=== PATIENT | male | born 1950 | race Caucasian/White ===

== ENCOUNTER 2019-04-01 11:12 | Day surgery (SDC) | payer OTHER ==
--- NOTE | 2019-03-31 16:35 | RAD REPORT ---
EXAM DESCRIPTION: RAD - Chest Pa And Lat (2 Views) - 03/31/2019 4:01 pm CLINICAL HISTORY: preop Chest pain. COMPARISON: <Comparisons> FINDINGS: The lungs are clear. The heart is normal in size. No displaced fractures. IMPRESSION: No acute or concerning finding suspected.
[2019-03-31 16:45] LABS: Absolute Lymphocytes (CBC) 1.5 K/uL (0.7-4.9); Basophils % 0.3 % (0-1.3); Hematocrit 50.1 % (39.6-49.0); Lymphocytes % 17.8 % (15.3-44.8); MPV 9.3 fL (7.6-11.3); Monocytes % 6.8 % (3.3-12.3); RBC Red Blood Cell Count 5.49 M/uL (4.33-5.43)
[2019-03-31 16:47] LABS: Urine Appearance CLEAR; Urine Bilirubin NEGATIVE (NEG); Urine Blood NEGATIVE (NEG); Urine Color YELLOW; Urine Glucose NEGATIVE (NEG); Urine Protein NEGATIVE (NEG); Urine Specific Gravity >=1.030 (1.005-1.030); Urine Urobilinogen 0.2 mg/dL (0.2-1.0)
[2019-03-31 16:52] LABS: Urine Microscopic Reflex NO UMIC
[2019-03-31 16:54] LABS: Protime INR 1.02
[2019-03-31 17:04] LABS: Potassium 3.5 mmol/L (3.5-5.1)
--- NOTE | 2019-03-31 22:22 | EKG ---
Test Date: 2019-03-31 Test Time: 15:41:42 Nurse Wound: SÁNCHEZ MEASUREMENT RESULTS: Intervals: Rate: 118 OK: QRSD: 122 QT: 340 QTc: 476 Velma: P: OK: QRS: 10 T: 51 INTERPRETIVE STATEMENTS: Accelerated junctional rhythm or atypical atrial flutter Right bundle branch block Abnormal ECG Compared to ECG 05/22/2015 19:51:54 Uncertain supraventricular rhythm now present Right bundle-branch block now present Sinus rhythm no longer present Electronically Signed On 03-31-19 22:22:19 CDT by Donavan Lopez
[2019-04-01] MEDS ORDERED: NA CHLORIDE 0.9% 1,000 ML ONE (11:32)
[2019-04-01] MEDS ORDERED: GENTAMICIN 80 MG/100 ML BAG 80 MG/100 ML BAG IV ONE (11:54)
[2019-04-01] MEDS ORDERED: FENTANYL CITR 100 MCG/2 ML ONE (12:04)
[2019-04-01] MEDS ORDERED: LIDOCAINE 2% MPF 5 ML VIAL ONE (12:04)
[2019-04-01] MEDS ORDERED: PROPOFOL 200 MG/20 ML VIAL IV ONE (12:04)
[2019-04-01] MEDS ORDERED: MIDAZOLAM HCL 2 MG/2 ML INJ ONE (12:04)
[2019-04-01 14:06] VITALS: BP 145/93; TEMP 98.1; O2SAT 96
== END 2019-04-01 14:32 | disposition home or self-care (01) ==
LOC: OR 11:12
PROVIDERS: ATTEND Urology
PROC: 0T7D8DZ Dilation of Urethra with Intraluminal Device, Via Natural or Artificial Opening Endoscopic (ICD-10-PCS; principal; 2019-04-01 13:30)
DX: N40.1 Benign prostatic hyperplasia with lower urinary tract symptoms (principal); R39.12 Poor urinary stream; N52.9 Male erectile dysfunction, unspecified; Z79.82 Long term (current) use of aspirin; E11.9 Type 2 diabetes mellitus without complications; E78.00 Pure hypercholesterolemia, unspecified; G47.30 Sleep apnea, unspecified; Z79.84 Long term (current) use of oral hypoglycemic drugs; Z79.899 Other long term (current) drug therapy
CPT/HCPCS: 52441; 52442 ×3; 93005; 87088; 85025; 87086; 80048; 36415; 85610; 82962 ×2; 85730; 81003; 71046; J2704; J2250; J3010; J7030; J1580

== ENCOUNTER 2020-02-01 01:24 | Emergency (ER) | payer OTHER ==
[2020-02-01] MEDS ORDERED: MORPHINE 4 MG/ML SYR ONE (01:42)
[2020-02-01] MEDS ORDERED: ONDANSETRON 4 MG/2 ML VIAL ONE ×2 (01:42→04:03)
[2020-02-01 01:57] LABS: Absolute Lymphocytes (CBC) 0.9 K/uL (0.7-4.9); Basophils % 0.3 % (0-1.3); Hematocrit 46.7 % (39.6-49.0); Lymphocytes % 8.5 % (15.3-44.8); MPV 8.7 fL (7.6-11.3)
[2020-02-01 02:19] LABS: Albumin 4.1 g/dL (3.4-5.0); Bilirubin Direct 0.3 mg/dL (0-0.2); Bilirubin Total 0.9 mg/dL (0.2-1.0); Protein, Total 7.9 g/dL (6.4-8.2)
--- NOTE | 2020-02-01 03:44 | ER ---
Nurse's Notes [facility] Name: Magnus Snow Age: 69 yrs Sex: Male : 1950 Arrival Date: 02/01/2020 Time: 01:26 Bed 5 Private MD: Diagnosis: Calculus of kidney with calculus of ureter Presentation: 01/31 01:35 Chief complaint: Patient states: my left lower back is hurting started 3 days ago. I am rr5 trying to pass kidney stone. 01:35 Coronavirus screen: Proceed with normal triage. Ebola Screen: Patient negative for rr5 fever greater than or equal to 101.5 degrees Fahrenheit, and additional compatible Ebola Virus Disease symptoms Patient denies exposure to infectious person. Patient denies travel to an Ebola-affected area in the 21 days before illness onset. Initial Sepsis Screen: Does the patient meet any 2 criteria? No. Patient's initial sepsis screen is negative. Does the patient have a suspected source of infection? No. Patient's initial sepsis screen is negative. Risk Assessment: Do you want to hurt yourself or someone else? Patient reports no desire to harm self or others. Onset of symptoms was January 29, 2020. 01:35 Method Of Arrival: Wheelchair rr5 01:35 Acuity: DEBRA 3 rr5 Triage Assessment: 02:00 General: Appears in no apparent distress. uncomfortable, ill, Behavior is calm, rr5 cooperative, appropriate for age. Historical: - Allergies: 01:55 No Known Allergies; rr5 - Home Meds: 01:55 ozempic [Active]; testosterone gel 1 % OD [Active]; Metformin Oral [Active]; rr5 fenofibrate oral oral [Active]; tamsulosin oral oral [Active]; vardenafil oral oral [Active]; aspirin Oral [Active]; Claritin Oral [Active]; Centrum Silver oral oral [Active]; Vitamin C Oral [Active]; Vitamin D Oral [Active]; vitamin B complex oral oral [Active]; Fish Oil oral oral [Active]; Cinnamon oral oral [Active]; - PMHx: 01:55 Diabetes - NIDDM; rr5 - Immunization history:: Adult Immunizations up to date. - Social history:: Smoking status: unknown Patient/guardian denies using alcohol, street drugs, IV drugs. Screenin:00 Abuse screen: Denies threats or abuse. Denies injuries from another. Nutritional rr5 screening: No deficits noted. Tuberculosis screening: No symptoms or risk factors identified. Fall Risk IV access (20 points). Mental Status- Oriented to own ability (0 pts). Total Sales Fall Scale indicates No Risk (0-24 pts). Assessment: 02:00 General: Appears in no apparent distress. uncomfortable, Behavior is calm, cooperative, rr5 appropriate for age. Pain: Complains of pain in left low back and left mid back Pain radiates to abdomen Pain currently is 10 out of 10 on a pain scale. Quality of pain is described as sharp, shooting, Pain began gradually, Is intermittent. Neuro: Level of Consciousness is awake, alert, obeys commands, Oriented to person, place, time, situation, Appropriate for age. Cardiovascular: Capillary refill < 3 seconds Patient's skin is warm and dry. Respiratory: Airway is patent Respiratory effort is even, unlabored, Respiratory pattern is regular, symmetrical. GI: Abdomen is round non-distended, Bowel sounds present X 4 quads. Abd is soft and non tender X 4 quads. : Reports pain in left flank(s), urinary frequency. EENT: Derm: Skin is intact, is healthy with good turgor, Skin temperature is warm. Musculoskeletal: Circulation, motion, and sensation intact. Capillary refill < 3 seconds. 02:02 Reassessment: Patient appears in no apparent distress at this time. Patient is alert, rr5 oriented x 3, equal unlabored respirations, skin warm/dry/pink. came back from CT scan.awaiting for results. Patient states symptoms have improved. 03:00 Reassessment: Patient appears in no apparent distress at this time. Patient is alert, rr5 oriented x 3, equal unlabored respirations, skin warm/dry/pink. Pain: Pain currently is 6 out of 10 on a pain scale. 03:15 Reassessment: awaiting for CT result. rr5 03:35 Reassessment: Patient appears in no apparent distress at this time. complaining of back rr5 pain. ED provider aware with order made and carried out. 04:20 Reassessment: Patient appears in no apparent distress at this time. Patient is alert, rr5 oriented x 3, equal unlabored respirations, skin warm/dry/pink. discharge instruction given and explained without complaints made. Patient states feeling better. Patient states symptoms have improved. Vital Signs: 01:35 BP 143 / 93; Pulse 90; Resp 19; Temp 98.7; Pulse Ox 99% ; Weight 99.79 kg; Height 5 ft. rr5 11 in. (180.34 cm); Pain 10/10; 03:15 BP 133 / 70; Pulse 80; Resp 19; Pulse Ox 98% on R/A; Pain 6/10; rr5 04:23 BP 124 / 79; Pulse 85; Resp 16; Temp 97.8; Pulse Ox 99% ; Pain 3/10; rr5 01:35 Body Mass Index 30.68 (99.79 kg, 180.34 cm) rr5 ED Course: 01:26 Patient arrived in ED. ds1 01:30 Shoaib Weldon MD is Attending Physician. tw4 01:48 Octaviano Hinkle RN is Primary Nurse. rr5 01:51 Triage completed. rr5 01:56 Arm band placed on right wrist. rr5 02:00 Patient has correct armband on for positive identification. Placed in gown. Bed in low rr5 position. Call light in reach. Side rails up X2. Pulse ox on. NIBP on. 02:15 Inserted saline lock: 20 gauge in right forearm, using aseptic technique. Blood rr5 collected. 02:15 No provider procedures requiring assistance completed. rr5 02:18 CT Stone Protocol In Process Unspecified. EDMS 03:43 Beny Carr MD is Referral Physician. tw4 04:25 IV discontinued, intact, bleeding controlled, No redness/swelling at site. Pressure rr5 dressing applied. Administered Medications: 03:41 CANCELLED (Physician Discretion): TORadol 15 mg IVP once tw4 03:45 Drug: morphine 2 mg {Note: rass 0.} Route: IVP; Site: right forearm; rr5 03:46 Drug: Flomax 0.4 mg Route: PO; rr5 03:50 Drug: Zofran (Ondansetron) 4 mg Route: IVP; Site: right forearm; rr5 Outcome: 03:43 Discharge ordered by . tw4 04:25 Discharged to home via wheelchair, with family. rr5 04:25 Condition: stable 04:25 Discharge instructions given to patient, Instructed on discharge instructions, follow up and referral plans. medication usage, Demonstrated understanding of instructions, follow-up care, medications, Prescriptions given X 3. 04:25 Patient left the ED. rr5 Signatures: Dispatcher [employer] [facility] Shirin Smallwood ds1 Shoaib Weldon MD MD tw4 Octaviano Hinkle RN RN rr5
--- NOTE | 2020-02-01 03:44 | EDPHYS ---
Physician Documentation [facility] Name: Magnus Snow Age: 69 yrs Sex: Male : 1950 Arrival Date: 02/01/2020 Time: 01:26 Bed 5 Private MD: ED Physician Shoaib Weldon HPI: 01/31 03:19 This 69 yrs old Male presents to ER via Wheelchair with complaints of tw4 Possible Kidney Stone. 03:19 The patient complains of pain in the left low back. The pain radiates to the left lower tw4 quadrant. Onset: The symptoms/episode began/occurred today. Modifying factors: The symptoms are alleviated by nothing. the symptoms are aggravated by nothing. Associated signs and symptoms: The patient has no apparent associated signs or symptoms. Severity of pain: At its worst the pain was moderate in the emergency department the pain is unchanged. The patient has not experienced similar symptoms in the past. Historical: - Allergies: 01:55 No Known Allergies; rr5 - Home Meds: 01:55 ozempic [Active]; testosterone gel 1 % OD [Active]; Metformin Oral [Active]; rr5 fenofibrate oral oral [Active]; tamsulosin oral oral [Active]; vardenafil oral oral [Active]; aspirin Oral [Active]; Claritin Oral [Active]; Centrum Silver oral oral [Active]; Vitamin C Oral [Active]; Vitamin D Oral [Active]; vitamin B complex oral oral [Active]; Fish Oil oral oral [Active]; Cinnamon oral oral [Active]; - PMHx: 01:55 Diabetes - NIDDM; rr5 - Immunization history:: Adult Immunizations up to date. - Social history:: Smoking status: unknown Patient/guardian denies using alcohol, street drugs, IV drugs. ROS: 03:19 Constitutional: Negative for fever, chills, and weight loss, Eyes: Negative for injury, tw4 pain, redness, and discharge, Cardiovascular: Negative for chest pain, palpitations, and edema, Respiratory: Negative for shortness of breath, cough, wheezing, and pleuritic chest pain, Abdomen/GI: Negative for abdominal pain, nausea, vomiting, diarrhea, and constipation, MS/Extremity: Negative for injury and deformity, Skin: Negative for injury, rash, and discoloration, Neuro: Negative for headache, weakness, numbness, tingling, and seizure. 03:19 Back: Positive for flank pain, on the left. Exam: 03:19 Constitutional: This is a well developed, well nourished patient who is awake, alert, tw4 and in no acute distress. Head/Face: Normocephalic, atraumatic. Chest/axilla: Normal chest wall appearance and motion. Nontender with no deformity. No lesions are appreciated. Cardiovascular: Regular rate and rhythm with a normal S1 and S2. No gallops, murmurs, or rubs. Normal PMI, no JVD. No pulse deficits. Respiratory: Lungs have equal breath sounds bilaterally, clear to auscultation and percussion. No rales, rhonchi or wheezes noted. No increased work of breathing, no retractions or nasal flaring. Abdomen/GI: Soft, non-tender, with normal bowel sounds. No distension or tympany. No guarding or rebound. No evidence of tenderness throughout. Skin: Warm, dry with normal turgor. Normal color with no rashes, no lesions, and no evidence of cellulitis. MS/ Extremity: Pulses equal, no cyanosis. Neurovascular intact. Full, normal range of motion. 03:19 Back: pain, that is moderate, ROM is normal, CVA tenderness, that is moderate, is noted on the left. Vital Signs: 01:35 BP 143 / 93; Pulse 90; Resp 19; Temp 98.7; Pulse Ox 99% ; Weight 99.79 kg; Height 5 ft. rr5 11 in. (180.34 cm); Pain 10/10; 03:15 BP 133 / 70; Pulse 80; Resp 19; Pulse Ox 98% on R/A; Pain 6/10; rr5 04:23 BP 124 / 79; Pulse 85; Resp 16; Temp 97.8; Pulse Ox 99% ; Pain 3/10; rr5 01:35 Body Mass Index 30.68 (99.79 kg, 180.34 cm) rr5 MDM: 01:30 Patient medically screened. tw4 03:42 Differential diagnosis: nephrolithiasis, pyelonephritis, UTI, diverticulitis, ruptured tw4 AAA, dissecting AAA. Data reviewed: vital signs, nurses notes. Data interpreted: Pulse oximetry: Interpretation: normal. Counseling: I had a detailed discussion with the patient and/or guardian regarding: the historical points, exam findings, and any diagnostic results supporting the discharge/admit diagnosis. Medication response: morphine markedly relieved the patient's pain. Symptoms have improved. Response to treatment: the patient's symptoms have markedly improved after treatment, and as a result, I will discharge patient, administer pain medication. Special discussion: I discussed with the patient/guardian in detail that at this point there is no indication for admission to the hospital. It is understood, however, that if the symptoms persist or worsen the patient needs to return immediately for re-evaluation. Special discussion: Based on the patient's Hx, exam, and Dx evaluation, there is no indication for emergent surgery or inpatient Tx. It is understood by the patient/guardian that if the Sx's persist or worsen they need to return immediately for re-evaluation. 01/31 01:31 Order name: Basic Metabolic Panel [facility] 01/31 01:31 Order name: CBC with Diff 01/31 01:31 Order name: Creatinine for Radiology; Complete Time: 03:41 [facility] 01/31 03:41 Interpretation: Abnormal: GFR 33; CRE 2.02. 01/31 01:31 Order name: Hepatic Function; Complete Time: 03:41 [facility] 01/31 03:41 Interpretation: Normal except: BILID 0.3; ALK 42; GLOB 3.8. 01/31 01:31 Order name: Lipase; Complete Time: 03:41 [facility] 01/31 03:41 Interpretation: Within normal limits: LIP 131. 01/31 01:32 Order name: Basic Metabolic Panel; Complete Time: 03:41 [facility] 01/31 03:41 Interpretation: Normal except: GLUC 127; BUN 25; CRE 2.03; GFR 33. 01/31 01:31 Order name: CT Stone Protocol [facility] 01/31 01:32 Order name: CBC with Automated Diff; Complete Time: 03:41 [facility] 01/31 03:41 Interpretation: Normal except: WBC 11.1; LYM% 8.5; MONTEZ% 82.6; NEUT A 9.2. 01/31 03:44 Order name: Urine Microscopic Only 01/31 03:55 Order name: Urine Dipstick--Ancillary (enter results) az5 01/31 01:31 Order name: IV Saline Lock; Complete Time: 01:48 tw4 01/31 01:31 Order name: Labs collected and sent; Complete Time: 01:48 tw4 01/31 03:44 Order name: Urine Dipstick-Ancillary (obtain specimen); Complete Time: 03:47 tw4 Administered Medications: 03:41 CANCELLED (Physician Discretion): TORadol 15 mg IVP once tw4 03:45 Drug: morphine 2 mg {Note: rass 0.} Route: IVP; Site: right forearm; rr5 03:46 Drug: Flomax 0.4 mg Route: PO; rr5 03:50 Drug: Zofran (Ondansetron) 4 mg Route: IVP; Site: right forearm; rr5 Disposition: 02/01/20 03:43 Discharged to Home. Impression: Calculus of kidney with calculus of ureter. - Condition is Stable. - Discharge Instructions: Kidney Stones, Renal Colic, Kidney Stones, [id number]. - Prescriptions for Tylenol- Codeine #3 300-30 mg Oral Tablet - take 2 tablet by ORAL route every 6 hours As needed; 6 tablet. Flomax 0.4 mg Oral Capsule, Sust. Release 24 hr - take 1 capsule by ORAL route once daily 1/2 hour following the same meal each day; 30 capsule. Tramadol 50 mg Oral Tablet - take 1 tablet by ORAL route every 8 hours as needed; 12 tablet. - Medication Reconciliation Form, Thank You Letter, Antibiotic Education, Prescription Opioid Use form. - Follow up: Private Physician; When: Upon discharge from the Emergency Department; Reason: Recheck today's complaints, Continuance of care, Re-evaluation by your physician. Follow up: Beny Carr MD; When: Upon discharge from the Emergency Department; Reason: Recheck today's complaints, Continuance of care, Re-evaluation by your physician. - Problem is new. - Symptoms have improved. Signatures: Dispatcher [employer] Shoaib Adams MD MD tw4 Octaviano Hinkle RN RN rr5 Corrections: (The following items were deleted from the chart) 03:41 03:40 TORadol 15 mg IVP once ordered. tw4 tw4 03:43 03:43 02/01/2020 03:43 Discharged to Home. Impression: Calculus of kidney with calculus tw4 of ureter. Condition is Stable. Forms are Medication Reconciliation Form, Thank You Letter, Antibiotic Education, Prescription Opioid Use. Follow up: Private Physician; When: Upon discharge from the Emergency Department; Reason: Recheck today's complaints, Continuance of care, Re-evaluation by your physician. Problem is new. Symptoms have improved. tw4 04:25 03:43 02/01/2020 03:43 Discharged to Home. Impression: Calculus of kidney with calculus rr5 of ureter. Condition is Stable. Discharge Instructions: Kidney Stones, Renal Colic, Kidney Stones, [id number]. Prescriptions for Tylenol-Codeine #3 300-30 mg Oral Tablet - take 2 tablet by ORAL route every 6 hours As needed; 6 tablet, Flomax 0.4 mg Oral Capsule, Sust. Release 24 hr - take 1 capsule by ORAL route once daily 1/2 hour following the same meal each day; 30 capsule, Tramadol 50 mg Oral Tablet - take 1 tablet by ORAL route every 8 hours as needed; 12 tablet. and Forms are Medication Reconciliation Form, Thank You Letter, Antibiotic Education, Prescription Opioid Use. Follow up: Private Physician; When: Upon discharge from the Emergency Department; Reason: Recheck today's complaints, Continuance of care, Re-evaluation by your physician. Follow up: Beny Carr; When: Upon discharge from the Emergency Department; Reason: Recheck today's complaints, Continuance of care, Re-evaluation by your physician. Problem is new. Symptoms have improved. tw4
[2020-02-01] MEDS ORDERED: TAMSULOSIN 0.4 MG SR CAP ONE (03:55)
[2020-02-01] MEDS ORDERED: MORPHINE 2 MG/ML SYR ONE (03:55)
[2020-02-01 04:02] LABS: Urine Glucose NEGATIVE (NEG); Urine Specific Gravity >1.030 (1.005-1.030)
[2020-02-01 04:03] LABS: Urine Blood NEGATIVE (NEG); Urine Protein NEGATIVE (NEG); Urine pH 5.5 (5.0-7.0)
[2020-02-01 04:13] LABS: Urine Bacteria <20 /HPF (NONE SEEN); Urine Culture Reflex Order NOT NEEDED; Urine Mucus 1+ /HPF (NONE SEEN); Urine RBC <5 /HPF (NONE SEEN)
[2020-02-01 04:37] VITALS: O2SAT 99
[2020-02-01 04:39] VITALS: BP 124/79; TEMP 97.8
--- NOTE | 2020-02-01 11:19 | RAD REPORT ---
EXAM DESCRIPTION: CT - Stone Protocol - 02/01/2020 6:52 am CLINICAL HISTORY: 69-year-old male with left lower back pain for three days TECHNIQUE: Axial CT imaging of the abdomen and pelvis was performed. Sagittal and coronal reconstr ucted images were then performed. The CT study is performed according to ALARA (as low as reasonably achievable) or ALARA/IMAGE GENTLY, with automatic adjustment of mA and/or kV according to patient siz e. Performed on: 02/01/2020 at 1:58 AM Comparison: Prior CT images from 06/17/2014. The report from the study was not available for review. FINDINGS: Lung bases: The lung bases are clear. There is minimal bibasilar atelectasis and/or fibros is. Liver: The liver is normal in size and configuration. No focal hepatic abnormalities are appreciated on this unenhanced scan. Liver attenuation is within normal limits. Spleen: The spleen is normal is size, configuration and attenuation. No focal splenic abnormalities a re appreciated on this unenhanced scan. Gallbladder and bile duct: The gallbladder is well distended and contains numerous gallstones. Ther e is no biliary ductal dilatation. Pancreas: The pancreas is grossly normal in size and configuration. Adrenal Glands: The adrenal glands are normal in size and configuration. Kidneys: The kidneys are normal in size and configuration. There is mild to moderate left-sided hydro nephrosis and hydroureter with perinephric and periureteral inflammation and edema secondary to a 3 x 3 x 3 mm calcification in the left ureterovesical junction. No additional urinary tract calcificatio ns are identified. No additional focal renal abnormalities are appreciated. Stomach: The stomach is grossly normal. There is no definite hiatal hernia. Bowel: The bowel gas pattern is non specific and non obstructive. There is scattered colonic divertic ulosis. Appendix: The appendix is normal. Free air: There is no evidence of free air. Free fluid: There is no evidence of free fluid. Vasculature: The aorta is normal in caliber and contour. The inferior vena cava is grossly unremarkab le. Lymphadenopathy: No pathologic lymphadenopathy is identified. Bladder: The bladder is well distended and smooth in contour. Again demonstrated is a 3 mm calcificat ion in the left ureterovesical junction. Reproductive: The prostate gland contains brachytherapy seeds. Bones: No acute osseous abnormalities are identified. Soft tissues: No acute focal soft tissue abnormalities are identified. There is a very small fat-cont aining right inguinal hernia. IMPRESSION: 1. Mild to moderate left-sided hydronephrosis and hydroureter with perinephric and periu reteral inflammation and edema secondary to a 3 x 3 x 3 mm calcification in the left ureterovesical j unction. 2. Cholelithiasis without evidence of biliary ductal dilatation. 3. Scattered colonic diverticulosis. 4. There are brachytherapy seeds randomly scattered throughout the prostate gland. 5. Very small fat-containing right inguinal hernia. Electronically signed by: Sally Romero DO 02/01/2020 2:36 AM CDT Due to temporary technical issues with the PACS/Fluency reporting system, reports are being signed by the in house radiologist as a courtesy to ensure prompt reporting. The interpreting radiologist is f ully responsible for the content of the report.
== END 2020-02-01 04:25 | disposition home or self-care (01) ==
LOC: ER 01:24
DX: N20.2 Calculus of kidney with calculus of ureter (principal); E11.9 Type 2 diabetes mellitus without complications; Z79.82 Long term (current) use of aspirin
CPT/HCPCS: 85025; 80048; 36415; 80076; 83690; 76377; 74176; J2270; J2405 ×2; 81003; 81015; 96374; 96375; 99284

== ENCOUNTER 2020-03-06 08:56 | Inpatient (IN) | payer OTHER ==
[2020-03-06 09:55] LABS: Absolute Lymphocytes (CBC) 1.4 K/uL (0.7-4.9); Basophils % 0.7 % (0-1.3); Hematocrit 44.3 % (39.6-49.0); Lymphocytes % 23.9 % (15.3-44.8); MPV 8.9 fL (7.6-11.3); RBC Red Blood Cell Count 4.84 M/uL (4.33-5.43)
[2020-03-06 09:56] LABS: Protime INR 0.95
[2020-03-06 10:22] LABS: Albumin 3.9 g/dL (3.4-5.0); Bilirubin Direct 0.1 mg/dL (0-0.2); Bilirubin Total 0.4 mg/dL (0.2-1.0); Magnesium 2.3 mg/dL (1.8-2.4); Potassium 3.9 mmol/L (3.5-5.1); Protein, Total 7.2 g/dL (6.4-8.2)
[2020-03-06 10:24] LABS: Troponin (Emerg Dept Use Only) 1.73 ng/mL (0.0-0.045)
[2020-03-06] MEDS ORDERED: ASPIRIN 81 MG CHEWABLE TABLET ONE (10:57)
--- NOTE | 2020-03-06 11:35 | RAD REPORT ---
EXAM DESCRIPTION: RAD - Chest Single View - 03/06/2020 10:30 am CLINICAL HISTORY: CHEST PAIN Chest pain. COMPARISON: Abdomen 1 View (KUB) dated 02/04/2020; Chest Pa And Lat (2 Views) dated 02/04/2020; Chest Pa And Lat (2 Views) dated 03/31/2019; CHEST SINGLE VIEW dated 05/22/2015 FINDINGS: Portable technique limits examination quality. The lungs are grossly clear. The heart is normal in size. No displaced fractures. IMPRESSION: No acute intrathoracic process suspected.
--- NOTE | 2020-03-06 12:03 | EDPHYS ---
Physician Documentation [facility] Name: Magnus Snow Age: 69 yrs Sex: Male : 1950 Arrival Date: 03/06/2020 Time: 08:59 Bed 6 Private MD: ED Physician Jaswant Alfaro HPI: 03/06 09:51 This 69 yrs old Male presents to ER via Ambulatory with complaints of Chest mh7 Pain. 09:51 The patient or guardian reports chest pain that is located primarily in the substernal mh7 area. Onset: this morning. The pain radiates to the left arm, back. Associated signs and symptoms: Pertinent negatives: abdominal pain, cough, diaphoresis, dizziness, headache, lower extremity pain, lower extremity swelling, lightheadedness, nausea, near syncope, palpitations, recent travel, shortness of breath, syncope, vomiting. The chest pain is described as Tightness. Duration: The patient or guardian reports multiple episodes, that are intermittent, that wax and wane, with no pattern. Modifying factors: The symptoms are alleviated by nothing. the symptoms are aggravated by nothing. Severity of pain: At its worst the pain was moderate this morning, in the emergency department the pain is unchanged. Historical: - Allergies: 09:16 Codeine; hb 09:16 hydrocodone; hb - Home Meds: 09:16 Aspirin Oral [Active]; Centrum Silver Oral [Active]; Cinnamon Oral [Active]; Claritin hb Oral [Active]; fenofibrate Oral [Active]; Fish Oil Oral [Active]; Metformin Oral [Active]; ozempic [Active]; testosterone gel 1 % OD [Active]; vardenafil Oral [Active]; vitamin B complex Oral [Active]; Vitamin C Oral [Active]; Vitamin D Oral [Active]; tamsulosin Oral [Active]; - PMHx: 09:16 Diabetes - NIDDM; hb - PSHx: 09:16 Heart stents; hb - Immunization history:: Adult Immunizations up to date. - Social history:: Smoking status: Patient denies any tobacco usage or history of. ROS: 09:51 Constitutional: Negative for fever, chills, and weight loss, Eyes: Negative for injury, mh7 pain, redness, and discharge, ENT: Negative for injury, pain, and discharge, Neck: Negative for injury, pain, and swelling, Respiratory: Negative for shortness of breath, cough, wheezing, and pleuritic chest pain, Abdomen/GI: Negative for abdominal pain, nausea, vomiting, diarrhea, and constipation, : Negative for injury, bleeding, discharge, and swelling, MS/Extremity: Negative for injury and deformity, Skin: Negative for injury, rash, and discoloration, Neuro: Negative for headache, weakness, numbness, tingling, and seizure, Psych: Negative for depression, anxiety, suicide ideation, homicidal ideation, and hallucinations, Allergy/Immunology: Negative for hives, rash, and allergies, Endocrine: Negative for neck swelling, polydipsia, polyuria, polyphagia, and marked weight changes, Hematologic/Lymphatic: Negative for swollen nodes, abnormal bleeding, and unusual bruising. Exam: 09:51 Constitutional: This is a well developed, well nourished patient who is awake, alert, mh7 and in no acute distress. Head/Face: Normocephalic, atraumatic. Eyes: Pupils equal round and reactive to light, extra-ocular motions intact. Lids and lashes normal. Conjunctiva and sclera are non-icteric and not injected. Cornea within normal limits. Periorbital areas with no swelling, redness, or edema. ENT: Nares patent. No nasal discharge, no septal abnormalities noted. Tympanic membranes are normal and external auditory canals are clear. Oropharynx with no redness, swelling, or masses, exudates, or evidence of obstruction, uvula midline. Mucous membranes moist. Neck: Trachea midline, no thyromegaly or masses palpated, and no cervical lymphadenopathy. Supple, full range of motion without nuchal rigidity, or vertebral point tenderness. No Meningismus. Chest/axilla: Normal chest wall appearance and motion. Nontender with no deformity. No lesions are appreciated. Cardiovascular: Regular rate and rhythm with a normal S1 and S2. No gallops, murmurs, or rubs. Normal PMI, no JVD. No pulse deficits. Respiratory: Lungs have equal breath sounds bilaterally, clear to auscultation and percussion. No rales, rhonchi or wheezes noted. No increased work of breathing, no retractions or nasal flaring. Abdomen/GI: Soft, non-tender, with normal bowel sounds. No distension or tympany. No guarding or rebound. No evidence of tenderness throughout. Back: No spinal tenderness. No costovertebral tenderness. Full range of motion. Skin: Warm, dry with normal turgor. Normal color with no rashes, no lesions, and no evidence of cellulitis. MS/ Extremity: Pulses equal, no cyanosis. Neurovascular intact. Full, normal range of motion. Neuro: Awake and alert, GCS 15, oriented to person, place, time, and situation. Cranial nerves II-XII grossly intact. Motor strength 5/5 in all extremities. Sensory grossly intact. Cerebellar exam normal. Normal gait. Psych: Awake, alert, with orientation to person, place and time. Behavior, mood, and affect are within normal limits. 09:51 ECG was reviewed by the Attending Physician. Vital Signs: 09:12 BP 172 / 102; Pulse 79; Resp 16; Temp 98; Pulse Ox 98% ; Weight 97.52 kg; Height 5 ft. hb 10 in. (177.80 cm); Pain 2/10; 09:30 BP 143 / 97; Pulse 77; Resp 14; Pulse Ox 95% ; sv 10:00 BP 153 / 104; Pulse 78; Resp 16; Pulse Ox 95% ; sv 11:30 BP 154 / 99; Pulse 81; Resp 14; Pulse Ox 96% ; sv 12:37 BP 144 / 110; Pulse 77; Resp 14; Pulse Ox 97% ; sv 13:13 BP 154 / 101; Pulse 77; Resp 12; Pulse Ox 96% ; sv 09:12 Body Mass Index 30.85 (97.52 kg, 177.80 cm) hb MDM: 09:25 Patient medically screened. 7 11:55 Differential diagnosis: abnormal EKG, acute myocardial infarction, coronary artery mh7 disease chest wall pain, congestive heart failure peptic ulcer disease, pneumonia, unstable angina. HEART Score: History: Moderately Suspicious (1), ECG: Non specific repolarization disturbance / LBTB / PM (1), Age: > or = 65 years (2), Risk Factors: > or = 3 Risk factors for atherosclerotic disease (2), [Hypercholesterolemia] [Hypertension] [DM] Troponin: > or = 3 x Normal Limit (2), Total Score = 8. The patient was given aspirin in the Emergency Department. Data reviewed: vital signs, nurses notes, lab test result(s), cardiac enzymes, CBC, electrolytes, EKG, radiologic studies, plain films. 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 Interpretation: normal. Counseling: I had a detailed discussion with the patient and/or guardian regarding: the historical points, exam findings, and any diagnostic results supporting the discharge/admit diagnosis, the presence of at least one elevated blood pressure reading (>120/80) during this emergency department visit, lab results, radiology results, the need for further work-up and treatment in the hospital. Physician consultation: Moshe Iraheta MD regarding admission, to the telemetry unit. 03/06 09:26 Order name: Basic Metabolic Panel [facility] 03/06 09:26 Order name: CBC with Diff; Complete Time: 10:09 03/06 09:26 Order name: LFT's; Complete Time: 10:45 03/06 09:26 Order name: Magnesium; Complete Time: 10:45 [facility] 03/06 09:26 Order name: NT PRO-BNP; Complete Time: 10:45 03/06 09:26 Order name: PT-INR; Complete Time: 10:09 03/06 09:26 Order name: Troponin (emerg Dept Use Only); Complete Time: 10:45 03/06 09:26 Order name: XRAY Chest (1 view); Complete Time: 11:41 7 03/06 09:26 Order name: EKG; Complete Time: 09:28 [facility] 03/06 09:27 Order name: Basic Metabolic Panel; Complete Time: 10:45 EDMS 03/06 09:26 Order name: Cardiac monitoring; Complete Time: 09:39 03/06 09:26 Order name: EKG - Nurse/Tech; Complete Time: 09:39 03/06 09:26 Order name: IV Saline Lock; Complete Time: 09:46 03/06 09:26 Order name: Labs collected and sent; Complete Time: :46 03/06 09:26 Order name: O2 Per Protocol; Complete Time: 09:32 03/06 09:26 Order name: O2 Sat Monitoring; Complete Time: 09:33 7 EC:51 Rate is 75 beats/min. Rhythm is regular. QRS Elmo is Normal. WA interval is normal. QRS mh7 interval is normal. QT interval is normal. No Q waves. T waves are Normal. No ST changes noted. Clinical impression: Abnormal EKG without significant change. Administered Medications: 11:14 Drug: Aspirin Chewable Tablet 324 mg Route: PO; em 12:00 Follow up: Response: No adverse reaction em 12:42 Drug: Lovenox 1 mg/kg Route: Sub-Q; Site: left lower abdomen; em 13:31 Follow up: Response: No adverse reaction em 13:31 Not Given (Patient Refused): morphine 2 mg IVP once; (PAIN>8) RASS on ADMN: Combtv4, em Very Agttd3, Agttd2, Rstlss1, AlertClm0, Drwsy-1, LtSdtn-2, ModSdtn-3, DpSdtn-4, UnArsble-5 x2 13:31 Not Given (Patient Refused): Zofran (Ondansetron) 4 mg IVP once; over 2 minutes em Disposition: 03/06/20 12:00 Hospitalization ordered by Shaheed Morris for Inpatient Admission. Preliminary diagnosis is Non-ST elevation (NSTEMI) myocardial infarction. - Bed requested for Telemetry/MedSurg (Inpatient). - Status is Inpatient Admission. em - Condition is Stable. - Problem is new. - Symptoms have improved. Signatures: Dispatcher [employer] EDPA Kirsty Rincon RN RN Emmanuel Rome RN RN Lisa Siegel RN RN hb Holmes, Maurice, MD MD 7 Corrections: (The following items were deleted from the chart) 12:54 12:00 Hospitalization Ordered by Shaheed Morris DO for Inpatient Admission. Preliminary konstantin diagnosis is Non-ST elevation (NSTEMI) myocardial infarction. Bed requested for Telemetry/MedSurg (Inpatient). Status is Inpatient Admission. Condition is Stable. Problem is new. Symptoms have improved. 7 13:45 12:54 03/06/2020 12:00 Hospitalization Ordered by Shaheed Morris DO for Inpatient em Admission. Preliminary diagnosis is Non-ST elevation (NSTEMI) myocardial infarction. Bed requested for Telemetry/MedSurg (Inpatient). Status is Inpatient Admission. Condition is Stable. Problem is new. Symptoms have improved. dw
--- NOTE | 2020-03-06 12:03 | ER ---
Nurse's Notes [facility] Name: Magnus Snow Age: 69 yrs Sex: Male : 1950 Arrival Date: 03/06/2020 Time: 08:59 Bed 6 Private MD: Diagnosis: Non-ST elevation (NSTEMI) myocardial infarction Presentation: 03/06 09:12 Chief complaint: Anterior chest pain that radiates to mid back and left arm since 0300 hb today. 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 Denies SOB/nausea. Coronavirus screen: Proceed with normal triage. Ebola Screen: No symptoms or risks identified at this time. Initial Sepsis Screen: Does the patient meet any 2 criteria? No. Patient's initial sepsis screen is negative. Does the patient have a suspected source of infection? No. Patient's initial sepsis screen is negative. Risk Assessment: Do you want to hurt yourself or someone else? Patient reports no desire to harm self or others. Onset of symptoms. 09:12 Method Of Arrival: Ambulatory hb 09:12 Acuity: DEBRA 3 hb Historical: - Allergies: 09:16 Codeine; hb 09:16 hydrocodone; hb - Home Meds: 09:16 Aspirin Oral [Active]; Centrum Silver Oral [Active]; Cinnamon Oral [Active]; Claritin hb Oral [Active]; fenofibrate Oral [Active]; Fish Oil Oral [Active]; Metformin Oral [Active]; ozempic [Active]; testosterone gel 1 % OD [Active]; vardenafil Oral [Active]; vitamin B complex Oral [Active]; Vitamin C Oral [Active]; Vitamin D Oral [Active]; tamsulosin Oral [Active]; - PMHx: 09:16 Diabetes - NIDDM; hb - PSHx: 09:16 Heart stents; hb - Immunization history:: Adult Immunizations up to date. - Social history:: Smoking status: Patient denies any tobacco usage or history of. Screenin:40 Abuse screen: Denies threats or abuse. Nutritional screening: No deficits noted. em Tuberculosis screening: No symptoms or risk factors identified. Fall Risk None identified. Assessment: 09:40 General: Appears in no apparent distress. comfortable, Behavior is calm, cooperative, em appropriate for age. Pain: Complains of pain in mid-sternal area Pain does not radiate. Pain currently is 2 out of 10 on a pain scale. Quality of pain is described as "tight" Pain began 0300 this morning. Neuro: Level of Consciousness is awake, alert, obeys commands, Oriented to person, place, time, situation, Appropriate for age. Cardiovascular: Reports chest pain, Denies diaphoresis, nausea, palpitations, shortness of breath, Capillary refill < 3 seconds Patient's skin is warm and dry. Rhythm is sinus rhythm. Respiratory: Airway is patent Respiratory effort is even, unlabored, Respiratory pattern is regular, symmetrical, Denies cough, shortness of breath. Derm: Skin is intact, is healthy with good turgor, Skin is pink, warm \\T\\ dry. Musculoskeletal: Capillary refill < 3 seconds, Range of motion: intact in all extremities. 10:09 Reassessment: pt currently wants to hold on the medications. em 11:10 Reassessment: Patient appears in no apparent distress at this time. Patient and/or em family updated on plan of care and expected duration. Pain level reassessed. Patient is alert, oriented x 3, equal unlabored respirations, skin warm/dry/pink. 11:54 Reassessment: Dr Morris at the bedside. sv 12:42 Reassessment: Patient appears in no apparent distress at this time. Patient and/or em family updated on plan of care and expected duration. Pain level reassessed. Patient is alert, oriented x 3, equal unlabored respirations, skin warm/dry/pink. Vital Signs: 09:12 BP 172 / 102; Pulse 79; Resp 16; Temp 98; Pulse Ox 98% ; Weight 97.52 kg; Height 5 ft. hb 10 in. (177.80 cm); Pain 2/10; 09:30 BP 143 / 97; Pulse 77; Resp 14; Pulse Ox 95% ; sv 10:00 BP 153 / 104; Pulse 78; Resp 16; Pulse Ox 95% ; sv 11:30 BP 154 / 99; Pulse 81; Resp 14; Pulse Ox 96% ; sv 12:37 BP 144 / 110; Pulse 77; Resp 14; Pulse Ox 97% ; sv 13:13 BP 154 / 101; Pulse 77; Resp 12; Pulse Ox 96% ; sv 09:12 Body Mass Index 30.85 (97.52 kg, 177.80 cm) ED Course: 08:59 Patient arrived in ED. ag5 09:12 Arm band placed on. hb 09:13 Jaswant Alfaro MD is Attending Physician. mh7 09:14 Triage completed. hb 09:14 EKG done, by ED staff, reviewed by Jaswant Alfaro MD. jb1 09:17 Emmanuel Rome, MATEO is Primary Nurse. em 09:40 Initial lab(s) drawn, by me, sent to lab. Inserted saline lock: 20 gauge in right em forearm, using aseptic technique. Blood collected. Patient maintains SpO2 saturation greater than 95% on room air. 09:40 Patient has correct armband on for positive identification. Placed in gown. Bed in low em position. Call light in reach. Side rails up X2. ekg monitor tech on. Pulse ox on. NIBP on. 10:30 XRAY Chest (1 view) In Process Unspecified. EDMS 12:00 Shaheed Morris DO is Hospitalizing Provider. [facility] 13:41 No provider procedures requiring assistance completed. Patient admitted, IV remains in em place. Administered Medications: 11:14 Drug: Aspirin Chewable Tablet 324 mg Route: PO; em 12:00 Follow up: Response: No adverse reaction em 12:42 Drug: Lovenox 1 mg/kg Route: Sub-Q; Site: left lower abdomen; em 13:31 Follow up: Response: No adverse reaction em 13:31 Not Given (Patient Refused): morphine 2 mg IVP once; (PAIN>8) RASS on ADMN: Combtv4, em Very Agttd3, Agttd2, Rstlss1, AlertClm0, Drwsy-1, LtSdtn-2, ModSdtn-3, DpSdtn-4, UnArsble-5 x2 13:31 Not Given (Patient Refused): Zofran (Ondansetron) 4 mg IVP once; over 2 minutes em Outcome: 12:00 Decision to Hospitalize by Provider. mh7 13:41 Admitted to Tele accompanied by carlos, via wheelchair, room 222, with chart, Report em called to MATEO Kruse 13:41 Condition: good 13:41 Instructed on the need for admit, Demonstrated understanding of instructions. 13:45 Patient left the ED. em Signatures: Dispatcher [employer] EDMS Lex Rosenbaum [email or web address] Isabella Molina RN RN Emmanuel Negrete RN RN Lisa Staton RN RN Flaquita Parsons 5 Jaswant Alfaro MD MD 7
[2020-03-06] MEDS ORDERED: ENOXAPARIN 100 MG/ML SYR SQ ONE (12:19)
--- NOTE | 2020-03-06 12:40 | P.HP ---
Certification for Inpatient Patient admitted to: Inpatient With expected LOS: >2 Midnights Patient will require the following post-hospital care: None Practitioner: I am a practitioner with admitting privileges, knowledge of patient current condition, hospital course, and medical plan of care. Services: Services provided to patient in accordance with Admission requirements found in Title 42 Section 412.3 of the Code of Federal Regulations Patient History Date of Service: 03/06/20 Primary Care Provider: Dr. Montelongo Reason for admission: Chest pain History of Present Illness: 69-year-old male with history of diabetes, hypertension, hyperlipidemia, and CAD with prior stent. Patient presented with chest pain. Chest pain presented at 3:00 a.m. this morning. It was to the substernal region. There was slight radiation just to the border on the left side. He also reported some left arm tingling. The pain was constant. He will reported the pain as similar to his prior NM 14 years ago which required a stent. He has noted some chest pain with exertion as of late. It resolves with rest. He denies any nausea, vomiting, dizziness, or diaphoresis. He came to the ER for further evaluation. In the ER patient was evaluated peer blood pressure was elevated. CBC unremarkable with white count 6.0, hemoglobin 15. Platelet count 163. Sodium 141, potassium 3.8. BUN of 29, creatinine 1.33 with a GFR 54. Glucose 124. EKG shows no significant ST elevation. Chest x-ray unremarkable. Troponin was elevated at 1.73. Patient admitted for further evaluation of NSTEMI. When I saw the patient ER, the patient appeared stable. He is without chest pain at this time. Allergies codeine Allergy (Verified 03/31/19 15:30) Unknown hydrocodone [Hydrocodone] Adverse Reaction (Mild, Verified 03/31/19 15:30) Hives Home medications list reviewed: Yes Home Medications: Aspirin [Aspirin EC 81 MG] 81 mg PO DAILY 03/31/19 Cholecalciferol (Vitamin D3) [Vitamin D3] 1,000 unit PO DAILY 03/31/19 Fenofibrate 150 mg PO DAILY 03/31/19 Loratadine/Pseudoephedrine [Claritin-D 24 Hour Tablet] 1 each PO DAILY 03/31/19 Metformin HCl [Glucophage] 500 mg PO BIDWM 03/31/19 Multivit-Mins/Iron/Folic/Lycop [Centrum Men's Tablet] 1 each PO DAILY 03/31/19 Tamsulosin HCl [Flomax] 0.4 mg PO DAILY 03/31/19 Vardenafil HCl [Levitra] 20 mg PO DAILY 03/31/19 Vitamin B Complex [B-Complex Vitamin] 1 cap PO DAILY 03/31/19 - Past Medical/Surgical History Diabetic: No -: Diabetes mellitus type 2 [id number] -: Hypertension -: Hyperlipidemia -: CAD with prior stent -: Cardiac stent x1 Psychosocial/ Personal History: Patient is . 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 - Family History Father -: Heart disease - Social History Smoking Status: Never smoker Alcohol use: No CD- Drugs: No Caffeine use: Yes Place of Residence: Home Review of Systems General: As per HPI Eyes: Unremarkable ENT: Unremarkable Respiratory: Unremarkable Cardiovascular: Chest Pain, As per HPI Gastrointestinal: Unremarkable Genitourinary: Unremarkable Musculoskeletal: Unremarkable Integumentary: Unremarkable Neurological: Unremarkable Lymphatics: Unremarkable Physical Examination - Physical Exam General: Alert, In no apparent distress, Oriented x3, Cooperative HEENT: Atraumatic, Normocephalic, PERRLA, Mucous membr. moist/pink Neck: Supple Respiratory: Clear to auscultation bilaterally, Normal air movement Cardiovascular: Normal pulses, Regular rate/rhythm Gastrointestinal: Normal bowel sounds, Soft and benign, Non-distended, No tenderness, No masses, No rebound, No guarding Musculoskeletal: No erythema, No tenderness, No warmth Integumentary: No tenderness/swelling, No erythema, No warmth, No cyanosis Neurological: Normal speech, Normal strength at 5/5 x4 extr, Normal tone, Normal affect - Studies Laboratory Data (last 24 hrs) 03/06/20 09:40: PT 11.2, INR 0.95 03/06/20 09:40: WBC 6.0, Hgb 15.0, Hct 44.3, Plt Count 163 03/06/20 09:40: Sodium 141, Potassium 3.9, BUN 29 H, Creatinine 1.33 H, Glucose 124 H, Magnesium 2.3, Total Bilirubin 0.4, AST 24, ALT 23, Alkaline Phosphatase 42 L Assessment and Plan - Plan Impression: Chest pain secondary to NSTEMI with history of CAD and prior stent Hypertension on controlled Diabetes mellitus type 2 nom-npirgtt-hdxqtyscd with hyperglycemia Acute renal injury in patient may have underlying chronic renal disease stage III Hyperlipidemia Plan: Chest pain secondary to NSTEMI with history of CAD and prior stent: Patient will be admitted for further evaluation and treatment. Case discussed with cardiology and his PCP-Dr. Montelongo, who will see him tomorrow. NM protocol in place. Will start Lovenox at 1 milligram/kilogram subcu twice daily, [id number] mg daily, Plavix 75 mg daily, Lipitor 80 mg daily, and metoprolol 50 mg BID. Echocardiogram ordered. Will continue monitor the patient closely. Electrolyte protocol in place. Will provide medication for chest pain if required. Anticipate improvement. Cardiology plans for heart catheterization on Sunday due to holiday weekend. I will turn the patient over to Dr. Montelongo tomorrow to continue his care. Case discussed with patient and family. All are agreement with plan of care. Hypertension uncontrolled: Will start metoprolol 50 mg 1 pill twice daily. Wi ll continue and to adjust medication for better control. Diabetes mellitus type 2 [id number]-ivehoolwu with hyperglycemia: Will hold metformin at this time in preparation for heart catheterization. Will continue monitor Accu-Cheks and provide insulin sliding scale. Will check A1c. Acute renal injury in patient may have underlying chronic renal disease stage III: Patient may have underlying chronic renal disease. Will check renal ultrasound. Will start low-dose IV fluids. Will hold metformin at this time. Will consult Nephrology to further evaluate in preparation for heart catheterization. Hyperlipidemia: Will check fasting lipid panel. Will start Lipitor 80 mg daily. Continue home medication of phenyl fibrate. Discharge Plan: Home Plan to discharge in: Greater than 2 days - Advance Directives Does patient have a Living Will: No Does patient have a Durable POA for Healthcare: No - Code Status/Comfort Care Code Status Assessed: Yes (Patient is full code) Time Spent Managing Pts Care (In Minutes): 55
[2020-03-06 13:51] VITALS: BMI 30.2
[2020-03-06] MEDS ORDERED: MORPHINE 4 MG/ML SYR IV PRN (14:05)
[2020-03-06] MEDS ORDERED: ACETAMINOPHEN 500 MG TAB PO PRN (14:05)
[2020-03-06] MEDS ORDERED: PROMETHAZINE 12.5 MG/SUPP PR PRN (14:37)
[2020-03-06] MEDS: NA CHLORIDE 0.9% 1,000 ML IV SCH (15:01)
[2020-03-06] MEDS: METOPROLOL TAR 50 MG TAB PO SCH ×2 (15:01→22:00)
[2020-03-06] MEDS: CLOPIDOGREL 75 MG TABLET PO SCH (15:01)
[2020-03-06] MEDS ORDERED: PNEUMOCOCCAL VACCINE 0.5 ML IMVAC ONE (16:00)
[2020-03-06] MEDS: INSULIN -REGULAR HUMAN 50 UNIT/0.5 ML ML SQ SCH ×2 (16:09→21:00)
--- NOTE | 2020-03-06 16:20 | RAD REPORT ---
EXAM DESCRIPTION: US - Renal Ultrasound-Complete - 03/06/2020 4:13 pm CLINICAL HISTORY: Acute renal injury suspect chronic disease Flank pain COMPARISON: No comparisons FINDINGS: Both kidneys are normal in size, shape and echotexture. The right kidney measures 11.6 x 5.6 x 4.9 cm. No hydronephrosis, focal mass or perinephric fluid. The left kidney measures 12.2 x 4.6 x 4.5 cm. No hydronephrosis, focal mass or perinephric fluid. The urinary bladder is incompletely distended without gross abnormality seen. IMPRESSION: Unremarkable renal sonogram.
[2020-03-06] MEDS: FENOFIBRATE 160 MG TAB PO SCH (17:29)
[2020-03-06 20:01] LABS: CKMB Creatine Kinase MB 29.6 ng/mL (0.3-3.6)
[2020-03-06] MEDS: ATORVASTATIN 80 MG TAB PO SCH (22:00)
[2020-03-06] MEDS: FAMOTIDINE 20 MG TAB PO SCH (22:00)
[2020-03-06] MEDS: ENOXAPARIN 100 MG/ML SYR SQ SCH (22:01)
--- NOTE | 2020-03-07 01:23 | PN ---
Date of Nephrology consultation Note: 03/06/2020 Chief Complaint: Acute on chronic kidney injury, acute coronary syndrome. Patient has multiple medical problems including history of diabetes mellitus, hypertension, hyperlipidemia, coronary artery disease, previous stent placement. History: Patient presented to the hospital because of chest pain. 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 He was complaining of left arm tingling. He reports similar episodes 14 years ago when he had a myocardial infarction. Patient denies nausea, vomiting, dizziness, or diaphoresis. In the emergency room, patient was found to have elevated BUN and creatinine. BUN was 29 and creatinine was 1.33. Recently, creatinine was up to 2.0. Previous baseline creatinine was 1.1. Patient has history of chronic kidney disease stage 3. Developed prerenal azotemia. EKG shows no significant ST elevation and chest x-ray was unremarkable. In the emergency room, troponin level was 1.7. Review of Systems: Eyes: Denies new vision changes. Respiratory: Denies PND, orthopnea. Cardiovascular: Had chest pain as stated above. GI: Denies nausea, vomiting. : Denies hematuria, dysuria, incomplete voiding. All other systems reviewed and all are negative. Past Medical History: Diabetes mellitus, noninsulin dependent; BPH; hypertension; hyperlipidemia; coronary artery disease; previous myocardial infarctions with stent placement, cardiac stent x1; hypertensive heart and kidney disease; chronic kidney disease stage 3. Family History: Heart disease. Social History: Denies tobacco, alcohol, or illicit drugs. Physical Examination: General: Patient is alert, not in acute distress. Oriented, cooperative. HEENT: Anicteric sclerae. EOMI. Respiratory: Clear to auscultation bilaterally. Heart: S1, S2. No pericardial friction rub. Gastrointestinal: Normal bowel sounds. No rebound. No guarding. Musculoskeletal: No edema, no clubbing, no cyanosis. Neurologic: Moving extremities. Cranial nerves intact. Skin: Warm and dry. No skin rashes. Laboratory Data: Hemoglobin 15.0, hematocrit 44.3, platelet count 163,000. Sodium 141, potassium 3.9, BUN 29, creatinine 1.33, glucose 124, magnesium 2.3. Renal ultrasound was ordered and pending. Impression And Plan: 1. Patient is admitted for chest pain. He has history of coronary artery disease and he was found to have elevated troponin. He is admitted for non-ST elevation myocardial infarction. He has history of diabetes mellitus and was found to have hyperglycemia. Acute kidney injury is secondary to cardiorenal syndrome. He has nonoliguric urine output. Patient will be treated for acute coronary syndrome and non-ST elevation myocardial infarction and he is started on anticoagulation and statin. Plan is to continue to monitor electrolytes and fluid balance. Diuretic as needed to control fluid overload. 2. Patient has underlying chronic kidney. Patient has history of diabetes mellitus, likely there is some element of diabetic kidney disease. Patient is not a candidate for metformin due to chronic and acute kidney disease. 3. Diabetes mellitus. Continue insulin. 4. Hypertension. Continue blood pressure medication. Adjust medication for systolic blood pressure 120. SHANIQUE/KARIE Voice ID: [id number] Report ID: [id number] MTDD
[2020-03-07 04:05] LABS: Absolute Lymphocytes (CBC) 1.3 K/uL (0.7-4.9); Basophils % 0.9 % (0-1.3); Hematocrit 43.4 % (39.6-49.0); Lymphocytes % 24.5 % (15.3-44.8); MPV 9.1 fL (7.6-11.3)
[2020-03-07 04:10] LABS: Protime INR 1.07
[2020-03-07 04:30] LABS: Magnesium 2.2 mg/dL (1.8-2.4); Potassium 4.1 mmol/L (3.5-5.1); Thyroid Stimulating Hormone 0.782 uIU/mL (0.360-3.740)
[2020-03-07 04:37] LABS: CKMB Creatine Kinase MB 18.7 ng/mL (0.3-3.6); Troponin I 19.6 ng/mL (0.0-0.045)
--- NOTE | 2020-03-07 07:27 | CON ---
Date of Consultation: 03/06/2020 Patient was admitted on 03/06/2020. I saw the patient on 03/06/2020. Reason For Consultation: Spa-TL-pldyxdccj myocardial infarction. History Of Present Illness: Mr. Snow is a 69-year-old male. He has been followed in our clinic i ntermittently. Has been seen by Dr. Lopez in the past. He has a history of coronary artery disease and stent many years ago. He does not remember the last time he had a stress test. He also has a h istory of diabetes, hypertriglyceridemia, came in with chest pain that is described as pressure and s oreness in the anterior chest without any nausea, vomiting, diaphoresis, PND, orthopnea, pedal edema, palpitation, or syncope. His chest pain was mild, 4 to 6 on a scale of 10, but it was persistent an d he came to the emergency room where he was found to have a troponin of 1.7 and was admitted for fur ther evaluation and treatment. Past Medical History: As stated above. Allergies: HE IS ALLERGIC TO CODEINE. Review of Systems: Negative. Social History: Negative. Family History: Negative. Medications: At home include aspirin, metformin, and fenofibrate. Physical Examination: General: He was very pleasant. No acute distress. Vital Signs: Stable. Afebrile. HEENT: Negative. Neck: Supple without any bruit, lymphadenopathy, JVD, or thyromegaly. Chest: Clear to auscultation and percussion. Cardiac: Revealed a regular rhythm and rate. No murmurs, gallops, or rubs. Abdomen: Benign. Extremities: Revealed no clubbing, cyanosis, or edema. Diagnostic Data: As stated earlier. Chest x-ray was negative. EKG revealed nonspecific changes. Impression And Plan: Patient with history of coronary artery disease, status post stent with non-ST- elevation myocardial infarction. He is presently asymptomatic. He is on aspirin, Plavix, metoprolol , and Lovenox as well as metformin and fenofibrate. I would continue his present regimen for now. I will plan to do a left heart catheterization early next week to define his coronary anatomy. He und erstands the risk and the benefits of the procedure and agrees to proceed. His diabetes is fairly we ll controlled. Depending on how Mr. Snow does over the next 2 days, I may send him home if he is asymptomatic and bring him back and do the catheterization as an outpatient. MICKEY/KARIE Voice ID: [id number] Report ID: [id number]
[2020-03-07] MEDS: INSULIN -REGULAR HUMAN 50 UNIT/0.5 ML ML SQ SCH ×4 (07:30→20:45)
--- NOTE | 2020-03-07 08:08 | EKG ---
Test Date: 2020-03-06 Test Time: 09:13:23 Senior Accounts Payable Clerk: MARLEE MEASUREMENT RESULTS: Intervals: Rate: 75 NJ: 166 QRSD: 142 QT: 426 QTc: 475 Belt: P: 53 NJ: 166 QRS: 31 T: 57 INTERPRETIVE STATEMENTS: Normal sinus rhythm Right bundle branch block Abnormal ECG Compared to ECG 03/31/2019 15:41:42 Accelerated junctional rhythm no longer present Atrial flutter no longer present Electronically Signed On 03-07-20 08:07:29 CDT by Moshe Iraheta
[2020-03-07] MEDS: ASPIRIN EC 81 MG TAB PO SCH (09:41)
[2020-03-07] MEDS: ENOXAPARIN 100 MG/ML SYR SQ SCH ×2 (09:41→20:44)
[2020-03-07] MEDS: CLOPIDOGREL 75 MG TABLET PO SCH (09:41)
[2020-03-07] MEDS: METOPROLOL TAR 50 MG TAB PO SCH ×2 (09:41→20:44)
[2020-03-07] MEDS: FAMOTIDINE 20 MG TAB PO SCH ×2 (09:41→20:45)
[2020-03-07] MEDS: NA CHLORIDE 0.9% 1,000 ML IV SCH (09:43)
--- NOTE | 2020-03-07 10:35 | PN ---
Date of Progress Note: 03/07/2020 Subjective: Mr. Snow came in yesterday with a non-ST elevation myocardial infarction. The tropon in went up to 18. His EKG shows a right bundle-branch block. He has been on aspirin, Plavix, metopr olol, and Lipitor as well as Lovenox. He is pain free today. No arrhythmias. I plan to do a left h eart catheterization with possible coronary intervention on him on Sunday. Tomorrow is a holiday. He is not very enthusiastic about staying in the hospital until then. Dr. Montelongo will see the patie nt today. I would like him to at least be ambulatory in the afternoon and see how he does and then d ecide on discharging him later. Continue present regimen for now. MICKEY/KARIE Voice ID: [id number] Report ID: [id number]
--- NOTE | 2020-03-07 14:48 | PN ---
Date of Progress Note: 03/07/2020 The patient states he is basically asymptomatic; however, he has not done much in the way of activity . His enzyme actually went up and he is scheduled for Sunday. I feel it will be much better if he is staying in the hospital until then. He was instructed to increase his activity somewhat to see wh at kind of response he would get both symptomatic joseph and telemetry. In regard to the renal situati on, the patient does state over the past year or so, he has been taking the OTC anti-inflammatories o n a regular basis. Obviously, this will change at the time of his discharge. Also significant to no te that his stent was the LAD and when I have seen him in the past, he states he was not told of anyt shade in regard to his renal dysfunction and this stent he states was placed at [facility] by Dr. Lau over a decade ago and from his perspective, basically asymptomatic and he does do physical activity. Therefore, I am assuming that he has been stable up until this episode. He was in the ER about 6-8 weeks ago for pain secondary to renal stones, which he has a history of and states he has been asympt omatic since. HR/MODL Voice ID: [id number] Report ID: [id number]
[2020-03-07] MEDS: FENOFIBRATE 160 MG TAB PO SCH (16:10)
[2020-03-07] MEDS: ATORVASTATIN 80 MG TAB PO SCH (20:45)
--- NOTE | 2020-03-08 00:15 | PN ---
Date of Progress Note: 03/07/2020 Chief Complaint: Acute on chronic kidney injury, nonoliguric, associated with acute coronary syndrome. Patient has underlying history of diabetes mellitus, hypertension, hyperlipidemia, coronary artery disease, and previous stent. Review of Systems: Denies chest pain, palpitations. Physical Examination: Lungs: Few crackles at bases. Heart: S1, S2. Abdomen: Soft, benign. Extremities: No edema. Laboratory Data: Sodium 141, potassium 4.1, chloride 109, CO2 27, BUN 22, creatinine 1.23, calcium 9.2, magnesium 2.2. Troponin 19.6. Impression And Plan: 1. Acute kidney injury on chronic kidney disease. Renal function is improving gradually. Patient has renal ultrasound done and it did not show hydronephrosis. Unremarkable renal sonogram without urinary bladder distention. 2. Continue diuretic as needed for congestive heart failure. Patient was evaluated by Cardiology. He may need further workup including angiogram. He will require Mucomyst as a part of current medications for possible coronary intervention with catheterization. I spent total 36 min including 25 min to coordinate care plan. SHANIQUE/KARIE Voice ID: [id number] Report ID: [id number] RODRICK
[2020-03-08 05:49] LABS: Magnesium 2.2 mg/dL (1.8-2.4); Potassium 4.2 mmol/L (3.5-5.1)
[2020-03-08 05:53] LABS: Absolute Lymphocytes (CBC) 1.4 K/uL (0.7-4.9); Hematocrit 42.5 % (39.6-49.0); Lymphocytes % 28.2 % (15.3-44.8); MPV 9.4 fL (7.6-11.3); RBC Red Blood Cell Count 4.67 M/uL (4.33-5.43)
[2020-03-08] MEDS: INSULIN -REGULAR HUMAN 50 UNIT/0.5 ML ML SQ SCH ×4 (07:30→20:52)
[2020-03-08] MEDS: CLOPIDOGREL 75 MG TABLET PO SCH (09:21)
[2020-03-08] MEDS: ENOXAPARIN 100 MG/ML SYR SQ SCH ×2 (09:21→20:51)
[2020-03-08] MEDS: ASPIRIN EC 81 MG TAB PO SCH (09:21)
[2020-03-08] MEDS: METOPROLOL TAR 50 MG TAB PO SCH ×2 (09:21→20:51)
[2020-03-08] MEDS: FAMOTIDINE 20 MG TAB PO SCH ×2 (09:21→20:51)
[2020-03-08] MEDS: ACETYLCYST 20% 800 MG/4 ML VIAL PO SCH ×2 (09:27→20:51)
[2020-03-08] MEDS: NA CHLORIDE 0.9% 1,000 ML IV SCH (09:30)
--- NOTE | 2020-03-08 13:45 | PN ---
Date of Progress Note: 03/08/2020 Subjective: Mr. Snow had been admitted with non-ST elevation myocardial infarction. He is on Anukr enox, Plavix, aspirin, metoprolol, and statin. He also takes fenofibrate at home. Overnight, he is pain free. His EKG shows sinus rhythm with right bundle-branch block. No arrhythmias on telemetry. His vital signs remained stable and afebrile. His examination remained negative for congestive hear t failure. The plan is for a heart catheterization tomorrow with possible intervention. This case w as discussed with him and his , and he understands the risks and the benefits of the procedure, a nd he agrees to proceed. MICKEY/KARIE Voice ID: [id number] Report ID: [id number]
[2020-03-08] MEDS: FENOFIBRATE 160 MG TAB PO SCH (17:26)
--- NOTE | 2020-03-08 19:33 | PN ---
Date of Progress Note: 03/08/2020 The patient has been asymptomatic in the past 24 hours. He had 1 episode of ventricular tachycardia, slightly hypertensive. However, when up and about, he said he had no chest pressure or a sensation of any kind. His creatinine is now back to normal. He has been seen by Nephrology, scheduled for a catheterization in the morning. HR/MODL Voice ID: [id number] Report ID: [id number]
[2020-03-08] MEDS: ATORVASTATIN 80 MG TAB PO SCH (20:51)
--- NOTE | 2020-03-09 00:15 | PN ---
Date of Progress Note: 03/08/2020 Chief Complaint: Acute on chronic kidney injury, nonoliguric, associated with acute coronary syndrome. Patient has underlying history of diabetes mellitus, hypertension, hyperlipidemia, coronary artery disease. Review of Systems: Denies new complaints. Physical Examination: Lungs: Diminished breath sounds at bases. Heart: S1, S2. ABDOMEN: Soft, benign. Extremities: No edema. Impression And Plan: Acute on chronic kidney injury. Renal function is improving gradually. Patient had renal ultrasound done and it did not show hydronephrosis. Unremarkable renal ultrasound without urinary bladder distention. Patient will continue diuretics for congestive heart failure. Patient is to have cardiac catheterization, and he will require Mucomyst as a part of the medications for possible coronary intervention with cardiac catheterization. I spent total 36 min including 25 min to coordinate care plan. SHANIQUE/KARIE Voice ID: [id number] Report ID: [id number] RODRICK
[2020-03-09] MEDS: NA CHLORIDE 0.9% 1,000 ML IV SCH ×2 (02:00→05:56)
[2020-03-09 04:52] LABS: Absolute Lymphocytes (CBC) 1.7 K/uL (0.7-4.9); Basophils % 0.9 % (0-1.3); Hematocrit 47.2 % (39.6-49.0); Lymphocytes % 25.3 % (15.3-44.8); RBC Red Blood Cell Count 5.16 M/uL (4.33-5.43)
[2020-03-09 05:07] LABS: Magnesium 2.2 mg/dL (1.8-2.4); Potassium 4.4 mmol/L (3.5-5.1)
[2020-03-09] MEDS: METOPROLOL TAR 50 MG TAB PO SCH ×2 (05:55→21:30)
[2020-03-09] MEDS: ASPIRIN EC 81 MG TAB PO SCH (05:56)
[2020-03-09] MEDS: CLOPIDOGREL 75 MG TABLET PO SCH (05:56)
[2020-03-09] MEDS: INSULIN -REGULAR HUMAN 50 UNIT/0.5 ML ML SQ SCH ×4 (07:30→21:00)
[2020-03-09] MEDS: FAMOTIDINE 20 MG TAB PO SCH ×2 (08:33→21:30)
[2020-03-09] MEDS: ACETYLCYST 20% 800 MG/4 ML VIAL PO SCH ×4 (08:33→21:29)
[2020-03-09] MEDS ORDERED: HEPARIN 5000 UNIT/ML 1 ML VIAL ONE ×2 (09:58→10:00)
[2020-03-09] MEDS ORDERED: MIDAZOLAM HCL 2 MG/2 ML INJ ONE (09:59)
[2020-03-09] MEDS ORDERED: FENTANYL CITR 100 MCG/2 ML ONE (09:59)
[2020-03-09] MEDS ORDERED: NICARDIPINE HCL 25 MG/10 ML IV ONE (09:59)
[2020-03-09] MEDS ORDERED: ATROPINE SULF 1 MG/10 ML SYR IV ONE (09:59)
[2020-03-09] MEDS ORDERED: HEPA 1000U/500MLS 2,000 UNIT/1,000 ML BAG IV ONE (10:31)
[2020-03-09] MEDS ORDERED: HYDRALAZINE HCL 20 MG/ML VIAL ONE (11:28)
[2020-03-09] MEDS ORDERED: HEPA 1000U/500MLS 1,000 UNIT/500 ML BAG IV ONE (11:38)
[2020-03-09] MEDS ORDERED: CLOPIDOGREL 75 MG TABLET ONE (11:50)
[2020-03-09] MEDS: FENOFIBRATE 160 MG TAB PO SCH (16:32)
--- NOTE | 2020-03-09 18:58 | PN ---
Date of Progress Note: 03/09/2020 Subjective: Patient was admitted with non-ST elevation, patient plan for cardiac cath. Physical Examination: Vital Signs: Blood pressure 128/87, pulse of 60. Patient had good urine output of 1300. Chest: Clear to auscultation. Heart: S1, S2. Regular. Abdomen: Soft nontender. Extremities: No edema. Laboratory Data: WBC 6.9, H and H 16.2/47.2, platelet 183. Sodium 139, potassium 4.4, bicarb 29, BU N 18, creatinine 1.2, GFR of 56. Magnesium 2.2, calcium 9.7. Current Medications: The patient on include fenofibrate, Plavix, aspirin, metoprolol, Pepcid, insuli n, normal saline 50 per hour. Assessment And Plan: 1.Acute kidney injury secondary to prerenal recover plateau. Patient plan for cardiac cath. I am g oing to continue current IV fluids for 10 to 12 hours after cath and we will monitor. Keep holding a ny MANUEL inhibitor or ARB. 2.Hypertension, controlled optimal. Continue current medication. 3.Unstable angina as by Cardiology as above. We will continue hydration post cath and we will follo w up. MIGDALIA/KARIE Voice ID: [id number] Report ID: [id number]
[2020-03-09] MEDS: ATORVASTATIN 80 MG TAB PO SCH (21:30)
[2020-03-10 06:31] LABS: Magnesium 2.3 mg/dL (1.8-2.4); Potassium 4.7 mmol/L (3.5-5.1)
[2020-03-10 06:37] VITALS: BP 148/90; TEMP 97.9
[2020-03-10 07:07] LABS: Absolute Lymphocytes (CBC) 0.9 K/uL (0.7-4.9); Basophils % 0.4 % (0-1.3); Hematocrit 44.8 % (39.6-49.0); Lymphocytes % 14.5 % (15.3-44.8); MPV 9.3 fL (7.6-11.3); RBC Red Blood Cell Count 4.91 M/uL (4.33-5.43)
[2020-03-10] MEDS: INSULIN -REGULAR HUMAN 50 UNIT/0.5 ML ML SQ SCH (07:30)
--- NOTE | 2020-03-10 08:01 | PN ---
Date of Progress Note: 03/10/2020 History: Mr. Snow had been admitted last weekend with a non-ST elevation myocardial infarction. Yesterday, he underwent catheterization and had angioplasty of his proximal LAD, distal LAD, and he h ad a stent of his mid LAD. He did well overnight. He has no complaint. His telemetry is normal. Physical Examination: Vital Signs: Stable. Chest: Clear. Cardiac: Normal. His catheterization entry site in the right wrist is normal with good pulses in th e radial area. Plan: To send him home today on his home medications plus he will be taking Plavix 75 mg daily and L ipitor 80 mg daily. We will set him up for an RCA stent for next week. MICKEY/KARIE Voice ID: [id number] Report ID: [id number]
[2020-03-10] MEDS: ASPIRIN EC 81 MG TAB PO SCH (08:38)
[2020-03-10] MEDS: CLOPIDOGREL 75 MG TABLET PO SCH (08:38)
[2020-03-10] MEDS: METOPROLOL TAR 50 MG TAB PO SCH (08:38)
[2020-03-10] MEDS: FAMOTIDINE 20 MG TAB PO SCH (08:38)
[2020-03-10 08:57] VITALS: O2SAT 97
--- NOTE | 2020-03-10 09:21 | ECHO ---
HEIGHT: 5 ft 11 in WEIGHT: 216 lb 6.4 oz DATE OF STUDY: 03/09/[address]: Shaheed Morris DO 2-DIMENSIONAL: YES M.MODE: YES DOPPLER: YES COLOR FLOW: YES TDS: PORTABLE: DEFINITY: BUBBLE STUDY: DIAGNOSIS: [id number] MYOCARDIAL INFARCTION CARDIAC HISTORY: CATHERIZATION: YES SURGERY: NO PROSTHETIC VALVE: NO PACEMAKER: NO MEASUREMENTS (cm) DIASTOLIC (NORMALS) SYSTOLIC (NORMALS) IVSd 1.1 (0.6-1.2) LA Diam (1.9-4.0) LVEF 61% LVIDd 4.3 (3.5-5.7) LVIDs 2.9 (2.0-3.5) %FS 33% LVPWd 0.9 (0.6-1.2) Ao Diam (2.0-3.7) 2 DIMENSIONAL ASSESSMENT: RIGHT ATRIUM: NORMAL LEFT ATRIUM: NORMAL RIGHT VENTRICLE: NORMAL LEFT VENTRICLE: NORMAL TRICUSPID VALVE: NORMAL MITRAL VALVE: NORMAL PULMONIC VALVE: NORMAL AORTIC VALVE: NORMAL PERICARDIAL EFFUSION: NONE AORTIC ROOT: NORMAL LEFT VENTRICULAR WALL MOTION: DOPPLER/COLOR FLOW: COMMENTS: NORMAL LEFT VENTRICULAR SIZE AND FUNCTION. NO WALL MOTION ABNORMALITY. NO EFFUSION. TECHNOLOGIST: SHANELL MORRIS
--- NOTE | 2020-03-10 10:16 | PN ---
Date of Progress Note: 03/10/2020 Patient was admitted with acute kidney injury secondary to prerenal status post cardiac cath, status post angioplasty. Physical Examination: Vital Signs: When I saw the patient, blood pressure 148/90, pulse of 74, afebrile. The patient had good urine output. Chest: Clear to auscultation. Heart: S1, S2. Regular. Abdomen: Soft, nontender. Extremities: No edema. Laboratory Data: WBC 6.5, H and H 15.4/44.8. Sodium 142, potassium 4.7, bicarb 30, BUN 18, creatini ne 1.3, GFR of 53, calcium 9.1, magnesium 2.3. This is the first 24 hour after cardiac cath. Assessment And Plan: 1.Acute kidney injury secondary to contrast-induced nephropathy. Before it was prerenal. The patie nt keen to be discharged. Advised the patient for close monitoring for his chemistry and we will fol low up. Patient is going to be due for another cardiac cath next week. We will consider doing chemi stry before that and hydration and we will follow up. Please avoid any angiotensin converting enzyme inhibitor for the time being. 2.Hypertension, controlled optimal. Continue current medication. 3.Coronary artery disease status post angioplasty as above. We will follow up with Cardiology. MIGDALIA/KARIE Voice ID: [id number] Report ID: [id number]
--- NOTE | 2020-03-10 22:05 | OP ---
Date of Procedure: 03/09/2020 Surgeon: Moshe Iraheta MD Repair Technician: 1. Dr. Zaire Carreon. 2. Bryanna Esposito. Patient received heparin during the procedure with adequate ACT throughout. He received Plavix after the procedure. He will remain in the hospital overnight. We will send him home tomorrow and set hi m up for a staged RCA angioplasty and stent next week. The case was discussed with the patient, with his , and with Dr. Montelonog in details. Procedure: Left heart catheterization, selective coronary arteriogram, angioplasty of the proximal a nd distal LAD, stent of the mid LAD. Patient had come in with non-ST elevation myocardial infarction approximately 72 hours ago. He was b rought to the hospital laboratory technician as an inpatient on 03/09/2020. Right wrist access and the radial artery were obtained, 6-Azeri sheath was introduced successfully. A [place] catheter was used to do the diagnosti c catheterization. In the RCA it was found to have diffuse plaquing throughout the RCA. It is a hardik y dominant vessel. There was a 90% ulcerated plaque stenosis at the very distal RCA just prior to th e bifurcation of the PDA and the posterolateral branch. The circumflex was very small, nondominant, free of disease. The left main was normal. He was found to have a 90% stenosis in-stent in the mid LAD just after the first septal and diagonal. The mid LAD was found to have 70% to 80% stenosis in t he very distal LAD before the distal bifurcation of the LAD it was found to have an 80% stenosis. An XB LAD guide 3.5 was used to cannulate the left main. A [place] wire was used to cross the LAD succe ssfully distally. The distal lesion was successfully dilated with a 2.25 x 15 balloon with excellent results. Following that, the mid LAD was stented with a 2.5 x 20 Synergy stent with 0% residual. A traci wire was used to enable the mid LAD stent to be deployed in the mid LAD. Following that the b uddy wire was retracted. The in-stent restenosis of 90% was dilated with a 3.5 x 15 noncompliant bal loon at 20 atmosphere with 0% residual. Patient tolerated the procedure very well. There were no co mplications. Blood Loss: 5 mL. Anesthesia: Total conscious sedation was 60 minutes. Final Diagnosis: Severe coronary artery disease status post angioplasty of the LAD after the first d iagonal in the mid LAD and in the distal LAD patient had angioplasty. In the mid LAD patient had a s tent. We will stage him for an RCA angioplasty and stent in the near future. MICKEY/KARIE Voice ID: [id number] Report ID: [id number]
== END 2020-03-10 10:25 | disposition home or self-care (01) | DRG 247 ==
LOC: ER 08:56 → ERHOLD 12:26 → 2ND 13:34
PROVIDERS: ADMIT Family Medicine; ATTEND Family Medicine
PROC: 027035Z Dilation of Coronary Artery, One Artery with Two Drug-eluting Intraluminal Devices, Percutaneous Approach (ICD-10-PCS; principal; 2020-03-09)
PROC: 4A023N7 Measurement of Cardiac Sampling and Pressure, Left Heart, Percutaneous Approach (ICD-10-PCS; 2020-03-09)
PROC: B2111ZZ Fluoroscopy of Multiple Coronary Arteries using Low Osmolar Contrast (ICD-10-PCS; 2020-03-09)
DX: I21.4 Non-ST elevation (NSTEMI) myocardial infarction (principal); N17.9 Acute kidney failure, unspecified; I47.2 Ventricular tachycardia; E78.5 Hyperlipidemia, unspecified; Z95.5 Presence of coronary angioplasty implant and graft; I25.2 Old myocardial infarction; Z88.5 Allergy status to narcotic agent; Z79.82 Long term (current) use of aspirin; Z79.84 Long term (current) use of oral hypoglycemic drugs; Z79.899 Other long term (current) drug therapy; E11.65 Type 2 diabetes mellitus with hyperglycemia; N18.3 Chronic kidney disease, stage 3 (moderate); I12.9 Hypertensive chronic kidney disease with stage 1 through stage 4 chronic kidney disease, or unspecified chronic kidney disease; E11.22 Type 2 diabetes mellitus with diabetic chronic kidney disease; N14.1 Nephropathy induced by other drugs, medicaments and biological substances; T50.8X5A Adverse effect of diagnostic agents, initial encounter; I25.110 Atherosclerotic heart disease of native coronary artery with unstable angina pectoris
CPT/HCPCS: 36415; 71045; 76770; 80048; 80061; 80076; 82550; 82553; 82947; 83036; 83735; 83880; 84439; 84443; 84484; 85025; 85347; 85610; 85730; 93005; 93306; 93458; 96372; 99285; C1725; C1893; C9600; J0360; J1644; J1650; J2250; J3010; J7030

== ENCOUNTER 2021-09-09 01:25 | Inpatient (IN) | payer OTHER ==
--- OUTSIDE RECORDS SUMMARY | 2021-09-09 01:29 | XMS REPORT | Continuity of Care Document ---
:1950 Author Organization [facility] t Address [address] [place] [address] Care Team Providers Name Role Phone Provider, Urgent Care Attending Clinician Unavailable Lab, Fam Pob I Attending Clinician Unavailable Dakota KAYE Attending Clinician DAKOTA Attending Clinician Unavailable Payers Payer Name Policy Type Policy Number Effective Date Expiration Date S ource Problems This patient has no known problems. Allergies, Adverse Reactions, Alerts Allergy Allergy Status Severity Reaction(s) Onset Inactive Treating Comm ents Source Name Type Date Date Clinician NO KNOWN Drug Active Univers ALLERGIE Class ity of [facility] Social History Social Habit Start Date Stop Date Quantity Comments [facility] to SARS-CoV-2 Not sure [facility] [place] [facility] Smoking Status Start Date Stop Date Source Unknown if ever smoked Universit y [facility] Medications This patient has no known medications. Procedures This patient has no known procedures. Encounters Start End Encounter Admission Attending Care Care Encounter Source Date/Time Date/Time Type Type Clinicians Facility Department ID 2020-07-30 2020-07-30 Telephone Provider, [facility] [id number] 00:00:00 00:00:00 [facility] Urgent Health [id number] Care Surgical [id number] Specialti [id number] es [address] 2020-07-30 2020-07-30 Telephone Provider, [facility] [id number] [facility] 00:00:00 00:00:00 [facility] Urgent Health [id number] ity of [facility] Surgical [id number] Zander as Specialti [phone] [place] dical 370 [facility] 2020-07-28 2020-07-28 Laboratory Lab, [facility] [id number] 15:53:29 16:13:29 Only Fam Pob I Health [id number] [place] [id number] Professio [phone] [place] [address] Office [address] [facility] 2020-07-28 2020-07-28 Laboratory Lab, [facility] Fam Pob I [facility] [id number] Univers 15:53:29 16:13:29 Only Jessica Duncan [facility] [id number] ity [facility] [id number] Zander as Professio [id number] [facility] [address] [place] Office [facility] 2020-07-28 2020-07-28 Outpatient R [facility] [id number] Univers 16:00:00 16:00:00 [id number] [facility] 2020-07-28 2020-07-28 Outpatient R DAKOTA [facility] [id number] Univers 16:00:00 16:00:00 JESSICA [facility] Results This patient has no known results.
[2021-09-09] MEDS ORDERED: MORPHINE 4 MG/ML SYR ONE (01:50)
[2021-09-09] MEDS ORDERED: ONDANSETRON 4 MG/2 ML VIAL ONE (01:50)
[2021-09-09 02:19] LABS: Basophils % 0.5 % (0-1.3); Hematocrit 47.3 % (39.6-49.0); Lymphocytes % 12.9 % (15.3-44.8); RBC Red Blood Cell Count 5.17 M/uL (4.33-5.43)
[2021-09-09 02:21] LABS: Protime INR 0.97
[2021-09-09 02:38] LABS: Albumin 3.7 g/dL (3.4-5.0); Bilirubin Direct 0.1 mg/dL (0-0.2); Bilirubin Total 0.5 mg/dL (0.2-1.0); Magnesium 2.1 mg/dL (1.8-2.4); Potassium 3.8 mmol/L (3.5-5.1); Protein, Total 7.5 g/dL (6.4-8.2); Troponin (Emerg Dept Use Only) 0.43 ng/mL (0.0-0.045)
--- NOTE | 2021-09-09 03:29 | ER ---
Nurse's Notes [facility] Name: Magnus Snow Age: 71 yrs Sex: Male : 1950 Arrival Date: 09/09/2021 Time: 01:29 Bed 8 Private MD: Diagnosis: Subsequent non-ST elevation (NSTEMI) myocardial infarction Presentation: 09/09 01:35 Chief complaint: Patient states: "Back pain in the middle of the back started about 4 tw5 hours ago. Around 11 it migrated to left side of the chest. Coronavirus screen: Vaccine status: Patient reports receiving the 2nd dose of the covid vaccine. Date November 2020. Ebola Screen: Patient negative for fever greater than or equal to 101.5 degrees Fahrenheit, and additional compatible Ebola Virus Disease symptoms Patient denies exposure to infectious person. Patient denies travel to an Ebola-affected area in the 21 days before illness onset. Risk Assessment: Do you want to hurt yourself or someone else? Patient reports no desire to harm self or others. Onset of symptoms was September 08, 2021 at 10:00. 01:35 Method Of Arrival: Ambulatory tw5 01:35 Acuity: DEBRA 2 tw5 01:46 Initial Sepsis Screen: Does the patient meet any 2 criteria? No. Patient's initial tw5 sepsis screen is negative. Does the patient have a suspected source of infection? No. Patient's initial sepsis screen is negative. Triage Assessment: 01:35 General: Appears in no apparent distress. Behavior is calm, cooperative, appropriate tw5 for age. Pain: Pain currently is 8 out of 10 on a pain scale. Cardiovascular: Chest pain is described as severe. Historical: - Allergies: 01:39 Codeine; tw5 01:39 HYDROCODONE; tw5 - Home Meds: 01:39 metformin 500 mg Oral tab 1 tab 2 times per day [Active]; fenofibrate 150 mg oral cap 1 tw5 cap once daily [Active]; Lipitor 8 mg tab Oral tab 1 tab once daily [Active]; lisinopril 5 mg Oral tab 1 tab once daily [Active]; tamsulosin 0.4 mg oral cap 1 cap once daily [Active]; - PMHx: 01:39 Diabetes - NIDDM; - march 2020; tw5 - PSHx: 01:39 stents x 4; tw5 - Immunization history:: Client reports receiving the 2nd dose of the Covid vaccine. - Social history:: Smoking status: Patient denies any tobacco usage or history of. Screenin:43 Abuse screen: Denies threats or abuse. Denies injuries from another. Nutritional tw5 screening: No deficits noted. Tuberculosis screening: No symptoms or risk factors identified. 02:05 Fall Risk None identified. tw5 Assessment: 01:39 Pain: Pain radiates to anterior aspect of left upper chest and left breast Pain began 4 tw5 hours ago. 02:05 Reassessment: Patient states feeling better. Patient states symptoms have improved. tw5 General: Appears in no apparent distress. Behavior is calm, cooperative. Pain: Pain currently is 2 out of 10 on a pain scale. Cardiovascular: Heart tones S1 S2 present Capillary refill < 3 seconds is brisk in bilateral. Respiratory: Airway is patent Trachea midline Respiratory effort is even, unlabored. Vital Signs: 01:35 Weight 97.52 kg; Height 5 ft. 10 in. (177.80 cm); Pain 8/10; tw5 01:44 BP 176 / 91; Pulse 82; Resp 16; Temp 97.9(O); Pulse Ox 100% on R/A; tw5 03:17 BP 124 / 87; Pulse 75; Resp 18; Pulse Ox 94% on R/A; Pain 1/10; df1 04:09 BP 127 / 66; Pulse 70; Pulse Ox 93% on R/A; tw5 01:35 Body Mass Index 30.85 (97.52 kg, 177.80 cm) tw5 ED Course: 01:29 Patient arrived in ED. wm 01:33 Jaswant Alfaro MD is Attending Physician. 7 01:35 Vida Mercer is Primary Nurse. tw5 01:35 Arm band placed on right wrist. EKG completed in triage. Results shown to . tw5 01:37 Triage completed. tw5 01:43 Initial lab(s) drawn, by ED staff, sent to lab. EKG done, by ED staff, reviewed by tw5 Jaswant Alfaro MD. Inserted saline lock: 20 gauge in left antecubital area, using aseptic technique. Blood collected. 01:43 Patient maintains SpO2 saturation greater than 95% on room air. tw5 01:46 Patient has correct armband on for positive identification. Placed in gown. Bed in low tw5 position. Call light in reach. Side rails up X 1. Adult w/ patient. school lunch monitor on. Pulse ox on. NIBP on. Door closed. Noise minimized. Lights dimmed. Moved to private room. Warm blanket given. Verbal reassurance given. 01:51 Basic Metabolic Panel Sent. tw 01:51 Troponin (emerg Dept Use Only) Sent. tw 01:51 PT-INR Sent. tw 01:51 NT PRO-BNP Sent. tw 01:51 Magnesium Sent. tw 01:51 LFT's Sent. 01:51 CBC with Diff Sent. 01:51 Lipase Sent. tw 02:51 XRAY Chest (1 view) In Process Unspecified. EDMS 03:28 Octaviano Marcum MD is Hospitalizing Provider. 7 03:34 COVID-19 SARS RT PCR (Document "Date of Onset" if Symptomatic) Sent. df1 03:34 SARS-COV-2 RT PCR Sent. df1 03:34 COVID swab sent to lab. df1 04:53 No provider procedures requiring assistance completed. Patient admitted, IV remains in df1 place. Administered Medications: 02:04 Drug: Zofran (Ondansetron) 4 mg Route: IVP; Site: right antecubital; tw5 03:34 Follow up: Response: No adverse reaction df1 02:05 Drug: morphine 4 mg Route: IVP; Site: right antecubital; tw5 03:34 Follow up: Response: No adverse reaction; RASS: Alert and Calm (0) df1 03:40 Drug: Lovenox (enoxaparin) 1 mg/kg Route: Sub-Q; Site: abdomen; df1 04:08 Follow up: Response: No adverse reaction tw5 Outcome: 03:29 Decision to Hospitalize by Provider. mh7 04:53 Admitted to Tele accompanied by nurse. df1 04:53 Condition: stable 04:53 Instructed on the need for admit. 04:54 Patient left the ED. df1 Signatures: Dispatcher [employer] Jaswant Tejeda MD MD 7 Barb Petit Dawn df1 Vida Mercer tw5
--- NOTE | 2021-09-09 03:30 | EDPHYS ---
Physician Documentation [facility] Name: Magnus Snow Age: 71 yrs Sex: Male : 1950 Arrival Date: 09/09/2021 Time: 01:29 Bed 8 Private MD: ED Physician Jaswant Alfaro HPI: 09/09 01:51 This 71 yrs old Male presents to ER via Ambulatory with complaints of Chest Pain > 30 mh7 y/o. 01:51 The patient or guardian reports chest pain that is located primarily in the anterior mh7 chest wall, left. Onset: yesterday, at 18:00. The pain radiates to back. Associated signs and symptoms: Pertinent negatives: abdominal pain, cough, diaphoresis, dizziness, headache, lower extremity pain, lower extremity swelling, lightheadedness, nausea, near syncope, palpitations, recent travel, shortness of breath, syncope, vomiting. The chest pain is described as aching. Duration: The patient or guardian reports multiple episodes, that are intermittent, that wax and wane, with no pattern. Modifying factors: The symptoms are alleviated by nothing. the symptoms are aggravated by nothing. Severity of pain: At its worst the pain was moderate today, in the emergency department the pain is unchanged. Historical: - Allergies: 01:39 Codeine; tw 01:39 HYDROCODONE; - Home Meds: 01:39 metformin 500 mg Oral tab 1 tab 2 times per day [Active]; fenofibrate 150 mg oral cap 1 tw5 cap once daily [Active]; Lipitor 8 mg tab Oral tab 1 tab once daily [Active]; lisinopril 5 mg Oral tab 1 tab once daily [Active]; tamsulosin 0.4 mg oral cap 1 cap once daily [Active]; - PMHx: 01:39 Diabetes - NIDDM; - march 2020; tw - PSHx: 01:39 stents x 4; tw5 - Immunization history:: Client reports receiving the 2nd dose of the Covid vaccine. - Social history:: Smoking status: Patient denies any tobacco usage or history of. ROS: 01:51 Constitutional: Negative for fever, chills, and weight loss, Eyes: Negative for injury, mh7 pain, redness, and discharge, ENT: Negative for injury, pain, and discharge, Neck: Negative for injury, pain, and swelling, Respiratory: Negative for shortness of breath, cough, wheezing, and pleuritic chest pain, Abdomen/GI: Negative for abdominal pain, nausea, vomiting, diarrhea, and constipation, : Negative for injury, bleeding, discharge, and swelling, MS/Extremity: Negative for injury and deformity, Skin: Negative for injury, rash, and discoloration, Neuro: Negative for headache, weakness, numbness, tingling, and seizure, Psych: Negative for depression, anxiety, suicide ideation, homicidal ideation, and hallucinations, Allergy/Immunology: Negative for hives, rash, and allergies, Endocrine: Negative for neck swelling, polydipsia, polyuria, polyphagia, and marked weight changes, Hematologic/Lymphatic: Negative for swollen nodes, abnormal bleeding, and unusual bruising. Exam: 01:51 Constitutional: This is a well developed, well nourished patient who is awake, alert, mh7 and in no acute distress. Head/Face: Normocephalic, atraumatic. Eyes: Pupils equal round and reactive to light, extra-ocular motions intact. Lids and lashes normal. Conjunctiva and sclera are non-icteric and not injected. Cornea within normal limits. Periorbital areas with no swelling, redness, or edema. Neck: Trachea midline, no thyromegaly or masses palpated, and no cervical lymphadenopathy. Supple, full range of motion without nuchal rigidity, or vertebral point tenderness. No Meningismus. Chest/axilla: Normal chest wall appearance and motion. Nontender with no deformity. No lesions are appreciated. Cardiovascular: Regular rate and rhythm with a normal S1 and S2. No gallops, murmurs, or rubs. Normal PMI, no JVD. No pulse deficits. Respiratory: Lungs have equal breath sounds bilaterally, clear to auscultation and percussion. No rales, rhonchi or wheezes noted. No increased work of breathing, no retractions or nasal flaring. Abdomen/GI: Soft, non-tender, with normal bowel sounds. No distension or tympany. No guarding or rebound. No evidence of tenderness throughout. Back: No spinal tenderness. No costovertebral tenderness. Full range of motion. Skin: Warm, dry with normal turgor. Normal color with no rashes, no lesions, and no evidence of cellulitis. MS/ Extremity: Pulses equal, no cyanosis. Neurovascular intact. Full, normal range of motion. Neuro: Awake and alert, GCS 15, oriented to person, place, time, and situation. Cranial nerves II-XII grossly intact. Motor strength 5/5 in all extremities. Sensory grossly intact. Cerebellar exam normal. Normal gait. Psych: Awake, alert, with orientation to person, place and time. Behavior, mood, and affect are within normal limits. Vital Signs: 01:35 Weight 97.52 kg; Height 5 ft. 10 in. (177.80 cm); Pain 8/10; tw5 01:44 BP 176 / 91; Pulse 82; Resp 16; Temp 97.9(O); Pulse Ox 100% on R/A; tw5 03:17 BP 124 / 87; Pulse 75; Resp 18; Pulse Ox 94% on R/A; Pain 1/10; df1 04:09 BP 127 / 66; Pulse 70; Pulse Ox 93% on R/A; tw5 01:35 Body Mass Index 30.85 (97.52 kg, 177.80 cm) tw5 MDM: 03:23 Differential diagnosis: abnormal EKG, acute myocardial infarction, acute pericarditis, 7 anxiety, coronary artery disease chest wall pain, congestive heart failure costochondritis, esophagitis, gastritis, gastroesophageal reflux disease (GERD), myocarditis, pancreatitis, peptic ulcer disease, pericarditis, pleurisy, pneumonia, pneumothorax. HEART Score: History: Moderately Suspicious (1), ECG: Non specific repolarization disturbance / LBTB / PM (1), Age: > or = 65 years (2), Risk Factors: > or = 3 Risk factors for atherosclerotic disease (2), [Hypercholesterolemia] [Hypertension] [DM] Troponin: > or = 3 x Normal Limit (2), Total Score = 8. The patient was not given aspirin in the Emergency Department. Patient reports taking aspirin within the past 24 hours. Data reviewed: vital signs, nurses notes, old medical records, lab test result(s), cardiac enzymes, CBC, electrolytes, EKG, radiologic studies, plain films. Data interpreted: Pulse oximetry: on room air is 96 %. Interpretation: normal. 03:28 Counseling: I had a detailed discussion with the patient and/or guardian regarding: the 7 historical points, exam findings, and any diagnostic results supporting the discharge/admit diagnosis, the presence of at least one elevated blood pressure reading (>120/80) during this emergency department visit, lab results, the need for further work-up and treatment in the hospital. Response to treatment: the patient's symptoms have markedly improved after treatment. 03:29 Patient medically screened. [facility] 09/09 01:48 Order name: Basic Metabolic Panel; Complete Time: 02:38 [facility] 09/09 01:48 Order name: CBC with Diff; Complete Time: 02:27 [facility] 09/09 01:48 Order name: LFT's; Complete Time: 02:38 [facility] 09/09 01:48 Order name: Magnesium; Complete Time: 02:38 [facility] 09/09 01:48 Order name: NT PRO-BNP; Complete Time: 02:38 [facility] 09/09 01:48 Order name: PT-INR; Complete Time: 02:27 [facility] 09/09 01:48 Order name: Troponin (emerg Dept Use Only); Complete Time: 02:38 [facility] 09/09 01:48 Order name: XRAY Chest (1 view) [facility] 09/09 01:49 Order name: Lipase; Complete Time: 02:38 [facility] 09/09 03:31 Order name: COVID-19 SARS RT PCR (Document "Date of Onset" if Symptomatic) 09/09 03:32 Order name: SARS-COV-2 RT PCR [facility] 09/09 01:48 Order name: EKG; Complete Time: 01:48 [facility] 09/09 01:48 Order name: Cardiac monitoring; Complete Time: 01:51 [facility] 09/09 01:48 Order name: EKG - Nurse/Tech; Complete Time: 01: [facility] 09/09 01:48 Order name: IV Saline Lock; Complete Time: 01:51 [facility] 09/09 01:48 Order name: Labs collected and sent; Complete Time: 01: [facility] 09/09 01:48 Order name: O2 Per Protocol; Complete Time: : 09/09 01:48 Order name: O2 Sat Monitoring; Complete Time: : [facility] 09/09 01:49 Order name: Urine Dipstick-Ancillary (obtain specimen); Complete Time: 03:34 [facility] 09/09 03:36 Order name: CONS Physician Consult EDTX Administered Medications: 02:04 Drug: Zofran (Ondansetron) 4 mg Route: IVP; Site: right antecubital; tw5 03:34 Follow up: Response: No adverse reaction df1 02:05 Drug: morphine 4 mg Route: IVP; Site: right antecubital; tw5 03:34 Follow up: Response: No adverse reaction; RASS: Alert and Calm (0) df1 03:40 Drug: Lovenox (enoxaparin) 1 mg/kg Route: Sub-Q; Site: abdomen; df1 04:08 Follow up: Response: No adverse reaction tw5 Disposition Summary: 09/09/21 03:29 Hospitalization Ordered Hospitalization Status: Inpatient Admission [facility] Provider: Octaviano Marcum [facility] Location: Telemetry/MedSurg (Inpatient) [facility] Condition: Stable [facility] Problem: an acute exacerbation [facility] Symptoms: have improved [facility] Bed/Room Type: Standard [facility] Room Assignment: 214(09/09/21 03:38) Diagnosis - Subsequent non-ST elevation (NSTEMI) myocardial infarction [facility] Forms: - Medication Reconciliation Form [facility] - SBAR form [facility] Signatures: Dispatcher [employer] Shannan Coats RN RN Jaswant Alfaro MD MD 7 Amanda Troy df1 Vida Mercer tw5 Corrections: (The following items were deleted from the chart) 03:38 03:29 [facility] mw
[2021-09-09] MEDS ORDERED: ENOXAPARIN 100 MG/ML SYR SQ ONE (03:36)
[2021-09-09] MEDS ORDERED: HYDRALAZINE HCL 20 MG/ML VIAL IV PRN (04:20)
[2021-09-09] MEDS ORDERED: MORPHINE 2 MG/ML SYR IV PRN (04:20)
[2021-09-09] MEDS ORDERED: NITROGLYCERIN 0.4 MG/TAB SL PRN (04:20)
[2021-09-09] MEDS ORDERED: ACETAMINOPHEN 500 MG TAB PO PRN (04:20)
[2021-09-09] MEDS ORDERED: ALBUTEROL 2.5 MG/3 ML NEB SOL NEB PRN (04:20)
[2021-09-09] MEDS ORDERED: ONDANSETRON 4 MG/2 ML VIAL IV PRN (04:20)
--- NOTE | 2021-09-09 04:27 | P.HP ---
Certification for Inpatient Patient admitted to: Inpatient With expected LOS: >2 Midnights Patient will require the following post-hospital care: None Practitioner: I am a practitioner with admitting privileges, knowledge of patient current condition, hospital course, and medical plan of care. Services: Services provided to patient in accordance with Admission requirements found in Title 42 Section 412.3 of the Code of Federal Regulations <Gregorio Esposito - Last Filed: 09/09/21 04:22> Patient History Date of Service: 09/09/21 Primary Care Provider: Jayda Reason for admission: NSTEMI History of Present Illness: Mr. Snow is a 71 yo M with HTN, HLD, CAD ([place] in March 2020), DM who presents with 8/10 constant sore chest pain beginning yesterday at 7pm while at rest. He says the pain started in ythe middle of his back and migrated to the left side of his chest. He had no relief in different positions. Denies nausea, vision changes, dizziness, diaphoresis, SOB. He saw his game programer for routine followup in March 2021. Troponin 0.43. Pain resolved at this time. - Past Medical/Surgical History Diabetic: No -: DM -: Hypertension -: Hyperlipidemia -: CAD -: [place] March 2020 -: cardiac stent x 4 Psychosocial/ Personal History: Patient is . 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 - Family History Father -: Heart disease - Social History Smoking Status: Never smoker Alcohol use: No CD- Drugs: No Caffeine use: Yes Place of Residence: Home <Gregorio Esposito Nerissa - Last Filed: 09/09/21 04:22> Date of Service: 09/09/21 <Octaviano Marcum - Last Filed: 09/09/21 13:38> Allergies hydrocodone [Hydrocodone] Adverse Reaction (Mild, Verified 03/16/20 14:34) AMS Home Medications: Aspirin [Aspirin EC 81 MG] 81 mg PO DAILY 03/31/19 Fenofibrate 150 mg PO DAILY 03/31/19 Metformin HCl [Glucophage] 500 mg PO BID 03/31/19 Multivit-Mins/Iron/Folic/Lycop [Centrum Men's Tablet] 1 each PO DAILY 03/31/19 Vitamin B Complex [B-Complex Vitamin] 1 cap PO DAILY 03/31/19 Atorvastatin Calcium [Lipitor] 80 mg PO DAILY 30 Days #30 tablet 03/10/20 Montelukast [Singulair*] 1 tab PO DAILY PRN 09/09/21 lisinopriL [Lisinopril] 5 mg PO DAILY 09/09/21 Review of Systems 10-point ROS is otherwise unremarkable General: Unremarkable Eyes: Unremarkable ENT: Unremarkable Respiratory: Unremarkable Cardiovascular: Chest Pain, As per HPI Gastrointestinal: Unremarkable Genitourinary: Unremarkable Musculoskeletal: Unremarkable Integumentary: Unremarkable Neurological: Unremarkable Lymphatics: Unremarkable <Gregorio Esposito - Last Filed: 09/09/21 04:22> Physical Examination - Physical Exam General: Alert, In no apparent distress HEENT: Atraumatic, PERRLA, Mucous membr. moist/pink, EOMI, Sclerae nonicteric Neck: Supple, 2+ carotid pulse no bruit, No LAD, Without JVD or thyroid abnormality Respiratory: Clear to auscultation bilaterally, Normal air movement Cardiovascular: Regular rate/rhythm, Normal S1 S2 Gastrointestinal: Normal bowel sounds, No tenderness Musculoskeletal: No tenderness Integumentary: No rashes Neurological: Normal speech, Normal strength at 5/5 x4 extr, Normal tone, Normal affect Lymphatics: No axilla or inguinal lymphadenopathy - Studies Laboratory Data (last 24 hrs) 09/09/21 01:53: PT 11.1, INR 0.97 09/09/21 01:53: WBC 7.80, Hgb 15.7, Hct 47.3, Plt Count 167 09/09/21 01:53: Sodium 144, Potassium 3.8, BUN 19 H, Creatinine 1.19, Glucose 149 H, Magnesium 2.1, Total Bilirubin 0.5, AST 29, ALT 40, Alkaline Phosphatase 78, Lipase 293 <Gregorio Esposito - Last Filed: 09/09/21 04:22> - Studies Laboratory Data (last 24 hrs) 09/09/21 01:53: PT 11.1, INR 0.97 09/09/21 01:53: WBC 7.80, Hgb 15.7, Hct 47.3, Plt Count 167 09/09/21 01:53: Sodium 144, Potassium 3.8, BUN 19 H, Creatinine 1.19, Glucose 149 H, Magnesium 2.1, Total Bilirubin 0.5, AST 29, ALT 40, Alkaline Phosphatase 78, Lipase 293 <Octaviano Marcum - Last Filed: 09/09/21 13:38> Assessment and Plan - Problems (Diagnosis) (1) NSTEMI (non-ST elevated myocardial infarction) Current Visit: Yes Status: Acute (2) HTN (hypertension) Current Visit: Yes Status: Chronic Qualifiers: Hypertension type: primary hypertension Qualified Code(s): I10 - Essential (primary) hypertension (3) HLD (hyperlipidemia) Current Visit: Yes Status: Chronic Qualifiers: Hyperlipidemia type: unspecified Qualified Code(s): E78.5 - Hyperlipidemia, unspecified (4) CAD (coronary artery disease) Current Visit: Yes Status: Chronic Qualifiers: Coronary Disease-Associated Artery/Lesion type: [place] artery [place] vs. transplanted heart: [place] heart Associated angina: with unstable angina Qualified Code(s): I25.110 - Atherosclerotic heart disease of [place] coronary artery with unstable angina pectoris (5) T2DM (type 2 diabetes mellitus) Current Visit: Yes Status: Chronic Qualifiers: Diabetes mellitus half-way insulin use: without termination clerk use Diabetes mellitus complication status: without complication Qualified Code(s): E11.9 - Type 2 diabetes mellitus without complications - Plan cardiology consulted on tele, trend troponins, repeat EKG daily ASA, BB, statin lipid and thyroid panel pending full dose lovenox q12 hours morphine and NTG prn hydralazine PRN for BP spikes reconcile and continue home medications Discharge Plan: Home Plan to discharge in: 72 Hours - Advance Directives Does patient have a Living Will: No Does patient have a Durable POA for Healthcare: No - Code Status/Comfort Care Code Status Assessed: Yes (full code ) Critical Care: No Time Spent Managing Pts Care (In Minutes): 70 <Gregorio Esposito - Last Filed: 09/09/21 04:22> - Plan Patient seen and examined on rounds this morning Reports the sharp chest pain that he was having has resolved, but continues with some slight tightness/strange sensation of the left chest Troponin rising Cardiology consulted Continue Lovenox No cardiac Data Support Specialist or veterinary technologist reportedly available today <Octaviano Marcum - Last Filed: 09/09/21 13:38>
[2021-09-09 05:26] VITALS: BMI 31.5
[2021-09-09] MEDS ORDERED: METOPROLOL TAR 25 MG TAB PO SCH (06:00)
[2021-09-09 06:15] LABS: Thyroid Stimulating Hormone 1.79 uIU/mL (0.360-3.740)
[2021-09-09] MEDS: INSULIN -REGULAR HUMAN 50 UNIT/0.5 ML ML SQ SCH ×3 (07:30→16:30)
[2021-09-09] MEDS ORDERED: INFLUENZA VACCINE (for 6+ mo) 0.5 ML DOSE IMVAC ONE (08:00)
[2021-09-09 08:42] VITALS: O2SAT 99
[2021-09-09] MEDS ORDERED: ASPIRIN EC 81 MG TAB PO SCH (09:00)
[2021-09-09] MEDS ORDERED: POTASSIUM CL SA 10 MEQ TAB PO ONE (09:00)
--- NOTE | 2021-09-09 11:18 | RAD REPORT ---
EXAM DESCRIPTION: [place] Single View09/09/2021 2:51 am CLINICAL HISTORY: Chest pain COMPARISON: February 2021 FINDINGS: The lungs appear clear of acute infiltrate. The heart is normal size IMPRESSION: No acute abnormalities displayed
[2021-09-09] MEDS ORDERED: ENOXAPARIN 100 MG/ML SYR SQ SCH (15:30)
--- NOTE | 2021-09-09 15:56 | CON ---
Date of Consultation: 09/09/2021 Reason For Consultation: [id number] myocardial infarction. History Of Present Illness: A 71-year-old male, who started having chest pain early this morning and could not get comfortable and along with nausea presented to the emergency room. Troponin was eleva rene. EKG without acute changes. He is feeling more comfortable now. Chest pain is improved. Howev er, it keeps coming and going, and troponin peaked at 5.4 so far. The patient is known to have histo ry of coronary artery disease, multiple stents, and heavily calcified vessels as per previous cardiac cath reports. Past Medical History: Diabetes, coronary artery disease, hypertension, and dyslipidemia. Medications: Refer to the reconciliation list for detailed list. Allergies: HYDROCODONE. Social History: Does not smoke or drink. Does not use any drugs. Family History: Father with premature coronary artery disease. Review of Systems: All systems reviewed and they were negative except as mentioned in the HPI. Physical Examination: Vital Signs: Reviewed. Head and Neck: Pupils are equal and reactive to light. Intact eye movements. No JVD. No cervical lymphadenopathy. Neck: Supple. Thyroid is not enlarged. Lungs: Clear to auscultation bilaterally. No rhonchi, rales, or crackles. No accessory muscle use. Heart: Regular rate and rhythm. No extra sounds. Abdomen: Soft, nontender. Bowel sounds positive. No organomegaly. No masses or hernia. No rigidi ty or rebound. Extremities: No edema, clubbing, or cyanosis. Intact pulses. Skin: No rashes. Neurologic: Alert, awake, and oriented x3. No focal deficits appreciated. Lymph Nodes: No cervical or axillary lymphadenopathy. Investigations: Troponin peaked at 5.14. Creatinine is 1.1. Assessment And Recommendations: [id number] myocardial infarction. No significant coronary art jordy disease with heavily calcified vessels. Given the fact the troponin keeps rising and still has o n and off chest pain, I recommend transfer to the medical center to do a coronary angiogram on him as soon as possible and I would expect that he will need some sort of atherectomy, likely shockwave lit hotripsy due to heavily calcified vessels. Agree with Lovenox and aspirin, and I will start the proc ess to transfer him hoping to do his angiogram by tomorrow morning. I will follow the patient in the [facility] . Thank you for the consult. CONRADO Voice ID: [id number] Report ID: [id number]
[2021-09-09 17:16] VITALS: BP 167/87; TEMP 97
[2021-09-09] MEDS ORDERED: ATORVASTATIN 80 MG TAB PO SCH (21:00)
== END 2021-09-09 17:44 | disposition short-term general hospital (02) | DRG 282 ==
LOC: ER 01:25 → ERHOLD 03:39 → 2ND 04:37
PROVIDERS: ADMIT Hospitalist; ATTEND Hospitalist
DX: I21.4 Non-ST elevation (NSTEMI) myocardial infarction (principal); I10 Essential (primary) hypertension; E78.5 Hyperlipidemia, unspecified; I25.10 Atherosclerotic heart disease of native coronary artery without angina pectoris; I25.2 Old myocardial infarction; E11.9 Type 2 diabetes mellitus without complications; Z95.5 Presence of coronary angioplasty implant and graft; Z20.822 Contact with and (suspected) exposure to COVID-19
CPT/HCPCS: 36415; 71045; 80048; 80061; 80076; 82947; 83690; 83735; 83880; 84439; 84443; 84484; 85025; 85610; 93005; 94760; 96372; 96374; 96375; 99285; J1650; J2405; U0003

== ENCOUNTER 2021-11-25 16:01 | Inpatient (IN) | payer OTHER ==
--- OUTSIDE RECORDS SUMMARY | 2021-11-25 16:05 | XMS REPORT | Continuity of Care Document ---
:1950 Author Organization [facility] t Address [address] [place] [address] Care Team Providers Name Role Phone RENE Primary Care Physician Unavailable KEVEN Attending Clinician Unavailable CRISTINA GEIGER Attending Clinician Unavailable Provider, Urgent Care Attending Clinician Unavailable Lab, Fam Pob I Attending Clinician Unavailable Dakota KAYE Attending Clinician DAKOTA Attending Clinician Unavailable [facility] Admitting Clinician Unavailable Payers Payer Name Policy Type Policy Number Effective Date Expiration Date S nannette UNITED MEDICARE [id number] 2020 O 00:00:00 Problems This patient has no known problems. Allergies, Adverse Reactions, Alerts Allergy Allergy Status Severity Reaction(s) Onset Inactive Treating Comm ents Source Name Type Date Date Clinician HYDROCOD Allergy Active High Other [facility] CODEINE Allergy Active Other [address] [facility] NO KNOWN Allergy Active [facility] S NO KNOWN Drug Active [facility] ALLERGIE Class [facility] Social History Social Habit Start Date Stop Date Quantity Comments Source Sex Assigned At Uni versity [facility] Exposure to SARS-CoV-2 Not sure [facility] [place] (event) [facility] Smoking Status Start Date Stop Date Source Unknown if ever smoked [facility] y [facility] Medications This patient has no known medications. Vital Signs Vital Name Observation Time Observation Value Comments Source WEIGHT 2021-09-14 07:45:00 96.62 kg WEIGHT 2021-09-13 03:52:00 96.934 kg WEIGHT 2021-09-12 04:19:00 97.251 kg WEIGHT 2021-09-11 04:37:00 98.476 kg HEIGHT 2021-09-09 20:31:00 180.3 cm WEIGHT 2021-09-09 20:31:00 100.29 kg WEIGHT 2021-09-14 07:45:00 96.62 kg WEIGHT 2021-09-13 03:52:00 96.934 kg WEIGHT 2021-09-12 04:19:00 97.251 kg WEIGHT 2021-09-11 04:37:00 98.476 kg HEIGHT 2021-09-09 20:31:00 180.3 cm WEIGHT 2021-09-09 20:31:00 100.29 kg Procedures This patient has no known procedures. Encounters Start End Encounter Admission Attending Care Care Encounter Source Date/Time Date/Time Type Type Clinicians Facility Department ID 2021-09-09 2021-09-14 [facility] [id number] [facility] 18:54:00 09:46:00 [facility] 2021-09-09 2021-09-09 [facility] [id number] [facility] 00:00:00 23:59:00 Nahomi 2020-07-30 2020-07-30 Telephone Provider, [facility] [id number] 00:00:00 00:00:00 [facility] [id number] Care Surgical [id number] Specialti [phone] [address] [place] 2020-07-30 2020-07-30 Telephone Provider, [facility] [id number] [facility] 00:00:00 00:00:00 [facility] [id number] ity of Care Surgical [id number] Zander as Specialti [id number] Ia dical es 370 [facility] 2020-07-28 2020-07-28 Laboratory Lab, Adc Fam Pob I [facility] [id number] [facility] 15:53:29 16:13:29 Only Duncan, [facility] [id number] [facility] [id number] Zander as Professio [phone] Me dical [address] Office [address] One 2020-07-28 2020-07-28 Laboratory Lab, [facility] [id number] 15:53:29 16:13:29 Only Fam Pob I [facility] [id number] [place] [id number] Professio [id number] [place] [address] [address] 2020-07-28 2020-07-28 Outpatient R [facility] [id number] Univers 16:00:00 16:00:00 [id number] [facility] 2020-07-28 2020-07-28 [facility] [id number] Univers 16:00:00 16:00:00 JESSICA [facility] Results Test Description Test Time Test Comments Results Result Comments Source BASIC METABOLIC PANEL 2021-09-14 05:22:16 Test Item Value Reference Range Interpretation Comme nts SODIUM (BEAKER) (test code 139 meq/L 136-145 = 381) POTASSIUM (BEAKER) (test 4.0 meq/L 3.5-5.1 code = 379) CHLORIDE (BEAKER) (test 109 meq/L 98-107 H code = 382) CO2 (BEAKER) (test code = 22 meq/L 22-29 355) BLOOD UREA NITROGEN 17 mg/dL 7-21 (BEAKER) (test code = 354) CREATININE (BEAKER) (test 0.92 mg/dL 0.57-1.25 code = 358) GLUCOSE RANDOM (BEAKER) 115 mg/dL 70-105 H (test code = 652) CALCIUM (BEAKER) (test code 9.4 mg/dL 8.4-10.2 = 697) EGFR (BEAKER) (test code = 82 mL/min/1.73 sq m ESTIMATED GFR IS NOT 1092) ACCURATE CRE ATININE CLEARANCE IN [place] EDICTING GLOMERULAR FILT RATION RATE. ESTIMATED GFR IS NOT APPLICABLE FOR DIALYSIS PATIENTS. Control Valve Mechanic ID - MIKALA MCBC W/PLT COUNT & AUTO [id number] 05:13:14 Test Item Value Reference Range Interpretation Comments WHITE BLOOD CELL COUNT (BEAKER) 5.2 K/ L 3.5-10.5 (test code = 775) RED BLOOD CELL COUNT (BEAKER) 4.44 M/ L 4.63-6.08 L (test code = 761) HEMOGLOBIN (BEAKER) (test code = 13.7 GM/DL 13.7-17.5 410) HEMATOCRIT (BEAKER) (test code = 40.6 % 40.1-51.0 411) MEAN CORPUSCULAR VOLUME (BEAKER) 91.4 fL 79.0-92.2 (test code = 753) MEAN CORPUSCULAR HEMOGLOBIN 30.9 pg 25.7-32.2 (BEAKER) (test code = 751) MEAN CORPUSCULAR HEMOGLOBIN CONC 33.7 GM/DL 32.3-36.5 (BEAKER) (test code = 752) RED CELL DISTRIBUTION WIDTH 12.8 % 11.6-14.4 (BEAKER) (test code = 412) PLATELET COUNT (BEAKER) (test 155 K/CU MM 150-450 code = 756) MEAN PLATELET VOLUME (BEAKER) 10.8 fL 9.4-12.4 (test code = 754) NUCLEATED RED BLOOD CELLS 0 /100 WBC 0-0 (BEAKER) (test code = 413) NEUTROPHILS RELATIVE PERCENT 74 % (BEAKER) (test code = 429) LYMPHOCYTES RELATIVE PERCENT 14 % (BEAKER) (test code = 430) MONOCYTES RELATIVE PERCENT 10 % (BEAKER) (test code = 431) EOSINOPHILS RELATIVE PERCENT 2 % (BEAKER) (test code = 432) BASOPHILS RELATIVE PERCENT 0 % (BEAKER) (test code = 437) NEUTROPHILS ABSOLUTE COUNT 3.79 K/ L 1.78-5.38 (BEAKER) (test code = 670) LYMPHOCYTES ABSOLUTE COUNT 0.71 K/ L 1.32-3.57 L (BEAKER) (test code = 414) MONOCYTES ABSOLUTE COUNT (BEAKER) 0.50 K/ L 0.30-0.82 (test code = 415) EOSINOPHILS ABSOLUTE COUNT 0.11 K/ L 0.04-0.54 (BEAKER) (test code = 416) BASOPHILS ABSOLUTE COUNT (BEAKER) 0.02 K/ L 0.01-0.08 (test code = 417) IMMATURE GRANULOCYTES-RELATIVE 0 % 0-1 PERCENT (BEAKER) (test code = 2801) POCT-GLUCOSE [id number] 22:35:23 Test Item Value Reference Range Interpretation Comments POC-GLUCOSE METER 153 mg/dL 70-110 H : Notified RN/MD: ([facility]) (test code = TESTED AT [place] [address]) [facility], [address]: Control Valve Mechanic/Techni kendall ID = [id number] for CURTIS PELAYO POCT-GLUCOSE [id number] 18:16:50 Test Item Value Reference Range Interpretation Comments POC-GLUCOSE METER 92 mg/dL 70-110 : TESTED A T [facility] 6720 ([facility]) (test code = [facility], 153) [address]: Control Valve Mechanic/Techni kendall ID = [id number] for GERMAN JIMENEZ [id number] 17:38:42 Test Item Value Reference Range Interpretation Comments ACTIVATED CLOTTING TIME 261 sec : 74 -137 seconds, ([facility]) (test code = Baseli ne: TESTED AT 441) [address], [address]: Control Valve Mechanic/Techni kendall ID = [id number] for Woodruff, Erna n [id number] 17:04:22 Test Item Value Reference Range Interpretation Comments ACTIVATED CLOTTING TIME 297 sec : 74 -137 seconds, ([facility]) (test code = Baseli ne: TESTED AT 441) [address], [address]: Control Valve Mechanic/Techni kendall ID = [id number] for Woodruff, Erna n [id number] 16:49:04 Test Item Value Reference Range Interpretation Comments ACTIVATED CLOTTING TIME 303 sec : 74 -137 seconds, ([facility]) (test code = Baseli ne: TESTED AT 441) [address], [address]: Control Valve Mechanic/Techni kendall ID = [id number] for Woodruff, Erna n POCT-GLUCOSE [id number] 12:07:34 Test Item Value Reference Range Interpretation Comments POC-GLUCOSE METER 99 mg/dL 70-110 : TESTED A T [facility] 6720 ([facility]) (test code = [facility] [place], 153) [address]: Control Valve Mechanic/Techni kendall ID = [id number] for Raimundo Templeton POCT-GLUCOSE [id number] 07:46:07 Test Item Value Reference Range Interpretation Comments POC-GLUCOSE METER 99 mg/dL 70-110 : TESTED A T [facility] 6720 (BEAKER) (test code = [place], 1538) [address]: Control Valve Mechanic/Techni kendall ID = [id number] for Raimundo Templeton BASIC METABOLIC [id number] 04:22:18 Test Item Value Reference Range Interpretation Comments SODIUM (BEAKER) 138 meq/L 136-145 (test code = 381) POTASSIUM (BEAKER) 4.0 meq/L 3.5-5.1 (test code = 379) CHLORIDE (BEAKER) 106 meq/L 98-107 (test code = 382) CO2 (BEAKER) (test 24 meq/L 22-29 code = 355) BLOOD UREA NITROGEN 15 mg/dL 7-21 (BEAKER) (test code = 354) CREATININE (BEAKER) 1.07 mg/dL 0.57-1.25 (test code = 358) GLUCOSE RANDOM 112 mg/dL 70-105 H (BEAKER) (test code = 652) CALCIUM (BEAKER) 9.7 mg/dL 8.4-10.2 (test code = 697) EGFR (BEAKER) (test 69 mL/min/1.73 ESTIMA ARLET GFR IS code = 1092) sq m NOT ACCURATE CREATININE CLEARANCE IN PREDICTING GLOMERULAR FILTRATION RATE . ESTIMATED GFR I S NOT APPLICABLE FOR DIALYSIS PATIEN TS. Control Valve Mechanic ID - IOANA WCBC W/PLT COUNT & AUTO [id number] 04:05:28 Test Item Value Reference Range Interpretation Comments WHITE BLOOD CELL COUNT (BEAKER) 6.8 K/ L 3.5-10.5 (test code = 775) RED BLOOD CELL COUNT (BEAKER) 4.46 M/ L 4.63-6.08 L (test code = 761) HEMOGLOBIN (BEAKER) (test code = 14.0 GM/DL 13.7-17.5 410) HEMATOCRIT (BEAKER) (test code = 41.0 % 40.1-51.0 411) MEAN CORPUSCULAR VOLUME (BEAKER) 91.9 fL 79.0-92.2 (test code = 753) MEAN CORPUSCULAR HEMOGLOBIN 31.4 pg 25.7-32.2 (BEAKER) (test code = 751) MEAN CORPUSCULAR HEMOGLOBIN CONC 34.1 GM/DL 32.3-36.5 (BEAKER) (test code = 752) RED CELL DISTRIBUTION WIDTH 12.9 % 11.6-14.4 (BEAKER) (test code = 412) PLATELET COUNT (BEAKER) (test 151 K/CU MM 150-450 code = 756) MEAN PLATELET VOLUME (BEAKER) 10.3 fL 9.4-12.4 (test code = 754) NUCLEATED RED BLOOD CELLS 0 /100 WBC 0-0 (BEAKER) (test code = 413) NEUTROPHILS RELATIVE PERCENT 73 % (BEAKER) (test code = 429) LYMPHOCYTES RELATIVE PERCENT 14 % (BEAKER) (test code = 430) MONOCYTES RELATIVE PERCENT 11 % (BEAKER) (test code = 431) EOSINOPHILS RELATIVE PERCENT 2 % (BEAKER) (test code = 432) BASOPHILS RELATIVE PERCENT 0 % (BEAKER) (test code = 437) NEUTROPHILS ABSOLUTE COUNT 4.96 K/ L 1.78-5.38 (BEAKER) (test code = 670) LYMPHOCYTES ABSOLUTE COUNT 0.97 K/ L 1.32-3.57 L (BEAKER) (test code = 414) MONOCYTES ABSOLUTE COUNT (BEAKER) 0.73 K/ L 0.30-0.82 (test code = 415) EOSINOPHILS ABSOLUTE COUNT 0.12 K/ L 0.04-0.54 (BEAKER) (test code = 416) BASOPHILS ABSOLUTE COUNT (BEAKER) 0.02 K/ L 0.01-0.08 (test code = 417) IMMATURE GRANULOCYTES-RELATIVE 0 % 0-1 PERCENT (BEAKER) (test code = 2801) POCT-GLUCOSE [id number] 21:27:14 Test Item Value Reference Range Interpretation Comments POC-GLUCOSE METER 106 mg/dL 70-110 : TESTED A T [facility] 6720 (BEAKER) (test code = [facility] [place], 1538) [address]: Control Valve Mechanic/Techni kendall ID = [id number] for Makenzie Brush POCT-GLUCOSE [id number] 16:47:40 Test Item Value Reference Range Interpretation Comments POC-GLUCOSE METER 94 mg/dL 70-110 : TESTED A T [facility] 6720 (BEAKER) (test code = [facility] [place], 1538) [address]: Control Valve Mechanic/Techni kendall ID = [id number] for Vida Boggs POCT-GLUCOSE [id number] 11:23:23 Test Item Value Reference Range Interpretation Comments POC-GLUCOSE METER 87 mg/dL 70-110 : TESTED A T [facility] 6720 (BEAKER) (test code = [facility] [place], 1538) [address]: Control Valve Mechanic/Techni kendall ID = [id number] for Raimundo Templeton POCT-GLUCOSE [id number] 08:00:21 Test Item Value Reference Range Interpretation Comments POC-GLUCOSE METER 118 mg/dL 70-110 H : TESTED A T [facility] 6720 (BEAKER) (test code = [facility] [place], 1538) [address]: Control Valve Mechanic/Techni kendall ID = [id number] for Raimundo Aquino BASIC METABOLIC [id number] 04:51:44 Test Item Value Reference Range Interpretation Comments SODIUM (BEAKER) 142 meq/L 136-145 (test code = 381) POTASSIUM (BEAKER) 4.3 meq/L 3.5-5.1 (test code = 379) CHLORIDE (BEAKER) 108 meq/L 98-107 H (test code = 382) CO2 (BEAKER) (test 26 meq/L 22-29 code = 355) BLOOD UREA NITROGEN 12 mg/dL 7-21 (BEAKER) (test code = 354) CREATININE (BEAKER) 1.04 mg/dL 0.57-1.25 (test code = 358) GLUCOSE RANDOM 103 mg/dL 70-105 (BEAKER) (test code = 652) CALCIUM (BEAKER) 9.6 mg/dL 8.4-10.2 (test code = 697) EGFR (BEAKER) (test 71 mL/min/1.73 ESTIMA ARLET GFR IS code = 1092) sq m NOT ACCURATE CREATININE CLEARANCE IN PREDICTING GLOMERULAR FILTRATION RATE . ESTIMATED GFR I S NOT APPLICABLE FOR DIALYSIS PATIEN TS. Control Valve Mechanic ID - IOANA WCBC W/PLT COUNT & AUTO [id number] 04:27:13 Test Item Value Reference Range Interpretation Comments WHITE BLOOD CELL COUNT (BEAKER) 6.3 K/ L 3.5-10.5 (test code = 775) RED BLOOD CELL COUNT (BEAKER) 4.60 M/ L 4.63-6.08 L (test code = 761) HEMOGLOBIN (BEAKER) (test code = 14.2 GM/DL 13.7-17.5 410) HEMATOCRIT (BEAKER) (test code = 42.6 % 40.1-51.0 411) MEAN CORPUSCULAR VOLUME (BEAKER) 92.6 fL 79.0-92.2 H (test code = 753) MEAN CORPUSCULAR HEMOGLOBIN 30.9 pg 25.7-32.2 (BEAKER) (test code = 751) MEAN CORPUSCULAR HEMOGLOBIN CONC 33.3 GM/DL 32.3-36.5 (BEAKER) (test code = 752) RED CELL DISTRIBUTION WIDTH 12.8 % 11.6-14.4 (BEAKER) (test code = 412) PLATELET COUNT (BEAKER) (test 140 K/CU MM 150-450 L code = 756) MEAN PLATELET VOLUME (BEAKER) 10.7 fL 9.4-12.4 (test code = 754) NUCLEATED RED BLOOD CELLS 0 /100 WBC 0-0 (BEAKER) (test code = 413) NEUTROPHILS RELATIVE PERCENT 73 % (BEAKER) (test code = 429) LYMPHOCYTES RELATIVE PERCENT 14 % (BEAKER) (test code = 430) MONOCYTES RELATIVE PERCENT 11 % (BEAKER) (test code = 431) EOSINOPHILS RELATIVE PERCENT 1 % (BEAKER) (test code = 432) BASOPHILS RELATIVE PERCENT 1 % (BEAKER) (test code = 437) NEUTROPHILS ABSOLUTE COUNT 4.61 K/ L 1.78-5.38 (BEAKER) (test code = 670) LYMPHOCYTES ABSOLUTE COUNT 0.86 K/ L 1.32-3.57 L (BEAKER) (test code = 414) MONOCYTES ABSOLUTE COUNT (BEAKER) 0.72 K/ L 0.30-0.82 (test code = 415) EOSINOPHILS ABSOLUTE COUNT 0.09 K/ L 0.04-0.54 (BEAKER) (test code = 416) BASOPHILS ABSOLUTE COUNT (BEAKER) 0.04 K/ L 0.01-0.08 (test code = 417) IMMATURE GRANULOCYTES-RELATIVE 0 % 0-1 PERCENT (BEAKER) (test code = 2801) POCT-GLUCOSE [id number] 21:55:39 Test Item Value Reference Range Interpretation Comments POC-GLUCOSE METER 121 mg/dL 70-110 H : TESTED Hilda T [facility] 6720 (BEAKER) (test code = [facility] Joel [facility], 1538) [address]: Control Valve Mechanic/Techni kendall ID = [id number] for Makenzie Brush POCT-GLUCOSE [id number] 16:05:00 Test Item Value Reference Range Interpretation Comments POC-GLUCOSE METER 105 mg/dL 70-110 : TESTED A T [facility] 6720 (BEAKER) (test code = [facility] [place], 1538) [address]: Control Valve Mechanic/Techni kendall ID = [id number] for Re yes, Sharon POCT-GLUCOSE [id number] 11:17:49 Test Item Value Reference Range Interpretation Comments POC-GLUCOSE METER 107 mg/dL 70-110 : TESTED A T [facility] 6720 (BEAKER) (test code = [facility] [place], 1538) [address]: Control Valve Mechanic/Techni kendall ID = [id number] for Re yes, Sharon BASIC METABOLIC [id number] 07:28:02 Test Item Value Reference Range Interpretation Comments SODIUM (BEAKER) 139 meq/L 136-145 (test code = 381) POTASSIUM (BEAKER) 3.7 meq/L 3.5-5.1 (test code = 379) CHLORIDE (BEAKER) 109 meq/L 98-107 H (test code = 382) CO2 (BEAKER) (test 20 meq/L 22-29 L code = 355) BLOOD UREA NITROGEN 11 mg/dL 7-21 (BEAKER) (test code = 354) CREATININE (BEAKER) 0.81 mg/dL 0.57-1.25 (test code = 358) GLUCOSE RANDOM 119 mg/dL 70-105 H (BEAKER) (test code = 652) CALCIUM (BEAKER) 9.2 mg/dL 8.4-10.2 (test code = 697) EGFR (BEAKER) (test 94 mL/min/1.73 ESTIMA ARLET GFR IS code = 1092) sq m NOT ACCURATE CREATININE CLEARANCE IN PREDICTING GLOMERULAR FILTRATION RATE . ESTIMATED GFR I S NOT APPLICABLE FOR DIALYSIS PATIEN TS. Control Valve Mechanic ID - IOANA WCBC W/PLT COUNT & AUTO [id number] 06:49:42 Test Item Value Reference Range Interpretation Comments WHITE BLOOD CELL COUNT (BEAKER) 7.7 K/ L 3.5-10.5 (test code = 775) RED BLOOD CELL COUNT (BEAKER) 4.78 M/ L 4.63-6.08 (test code = 761) HEMOGLOBIN (BEAKER) (test code = 14.6 GM/DL 13.7-17.5 410) HEMATOCRIT (BEAKER) (test code = 43.6 % 40.1-51.0 411) MEAN CORPUSCULAR VOLUME (BEAKER) 91.2 fL 79.0-92.2 (test code = 753) MEAN CORPUSCULAR HEMOGLOBIN 30.5 pg 25.7-32.2 (BEAKER) (test code = 751) MEAN CORPUSCULAR HEMOGLOBIN CONC 33.5 GM/DL 32.3-36.5 (BEAKER) (test code = 752) RED CELL DISTRIBUTION WIDTH 12.8 % 11.6-14.4 (BEAKER) (test code = 412) PLATELET COUNT (BEAKER) (test 144 K/CU MM 150-450 L code = 756) MEAN PLATELET VOLUME (BEAKER) 10.6 fL 9.4-12.4 (test code = 754) NUCLEATED RED BLOOD CELLS 0 /100 WBC 0-0 (BEAKER) (test code = 413) NEUTROPHILS RELATIVE PERCENT 81 % (BEAKER) (test code = 429) LYMPHOCYTES RELATIVE PERCENT 9 % (BEAKER) (test code = 430) MONOCYTES RELATIVE PERCENT 9 % (BEAKER) (test code = 431) EOSINOPHILS RELATIVE PERCENT 1 % (BEAKER) (test code = 432) BASOPHILS RELATIVE PERCENT 0 % (BEAKER) (test code = 437) NEUTROPHILS ABSOLUTE COUNT 6.29 K/ L 1.78-5.38 H (BEAKER) (test code = 670) LYMPHOCYTES ABSOLUTE COUNT 0.67 K/ L 1.32-3.57 L (BEAKER) (test code = 414) MONOCYTES ABSOLUTE COUNT (BEAKER) 0.67 K/ L 0.30-0.82 (test code = 415) EOSINOPHILS ABSOLUTE COUNT 0.06 K/ L 0.04-0.54 (BEAKER) (test code = 416) BASOPHILS ABSOLUTE COUNT (BEAKER) 0.02 K/ L 0.01-0.08 (test code = 417) IMMATURE GRANULOCYTES-RELATIVE 0 % 0-1 PERCENT (BEAKER) (test code = 2801) POCT-GLUCOSE [id number] 22:42:26 Test Item Value Reference Range Interpretation Comments POC-GLUCOSE METER 138 mg/dL 70-110 H : TESTED A T [facility] 6720 (BEAKER) (test code = [facility] [place], 1538) [address]: Control Valve Mechanic/Techni kendall ID = [id number] for RE SRI GARAY POCT-GLUCOSE [id number] 16:10:22 Test Item Value Reference Range Interpretation Comments POC-GLUCOSE METER 121 mg/dL 70-110 H : TESTED A T [facility] 6720 (BEAKER) (test code = [facility] [place], 1538) [address]: Control Valve Mechanic/Techni kendall ID = [id number] for Re kevin, Sharon [id number] 12:46:40 Test Item Value Reference Range Interpretation Comments ACTIVATED CLOTTING TIME 386 sec : 74 -137 seconds, (BEAKER) (test code = Spenceri ne: TESTED AT [facility]) [address], [facility] 30: Control Valve Mechanic/Techni kendall ID = [id number] for CA RPIO, SOLOMON [id number] 12:07:57 Test Item Value Reference Range Interpretation Comments ACTIVATED CLOTTING TIME 309 sec : 74 -137 seconds, (BEAKER) (test code = Baseli ne: TESTED AT 441) [address], [facility] 30: Control Valve Mechanic/Techni kendall ID = [id number] for CA RPIO, SOLOMON [id number] 11:47:55 Test Item Value Reference Range Interpretation Comments ACTIVATED CLOTTING TIME 267 sec : 74 -137 seconds, (BEAKER) (test code = Baseli ne: TESTED AT 441) [address], [facility] 30: Control Valve Mechanic/Techni kendall ID = [id number] for CA RPIO, SOLOMON [id number] 11:25:42 Test Item Value Reference Range Interpretation Comments ACTIVATED CLOTTING TIME 291 sec : 74 -137 seconds, (BEAKER) (test code = Baseli ne: TESTED AT 441) [address], [facility] 30: Control Valve Mechanic/Techni kendall ID = [id number] for CA RPIO, SOLOMON [id number] 11:08:49 Test Item Value Reference Range Interpretation Comments ACTIVATED CLOTTING TIME 142 sec : 74 -137 seconds, ([employer]) (test code = Baseli ne: TESTED AT 441) [facility] [address] [facility] [place], [address] 30: Control Valve Mechanic/Techni kendall ID = [id number] for SOLOMON GONZALEZ POCT-GLUCOSE [id number] 06:46:11 Test Item Value Reference Range Interpretation Comments POC-GLUCOSE METER 107 mg/dL 70-110 : [facility] ([facility] ([facility] = [facility], 1538) [address]: Control Valve Mechanic/Techni kendall ID = [id number] for KELVIN OATES HIGH SENSITIVITY TROPONIN [id number] 06:12:53 Test Item Value Reference Range Interpretation Comments HIGH SENSITIVITY 96273 pg/ml See_Comment HH [Automated message] TROPONIN I (test code The sy stem which = [id number]) generated this result transmitted ref erence range: <=35. Th e reference range was not used to int erpret this result as normal/abnormal . Control Valve Mechanic ID - MIKALA MThe GEAR GRINDING MACHINE OPERATOR STAT High Sensitivity Troponin-I results should be used in conjunction with other diagnostic information such as ECG, clinical observations and information, and patient symptoms to aid in the diagnosis of MN.Control Valve Mechanic ID - [id number] 05:37:02 Test Item Value Reference Range Interpretation Comments PARTIAL THROMBOPLASTIN TIME 62.0 seconds 22.5-36.0 H ([employer]) (test code = 760) HIGH SENSITIVITY TROPONIN [id number] 23:13:15 Test Item Value Reference Range Interpretation Comments HIGH SENSITIVITY 98255 pg/ml See_Comment HH [Automated message] TROPONIN I (test code The sy stem which = [id number]) generated this result transmitted ref erence range: <=35. Th e reference range was not used to int erpret this result as normal/abnormal . Control Valve Mechanic ID - DBThe GEAR GRINDING MACHINE OPERATOR STAT High Sensitivity Troponin-I results should be used in conjunctionwith other diagnostic information such as ECG, clinical observations and information, and patient symptoms to aid in the diagnosis of MN.Control Valve Mechanic ID - ADMINB-TYPE NATRIURETIC FACTOR (BNP)2021-09-09 22:24:24 Test Item Value Reference Range Interpretation Comments B-TYPE NATRIURETIC PEPTIDE ([employer]) 58 pg/mL 0-100 (test code = 700) Control Valve Mechanic ID - [id number] 22:18:25 Test Item Value Reference Range Interpretation Comments PHOSPHORUS (BEAKER) (test code = 3.0 mg/dL 2.3-4.7 604) Control Valve Mechanic ID - DBCOMPREHENSIVE METABOLIC [id number] 22:18:24 Test Item Value Reference Range Interpretation Comments TOTAL PROTEIN 7.0 gm/dL 6.0-8.3 (BEAKER) (test code = 770) ALBUMIN (BEAKER) 4.0 g/dL 3.5-5.0 (test code = 1145) ALKALINE PHOSPHATASE 61 U/L 40-150 (BEAKER) (test code = 346) BILIRUBIN TOTAL 0.6 mg/dL 0.2-1.2 (BEAKER) (test code = 377) SODIUM (BEAKER) (test 137 meq/L 136-145 code = 381) POTASSIUM (BEAKER) 3.9 meq/L 3.5-5.1 (test code = 379) CHLORIDE (BEAKER) 108 meq/L 98-107 H (test code = 382) CO2 (BEAKER) (test 20 meq/L 22-29 L code = 355) BLOOD UREA NITROGEN 16 mg/dL 7-21 (BEAKER) (test code = 354) CREATININE (BEAKER) 0.96 mg/dL 0.57-1.25 (test code = 358) GLUCOSE RANDOM 107 mg/dL 70-105 H (BEAKER) (test code = 652) CALCIUM (BEAKER) 9.2 mg/dL 8.4-10.2 (test code = 697) AST (SGOT) (BEAKER) 49 U/L 5-34 H (test code = 353) ALT (SGPT) (BEAKER) 30 U/L 6-55 (test code = 347) EGFR (BEAKER) (test 78 mL/min/1.73 ESTIMA ARLET GFR IS code = 1092) sq m NOT ACCURATE CREATININE CLEARANCE IN PREDICTING GLOMERULAR FILTRATION RATE . ESTIMATED GFR I S NOT APPLICABLE FOR DIALYSIS PATIEN TS. Control Valve Mechanic ID - [id number] 22:18:24 Test Item Value Reference Range Interpretation Comments MAGNESIUM (BEAKER) (test code = 1.9 mg/dL 1.6-2.6 627) Control Valve Mechanic ID - [id number] 22:06:23 Test Item Value Reference Range Interpretation Comments PARTIAL THROMBOPLASTIN TIME 39.3 seconds 22.5-36.0 H (BEAKER) (test code = 760) PROTHROMBIN [id number] 22:05:20 Test Item Value Reference Range Interpretation Comments PROTIME (BEAKER) 13.3 seconds 11.9-14.2 (test code = 759) INR (BEAKER) (test 1.03 See_Comment [Automat ed message] code = 370) The system [employer] generated this result transmitted ref erence range: <=5.90. The reference range was not used to int erpret this result as normal/abnormal . RECOMMENDED COUMADIN/WARFARIN INR THERAPY RANGESSTANDARD DOSE: 2.0 - 3.0 Includes: PROPHYLAXIS forvenous thrombosis, systemic embolization; TREATMENT for venous thrombosis and/or pulmonary embolus.HIGH RISK: Target INR is 2.5-3.5 for patients with mechanical heart valves.CBC W/PLT COUNT & AUTO DIFFERENTIAL 2021-09-09 21:54:37 Test Item Value Reference Range Interpretation Comments WHITE BLOOD CELL COUNT (BEAKER) 7.6 K/ L 3.5-10.5 (test code = 775) RED BLOOD CELL COUNT (BEAKER) 4.96 M/ L 4.63-6.08 (test code = 761) HEMOGLOBIN (BEAKER) (test code = 15.1 GM/DL 13.7-17.5 410) HEMATOCRIT (BEAKER) (test code = 45.7 % 40.1-51.0 411) MEAN CORPUSCULAR VOLUME (BEAKER) 92.1 fL 79.0-92.2 (test code = 753) MEAN CORPUSCULAR HEMOGLOBIN 30.4 pg 25.7-32.2 (BEAKER) (test code = 751) MEAN CORPUSCULAR HEMOGLOBIN CONC 33.0 GM/DL 32.3-36.5 (BEAKER) (test code = 752) RED CELL DISTRIBUTION WIDTH 13.0 % 11.6-14.4 (BEAKER) (test code = 412) PLATELET COUNT (BEAKER) (test 152 K/CU MM 150-450 code = 756) MEAN PLATELET VOLUME (BEAKER) 10.2 fL 9.4-12.4 (test code = 754) NUCLEATED RED BLOOD CELLS 0 /100 WBC 0-0 (BEAKER) (test code = 413) NEUTROPHILS RELATIVE PERCENT 70 % (BEAKER) (test code = 429) LYMPHOCYTES RELATIVE PERCENT 21 % (BEAKER) (test code = 430) MONOCYTES RELATIVE PERCENT 7 % (BEAKER) (test code = 431) EOSINOPHILS RELATIVE PERCENT 2 % (BEAKER) (test code = 432) BASOPHILS RELATIVE PERCENT 0 % (BEAKER) (test code = 437) NEUTROPHILS ABSOLUTE COUNT 5.31 K/ L 1.78-5.38 (BEAKER) (test code = 670) LYMPHOCYTES ABSOLUTE COUNT 1.56 K/ L 1.32-3.57 (BEAKER) (test code = 414) MONOCYTES ABSOLUTE COUNT (BEAKER) 0.55 K/ L 0.30-0.82 (test code = 415) EOSINOPHILS ABSOLUTE COUNT 0.13 K/ L 0.04-0.54 (BEAKER) (test code = 416) BASOPHILS ABSOLUTE COUNT (BEAKER) 0.03 K/ L 0.01-0.08 (test code = 417) IMMATURE GRANULOCYTES-RELATIVE 0 % 0-1 PERCENT (BEAKER) (test code = 2801) POCT-GLUCOSE [id number] 21:16:44 Test Item Value Reference Range Interpretation Comments POC-GLUCOSE METER 90 mg/dL 70-110 : TESTED A T [facility] 6720 (BEAKER) (test code = [place], 1538) 36587: Control Valve Mechanic/Techni kendall ID = [id number] for RAJ HAY
[2021-11-25 16:45] LABS: Absolute Lymphocytes (CBC) 0.7 K/uL (0.7-4.9); Hematocrit 42.2 % (39.6-49.0); Lymphocytes % 11.1 % (15.3-44.8); MPV 8.9 fL (7.6-11.3); RBC Red Blood Cell Count 4.64 M/uL (4.33-5.43)
[2021-11-25 16:48] LABS: Protime INR 1.1
[2021-11-25 17:06] LABS: Albumin 3.8 g/dL (3.4-5.0); Bilirubin Direct 0.2 mg/dL (0-0.2); Bilirubin Total 0.5 mg/dL (0.2-1.0); Magnesium 2.1 mg/dL (1.8-2.4); Potassium 3.5 mmol/L (3.5-5.1); Protein, Total 7.2 g/dL (6.4-8.2)
[2021-11-25] MEDS ORDERED: MORPHINE 2 MG/ML SYR ONE (17:11)
[2021-11-25] MEDS ORDERED: ONDANSETRON 4 MG/2 ML VIAL ONE (17:11)
--- NOTE | 2021-11-25 17:17 | RAD REPORT ---
EXAM DESCRIPTION: RAD - Chest Single View - 11/25/2021 4:50 pm CLINICAL HISTORY: CHEST PAIN COMPARISON: Single-view chest 09/09/2021 TECHNIQUE: AP portable chest image was obtained 11/25/2021 4:50 pm . FINDINGS: No peripheral mass or consolidation. Interstitial pattern matches comparison. No significa nt failure or volume overload. Heart and vasculature are normal. No measurable pleural effusion and no pneumothorax. No acute bony abnormality seen. No acute aortic findings suspected. IMPRESSION: No acute cardiopulmonary process. No significant change from comparison study.
[2021-11-25 17:51] LABS: Troponin High Sensitivity 104.7 pg/mL (<58.9)
--- NOTE | 2021-11-25 18:06 | RAD REPORT ---
EXAM DESCRIPTION: CT - Head Brain Wo Cont - 11/25/2021 5:47 pm CLINICAL HISTORY: DIZZINESS COMPARISON: HEAD BRAIN W O CONTRAST dated 05/22/2015 TECHNIQUE: Axial 5 mm thick images of the head were obtained without IV contrast. All CT scans are performed using dose optimization technique as appropriate and may include automated exposure control or mA/KV adjustment according to patient size. FINDINGS: No intracranial hemorrhage, mass, edema or shift of mid-line structures. No acute infarcti on changes seen. No abnormal extra-axial fluid collections. Ventricles are normal. No significant atr ophy or chronic ischemic change. Intracranial findings are similar to comparison. Mastoid air cells and visualized portions of the paranasal sinuses are clear. No acute bony findings. IMPRESSION: Negative non-contrast CT head examination.
[2021-11-25] MEDS ORDERED: NA CHLORIDE 0.9% 1,000 ML ONE ×2 (18:16→22:44)
--- NOTE | 2021-11-25 18:19 | RAD REPORT ---
EXAM DESCRIPTION: CT - Angio Aorta For Dissection - 11/25/2021 5:53 pm CLINICAL HISTORY: back pain;Chest pain COMPARISON: None. TECHNIQUE: Dynamically enhanced 3 mm thick images of the chest, abdomen, and pelvis were obtained du ring administration of approximately 150mL Isovue 370 IV contrast. Sagittal and coronal reconstructio n images were generated using MIP and reviewed. Exam utilizes a protocol to evaluate entire course of the aorta. All CT scans are performed using dose optimization technique as appropriate and may include automated exposure control or mA/KV adjustment according to patient size. FINDINGS: Aorta is normal in diameter with no dissection or other acute aortic findings. Reconstruct ion images show no significant findings. Pulmonary arteries are normal as well. No cardiomegaly, pericardial thickening or pericardial effusio n. No mass or infiltrate in the lung parenchyma. No pleural thickening, pleural effusion or pneumothorax . No abnormal mediastinal or hilar mass or lymphadenopathy seen. No chest wall mass or abnormal axillar y lymphadenopathy. Celiac, SMA and renal arteries show no suspicious findings. Solid abdominal viscera and bowel show no emergent findings. Normal size gallbladder shows multiple small layering stones. No biliary tree dil atation. No mass or abnormal lymphadenopathy. No free air, free fluid or inflammatory stranding. No urinary bladder abnormality. Normal size prostate gland seen with post therapy seeds. No acute bone finding. IMPRESSION: Negative CT scan of the aorta for acute or significant finding. Cholelithiasis believed be incidental. No acute gallbladder or biliary tree finding identified. No other significant findings on chest, abdomen and pelvis examination.
--- NOTE | 2021-11-25 18:32 | EDPHYS ---
Physician Documentation [facility] Name: Magnus Snow Age: 71 yrs Sex: Male : 1950 Arrival Date: 11/25/2021 Time: 16:03 Bed 20 Private MD: Theodore Delcid HPI: 11/25 16:34 This 71 yrs old Male presents to ER via Ambulatory with complaints of Chest Pain, cp Dizziness. 16:34 The patient presents with pain that is acute, with no known mechanism of injury. The cp symptoms are located in the left scapular area and left subscapular area. Onset: The symptoms/episode began/occurred today, about 1100. The pain does not radiate. Associated signs and symptoms: Pertinent positives: chest pain, dizziness, Pertinent negatives: abdominal pain, constipation, fever, numbness, tingling. The problem was sustained pain similar to heart attack pain this past August 2021. Historical: - Allergies: 16:07 Codeine; ll1 16:07 HYDROCODONE; ll1 - Home Meds: 16:56 fenofibrate 150 mg Oral cap 1 cap once daily [Active]; metformin 500 mg Oral tab 1 tab canas 2 times per day [Active]; tamsulosin 0.4 mg Oral cap 1 cap once daily [Active]; 19:55 Lipitor 80 mg oral tab [Active]; lisinopril 2.5 mg oral tab [Active]; Brilinta 90 mg sf1 oral tab 2 times per day [Active]; aspirin 81 mg Oral tab [Active]; metoprolol succinate 25 mg oral Tb24 [Active]; Farxiga 5 mg oral tab 1 tab once daily [Active]; ozempic 1 week sundays [Active]; Singulair 10 mg Oral tab as needed [Active]; multivitamin oral tab [Active]; vitamin B complex oral cap daily [Active]; Vitamin C 1,000 mg Oral tab 1,000 mg daily [Active]; Vitamin D Oral 25 mg daily [Active]; vitamin E 1,000 unit Oral tab 1,000 unit daily [Active]; krill oil 350 oral 350 mg daily [Active]; - PMHx: 16:07 Diabetes - NIDDM; [place]- march 2020; ll1 - PSHx: 16:07 stents x 4; ll1 - Immunization history:: Client reports receiving the 2nd dose of the Covid vaccine. - Social history:: Smoking status: Patient denies any tobacco usage or history of. ROS: 16:40 Constitutional: Negative for body aches, chills, fever, poor PO intake. cp 16:40 Eyes: Negative for injury, pain, redness, and discharge. cp 16:40 ENT: Negative for ear pain, sore throat, difficulty swallowing, difficulty handling secretions. 16:40 Cardiovascular: Positive for chest pain, Negative for edema, palpitations. 16:40 Respiratory: Negative for cough, shortness of breath, wheezing. 16:40 Abdomen/GI: Negative for abdominal pain, vomiting, diarrhea, constipation. 16:40 Back: Positive for pain at rest, of the left scapular area and left subscapular area, Negative for injury or acute deformity, decreased range of motion. 16:40 Neuro: Positive for dizziness, Negative for altered mental status, headache, syncope, weakness. 16:40 All other systems are negative. Exam: 16:36 ECG was reviewed by the Attending Physician. cp 16:45 Constitutional: The patient appears in no acute distress, alert, awake, cp non-diaphoretic, non-toxic, well developed, well nourished. 16:45 Head/Face: Normocephalic, atraumatic. cp 16:45 Eyes: Periorbital structures: appear normal, Conjunctiva: normal, no exudate, no injection, Lids and lashes: appear normal, bilaterally. 16:45 ENT: External ear(s): are unremarkable, Nose: is normal, Posterior pharynx: Airway: no evidence of obstruction, patent. 16:45 Neck: ROM/movement: is normal, is supple, without pain, no range of motions limitations. 16:45 Chest/axilla: Inspection: normal. 16:45 Cardiovascular: Rate: normal, Rhythm: regular, Heart sounds: murmur, not appreciated, Edema: is not appreciated, JVD: is not appreciated. 16:45 Respiratory: the patient does not display signs of respiratory distress, Respirations: normal, no use of accessory muscles, no retractions, labored breathing, is not present, Breath sounds: are clear throughout, no decreased breath sounds, no stridor, no wheezing. 16:45 Abdomen/GI: Inspection: abdomen appears normal, Bowel sounds: active, all quadrants, Palpation: abdomen is soft and non-tender, in all quadrants, involuntary guarding, is not appreciated. 16:45 Back: pain, that is mild, of the left scapular area and left subscapular area, ROM is normal. 16:45 Neuro: Orientation: to person, place \\T\\ time. Mentation: is normal, Motor: moves all fours, strength is normal, Sensation: is normal. Vital Signs: 16:07 BP 136 / 73; Pulse 84; Resp 18; Temp 97.9; Pain 10/10; ll1 16:45 Pulse Ox 98% on R/A; ss 16:56 BP 105 / 70; Pulse 75; Resp 18; Pulse Ox 94% on R/A; canas 18:16 BP 100 / 70; Pulse 76; Resp 16; Pulse Ox 95% on R/A; canas 19:24 Weight 90.72 kg; sf1 MDM: 16:10 Patient medically screened. britt 17:00 Differential diagnosis: Abdominal Aortic Aneurysm acute [place]. cp 18:05 Physician consultation: Zaire Carreon MD was contacted at 18:05, regarding consult, cp patient's condition, and will see patient in inpatient room, tomorrow. 18:31 Physician consultation: Gregorio SCHWARTZ was called at 18:30, was contacted at 18:30, cp regarding admission, to the telemetry unit. patient's condition. 18:35 Data reviewed: vital signs, nurses notes, lab test result(s), EKG, radiologic studies, cp plain films. 18:35 Test interpretation: by ED physician or midlevel provider: ECG, plain radiologic cp studies. Counseling: I had a detailed discussion with the patient and/or guardian regarding: the historical points, exam findings, and any diagnostic results supporting the discharge/admit diagnosis, lab results, radiology results, the need for further work-up and treatment in the hospital. 11/25 16:24 Order name: Basic Metabolic Panel; Complete Time: 17:52 mh5 11/25 17:53 Interpretation: Normal except: CL 113; GLUC 127; BUN 29; CRE 1.96; GFR 34. cp 11/25 16:24 Order name: CBC with Diff; Complete Time: 17:28 mh5 11/25 17:41 Interpretation: Normal except: WBC 6.20; MONTEZ% 81.5; LYM% 11.1. cp 11/25 16:24 Order name: LFT's; Complete Time: 17:52 [facility] 11/25 16:24 Order name: Magnesium; Complete Time: 17:52 [facility] 11/25 16:24 Order name: NT PRO-BNP; Complete Time: 17:52 [facility] 11/25 16:24 Order name: PT-INR; Complete Time: 17:28 [facility] 11/25 16:24 Order name: Troponin HS; Complete Time: 17:52 [facility] 11/25 17:53 Interpretation: Abnormal: Troponin HS 104.70. 11/25 16:24 Order name: XRAY Chest (1 view); Complete Time: 17:28 [facility] 11/25 16:31 Order name: SARS-COV-2 RT PCR (Document "Date of Onset" if Symptomatic); Complete Time: [facility] 18:20 11/25 18:20 Interpretation: Reviewed. 11/25 17:29 Order name: CT Head Brain wo Cont; Complete Time: 18:20 11/25 17:29 Order name: CT Aorta for Dissection; Complete Time: 18:21 11/25 18:22 Interpretation: Report reviewed. 11/25 16:24 Order name: EKG; Complete Time: 16:25 [facility] 11/25 16:24 Order name: Cardiac monitoring; Complete Time: 16:37 [facility] 11/25 16:24 Order name: EKG - Nurse/Tech; Complete Time: 16:38 [facility] 11/25 16:24 Order name: IV Saline Lock; Complete Time: 16:39 [facility] 11/25 16:24 Order name: Labs collected and sent; Complete Time: 16:39 [facility] 11/25 16:24 Order name: O2 Per Protocol; Complete Time: 16:38 [facility] 11/25 16:24 Order name: O2 Sat Monitoring; Complete Time: 16:39 [facility] 11/25 19:04 Order name: CONS Physician Consult EDMS EC:36 Rate is 79 beats/min. Rhythm is regular. MO interval is normal. QRS interval is cp prolonged at 144 msec. QT interval is normal. T waves are Inverted in lead aVL. Interpreted by me. Reviewed by me. Administered Medications: 17:12 Drug: morphine 2 mg Route: IVP; Site: left forearm; canas 17:12 Drug: Zofran (Ondansetron) 4 mg Route: IVP; Site: left forearm; 17:12 Follow up: Response: No adverse reaction canas 17:13 Drug: morphine 2 mg Route: IVP; Site: left forearm; canas 18:00 CANCELLED (Physician Discretion): NS 0.9% 500 ml IV at bolus once cp 18:15 Drug: NS 0.9% 1000 ml Route: IV; Rate: 1000 ml/hr; Site: left forearm; canas 19:25 Drug: Aspirin Chewable Tablet 324 mg Route: PO; sf1 19:25 Drug: Lovenox (enoxaparin) 1 mg/kg Route: Sub-Q; Site: right lower abdomen; sf1 Disposition: 11/26 05:09 Co-signature as Attending Physician, Theodore Harrington MD I agree with the assessment and britt plan of care. Disposition Summary: 11/25/21 18:31 Hospitalization Ordered Hospitalization Status: Inpatient Admission cp Provider: Gregorio Esposito cp Location: Telemetry/MedSurg (Inpatient) cp Condition: Stable cp Problem: new cp Symptoms: have worsened cp Bed/Room Type: Standard Room Assignment: 223(11/25/21 20:07) Diagnosis - Subsequent non-ST elevation (NSTEMI) myocardial infarction cp Forms: - Medication Reconciliation Form cp - SBAR form cp Signatures: Dispatcher [employer] EDMS Shannan Durán RN RN mw Anderson, Corey, MD MD cha Page, Corey, PA PA cp Martinez, Maria Sunny Willis RN RN ll1 Lisa Vega RN RN Joanne Hsu RN RN sf1 Corrections: (The following items were deleted from the chart) 11/25 18:00 17:59 NS 0.9% 500 ml IV at bolus once ordered. cp cp 20:03 16:56 Home Meds: Lipitor 8 mg tab Oral tab 1 tab once daily; canas sf1 20:03 16:56 Home Meds: lisinopril 5 mg Oral tab 1 tab once daily; sf1 20:07 18:31 cp mw
--- NOTE | 2021-11-25 18:32 | ER ---
Nurse's Notes [facility] Name: Magnus Snow Age: 71 yrs Sex: Male : 1950 Arrival Date: 11/25/2021 Time: 16:03 Bed 20 Private MD: Diagnosis: Subsequent non-ST elevation (NSTEMI) myocardial infarction Presentation: 11/25 16:07 Chief complaint: Patient states: SOB, dizziness, CP for 1 day. [place] in August. ll1 Coronavirus screen: Vaccine status: Patient reports receiving the 2nd dose of the covid vaccine. Client denies travel out of the [place] in the last 14 days. At this time, the client does not indicate any symptoms associated with coronavirus-19. Ebola Screen: Patient denies travel to an Ebola-affected area in the 21 days before illness onset. Initial Sepsis Screen: Does the patient meet any 2 criteria? No. Patient's initial sepsis screen is negative. Risk Assessment: Do you want to hurt yourself or someone else? Patient reports no desire to harm self or others. Onset of symptoms was November 25, 2021. 16:07 Method Of Arrival: Ambulatory 1 16:07 Acuity: DEBRA 2 ll1 16:57 Initial Sepsis Screen: Does the patient have a suspected source of infection? No. canas Patient's initial sepsis screen is negative. Historical: - Allergies: 16:07 Codeine; ll1 16:07 HYDROCODONE; ll1 - Home Meds: 16:56 fenofibrate 150 mg Oral cap 1 cap once daily [Active]; metformin 500 mg Oral tab 1 tab canas 2 times per day [Active]; tamsulosin 0.4 mg Oral cap 1 cap once daily [Active]; 19:55 Lipitor 80 mg oral tab [Active]; lisinopril 2.5 mg oral tab [Active]; Brilinta 90 mg sf1 oral tab 2 times per day [Active]; aspirin 81 mg Oral tab [Active]; metoprolol succinate 25 mg oral Tb24 [Active]; Farxiga 5 mg oral tab 1 tab once daily [Active]; ozempic 1 week sundays [Active]; Singulair 10 mg Oral tab as needed [Active]; multivitamin oral tab [Active]; vitamin B complex oral cap daily [Active]; Vitamin C 1,000 mg Oral tab 1,000 mg daily [Active]; Vitamin D Oral 25 mg daily [Active]; vitamin E 1,000 unit Oral tab 1,000 unit daily [Active]; krill oil 350 oral 350 mg daily [Active]; - PMHx: 16:07 Diabetes - NIDDM; [place]- march 2020; ll1 - PSHx: 16:07 stents x 4; ll1 - Immunization history:: Client reports receiving the 2nd dose of the Covid vaccine. - Social history:: Smoking status: Patient denies any tobacco usage or history of. Screenin:52 Abuse screen: Denies threats or abuse. Denies injuries from another. Nutritional ss screening: No deficits noted. Tuberculosis screening: Never had TB. Fall Risk None identified. Assessment: 16:52 General: Appears in no apparent distress. comfortable, Behavior is calm, cooperative, ss Denies fever, feeling ill, fatigue, chills. Pain: Complains of pain in chest, between shoulder blades Pain began intermittent chest pain that began yesterday. pain between shoulder blades began around 11am today. Neuro: Level of Consciousness is awake, alert, obeys commands, Oriented to person, place, time, situation. Cardiovascular: Capillary refill < 3 seconds is brisk in bilateral fingers Patient's skin is warm and dry. Respiratory: Reports shortness of breath Airway is patent Respiratory effort is even, unlabored, Respiratory pattern is regular, symmetrical, Breath sounds are clear bilaterally. GI: Patient currently denies abdominal pain, diarrhea, nausea, vomiting. : No signs and/or symptoms were reported regarding the genitourinary system. EENT: Nares are clear. Derm: Skin is intact, is healthy with good turgor, Skin is pink, warm \\T\\ dry. normal. Musculoskeletal: Circulation, motion, and sensation intact. Range of motion: intact in all extremities, Swelling absent. 16:57 Pain: Pain radiates to chest. canas Vital Signs: 16:07 BP 136 / 73; Pulse 84; Resp 18; Temp 97.9; Pain 10/10; ll1 16:45 Pulse Ox 98% on R/A; ss 16:56 BP 105 / 70; Pulse 75; Resp 18; Pulse Ox 94% on R/A; canas 18:16 BP 100 / 70; Pulse 76; Resp 16; Pulse Ox 95% on R/A; canas 19:24 Weight 90.72 kg; sf1 ED Course: 16:03 Patient arrived in ED. rg4 16:08 Triage completed. ll1 16:10 Theodore Chu PA is PSYCHIATRICP. cp 16:10 Theodore Harrington MD is Attending Physician. cp 16:30 Inserted saline lock: 20 gauge in left forearm, using aseptic technique. Blood ss collected. Patient maintains SpO2 saturation greater than 95% on room air. 16:33 SARS-COV-2 RT PCR (Document "Date of Onset" if Symptomatic) Sent. mh5 16:34 Initial lab(s) drawn, by ED staff, sent to lab. COVID swab sent to lab. mh5 16:35 Patient has correct armband on for positive identification. Placed in gown. Bed in low mh5 position. Call light in reach. Side rails up X 1. Adult w/ patient. Warm blanket given. yard general car supervisor on. Pulse ox on. NIBP on. 16:46 Linda Gann, RN is Primary Nurse. ss 16:51 XRAY Chest (1 view) In Process Unspecified. EDMS 16:56 No provider procedures requiring assistance completed. canas 16:57 Arm band placed on. canas 17:47 CT Head Brain wo Cont In Process Unspecified. EDMS 17:53 CT Aorta for Dissection In Process Unspecified. EDMS 18:29 Gregorio Esposito PA is Hospitalizing Provider. cp 19:08 Primary Nurse role handed off by Linda Gann, RN cs9 19:14 Joanne Hsu RN is Primary Nurse. sf1 Administered Medications: 17:12 Drug: morphine 2 mg Route: IVP; Site: left forearm; canas 17:12 Drug: Zofran (Ondansetron) 4 mg Route: IVP; Site: left forearm; canas 17:12 Follow up: Response: No adverse reaction canas 17:13 Drug: morphine 2 mg Route: IVP; Site: left forearm; canas 18:00 CANCELLED (Physician Discretion): NS 0.9% 500 ml IV at bolus once cp 18:15 Drug: NS 0.9% 1000 ml Route: IV; Rate: 1000 ml/hr; Site: left forearm; canas 19:25 Drug: Aspirin Chewable Tablet 324 mg Route: PO; sf1 19:25 Drug: Lovenox (enoxaparin) 1 mg/kg Route: Sub-Q; Site: right lower abdomen; sf1 Outcome: 18:31 Decision to Hospitalize by Provider. cp 21:52 Patient left the ED. sf1 Signatures: Dispatcher [employer] Linda Noland RN RN Theodore Dubon PA PA cp Garcia, Alivia rg4 Alexis, Gisell 5 Sunny Barragan RN RN [facility] Page Vo 9 Lisa Vega RN RN ha Fillers, Samantha, RN RN sf1 Corrections: (The following items were deleted from the chart) 20:03 16:56 Home Meds: Lipitor 8 mg tab Oral tab 1 tab once daily; missael sf1 20:03 16:56 Home Meds: lisinopril 5 mg Oral tab 1 tab once daily; canas 1
[2021-11-25] MEDS ORDERED: ASPIRIN 81 MG CHEWABLE TABLET ONE (19:19)
[2021-11-25] MEDS ORDERED: ENOXAPARIN 80 MG/0.8 ML SQ ONE (19:20)
[2021-11-25] MEDS ORDERED: NA CHLORIDE 0.9% 1,000 ML IV SCH (21:28)
[2021-11-25] MEDS: INSULIN -REGULAR HUMAN 50 UNIT/0.5 ML ML SQ SCH (21:28)
[2021-11-25] MEDS ORDERED: ACETAMINOPHEN 500 MG TAB PO PRN (21:28)
[2021-11-25] MEDS ORDERED: MORPHINE 2 MG/ML SYR IV PRN (21:28)
[2021-11-25] MEDS ORDERED: NITROGLYCERIN 0.4 MG/TAB SL PRN (21:28)
[2021-11-25] MEDS ORDERED: ONDANSETRON 4 MG/2 ML VIAL IV PRN (21:28)
--- NOTE | 2021-11-25 21:38 | P.HP ---
Certification for Inpatient Patient admitted to: Inpatient With expected LOS: >2 Midnights Patient will require the following post-hospital care: None Practitioner: I am a practitioner with admitting privileges, knowledge of patient current condition, hospital course, and medical plan of care. Services: Services provided to patient in accordance with Admission requirements found in Title 42 Section 412.3 of the Code of Federal Regulations <Gregorio Esposito - Last Filed: 11/25/21 21:32> Patient History Date of Service: 11/25/21 Primary Care Provider: Jayda Reason for admission: NSTEMI History of Present Illness: Mr. Snow is a 71 yo M with CAD with history of NSTEMI in 03/2020 and 08/2021 with 5 cardiac stents, DM, MAME on CPAP presents with 8/10 dull pressure in the middle of his back beginning today at 11am while he was at work, and resolved upon arrival after morphine. Pain feels the same as during his last heart attack in August. He also reports dizziness and shortness of breath today. He has been in cardiac rehab and after seeing PVCs on EKG, he was schedule to wear a Holter monitor for 48 hours beginning this coming Sunday. He has also been following with nephrology for CKD and was started on Farxiga yesterday. He says his GFR yesterday was 57, today it was 34. He was given IV contrast before BMP returned, so he has been receiving gentle IV fluid hydration in the ED. BUN 29 Cr 1.96 GFR 34 Glu 127 Troponin 104.7 BNP 394 Received full dose lovenox, aspirin and metoprolol in [facility] ED. - Past Medical/Surgical History Diabetic: No -: DM -: Hypertension -: Hyperlipidemia -: CAD -: [place] March 2020, August 2021 -: cardiac stent x 5 -: stent and 2 balloons coronary artery a week ago Psychosocial/ Personal History: Patient is . 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 - Family History Father -: Heart disease - Social History Smoking Status: Never smoker Alcohol use: No CD- Drugs: No Caffeine use: Yes Place of Residence: Home <Gregorio Esposito - Last Filed: 11/25/21 21:32> Date of Service: 11/25/21 <Ricky Moore - Last Filed: 11/28/21 05:43> Allergies hydrocodone [Hydrocodone] Adverse Reaction (Mild, Verified 03/16/20 14:34) AMS Home Medications: Aspirin [Aspirin EC 81 MG] 81 mg PO DAILY 03/31/19 Fenofibrate 150 mg PO DAILY 03/31/19 Metformin HCl [Glucophage*] 500 mg PO BID 03/31/19 Multivit-Mins/Iron/Folic/Lycop [Centrum Men's Tablet] 1 each PO DAILY 03/31/19 Vitamin B Complex [Vitamin B Complex*] 1 cap PO DAILY 03/31/19 Atorvastatin Calcium [Lipitor] 80 mg PO DAILY 30 Days #30 tablet 03/10/20 Montelukast [Singulair*] 1 tab PO DAILY PRN 09/09/21 Ascorbic Acid [Vitamin C] 1,000 mg PO DAILY 11/25/21 Cholecalciferol (Vitamin D3) [Vitamin D3] 25 mcg PO DAILY 11/25/21 Dapagliflozin Propanediol [Farxiga] 5 mg PO DAILY 11/25/21 Krill/[place]-3/Dha/Epa/Lipids [Krill Oil 350 mg Softgel] 1 each PO DAILY 11/25/21 Lisinopril [Zestril] 2.5 mg PO DAILY 11/25/21 Loratadine [Claritin*] 10 mg PO DAILY PRN 11/25/21 Metoprolol Succinate [Toprol Xl] 25 mg PO DAILY 11/25/21 Semaglutide [Ozempic] 0.5 mg SQ Q7D 11/25/21 Tamsulosin HCl [Flomax] 0.4 mg PO DAILY 11/25/21 Ticagrelor [Brilinta*] 90 mg PO BID 11/25/21 Vitamin E (Dl,Tocopheryl Acet) [Vitamin E] 1,000 unit PO DAILY 11/25/21 levoFLOXacin [Levofloxacin] 1 tab PO DAILY 11/26/21 Review of Systems 10-point ROS is otherwise unremarkable Respiratory: Shortness of Breath Cardiovascular: Chest Pain, Light Headedness <Gregorio Esposito - Last Filed: 11/25/21 21:32> Physical Examination - Physical Exam General: Alert, In no apparent distress HEENT: Atraumatic, PERRLA, Mucous membr. moist/pink, EOMI, Sclerae nonicteric Neck: Supple, 2+ carotid pulse no bruit, No LAD, Without JVD or thyroid abnormality Respiratory: Clear to auscultation bilaterally, Normal air movement Cardiovascular: No edema, Regular rate/rhythm, Normal S1 S2 Gastrointestinal: Normal bowel sounds, No tenderness Musculoskeletal: No tenderness Integumentary: No rashes Neurological: Normal speech, Normal strength at 5/5 x4 extr, Normal tone, Normal affect Lymphatics: No axilla or inguinal lymphadenopathy - Studies Laboratory Data (last 24 hrs) 11/25/21 16:33: PT 12.7 H, INR 1.10 11/25/21 16:33: WBC 6.20 D, Hgb 14.2, Hct 42.2, Plt Count 185 11/25/21 16:33: Sodium 143, Potassium 3.5, BUN 29 H, Creatinine 1.96 H, Glucose 127 H, Magnesium 2.1, Total Bilirubin 0.5, AST 13 L, ALT 25, Alkaline Phosphatase 41 L <Gregorio Esposito - Last Filed: 11/25/21 21:32> Assessment and Plan - Problems (Diagnosis) (1) NSTEMI (non-ST elevated myocardial infarction) Status: Acute (2) CAD (coronary artery disease) Status: Chronic Qualifiers: Coronary Disease-Associated Artery/Lesion type: [place] artery [place] vs. t ransplanted heart: [place] heart Associated angina: with stable angina Qualified Code(s): I25.118 - Atherosclerotic heart disease of [place] coronary artery with other forms of angina pectoris (3) HLD (hyperlipidemia) Status: Chronic Qualifiers: Hyperlipidemia type: unspecified Qualified Code(s): E78.5 - Hyperlipidemia, unspecified (4) HTN (hypertension) Status: Chronic Qualifiers: Hypertension type: primary hypertension Qualified Code(s): I10 - Essential (primary) hypertension (5) T2DM (type 2 diabetes mellitus) Status: Chronic Qualifiers: Diabetes mellitus usp insulin use: without usp use Diabetes mellitus complication status: without complication Qualified Code(s): E11.9 - Type 2 diabetes mellitus without complications - Plan cardiology consulted trend troponins, repeat EKG continue aspirin, beta tiffany, atorvastatin, full dose lovenox morphine and nitroglycerin as needed lipid and thyroid levels pending O2 as needed nephrology consulted continue gentle IVF hydration sliding scale insulin and accuchecks CPAP at bedtime reconcile home medications Discharge Plan: Home Plan to discharge in: 72 Hours - Advance Directives Does patient have a Living Will: No Does patient have a Durable POA for Healthcare: No - Code Status/Comfort Care Code Status Assessed: Yes (full code ) Critical Care: No Time Spent Managing Pts Care (In Minutes): 70 <Gregorio Esposito - Last Filed: 11/25/21 21:32> - Problems (Diagnosis) (1) JUANA (acute kidney injury) Status: Acute (2) NSTEMI (non-ST elevated myocardial infarction) Status: Acute (3) CAD (coronary artery disease) Status: Chronic Qualifiers: Coronary Disease-Associated Artery/Lesion type: [place] artery [place] vs. 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 Lungs: Within normal limits Abdomen: Within normal limits Neuro: Awake, alert, oriented to person place and time Assessment: 1. Chest pain rule out acute coronary syndrome Plan: 1. Continue with current plan of care as mentioned above <Ricky Moore - Last Filed: 11/28/21 05:43>
[2021-11-25 22:52] VITALS: BMI 29.3
[2021-11-25] MEDS: ATORVASTATIN 40 MG TAB PO SCH (23:35)
[2021-11-26 06:05] LABS: Absolute Lymphocytes (CBC) 0.7 K/uL (0.7-4.9); Hematocrit 38.7 % (39.6-49.0); Lymphocytes % 16.3 % (15.3-44.8); MPV 8.8 fL (7.6-11.3); RBC Red Blood Cell Count 4.26 M/uL (4.33-5.43)
[2021-11-26 06:33] LABS: Albumin 3.2 g/dL (3.4-5.0); Bilirubin Total 0.4 mg/dL (0.2-1.0); Phosphorus 3.2 mg/dL (2.5-4.9); Potassium 3.8 mmol/L (3.5-5.1); Protein, Total 6.1 g/dL (6.4-8.2); Thyroid Stimulating Hormone 1.28 uIU/mL (0.360-3.740)
[2021-11-26] MEDS: INSULIN -REGULAR HUMAN 50 UNIT/0.5 ML ML SQ SCH ×4 (07:30→21:21)
[2021-11-26] MEDS ORDERED: INFLUENZA VACCINE (for 6+ mo) 0.5 ML DOSE IMVAC ONE (08:00)
[2021-11-26] MEDS: ASPIRIN EC 81 MG TAB PO SCH (08:21)
[2021-11-26] MEDS: ENOXAPARIN 100 MG/ML SYR SQ SCH ×2 (08:21→21:04)
[2021-11-26] MEDS: METOPROLOL TAR 25 MG TAB PO SCH (08:26)
[2021-11-26] MEDS: FENOFIBRATE 160 MG TAB PO SCH (08:29)
[2021-11-26] MEDS ORDERED: POTASSIUM CL SA 10 MEQ TAB PO ONE (09:00)
[2021-11-26] MEDS ORDERED: TICAGRELOR 90 MG TABLET PO ONE (13:58)
--- NOTE | 2021-11-26 17:26 | P.CNS ---
Date of Consult: 11/26/21 Reason for Consult: JUANA Primary Care Provider: Jayda Chief Complaint: NSTEMI History of Present Illness: A 71 yo M with PMhx of DM CKD II/IIIA baseline Cr 1.2 , CAD with history of NSTEMI in 03/2020 and 08/2021 with 5 cardiac stents, DM, MAME on CPAP presented to ER with chest pain , pt HAD cardiac catheterization and PCI on 08/2021 , pt presented to ER this admission with similar pain pt was started on Fraxiga on Sunday in ER BUN 29 Cr 1.96 GFR 34 Glu 127 Troponin 104.7 BNP 394, pt recived IV contrast , now cr down to 1.2 ROS General : denies fever, chills, WT change weakness, insomnia HEENT: Denies dry, vision changes and headache Resp: denies SOB, cough or wheezes Cardiovascular: :chest and back pain resolved now GI: denies abdominal pain, diarrhea or constipation : denies dysuria, urgency, foamy urine or blood tinged urine Musculoskeletal: denies muscle aches, joint pain Endo: denies polyuria and and polydipsia Extre: denies pain numbness and swelling Physical exam General: AAOx3, NAD, obese CHEST; CTAB, no wheezes or rales HEART : RRR. Normal S1,2 no murmur or rub Abd: soft, Nt Ext: no edema Skin : No rash A/p JUANA on CKD II/IIIA lab error vs farxiga resolved off IVF avoid NSAID DM hold metfromin and farxiga SSI NSTEMI cardiology consulted will start on IVF if pt is going to require cardiac cathterization HTN cont current meds Allergies hydrocodone [Hydrocodone] Adverse Reaction (Mild, Verified 03/16/20 14:34) AMS Home Medications: Aspirin [Aspirin EC 81 MG] 81 mg PO DAILY 03/31/19 Fenofibrate 150 mg PO DAILY 03/31/19 Metformin HCl [Glucophage] 500 mg PO BID 03/31/19 Multivit-Mins/Iron/Folic/Lycop [Centrum Men's Tablet] 1 each PO DAILY 03/31/19 Vitamin B Complex [B-Complex Vitamin] 1 cap PO DAILY 03/31/19 Atorvastatin Calcium [Lipitor] 80 mg PO DAILY 30 Days #30 tablet 03/10/20 Montelukast [Singulair*] 1 tab PO DAILY PRN 09/09/21 Ascorbic Acid [Vitamin C] 1,000 mg PO DAILY 11/25/21 Cholecalciferol (Vitamin D3) [Vitamin D3] 25 mcg PO DAILY 11/25/21 Dapagliflozin Propanediol [Farxiga] 5 mg PO DAILY 11/25/21 Krill/[place]-3/Dha/Epa/Lipids [Krill Oil 350 mg Softgel] 1 each PO DAILY 11/25/21 Lisinopril [Zestril] 2.5 mg PO DAILY 11/25/21 Loratadine [Claritin] 10 mg PO DAILY PRN 11/25/21 Metoprolol Succinate [Toprol Xl] 25 mg PO DAILY 11/25/21 Semaglutide [Ozempic] 0.5 mg SQ Q7D 11/25/21 Tamsulosin HCl [Flomax] 0.4 mg PO DAILY 11/25/21 Ticagrelor [Brilinta] 90 mg PO BID 11/25/21 Vitamin E (Dl,Tocopheryl Acet) [Vitamin E] 1,000 unit PO DAILY 11/25/21 levoFLOXacin [Levofloxacin] 1 tab PO DAILY 11/26/21 - Past Medical/Surgical History Diabetic: Yes -: DM -: Hypertension -: Hyperlipidemia -: CAD -: [place] March 2020, August 2021 -: Sleep Apnea -: cardiac stent x 5 -: stent and 2 balloons coronary artery August Psychosocial/ Personal History: Patient is . 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 - Family History Father Medical History: Heart disease, Diabetes Mother Medical History: Heart disease, Lung disease, Cancer - Social History Smoking Status: Unknown if ever smoked Alcohol use: No CD- Drugs: No Caffeine use: Yes Place of Residence: Home Physical Examination Temp Pulse Resp BP Pulse Ox 97.8 F 62 18 119/79 94 11/26/21 16:00 11/26/21 16:00 11/26/21 16:00 11/26/21 16:00 11/26/21 16:00 Laboratory Data (last 24 hrs) 11/25/21 16:33: Sodium 143, Potassium 3.5, BUN 29 H, Creatinine 1.96 H, Glucose 127 H, Magnesium 2.1, Total Bilirubin 0.5, AST 13 L, ALT 25, Alkaline Phosphatase 41 L
--- NOTE | 2021-11-26 18:04 | CON ---
Date of Consultation: 11/26/2021 Reason For Consultation: Chest pain, rising troponin. History Of Present Illness: A 71-year-old male with history of coronary artery disease, non STEMI re cently, and cardiac stent placement, presented with back pain in upper back, which is his usual prese nting symptom with his heart attacks. He had some shortness of breath and felt dizzy and the symptom s lasted longer than usual, so he was brought into the emergency room. He has been pain free since h e arrived and has no symptoms today. Past Medical History: Coronary artery disease, diabetes, hypertension, and dyslipidemia. Medications: Refer reconciliation sheet for detailed list. Past Surgical History: Cardiac stent placement. Social History: Does not smoke or drink. Does not use any drugs. Allergies: HYDROCODONE. Family History: No premature coronary artery disease or cancer. Review of Systems: All systems reviewed and they were negative except as mentioned in HPI. Physical Examination: Vital Signs: Temperature is 98.1, pulse 64, breathing 18, blood pressure 119/74, saturating 95% on r oom air. General: Pleasant middle-aged male, no distress. Head And Neck: Pupils are equal, reactive to light. Intact eye movements. No JVD. No cervical adenopathy. Neck: Supple. Thyroid is not enlarged. Lungs: Clear to auscultation bilaterally. No rhonchi, rales, or crackles. No accessory muscle use. Heart: Regular rate and rhythm. No extra sounds. Abdomen: Soft, nontender. Bowel sounds positive. No organomegaly. No masses or hernia. No rigidi ty or rebound. Extremities: No edema, clubbing, cyanosis. Intact pulses. Skin: No rashes. Neurologic: Alert, awake, oriented x3. No acute focal deficits appreciated. Investigations: Hemoglobin is 13.1. His troponin was 116 and at 12 o'clock this morning was 109. C reatinine is normal. Third troponin is pending. Assessment And Recommendation: 1.Coronary artery disease with shortness of breath and pain that could be cardiac in nature, as viviana ent has significant coronary artery disease, status post recent multivessel percutaneous coronary int ervention with atherectomy. At this point, I will watch him for next 24 hours. Check troponin until it starts trending down, and if troponin continues to rise, then we will plan for coronary angiogram on Sunday, otherwise, if he stabilizes and troponin goes down, then next stress test which can be ar ranged as an outpatient. I will follow the patient with you tomorrow and we will make a further plan , as patient's condition progresses and will have more data available. In the interim, aspirin 81 mg daily, Brilinta 90 mg q.12 hours are to be given without missing any dose, Brilinta was not started. We will go ahead and give him a dose this morning. He apparently had a dose yesterday at home. Th e patient has been anticoagulated, which I will agree with that. Continue Lovenox and use nitroglyce rin for pain control. SR/MODL Voice ID: [id number] Report ID: [id number]
[2021-11-26] MEDS: levoFLOXacin 500 MG TAB PO SCH (18:50)
[2021-11-26] MEDS ORDERED: TAMSULOSIN 0.4 MG SR CAP PO SCH (21:00)
[2021-11-26] MEDS: TICAGRELOR 90 MG TABLET PO SCH (21:04)
[2021-11-26] MEDS: ATORVASTATIN 40 MG TAB PO SCH (21:04)
[2021-11-26] MEDS ORDERED: MONTELUKAST 10 MG TAB PO PRN (23:37)
--- NOTE | 2021-11-26 23:39 | P.PN ---
Subjective Date of Service: 11/26/21 Subjective: No new changes, No C/O voiced, Improving Patient states chest pain is resolved. Review of Systems 10-point ROS is otherwise unremarkable Physical Examination - Vital Signs Temperature: 97.8 F Blood Pressure: 132/82 Pulse: 59 Respirations: 18 Pulse Ox (%): 93 - Physical Exam General: Alert, In no apparent distress HEENT: Atraumatic, PERRLA, EOMI Neck: Supple, JVD not distended Respiratory: Clear to auscultation bilaterally, Normal air movement Cardiovascular: Regular rate/rhythm, Normal S1 S2 Gastrointestinal: Normal bowel sounds, No tenderness Musculoskeletal: No tenderness Integumentary: No rashes Neurological: Normal speech, Normal tone, Normal affect Lymphatics: No axilla or inguinal lymphadenopathy - Studies Medications List Reviewed: Yes Assessment & Plan - Problems (Diagnosis) (1) JUANA (acute kidney injury) Status: Acute (2) NSTEMI (non-ST elevated myocardial infarction) Status: Acute (3) CAD (coronary artery disease) Status: Chronic Qualifiers: Coronary Disease-Associated Artery/Lesion type: [place] artery [place] vs. 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 Serial troponins and EKG 2. Appreciate Cardiology consultation 3. Echocardiogram and stress test if cardiology along with a monitor as an outpa tient 4. Anti-platelet therapy, anti coagulation, beta-tiffany, statin, and O2 as needed 5. IV morphine for pain 6. Nitro p.r.n. Discharge Plan: Home Plan to discharge in: Greater than 2 days - Advance Directives Does patient have a Living Will: No Does patient have a Durable POA for Healthcare: No - Code Status/Comfort Care Code Status Assessed: Yes Time Spent Managing PTS Care (In Minutes): 36
[2021-11-27 05:40] VITALS: O2SAT 98
[2021-11-27 06:05] LABS: Absolute Lymphocytes (CBC) 0.7 K/uL (0.7-4.9); Hematocrit 40.7 % (39.6-49.0); Lymphocytes % 20.4 % (15.3-44.8); MPV 8.4 fL (7.6-11.3); RBC Red Blood Cell Count 4.47 M/uL (4.33-5.43)
[2021-11-27 06:19] LABS: Albumin 3.4 g/dL (3.4-5.0); Bilirubin Total 0.6 mg/dL (0.2-1.0); Potassium 4.6 mmol/L (3.5-5.1); Protein, Total 6.5 g/dL (6.4-8.2)
[2021-11-27] MEDS: INSULIN -REGULAR HUMAN 50 UNIT/0.5 ML ML SQ SCH ×3 (07:30→16:25)
[2021-11-27] MEDS: ENOXAPARIN 100 MG/ML SYR SQ SCH (08:04)
[2021-11-27] MEDS: levoFLOXacin 500 MG TAB PO SCH (08:04)
[2021-11-27] MEDS: METOPROLOL TAR 25 MG TAB PO SCH (08:04)
[2021-11-27] MEDS: FENOFIBRATE 160 MG TAB PO SCH (08:04)
[2021-11-27] MEDS: ASPIRIN EC 81 MG TAB PO SCH (08:04)
[2021-11-27] MEDS: TICAGRELOR 90 MG TABLET PO SCH (08:07)
[2021-11-27] MEDS ORDERED: VITAMIN D 1000 UNIT TAB PO SCH (09:00)
[2021-11-27] MEDS ORDERED: FENOFIBRATE 150 MG PO SCH (09:00)
[2021-11-27] MEDS ORDERED: ASCORBIC ACID 500 MG TABLET PO SCH (09:00)
[2021-11-27] MEDS ORDERED: HOME MED 1 EA UNK (Semaglutide [Ozempic] 0.25 MG/0.2 ML Pen.Injctr) SQ SCH (09:00)
[2021-11-27] MEDS ORDERED: lisinopriL 5 MG TAB PO SCH (09:00)
[2021-11-27] MEDS ORDERED: MULTIVITAMIN TAB PO SCH (09:00)
[2021-11-27] MEDS ORDERED: TAMSULOSIN 0.4 MG SR CAP PO SCH (09:00)
[2021-11-27] MEDS ORDERED: HOME MED 1 EA UNK (Dapagliflozin Propanediol [Farxiga] 5 MG Tablet) PO SCH (09:00)
--- NOTE | 2021-11-27 11:46 | P.PN ---
Subjective Date of Service: 11/27/21 Primary Care Provider: Jayda Chief Complaint: NSTEMI A 71 yo M with PMhx of DM CKD II/IIIA baseline Cr 1.2 , CAD with history of NSTEMI in 03/2020 and 08/2021 with 5 cardiac stents, DM, MAME on CPAP presented to ER with chest and back pain , pt HAD cardiac catheterization and PCI on 08/2021 , pt presented to ER this admission with similar pain pt was started on Fraxiga on Sunday in ER BUN 29 Cr 1.96 GFR 34 Glu 127 Troponin 104.7 BNP 394, pt recived IV contrast , now cr down to 1.2 today Cr stable plan for stress test tomorrow Physical exam General: AAOx3, NAD, obese CHEST; CTAB, no wheezes or rales HEART : RRR. Normal S1,2 no murmur or rub Abd: soft, Nt Ext: no edema Skin : No rash A/p JUANA on CKD II/IIIA lab error vs farxiga resolved off IVF avoid NSAID DM hold metfromin and farxiga SSI NSTEMI cardiology consulted plan for stress test tomorrow will start on IVF if pt is going to require cardiac cathterization HTN cont current meds Physical Examination - Vital Signs Temperature: 97.6 F Blood Pressure: 136/82 Pulse: 60 Respirations: 16 Pulse Ox (%): 98 - Studies Medications List Reviewed: Yes
--- NOTE | 2021-11-27 14:40 | PN ---
Date of Progress Note: 11/27/2021 Subjective: Seen bedside. He has been symptoms free since the day before yesterday. No chest pain. No back pain. Troponin is trending down. Review of Systems: No chest pain, shortness of breath, orthopnea, cough. No nausea, vomiting, diarrhea. No abdominal p ain. No history of urinary urgency. All other systems reviewed are negative. Physical Examination: Vital Signs: Reviewed. Head and Neck: Pupils are equal, reactive to light. Intact eye movements. No JVD. No cervical lym phadenopathy. Neck is supple. Thyroid is not enlarged. Lungs: Clear to auscultation bilaterally. No rhonchi, rales, or crackles. No accessory muscle use. Heart: Regular rate and rhythm. No extra sounds. Abdomen: Soft, nontender. Bowel sounds positive. No organomegaly. No masses or hernia. No rigidi ty or rebound. Extremities: No edema, clubbing, or cyanosis. Intact pulses. Skin: No rashes. Neurologic: Alert, awake, oriented x3. No acute focal deficits appreciated. Investigations: Labs were reviewed. Assessment And Recommendations: Elevated troponin, could be demand ischemia; however, he is known to have coronary artery disease status post recent stent placement. He is on Brilinta and aspirin to c ontinue that and since he has been asymptomatic and troponin trended down, it was a very minimal elev ation. The patient would like to go home for the weekend. From Cardiology standpoint, it is okay to discharge him and I will arrange for him to have a stress test on Sunday or Sunday this coming w [place]. I explained to him if he gets the symptoms back to immediately report to the emergency room. T he patient has been getting out of bed, walking around, doing his normal activities without any sympt oms. I will follow the patient closely as an outpatient and further recommendations after the stress test is done. /FLOYDL Voice ID: [id number] Report ID: [id number]
--- NOTE | 2021-11-28 05:42 | P.DS ---
Discharge Date: 11/27/21 Primary Care Provider: Jayda Disposition: ROUTINE DISCHARGE Discharge Condition: GOOD Reason for Admission: NSTEMI Consultations: Cardiology - Problems (1) JUANA (acute kidney injury) Status: Acute (2) NSTEMI (non-ST elevated myocardial infarction) Status: Acute (3) CAD (coronary artery disease) Status: Chronic Qualifiers: Coronary Disease-Associated Artery/Lesion type: [place] artery [place] vs. 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 Snow is a 71 yo M with CAD with history of NSTEMI in 03/2020 and 08/2021 with 5 cardiac stents, DM, MAME on CPAP presents with 8/10 dull pressure in the middle of his back beginning today at 11am while he was at work, and resolved upon arrival after morphine. Pain feels the same as during his last heart attack in August. He also reports dizziness and shortness of breath today. He has been in cardiac rehab and after seeing PVCs on EKG, he was schedule to wear a Holter monitor for 48 hours beginning this coming Sunday. He has also been following with nephrology for CKD and was started on Farxiga yesterday. He says his GFR yesterday was 57, today it was 34. He was given IV contrast before BMP returned, so he has been receiving gentle IV fluid hydration in the ED. BUN 29 Cr 1.96 GFR 34 Glu 127 Troponin 104.7 BNP 394 Received full dose lovenox, aspirin and metoprolol in e ED. Hospital Course: Patient troponins were negative. Patient is clinically doing well. Spoke with Cardiology and their plan is to discharge patient home inpatient he get a Holter monitor and stress test as an outpatient. Patient no longer having pain. At this time patient is stable for discharge home. Vital Signs/Physical Exam: Temp Pulse Resp BP Pulse Ox 97.6 F 60 16 136/82 98 11/27/21 11:45 11/27/21 11:45 11/27/21 11:45 11/27/21 11:45 11/27/21 11:45 General: Alert, In no apparent distress, Oriented x3 Laboratory Data at Discharge: WBC 3.60 K/uL (4.3-10.9) L D 11/27/21 05:33 Hgb 13.8 g/dL (13.6-17.9) 11/27/21 05:33 Hct 40.7 % (39.6-49.0) 11/27/21 05:33 Plt Count 141 K/uL (152-406) L 11/27/21 05:33 PT 12.7 SECONDS (9.5-12.5) H 11/25/21 16:33 INR 1.10 11/25/21 16:33 Sodium 141 mmol/L (136-145) 11/27/21 05:33 Potassium 4.6 mmol/L (3.5-5.1) 11/27/21 05:33 BUN 15 mg/dL (7-18) 11/27/21 05:33 Creatinine 1.16 mg/dL (0.55-1.3) 11/27/21 05:33 Glucose 99 mg/dL (74-106) 11/27/21 05:33 Phosphorus 3.2 mg/dL (2.5-4.9) 11/26/21 05:29 Magnesium 2.0 mg/dL (1.8-2.4) 11/26/21 05:29 Total Bilirubin 0.6 mg/dL (0.2-1.0) 11/27/21 05:33 AST 14 U/L (15-37) L 11/27/21 05:33 ALT 23 U/L (12-78) 11/27/21 05:33 Alkaline Phosphatase 37 U/L (45-117) L 11/27/21 05:33 Triglycerides 92 mg/dL (<150) 11/26/21 05:29 Cholesterol 88 mg/dL (<200) 11/26/21 05:29 HDL Cholesterol 41 mg/dL (40-60) 11/26/21 05:29 Cholesterol/HDL Ratio 2.15 11/26/21 05:29 Home Medications: Aspirin [Aspirin EC 81 MG] 81 mg PO DAILY 03/31/19 Fenofibrate 150 mg PO DAILY 03/31/19 Metformin HCl [Glucophage*] 500 mg PO BID 03/31/19 Multivit-Mins/Iron/Folic/Lycop [Centrum Men's Tablet] 1 each PO DAILY 03/31/19 Vitamin B Complex [Vitamin B Complex*] 1 cap PO DAILY 03/31/19 Atorvastatin Calcium [Lipitor] 80 mg PO DAILY 30 Days #30 tablet 03/10/20 Montelukast [Singulair*] 1 tab PO DAILY PRN 09/09/21 Ascorbic Acid [Vitamin C] 1,000 mg PO DAILY 11/25/21 Cholecalciferol (Vitamin D3) [Vitamin D3] 25 mcg PO DAILY 11/25/21 Dapagliflozin Propanediol [Farxiga] 5 mg PO DAILY 11/25/21 Krill/[place]-3/Dha/Epa/Lipids [Krill Oil 350 mg Softgel] 1 each PO DAILY 11/25/21 Lisinopril [Zestril] 2.5 mg PO DAILY 11/25/21 Loratadine [Claritin*] 10 mg PO DAILY PRN 11/25/21 Metoprolol Succinate [Toprol Xl] 25 mg PO DAILY 11/25/21 Semaglutide [Ozempic] 0.5 mg SQ Q7D 11/25/21 Tamsulosin HCl [Flomax] 0.4 mg PO DAILY 11/25/21 Ticagrelor [Brilinta*] 90 mg PO BID 11/25/21 Vitamin E (Dl,Tocopheryl Acet) [Vitamin E] 1,000 unit PO DAILY 11/25/21 levoFLOXacin [Levofloxacin] 1 tab PO DAILY 11/26/21 Physician Discharge Instructions: -DC IV and DC home -Follow-up with primary care physician in 1 to 2 days -Follow-up with Cardiology in 1 to 2 days -Please call Dr. Moore at [phone] if any questions regarding hospital stay -Please call nursing station at [phone] if any nursing or medication questions -Return to the emergency room if symptoms worsen Diet: AHA Activity: Fall precautions Followup: Fei Montelongo MD [Primary Care Provider] - (CALL TO SCHEDULE APPOINTMENT) Time spent managing pt's care (in minutes): 35
[2021-11-28 05:45] VITALS: BP 132/82; TEMP 97.8
== END 2021-11-27 18:04 | disposition home or self-care (01) | DRG 281 ==
LOC: ER 16:01 → 2ND 20:15
PROVIDERS: ADMIT Hospitalist; ATTEND Hospitalist
DX: I21.4 Non-ST elevation (NSTEMI) myocardial infarction (principal); N17.9 Acute kidney failure, unspecified; I25.119 Atherosclerotic heart disease of native coronary artery with unspecified angina pectoris; E11.9 Type 2 diabetes mellitus without complications; E78.5 Hyperlipidemia, unspecified; I12.9 Hypertensive chronic kidney disease with stage 1 through stage 4 chronic kidney disease, or unspecified chronic kidney disease; E11.22 Type 2 diabetes mellitus with diabetic chronic kidney disease; N18.31 Chronic kidney disease, stage 3a; Z95.5 Presence of coronary angioplasty implant and graft; I25.2 Old myocardial infarction; Z20.822 Contact with and (suspected) exposure to COVID-19
CPT/HCPCS: 36415; 70450; 71045; 71275; 74175; 80048; 80053; 80061; 80076; 82947; 83036; 83735; 83880; 84100; 84439; 84443; 84484; 85025; 85610; 93005; 96372; 96374; 96375; 99285; G0103; J1650; J2270; J2405; J7030; Q9967; U0003

== ENCOUNTER 2021-11-28 08:16 | Observation (INO) | payer OTHER ==
--- OUTSIDE RECORDS SUMMARY | 2021-11-28 08:20 | XMS REPORT | Continuity of Care Document ---
:1950 Author Organization [facility] t Address [address] [place] [address] Care Team Providers Name Role Phone RENE Primary Care Physician Unavailable KEVEN Attending Clinician Unavailable CRISTINA GEIGER Attending Clinician Unavailable Provider, Urgent Care Attending Clinician Unavailable Lab, Fam Pob I Attending Clinician Unavailable Dakota KAYE Attending Clinician DAKOTA Attending Clinician Unavailable [facility] Admitting Clinician Unavailable Payers Payer Name Policy Type Policy Number Effective Date Expiration Date S nannette [employer] MED[employer] [id number] 2020 O 00:00:00 Problems This patient has no known problems. Allergies, Adverse Reactions, Alerts Allergy Allergy Status Severity Reaction(s) Onset Inactive Treating Comm ents Source Name Type Date Date Clinician HYDROCOD Allergy Active High Other 2018[facility] CODEINE Allergy Active Other 2018-[address] [facility] NO KNOWN Drug Active [facility] ALLERGIE Class [facility] NO KNOWN Allergy Active [facility] ALLERGIE S Social History Social Habit Start Date Stop Date Quantity Comments [facility] to SARS-CoV-2 Not sure [facility] [place] [facility] Smoking Status Start Date Stop Date Source [facility] Medications This patient has no known medications. [...] Clinicians Facility Department ID 2021-09-09 2021-09-14 Inpatient KEVEN, [facility] Cardiology [id number] [facility] 18:54:00 09:46:00 [facility] 2021-09-09 2021-09-09 [facility] [id number] [facility] 00:00:00 23:59:00 Miranda Medichal red 2020-07-30 2020-07-30 Telephone Provider, [facility] [id number] 00:00:00 00:00:00 [facility] [id number] Care Surgical [id number] Specialti [phone] [address] [place] 2020-07-30 2020-07-30 Telephone Provider, [facility] [id number] [facility] 00:00:00 00:00:00 [facility] [id number] ity of Care Surgical [id number] Zander as Specialti [phone] Ok dical es [address] [place] 2020-07-28 2020-07-28 Laboratory Lab, [facility] [id number] 15:53:29 16:13:29 Only Fam Pob I Health [id number] [place] [id number] Professio [id number] nal [address] 2020-07-28 2020-07-28 Laboratory Lab, Adc Fam Pob RUST [id number]. [id number] [facility] 15:53:29 16:13:29 Only Jessica [facility] [id number] ity of [place] [id number] Zander as Professio [phone] Ok dical [facility] [address] [place] 2020-07-28 2020-07-28 Outpatient R [facility] [id number] Univers 16:00:00 16:00:00 [id number] [facility] 2020-07-28 2020-07-28 Outpatient R DAKOTA [facility] [id number] Univers 16:00:00 16:00:00 JESSICA [facility] Results Test Description Test Time Test Comments [...] NOT 1092) ACCURATE CRE ATININE CLEARANCE IN [place] EDICTING GLOMERULAR FILT RATION RATE. ESTIMATED GFR IS NOT APPLICABLE FOR DIALYSIS PATIENTS. Client Application Support Specialist ID - MIKALA MCBC W/PLT COUNT & AUTO [id number] 05:13:14 Test Item Value Reference Range Interpretation [...] PERCENT (BEAKER) (test code = 2801) POCT-GLUCOSE [id number] 22:35:23 Test Item Value Reference Range Interpretation Comments POC-GLUCOSE METER 153 mg/dL 70-110 H : Notified RN/MD: ([facility]) (test code = TESTED AT [facility] 6720 1538) [facility], [address]: Client Application Support Specialist/Techni kendall ID = [id number] for CURTIS PELAYO POCT-GLUCOSE [id number] 18:16:50 Test Item Value Reference Range Interpretation Comments POC-GLUCOSE METER 92 mg/dL 70-110 : TESTED A T [facility] 6720 ([facility]) (test code = [facility], 153) [address]: Client Application Support Specialist/Techni kendall ID = [id number] for GERMAN JIMENEZ [id number] 17:38:42 Test Item Value Reference Range Interpretation Comments ACTIVATED CLOTTING TIME 261 sec : 74 -137 seconds, ([facility]) (test code = Baseli ne: TESTED AT 441) [address], [address]: Client Application Support Specialist/Techni kendall ID = [id number] for Woodruff, Erna n [id number] 17:04:22 Test Item Value Reference Range Interpretation Comments ACTIVATED CLOTTING TIME 297 sec : 74 -137 seconds, (AKER) (test code = Baseli ne: TESTED AT 441) [address], [address]: Client Application Support Specialist/Techni kendall ID = [id number] for Woodruff, Erna n [id number] 16:49:04 Test Item Value Reference Range Interpretation Comments ACTIVATED CLOTTING TIME 303 sec : 74 -137 seconds, ([facility]) (test code = Baseli ne: TESTED AT 441) [address], [address]: Client Application Support Specialist/Techni kendall ID = [id number] for Woodruff, Erna n POCT-GLUCOSE [id number] 12:07:34 Test Item Value Reference Range Interpretation Comments POC-GLUCOSE METER 99 mg/dL 70-110 : TESTED A T [facility] 6720 ([facility]) (test code = [facility], 153) [address]: Client Application Support Specialist/Techni kendall ID = [id number] for Raimundo Templeton POCT-GLUCOSE [id number] 07:46:07 Test Item Value Reference Range Interpretation Comments POC-GLUCOSE METER 99 mg/dL 70-110 : TESTED A T [facility] 6720 (BEAKER) (test code = [place], 1538) [address]: Client Application Support Specialist/Techni kendall ID = [id number] for Raimundo Templeton BASIC METABOLIC [id number] 04:22:18 Test Item Value Reference Range Interpretation [...] S NOT APPLICABLE FOR DIALYSIS PATIEN TS. Client Application Support Specialist ID - IOANA WCBC W/PLT COUNT & AUTO [id number] 04:05:28 Test Item Value Reference Range Interpretation [...] PERCENT (BEAKER) (test code = 2801) POCT-GLUCOSE [id number] 21:27:14 Test Item Value Reference Range Interpretation Comments POC-GLUCOSE METER 106 mg/dL 70-110 : TESTED A T [facility] 6720 (BEAKER) (test code = [facility], 1538) [address]: Client Application Support Specialist/Techni kendall ID = [id number] for Makenzie Brush POCT-GLUCOSE [id number] 16:47:40 Test Item Value Reference Range Interpretation Comments POC-GLUCOSE METER 94 mg/dL 70-110 : TESTED A T [facility] 6720 (BEAKER) (test code = [facility], 1538) [address]: Client Application Support Specialist/Techni kendall ID = [id number] for Vida Boggs POCT-GLUCOSE [id number] 11:23:23 Test Item Value Reference Range Interpretation Comments POC-GLUCOSE METER 87 mg/dL 70-110 : TESTED A T [facility] 6720 (BEAKER) (test code = [facility], 1538) [address]: Client Application Support Specialist/Techni kendall ID = [id number] for Raimundo Templeton POCT-GLUCOSE [id number] 08:00:21 Test Item Value Reference Range Interpretation Comments POC-GLUCOSE METER 118 mg/dL 70-110 H : TESTED A T [facility] 6720 (BEAKER) (test code = [facility], 1538) [address]: Client Application Support Specialist/Techni kendall ID = [id number] for Raimundo Aquino BASIC METABOLIC [id number] 04:51:44 Test Item Value Reference Range Interpretation [...] S NOT APPLICABLE FOR DIALYSIS PATIEN TS. Client Application Support Specialist ID - IOANA WCBC W/PLT COUNT & AUTO [id number] 04:27:13 Test Item Value Reference Range Interpretation [...] PERCENT (BEAKER) (test code = 2801) POCT-GLUCOSE [id number] 21:55:39 Test Item Value Reference Range Interpretation Comments POC-GLUCOSE METER 121 mg/dL 70-110 H : TESTED A T [facility] 6720 (BEAKER) (test code = [facility], 1538) [address]: Client Application Support Specialist/Techni kendall ID = [id number] for Makenzie Brush POCT-GLUCOSE [id number] 16:05:00 Test Item Value Reference Range Interpretation Comments POC-GLUCOSE METER 105 mg/dL 70-110 : TESTED A T [facility] 6720 (BEAKER) (test code = [facility], 1538) [address]: Client Application Support Specialist/Techni kendall ID = [id number] for Re yes, Sharon POCT-GLUCOSE [id number] 11:17:49 Test Item Value Reference Range Interpretation Comments POC-GLUCOSE METER 107 mg/dL 70-110 : TESTED A T [facility] 6720 (BEAKER) (test code = [facility], 1538) [address]: Client Application Support Specialist/Techni kendall ID = [id number] for Re yes, Sharon BASIC METABOLIC [id number] 07:28:02 Test Item Value Reference Range Interpretation [...] S NOT APPLICABLE FOR DIALYSIS PATIEN TS. Client Application Support Specialist ID - IOANA WCBC W/PLT COUNT & AUTO [id number] 06:49:42 Test Item Value Reference Range Interpretation [...] PERCENT (BEAKER) (test code = 2801) POCT-GLUCOSE [id number] 22:42:26 Test Item Value Reference Range Interpretation Comments POC-GLUCOSE METER 138 mg/dL 70-110 H : [facility] (BEAKER[facility] (test code = [facility], 1538) [address]: Client Application Support Specialist/Techni kendall ID = [id number] for RE SRI GARAY POCT-GLUCOSE [id number] 16:10:22 Test Item Value Reference Range Interpretation Comments POC-GLUCOSE METER 121 mg/dL 70-110 H : [facility] (BEAKER) (test code = [facility], 1538) [address]: Client Application Support Specialist/Techni kendall ID = [id number] for Re kevin, Sharon [id number] 12:46:40 Test Item Value Reference Range Interpretation Comments ACTIVATED CLOTTING TIME 386 sec : 74 -137 seconds, (BEAKER) (test code = Spenceri ne: TESTED AT 441) [address], [facility] 30: Client Application Support Specialist/Techni kendall ID = [id number] for CA RPIO, SOLOMON [id number] 12:07:57 Test Item Value Reference Range Interpretation Comments ACTIVATED CLOTTING TIME 309 sec : 74 -137 seconds, (BEAKER) (test code = Baseli ne: TESTED AT 441) [address], [facility] 30: Client Application Support Specialist/Techni kendall ID = [id number] for CA RPIO, SOLOMON [id number] 11:47:55 Test Item Value Reference Range Interpretation Comments ACTIVATED CLOTTING TIME 267 sec : 74 -137 seconds, (BEAKER) (test code = Baseli ne: TESTED AT 441) [address], [facility] 30: Client Application Support Specialist/Techni kendall ID = [id number] for CA RPIO, SOLOMON [id number] 11:25:42 Test Item Value Reference Range Interpretation Comments ACTIVATED CLOTTING TIME 291 sec : 74 -137 seconds, (BEAKER) (test code = Baseli ne: TESTED AT 441) [address], [facility] 30: Client Application Support Specialist/Techni kendall ID = [id number] for CA RPIO, SOLOMON [id number] 11:08:49 Test Item Value Reference Range Interpretation Comments ACTIVATED CLOTTING TIME 142 sec : 74 -137 seconds, (AI ExchangeARLENE) (test code = Baseli ne: TESTED AT 441) [facility] [address] [facility] [place], [address] 30: Client Application Support Specialist/Techni kendall ID = [id number] for SOLOMON GONZALEZ POCT-GLUCOSE [id number] 06:46:11 Test Item Value Reference Range Interpretation Comments POC-GLUCOSE METER 107 mg/dL 70-110 : [facility] ([facility]) (test code = [facility], 1538) [address]: Client Application Support Specialist/Techni kendall ID = [id number] for KELVIN OATES HIGH SENSITIVITY TROPONIN [id number] 06:12:53 Test Item Value Reference Range Interpretation Comments HIGH SENSITIVITY 95833 pg/ml See_Comment HH [Automated message] TROPONIN I (test code The sy stem which = [id number]) generated this result transmitted ref erence range: <=35. Th e reference range was not used to int erpret this result as normal/abnormal . Client Application Support Specialist ID - MIKALA MThe MACHINE DEBURRER STAT High Sensitivity Troponin-I results should be used in conjunction with other diagnostic information such as ECG, clinical observations and information, and patient symptoms to aid in the diagnosis of VA.Client Application Support Specialist ID - [id number] 05:37:02 Test Item Value Reference Range Interpretation Comments PARTIAL THROMBOPLASTIN TIME 62.0 seconds 22.5-36.0 H (AI ExchangeARLENE) (test code = 760) HIGH SENSITIVITY TROPONIN [id number] 23:13:15 Test Item Value Reference Range Interpretation Comments HIGH SENSITIVITY 29983 pg/ml See_Comment HH [Automated message] TROPONIN I (test code The sy stem which = [id number]) generated this result transmitted ref erence range: <=35. Th e reference range was not used to int erpret this result as normal/abnormal . Client Application Support Specialist ID - DBThe MACHINE DEBURRER STAT High Sensitivity Troponin-I results should be used in conjunctionwith other diagnostic information such as ECG, clinical observations and information, and patient symptoms to aid in the diagnosis of VA.Client Application Support Specialist ID - ADMINB-TYPE NATRIURETIC FACTOR (BNP)2021-09-09 22:24:24 Test Item Value Reference Range Interpretation Comments B-TYPE NATRIURETIC PEPTIDE (AI ExchangeARLENE) 58 pg/mL 0-100 (test code = 700) Client Application Support Specialist ID - [id number] 22:18:25 Test Item Value Reference Range Interpretation Comments PHOSPHORUS (BEAKER) (test code = 3.0 mg/dL 2.3-4.7 604) Client Application Support Specialist ID - DBCOMPREHENSIVE METABOLIC [id number] 22:18:24 Test Item Value Reference Range Interpretation [...] S NOT APPLICABLE FOR DIALYSIS PATIEN TS. Client Application Support Specialist ID - [id number] 22:18:24 Test Item Value Reference Range Interpretation Comments MAGNESIUM (BEAKER) (test code = 1.9 mg/dL 1.6-2.6 627) Client Application Support Specialist ID - [id number] 22:06:23 Test Item Value Reference Range Interpretation Comments PARTIAL THROMBOPLASTIN TIME 39.3 seconds 22.5-36.0 H (BEAKER) (test code = 760) PROTHROMBIN [id number] 22:05:20 Test Item Value Reference Range Interpretation Comments PROTIME (BEAKER) 13.3 seconds 11.9-14.2 (test code = 759) INR (BEAKER) (test 1.03 See_Comment [Automat ed message] code = 370) The system [employer] generated this result transmitted ref erence range: [...] PERCENT (BEAKER) (test code = 2801) POCT-GLUCOSE [id number] 21:16:44 Test Item Value Reference Range Interpretation Comments POC-GLUCOSE METER 90 mg/dL 70-110 : TESTED A T [facility] 6720 (BEAKER) (test code = [facility] [place], 1538) [address]: Client Application Support Specialist/Techni kendall ID = [id number] for RAJ HAY
[2021-11-28] MEDS ORDERED: NA CHLORIDE 0.9% 1,000 ML ONE (09:18)
[2021-11-28 09:25] LABS: Absolute Lymphocytes (CBC) 0.6 K/uL (0.7-4.9); Hematocrit 46.1 % (39.6-49.0); Lymphocytes % 9.2 % (15.3-44.8); MPV 9.1 fL (7.6-11.3); RBC Red Blood Cell Count 5.01 M/uL (4.33-5.43)
[2021-11-28 09:26] LABS: Protime INR 1.14
--- NOTE | 2021-11-28 09:56 | RAD REPORT ---
EXAM DESCRIPTION: RAD - Chest Single View - 11/28/2021 9:51 am CLINICAL HISTORY: CHEST PAIN COMPARISON: Chest Single View dated 11/25/2021; Chest Single View dated 09/09/2021; Chest Single View dated 03/06/2020; Abdomen 1 View (KUB) dated 02/04/2020 FINDINGS: Lines: None. Lungs: No evidence of edema or pneumonia. Pleural: No significant pleural effusions or pneumothorax. Cardiac: The heart size is within normal limits. Bones: No acute fractures. Other: IMPRESSION: No acute cardiopulmonary disease.
--- NOTE | 2021-11-28 10:45 | ER ---
Nurse's Notes [facility] Name: Magnus Snow Age: 71 yrs Sex: Male : 1950 Arrival Date: 11/28/2021 Time: 08:17 Bed 5 Private MD: Fei Montelongo; Zaire Carreon Diagnosis: Dyspnea, unspecified;Ventricular premature depolarization;Subsequent non-ST elevation (NSTEMI) myocardial infarction Presentation: 11/28 08:28 Chief complaint: Patient states: SOB AND DIZZY AT WORK \[id number]. Coronavirus screen: At bp this time, the client does not indicate any symptoms associated with coronavirus-19. Ebola Screen: No symptoms or risks identified at this time. Initial Sepsis Screen: Does the patient meet any 2 criteria? HR > 90 bpm. No. Patient's initial sepsis screen is negative. Does the patient have a suspected source of infection? No. Patient's initial sepsis screen is negative. Risk Assessment: Do you want to hurt yourself or someone else? Patient reports no desire to harm self or others. Onset of symptoms was November 28, 2021 at 03:30. 08:28 Method Of Arrival: Ambulatory bp 08:28 Acuity: DEBRA 2 bp Triage Assessment: 08:30 General: Appears in no apparent distress. uncomfortable, Behavior is cooperative, bp appropriate for age, anxious. Pain: Denies pain. EENT: No deficits noted. Neuro: Level of Consciousness is awake, alert, obeys commands, Oriented to person, place, time, situation, Appropriate for age Reports dizziness. Cardiovascular: No deficits noted. Respiratory: No deficits noted. GI: No signs and/or symptoms were reported involving the gastrointestinal system. : No signs and/or symptoms were reported regarding the genitourinary system. Derm: No deficits noted. Musculoskeletal: No deficits noted. Historical: - Allergies: 08:30 HYDROCODONE; bp 08:30 Codeine; bp - Home Meds: 08:30 aspirin 81 mg Oral tab [Active]; BRILINTA 90 mg Oral tab 2 times per day [Active]; bp Farxiga 5 mg Oral tab 1 tab once daily [Active]; fenofibrate 150 mg Oral cap 1 cap once daily [Active]; krill oil 350 Oral 350 mg daily [Active]; Lipitor 80 mg Oral tab [Active]; lisinopril 2.5 mg Oral tab [Active]; metformin 500 mg Oral tab 1 tab 2 times per day [Active]; metoprolol succinate 25 mg Oral Tb24 [Active]; vitamin E 1,000 unit Oral tab 1000 unit daily [Active]; Vitamin D Oral 25 mg daily [Active]; vitamin B complex Oral cap daily [Active]; Vitamin C 1,000 mg Oral tab 1000 mg daily [Active]; Singulair 10 mg Oral tab as needed [Active]; tamsulosin 0.4 mg Oral cap 1 cap once daily [Active]; ozempic 1 week sundays [Active]; multivitamin Oral tab [Active]; - PMHx: 08:30 Diabetes - NIDDM; [place]- march 2020; bp - Immunization history:: Adult Immunizations up to date. - Social history:: Smoking status: Patient denies any tobacco usage or history of. - Family history:: No immediate family members are acutely ill. - Hospitalizations: : The patient was recently seen at [facility]. Screenin:30 Abuse screen: Denies threats or abuse. Denies injuries from another. Nutritional bp screening: No deficits noted. Tuberculosis screening: No symptoms or risk factors identified. Fall Risk None identified. Assessment: 08:30 General: SEE TRIAGE NOTE. bp 09:30 Reassessment: No changes from previously documented assessment. Patient and/or family bp updated on plan of care and expected duration. Pain level reassessed. RECOLLECT BMP SENT. CLINICALS FAXED TO CARDIOLOGY. Vital Signs: 08:28 BP 93 / 73; Pulse 104; Resp 20; Temp 98.4; Pulse Ox 98% ; bp 09:30 BP 91 / 65; Pulse 73; Resp 11; Pulse Ox 99% ; bp ED Course: 08:17 Patient arrived in ED. as 08:18 Zaire Carreon MD is Private Physician. as 08:18 Fei Montelongo MD is Private Physician. as 08:22 Phi Marcum MD is Attending Physician. rn 08:22 Jalen Bennett, MATEO is Primary Nurse. bp 08:29 Triage completed. bp 08:30 Patient has correct armband on for positive identification. Bed in low position. Call bp light in reach. Side rails up X2. 08:30 Inserted saline lock: 20 gauge in right forearm, using aseptic technique. Blood bp collected. 09:51 XRAY Chest (1 view) In Process Unspecified. EDMS 10:43 Fei Montelongo MD is Hospitalizing Provider. rn 11:32 Vitaly Abbasi is Hospitalizing Provider. rn 12:00 Octaviano Marcum MD is Hospitalizing Provider. rn 12:02 No provider procedures requiring assistance completed. Patient admitted, IV remains in iw place. 12:03 Arm band placed on. iw Administered Medications: 09:22 Drug: NS 0.9% 500 ml Route: IV; Rate: bolus; Site: right antecubital; cb5 Outcome: 10:44 Decision to Hospitalize by Provider. rn 12:02 Admitted to [facility] accompanied by nurse. iw 12:02 Condition: good 12:02 Discharge instructions given to patient, family, Instructed on the need for admit. 12:03 Patient left the ED. iw Signatures: Dispatcher [employer] EDMS Estela Espinoza Irene, RN RN iw Phi Marcum MD MD rn Peltier, Brian, RN RN bp Boman, Colleen, MATEO RN cb5 Corrections: (The following items were deleted from the chart) 08:37 08:30 PSHx: stents x 4; bp bp
--- NOTE | 2021-11-28 10:45 | EDPHYS ---
Physician Documentation [facility] Name: Magnus Snow Age: 71 yrs Sex: Male : 1950 Arrival Date: 11/28/2021 Time: 08:17 Bed 5 Private MD: Fei Montelongo; Zaire Carreon ED Physician Phi Marcum HPI: 11/28 08:52 This 71 yrs old Male presents to ER via Ambulatory with complaints of Weakness, rn Shortness Of Breath. 08:52 The patient has shortness of breath at rest. Onset: The symptoms/episode began/occurred rn just prior to arrival. Duration: The symptoms are continuous, but are steadily getting better. The patient's shortness of breath is aggravated by light activity, is alleviated by rest. Associated signs and symptoms: Pertinent positives: dizziness, Pertinent negatives: non-productive cough, productive cough, fever, hemoptysis, loss of consciousness, vomiting. Severity of symptoms: At their worst the symptoms were moderate in the emergency department the symptoms have improved. The patient has experienced similar episodes in the past. The patient has been recently seen by a physician:. Patient recently admitted for chest pain and non-STEMI, discharged yesterday, was at work today when began to feel shortness of breath and lightheaded. No syncope. Steadily getting better without intervention. Took his Brilinta this morning. Plan upon discharge was to get outpatient stress test and Holter monitor. Patient called Dr. Carreon this morning and was told to come in and would possibly get a heart cath. Patient with multiple MIs in the past with multiple stents.. Historical: - Allergies: 08:30 HYDROCODONE; bp 08:30 Codeine; bp - Home Meds: 08:30 aspirin 81 mg Oral tab [Active]; BRILINTA 90 mg Oral tab 2 times per day [Active]; bp Farxiga 5 mg Oral tab 1 tab once daily [Active]; fenofibrate 150 mg Oral cap 1 cap once daily [Active]; krill oil 350 Oral 350 mg daily [Active]; Lipitor 80 mg Oral tab [Active]; lisinopril 2.5 mg Oral tab [Active]; metformin 500 mg Oral tab 1 tab 2 times per day [Active]; metoprolol succinate 25 mg Oral Tb24 [Active]; vitamin E 1,000 unit Oral tab 1000 unit daily [Active]; Vitamin D Oral 25 mg daily [Active]; vitamin B complex Oral cap daily [Active]; Vitamin C 1,000 mg Oral tab 1000 mg daily [Active]; Singulair 10 mg Oral tab as needed [Active]; tamsulosin 0.4 mg Oral cap 1 cap once daily [Active]; ozempic 1 week sundays [Active]; multivitamin Oral tab [Active]; - PMHx: 08:30 Diabetes - NIDDM; [place]- march 2020; bp - Immunization history:: Adult Immunizations up to date. - Social history:: Smoking status: Patient denies any tobacco usage or history of. - Family history:: No immediate family members are acutely ill. - Hospitalizations: : The patient was recently seen at [facility]. ROS: 08:54 Constitutional: Negative for fever, chills, and weight loss, Eyes: Negative for injury, rn pain, redness, and discharge, ENT: Negative for injury, pain, and discharge, Neck: Negative for injury, pain, and swelling, Cardiovascular: Negative for chest pain, palpitations, and edema, Respiratory: Negative for cough, wheezing, and pleuritic chest pain, Abdomen/GI: Negative for abdominal pain, vomiting, diarrhea, and constipation, Back: Negative for injury and pain, : Negative for injury, bleeding, discharge, and swelling, MS/Extremity: Negative for injury and deformity, Skin: Negative for injury, rash, and discoloration, Neuro: Negative for headache, weakness, numbness, tingling, and seizure. Exam: 08:54 Constitutional: This is a well developed, well nourished patient who is awake, alert, rn and in no acute distress. Head/Face: Normocephalic, atraumatic. Eyes: Periorbital areas with no swelling, redness, or edema. Cardiovascular: Tachycardic, regular. No pulse deficits. Respiratory: No increased work of breathing, no retractions or nasal flaring. Abdomen/GI: Soft, non-tender Skin: Warm, dry MS/ Extremity: Pulses equal, no cyanosis. Neurovascular intact. Full, normal range of motion. Equal circumference. Neuro: Awake and alert, GCS 15 Vital Signs: 08:28 BP 93 / 73; Pulse 104; Resp 20; Temp 98.4; Pulse Ox 98% ; bp 09:30 BP 91 / 65; Pulse 73; Resp 11; Pulse Ox 99% ; bp MDM: 08:22 Patient medically screened. rn 10:42 Differential diagnosis: Anxiety Reaction Myocardial Infarction Pneumothorax Unstable rn Angina. Data reviewed: vital signs, nurses notes, lab test result(s), EKG, radiologic studies, plain films, and as a result, I will admit patient. Counseling: I had a detailed discussion with the patient and/or guardian regarding: the historical points, exam findings, and any diagnostic results supporting the discharge/admit diagnosis, lab results, radiology results, the need for further work-up and treatment in the hospital. Response to treatment: the patient's symptoms have markedly improved after treatment, and as a result, I will admit patient. Admission orders: after a detailed discussion of the patient's condition and case, the admit orders are written by me. ED course: Troponin requires re-collect, crown and bridge dental lab technician already calling for him for cath soon. Will admit to Dr. Montelongo. . 10:44 ED course: Pt already took brilinta today.. rn 11:32 ED course: Dr. Montelongo out of town, will admit to hospitalist service.. rn 11/28 08:38 Order name: Basic Metabolic Panel rn 11/28 08:38 Order name: CBC with Diff; Complete Time: 09:31 rn 11/28 08:38 Order name: NT PRO-BNP; Complete Time: 11:27 rn 11/28 08:38 Order name: PT-INR; Complete Time: 09:31 rn 11/28 08:38 Order name: Troponin HS; Complete Time: 11:27 rn 11/28 08:39 Order name: Basic Metabolic Panel; Complete Time: 11:27 EDMS 11/28 08:38 Order name: XRAY Chest (1 view); Complete Time: 10:16 rn 11/28 08:38 Order name: EKG; Complete Time: 08:39 rn 11/28 08:38 Order name: Cardiac monitoring; Complete Time: 09:46 rn 11/28 08:38 Order name: EKG - Nurse/Tech; Complete Time: 08:44 rn 11/28 10:16 Order name: SARS-COV-2 RT PCR (Document "Date of Onset" if Symptomatic) rn 11/28 10:28 Order name: CL LEFT HEART WITHOUT LV EDMN 11/28 10:28 Order name: NPO EDMS 11/28 08:38 Order name: IV Saline Lock; Complete Time: 08:44 rn 11/28 08:38 Order name: Labs collected and sent; Complete Time: 09:46 rn 11/28 08:38 Order name: O2 Per Protocol; Complete Time: 08:44 rn 11/28 08:38 Order name: O2 Sat Monitoring; Complete Time: 08:44 rn 11/28 09:29 Order name: Labs - recollect needed: recollect c7.; Complete Time: 09:55 bd Administered Medications: 09:22 Drug: NS 0.9% 500 ml Route: IV; Rate: bolus; Site: right antecubital; cb5 Disposition Summary: 11/28/21 10:44 Hospitalization Ordered Hospitalization Status: Inpatient Admission rn Location: Telemetry/MedSurg (Inpatient) rn Condition: Stable rn Problem: an ongoing problem rn Symptoms: have improved rn Bed/Room Type: Standard rn Room Assignment: rn Provider: Octaviano Marcum(11/28/21 12:00) rn Diagnosis - Dyspnea, unspecified rn - Ventricular premature depolarization rn - Subsequent non-ST elevation (NSTEMI) myocardial infarction rn Forms: - Medication Reconciliation Form rn - SBAR form rn Signatures: Dispatcher [employer] EDMS Yasmin Cortes bd Phi Marcum MD MD rn Peltier, Brian, RN RN bp Boman, Colleen, RN RN cb5 Corrections: (The following items were deleted from the chart) 08:37 08:30 PSHx: stents x 4; bp bp 11:32 10:44 Fei Montelongo rn rn 12:00 11:32 Vitaly Abbasi rn rn
[2021-11-28 11:20] LABS: Troponin High Sensitivity 112.6 pg/mL (<58.9)
[2021-11-28] MEDS ORDERED: LIDOCAINE 1% 20 ML MDV ONE ×2 (11:59→12:01)
[2021-11-28] MEDS ORDERED: HEPA 1000U/500MLS 2,000 UNIT/1,000 ML BAG IV ONE (11:59)
[2021-11-28] MEDS ORDERED: VERAPAMIL HCL 10 MG/4 ML VIAL IV ONE (12:02)
[2021-11-28] MEDS ORDERED: NITROGLYCERIN 100 MCG/ML SYR (for cath lab use only) IV ONE (12:02)
[2021-11-28] MEDS ORDERED: MIDAZOLAM HCL 2 MG/2 ML INJ ONE (12:02)
[2021-11-28] MEDS ORDERED: FENTANYL CITR 100 MCG/2 ML ONE (12:02)
[2021-11-28] MEDS ORDERED: ATROPINE SULF 1 MG/10 ML SYR IV ONE (12:02)
[2021-11-28] MEDS ORDERED: HEPARIN 5000 UNIT/ML 1 ML VIAL ONE (12:02)
[2021-11-28] MEDS ORDERED: NA CHLORIDE 0.9% 500 ML ONE (12:14)
[2021-11-28] MEDS ORDERED: REGADENOSON 0.4 MG/5 ML SYR IV ONE (13:03)
[2021-11-28] MEDS ORDERED: HEPA 1000U/500MLS 1,000 UNIT/500 ML BAG IV ONE (13:06)
--- NOTE | 2021-11-28 14:11 | P.HP ---
Certification for Inpatient Patient admitted to: Observation With expected LOS: <2 Midnights Practitioner: I am a practitioner with admitting privileges, knowledge of patient current condition, hospital course, and medical plan of care. Services: Services provided to patient in accordance with Admission requirements found in Title 42 Section 412.3 of the Code of Federal Regulations Patient History Date of Service: 11/28/21 Reason for admission: NSTEMI History of Present Illness: 71yo M, PMH: CAD s/p 5 stents (NSTEMI ), NIDDM2, MAME on CPAP, CKD Presents to ED due to dyspnea, weakness, and chest discomfort. Patient was discharged yesterday after ACS rule out. He was to follow up in cardiology office tomorrow for a stress test, however he developed the symptoms while at work. He spoke with his manager technical training who recommended presentation to the hospital today to undergo cardiac catheterization. Patient denies any other new symptoms or changes since he was discharged. Patient was taken immediately to [facility] shortly after evaluation in ED. Troponin was mildly elevated, similar to yesterday's level. Allergies hydrocodone [Hydrocodone] Adverse Reaction (Mild, Verified 03/16/20 14:34) AMS Home Medications: Aspirin [Aspirin EC 81 MG] 81 mg PO DAILY 03/31/19 Fenofibrate 150 mg PO DAILY 03/31/19 Metformin HCl [Glucophage*] 500 mg PO BID 03/31/19 Multivit-Mins/Iron/Folic/Lycop [Centrum Men's Tablet] 1 each PO DAILY 03/31/19 Vitamin B Complex [Vitamin B Complex*] 1 cap PO DAILY 03/31/19 Atorvastatin Calcium [Lipitor] 80 mg PO DAILY 30 Days #30 tablet 03/10/20 Montelukast [Singulair*] 1 tab PO DAILY PRN 09/09/21 Ascorbic Acid [Vitamin C] 1,000 mg PO DAILY 11/25/21 Cholecalciferol (Vitamin D3) [Vitamin D3] 25 mcg PO DAILY 11/25/21 Dapagliflozin Propanediol [Farxiga] 5 mg PO DAILY 11/25/21 Krill/[place]-3/Dha/Epa/Lipids [Krill Oil 350 mg Softgel] 1 each PO DAILY 11/25/21 Lisinopril [Zestril] 2.5 mg PO DAILY 11/25/21 Loratadine [Claritin*] 10 mg PO DAILY PRN 11/25/21 Metoprolol Succinate [Toprol Xl] 25 mg PO DAILY 11/25/21 Semaglutide [Ozempic] 0.5 mg SQ Q7D 11/25/21 Tamsulosin HCl [Flomax] 0.4 mg PO DAILY 11/25/21 Ticagrelor [Brilinta*] 90 mg PO BID 11/25/21 Vitamin E (Dl,Tocopheryl Acet) [Vitamin E] 1,000 unit PO DAILY 11/25/21 levoFLOXacin [Levofloxacin] 1 tab PO DAILY 11/26/21 - Past Medical/Surgical History Diabetic: Yes -: DM -: Hypertension -: Hyperlipidemia -: CAD -: [place] March 2020, August 2021 -: Sleep Apnea -: cardiac stent x 5 -: stent and 2 balloons coronary artery August Psychosocial/ Personal History: Patient is . 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 - Family History Father -: Heart disease, Diabetes Mother -: Heart disease, Lung disease, Cancer - Social History Smoking Status: Never smoker Alcohol use: No CD- Drugs: No Caffeine use: Yes Place of Residence: Home Review of Systems 10-point ROS is otherwise unremarkable Physical Examination - Vital Signs Temperature: 98.4 F Blood Pressure: 91/65 Pulse: 73 Respirations: 11 - Physical Exam General: Alert, In no apparent distress, Oriented x3 HEENT: Sclerae nonicteric Respiratory: Clear to auscultation bilaterally Cardiovascular: No edema, Regular rate/rhythm Capillary refill: <2 Seconds Gastrointestinal: Soft and benign, Non-distended, No tenderness Musculoskeletal: No erythema, No tenderness Integumentary: No rashes, No significant lesion Neurological: Normal speech, Normal strength at 5/5 x4 extr, Normal affect - Studies Laboratory Data (last 24 hrs) 11/28/21 10:42: Sodium 140, Potassium 4.0, BUN 20 H, Creatinine 1.43 H, Glucose 86 11/28/21 09:10: PT 13.1 H, INR 1.14 11/28/21 09:10: WBC 6.40 D, Hgb 15.2, Hct 46.1, Plt Count 177 D Assessment and Plan - Advance Directives Does patient have a Living Will: No Does patient have a Durable POA for Healthcare: No Physician Review Additional Text: Problem list NSTEMI CAD s/p stents x5 HTN NIDDM2 Troponin mildly elevated, similar to yesterday's level Cardiology consulted, taken to [facility] Continue home medications, aspirin, beta-tiffany, statin Will discuss with cardiology after cath results for further recommendations Monitor on telemetry Pain control as needed sliding scale insulin and accuchecks CPAP at bedtime reconcile home medications Code: Full Dispo: Anticipate DC home tomorrow, pending cath results Time Spent Managing Pts Care (In Minutes): 60
[2021-11-28] MEDS ORDERED: ONDANSETRON 4 MG/2 ML VIAL IV PRN (14:51)
[2021-11-28] MEDS ORDERED: ACETAMINOPHEN 500 MG TAB PO PRN (14:51)
[2021-11-28] MEDS: INSULIN -REGULAR HUMAN 50 UNIT/0.5 ML ML SQ SCH ×2 (16:30→21:00)
[2021-11-28] MEDS ORDERED: PRASUGREL (EFFIENT) 10 MG TAB PO ONE (17:00)
[2021-11-28 17:49] VITALS: BMI 28.1
--- NOTE | 2021-11-28 19:27 | CON ---
Date of Consultation: 11/28/2021 Reason For Consultation: Elevated troponin. History Of Present Illness: 71-year-old male, known to have coronary artery disease, status post rec ent intervention of his RCA and LAD about 2 months ago. Had recent hospitalization for symptoms susan lar to symptoms he had before his non STEMI 8 weeks ago with between shoulder blades pain with dizzin ess and shortness of breath. Troponin was borderline and the patient became asymptomatic and did wel l and was sent home. However, today early in the morning at work, he had another episode. Denies canas ving any chest pain per side effects, however, his symptoms are similar to what he had when he had a non STEMI recently. Past Medical History: Coronary artery disease, diabetes, hypertension, and dyslipidemia. Medications: Refer reconciliation sheet for medications list. Allergies: HYDROCODONE. Family History: No coronary artery disease or cancer. Social History: Does not smoke or drink. Does not use any drugs. Review of Systems: All systems reviewed and they were negative except for mentioned in HPI. Physical Examination: Vital Signs: Reviewed. Head and Neck: Pupils are equal and reactive to light. Intact eye movements. No JVD. No cervical lymphadenopathy. Neck: Supple. Thyroid is not enlarged. Lungs: Clear to auscultation bilaterally. No rhonchi, rales, or crackles. No accessory muscle use. Heart: Regular rate and rhythm. No extra sounds. Abdomen: Soft and nontender. Bowel sounds positive. No organomegaly. No masses or hernia. Extremities: No clubbing or cyanosis. Intact pulses. Skin: No rash. Neurologic: Alert, awake, and oriented x3. No acute focal deficits appreciated. Investigations: Labs were reviewed. His hemoglobin is 15.1, his creatinine is 1.43, and his troponi n is 112. Assessment And Recommendation: 1.Coronary artery disease with elevated troponin suggestive of [id number] myocardial infarctio n. The patient was n.p.o., so took him to the construction laborer and did coronary angiogram. His left anterio r descending artery and the right coronary artery stents are widely patent. There was a question whe ther he had a mid left anterior descending artery stent for possible ISR, however, the intravascular ultrasound in luminal area was above 6 throughout and did fractional flow reserve, it was 0.88. At t his point, his shortness of breath is likely due to Brilinta, so I will have him stop it today and we will load him with Effient and then start Effient daily instead of the Brilinta and continue aspirin and evaluate his symptoms in about 1 week. 2.Hypotension and dehydration. We will evaluate his medications and adjust blood pressure medicatio ns and special diuretics and I will hydrate him postprocedure for the next 4 hours. The patient can be released home today and follow up with me in the office in 1 week and he will get a Holter monitor and echo as an outpatient. Thank you for the consult. /KARIE Voice ID: [id number] Report ID: [id number]
[2021-11-28 20:38] VITALS: O2SAT 92
[2021-11-28] MEDS ORDERED: ATORVASTATIN 80 MG TAB PO SCH (21:00)
--- NOTE | 2021-11-29 00:57 | OP ---
Date of Procedure: 11/28/2021 Surgeon: MIGUEL VALERIO Procedure Performed: 1.Selective coronary angiogram. 2.IVUS of LAD. 3.FFR of the LAD which was not significant at 0.88. Indication For Procedure: [id number] myocardial infarction. Access: Right radial artery 6-Bolivian closed with TR band. Complications: None. Bleeding: Less than 10 mL. Anesthesia: Total sedation time was 30 minutes. Description Of Procedure: After risks and benefits and alternatives were explained, the patient agre ed to proceed and signed informed consent. The patient was brought into the cardiac catheterization laboratory, prepped and draped in usual sterile fashion. Then, we accessed the right radial artery u sing pediatric micropuncture kit with a 6-Bolivian slender sheath and then we took a 5-Bolivian [place] 4.0 catheter into the aortic root and engaged left main, right coronary artery, took standard views and then gave systemic heparin to assure ACT level above 250 and then took XB 3.56-Bolivian guide into the aortic root and engaged the left main, took a run-through wire into the LAD and did IVUS and then exc hanged for a wire and did FFR after equalizing in the aortic root and FFR was not signific ant at 0.88. Pullback, there was no drift and then the final angiogram was satisfactory, so removed the guide and the sheath, placed TR band with good hemostasis. Findings: 1.Left main is large and normal. 2.LAD. Long stent proximal to mid, patent totally by IVUS. The narrowest area is 6.3 squared mm an d FFR was 0.88. There is a mild disease at the very distal portion of the LAD and the distal LAD rylee nt is patent. On the diagonal branches, has 3 diagonal branches and it all have a 60% to 70% diffuse disease in the small vessels. 3.Left circumflex is very small with the OM that is small and no significant disease. Maybe there i s a chronic BUYER BROKER of the mid to distal circ, but again it is like a 1.5 mm vessel. 4.RCA, aneurysmal at the proximal portion, then patent stent, and no significant disease. Conclusion: 1.Patent left anterior descending and right coronary artery stents with luminal area by IVUS, smalle st is 6.2 mm2 and FFR 0.88. 2.Significant diagonal branches disease. Plan: To treat medically. If he continues to have symptoms, we can bring him back for angioplasty, but at this point I will plan to switch his Brilinta to Effient and see if his symptoms improve. SR/MODL Voice ID: [id number] Report ID: [id number]
[2021-11-29 05:58] LABS: Absolute Lymphocytes (CBC) 0.7 K/uL (0.7-4.9); Hematocrit 40.7 % (39.6-49.0); Lymphocytes % 18.1 % (15.3-44.8); MPV 8.7 fL (7.6-11.3); RBC Red Blood Cell Count 4.46 M/uL (4.33-5.43)
[2021-11-29 06:15] LABS: Albumin 3.3 g/dL (3.4-5.0); Bilirubin Total 0.6 mg/dL (0.2-1.0); Potassium 4.1 mmol/L (3.5-5.1); Protein, Total 6.4 g/dL (6.4-8.2)
[2021-11-29] MEDS: INSULIN -REGULAR HUMAN 50 UNIT/0.5 ML ML SQ SCH (07:30)
--- NOTE | 2021-11-29 07:46 | P.DS ---
Admission Date: 11/28/21 Discharge Date: 11/29/21 Disposition: ROUTINE DISCHARGE Discharge Condition: GOOD Reason for Admission: NSTEMI Consultations: Cardiology - Dr. Carreon Procedures: Cardiac catheterization (07/28) Problem list NSTEMI CAD s/p stents x5 HTN NIDDM2 Brief History of Present Illness: 71yo M, PMH: CAD s/p 5 stents (NSTEMI ), NIDDM2, MAME on CPAP, CKD Presents to ED due to dyspnea, weakness, and chest discomfort. Patient was discharged yesterday after ACS rule out. He was to follow up in cardiology office tomorrow for a stress test, however he developed the symptoms while at work. 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 Patient denies any other new symptoms or changes since he was discharged. Patient was taken immediately to Observation Nurse shortly after evaluation in ED. Troponin was mildly elevated, similar to yesterday's level. Hospital Course: Patient presented to ED with shortness of breath, generalized weakness, and chest discomfort. He was taken to labor relations specialist and was found to not require any int ervention. Cardiology recommended switching Brilinta to Effient. Patient was deemed stable for discharge. To follow up with Cardiology in ~ 1 week. To have outpatient echocardiogram. Patient to obtain holter this week as previously scheduled. Vital Signs/Physical Exam: Temp Pulse Resp BP Pulse Ox 98.1 F 60 16 134/85 98 11/29/21 04:00 11/29/21 04:00 11/29/21 04:00 11/29/21 04:00 11/29/21 04:00 General: Alert, In no apparent distress HEENT: Sclerae nonicteric Respiratory: Clear to auscultation bilaterally, Normal air movement Cardiovascular: No edema, Regular rate/rhythm Gastrointestinal: Soft and benign, Non-distended, No tenderness Musculoskeletal: No erythema, No tenderness Integumentary: No rashes, No significant lesion Neurological: Normal speech, Normal affect Laboratory Data at Discharge: WBC 4.00 K/uL (4.3-10.9) L D 11/29/21 05:40 Hgb 13.5 g/dL (13.6-17.9) L 11/29/21 05:40 Hct 40.7 % (39.6-49.0) 11/29/21 05:40 Plt Count 155 K/uL (152-406) 11/29/21 05:40 PT 13.1 SECONDS (9.5-12.5) H 11/28/21 09:10 INR 1.14 11/28/21 09:10 Sodium 141 mmol/L (136-145) 11/29/21 05:40 Potassium 4.1 mmol/L (3.5-5.1) 11/29/21 05:40 BUN 19 mg/dL (7-18) H 11/29/21 05:40 Creatinine 1.37 mg/dL (0.55-1.3) H 11/29/21 05:40 Glucose 99 mg/dL (74-106) 11/29/21 05:40 Magnesium 2.0 mg/dL (1.8-2.4) 11/29/21 05:40 Total Bilirubin 0.6 mg/dL (0.2-1.0) 11/29/21 05:40 AST 23 U/L (15-37) 11/29/21 05:40 ALT 29 U/L (12-78) 11/29/21 05:40 Alkaline Phosphatase 35 U/L (45-117) L 11/29/21 05:40 Home Medications: RX: Aspirin [Aspirin EC 81 MG] 81 mg PO DAILY 03/31/19 RX: Fenofibrate 150 mg PO DAILY 03/31/19 RX: Metformin HCl [Glucophage*] 500 mg PO BID 03/31/19 RX: Multivit-Mins/Iron/Folic/Lycop [Centrum Men's Tablet] 1 each PO DAILY 03/31/19 RX: Vitamin B Complex [Vitamin B Complex*] 1 cap PO DAILY 03/31/19 RX: Atorvastatin Calcium [Lipitor] 80 mg PO DAILY 30 Days #30 tablet 03/10/20 RX: Montelukast [Singulair*] 1 tab PO DAILY PRN 09/09/21 RX: Ascorbic Acid [Vitamin C] 1,000 mg PO DAILY 11/25/21 RX: Cholecalciferol (Vitamin D3) [Vitamin D3] 25 mcg PO DAILY 11/25/21 RX: Dapagliflozin Propanediol [Farxiga] 5 mg PO DAILY 11/25/21 RX: Krill/[place]-3/Dha/Epa/Lipids [Krill Oil 350 mg Softgel] 1 each PO DAILY 11/25/21 RX: Lisinopril [Zestril] 2.5 mg PO DAILY 11/25/21 RX: Loratadine [Claritin*] 10 mg PO DAILY PRN 11/25/21 RX: Metoprolol Succinate [Toprol Xl] 25 mg PO DAILY 11/25/21 RX: Semaglutide [Ozempic] 0.5 mg SQ Q7D 11/25/21 RX: Tamsulosin HCl [Flomax] 0.4 mg PO DAILY 11/25/21 RX: Vitamin E (Dl,Tocopheryl Acet) [Vitamin E] 1,000 unit PO DAILY 11/25/21 RX: levoFLOXacin [Levofloxacin] 1 tab PO DAILY 11/26/21 RX: Prasugrel Hydrochloride [Effient*] 10 mg PO DAILY 30 Days #30 tab 11/29/21 New Medications: RX: Prasugrel Hydrochloride [Effient*] 10 mg PO DAILY 30 Days #30 tab Physician Discharge Instructions: Patient presented to ED with shortness of breath, generalized weakness, and chest discomfort. He was taken to labor relations specialist and was found to not require any intervention. Cardiology recommended switching Brilinta to Effient. Patient was deemed stable for discharge. To follow up with Cardiology in ~ 1 week. To have outpatient echocardiogram. Patient to obtain holter this week as previously scheduled. Diet: ADA Activity: Ad anabella Followup: Zaire Carreon MD [Primary Care Provider] - Time spent managing pt's care (in minutes): 45
[2021-11-29] MEDS ORDERED: PRASUGREL (EFFIENT) 10 MG TAB PO SCH (09:00)
[2021-11-29] MEDS ORDERED: METOPROLOL XL 25 MG TAB PO SCH (09:00)
[2021-11-29] MEDS ORDERED: ASPIRIN EC 81 MG TAB PO SCH (09:00)
[2021-11-29] MEDS ORDERED: TAMSULOSIN 0.4 MG SR CAP PO SCH (09:00)
[2021-11-29 09:18] VITALS: BP 141/78
[2021-11-29 09:54] VITALS: TEMP 97.2
--- NOTE | 2021-11-29 10:19 | EKG ---
Test Date: 2021-11-28 Test Time: 08:43:10 [employer]: IRENE MEASUREMENT RESULTS: Intervals: Rate: 105 VA: QRSD: 128 QT: 374 QTc: 494 [place]: P: VA: QRS: 15 T: 65 INTERPRETIVE STATEMENTS: Wide QRS rhythm with occasional and consecutive premature ventricular complexes Right bundle branch block Abnormal ECG Compared to ECG 11/25/2021 16:17:58 Uncertain supraventricular rhythm now present Sinus rhythm no longer present Electronically Signed On 11-29-21 10:14:53 EVENTS DIRECTOR by Moshe Iraheta
== END 2021-11-29 11:50 | disposition home or self-care (01) ==
LOC: ER 08:16 → ERHOLD 14:10 → 2ND 17:01
PROVIDERS: ADMIT Hospitalist; ATTEND Hospitalist
DX: I21.4 Non-ST elevation (NSTEMI) myocardial infarction (principal); I25.10 Atherosclerotic heart disease of native coronary artery without angina pectoris; I25.82 Chronic total occlusion of coronary artery; I12.9 Hypertensive chronic kidney disease with stage 1 through stage 4 chronic kidney disease, or unspecified chronic kidney disease; E11.22 Type 2 diabetes mellitus with diabetic chronic kidney disease; N18.9 Chronic kidney disease, unspecified; I25.2 Old myocardial infarction; I25.41 Coronary artery aneurysm; G47.33 Obstructive sleep apnea (adult) (pediatric); I95.9 Hypotension, unspecified; E86.0 Dehydration; R06.02 Shortness of breath; E78.5 Hyperlipidemia, unspecified; Z95.5 Presence of coronary angioplasty implant and graft; Z99.81 Dependence on supplemental oxygen; Z20.822 Contact with and (suspected) exposure to COVID-19; Z88.6 Allergy status to analgesic agent; Z79.84 Long term (current) use of oral hypoglycemic drugs; Z79.82 Long term (current) use of aspirin; Z79.899 Other long term (current) drug therapy; Z82.49 Family history of ischemic heart disease and other diseases of the circulatory system; Z83.3 Family history of diabetes mellitus; Z83.6 Family history of other diseases of the respiratory system; Z80.9 Family history of malignant neoplasm, unspecified
CPT/HCPCS: 93005; 85025 ×2; 80048; 36415; 83735; 85610; 82947 ×3; 85347; 84484; 80053; 83880; 71045; 92978; 93454; 93571; 94760; 99285; U0003; C1893; J1644 ×3; J2785; G0378 ×4; J7040; J7030; C1769; J2250; J3010

== ENCOUNTER 2023-05-18 09:57 | Emergency (ER) | payer OTHER ==
--- OUTSIDE RECORDS SUMMARY | 2023-05-18 10:12 | XMS REPORT | Continuity of Care Document ---
:1950 Author Organization [facility] t Address [address] [place] [address] [address] [place] [address] Care Team Providers Name Role Phone SANTHOSH LÓPEZ Primary Care Physician Unavailable KATHERINE BACA Attending Clinician Unavailable SRINI GEIGER Attending Clinician Unavailable Provider, Jr Urgent Care Attending Clinician Unavailable Lab, Adc Fam Pob I Attending Clinician Unavailable Jessica Duncan PA-C Attending Clinician JESSICA DUNCAN Attending Clinician Unavailable BOB MICHAUD Admitting Clinician Unavailable Payers Payer Name Policy Type Policy Number Effective Date Expiration Date S ource UNITED MEDICARE [id number] 2020 O 00:00:00 Problems Condition Condition Condition Status Onset Resolution Last Treating Co mments Source Name Details Category Date Date Treatment Clinician Date NSTEMI NSTEMI Disease Recurre 2020-[address] [facility] [address] [facility] elevated elevated 00:00: Medica l myocardial myocardial 00 Ce nter infarction infarction ) ) Allergies, Adverse Reactions, Alerts Allergy Allergy Status Severity Reaction(s) Onset Inactive Treating Comm ents Source Name Type Date Date Clinician HYDROCOD Allergy Active High Other [facility] CODEINE Allergy Active [facility] Codeine Drug Active Other (See [facility] Allergy Comments) [facility] Hydrocod Drug Active Other (See [facility] one Allergy Comments), 03-31 [facility] Hives [facility] Center NO KNOWN Drug Active Univers ALLERGIE Class ity of S [facility] NO KNOWN Allergy Active [facility] ALLERGIE S Social History Social Habit Start Date Stop Date Quantity Comments Source Exposure to Not sure [facility] SARS-CoV-2 [facility] (event) Branch Tobacco use and 2021-09-09 2021-09-09 [address] [facility] exposure [facility]00 non-user [facility] Center Sex Assigned At [birth year] [facility] [address] Tasneem kes 00:00:00 00:00:00 Medical Center Smoking Status Start Date Stop Date Source Unknown if ever smoked [facility] y [facility] Never smoked tobacco [facility] Medications Ordered Filled Start Stop Current Ordering Indication Dosage Frequency Signature Comments Components Source Medication Medication Date Date Medication? Clinician (SIG) Name Name metoprolol 2020-10 25mg QD Take [address] succinate 11-16 tablet (25 Yue es (TOPROL-XL) 00:00: 23:59 mg total) Medical 25 MG 24 hr 00 :00 by mouth Cent er tablet daily. atorvastati 2020-10 Yes 80mg QD Take [address] n (Lipitor) 2-01 by mouth Luke s 80 MG 09:47: daily. Medical tablet 19 [place] lisinopriL 2020-10 Yes 5mg QD Take [address] (PRINIVIL,Z 2-01 by mouth Luke s ESTRIL) 5 09:47: daily. Medica l MG tablet 19 [place] tamsulosin 2020-10 Yes .4mg QD Take 0.[address] (FLOMAX) 2-01 mg by [facility] 0.4 mg Cap 09:47: mouth Medica l 24 hr 19 daily. [place] capsule aspirin 81 2020-10 Yes 81mg QD Take [address] MG chewable 2-01 by mouth Luke s tablet 09:47: daily. Medical 19 [place] ascorbic 2020-10 Yes 1000mg QD Take 1,[address] acid, 2-01 mg by [facility] vitamin C, 09:47: mouth Medica l (vitamin C) 19 daily. [place] 1000 MG tablet b complex 2020-10 Yes 1{capsu QD Take [address] vitamins 2-01 le} capsule by [facility] capsule 09:47: mouth Medical 19 daily. Center cholecalcif 2020-10 Yes 1000U QD Take 1,[address] clara, 2-01 Units by LuZdorovio vitamin D3, 09:47: mouth Medic al (Vitamin 19 daily. Center D3) 25 mcg (1,000 unit) capsule metFORMIN 2020-10 Yes 500mg Take [address] [facility] (GLUCOPHAGE 2-01 mg by Zdorovio ) 500 MG 09:47: mouth 2 Medica l tablet 19 (two) Center times daily with breakfast and dinner. fenofibrate 2020-10 Yes Take by [facility] 150 mg Cap 2-01 mouth. [facility] 09:47: Medical 19 Center Vital Signs Vital Name Observation Time Observation [...] Procedures This patient has no known procedures. Plan of Care Planned Activity Planned Date Details Comments Source Future Scheduled 2023-06-15 Influenza Vaccine (#1) [facility] 00:00:00 [code = Influenza Medical Ce nter Vaccine (#1)] Future Scheduled 2022-10-[address] [facility] Test 00:00:00 (12+) [code = Medical Center DEPRESSION SCREENING (12+)] Future Scheduled 2022-10-15 FALLS RISK SCREENING [facility] Test 00:00:00 [code = FALLS RISK Medical C enter SCREENING] Future Scheduled 2021-10-[address] [facility] Test 00:00:00 WELLNESS (YEAR 2 or Medical Center FIRST YEAR if no IPPE) [code = MEDICARE ANNUAL WELLNESS (YEAR 2 or FIRST YEAR if no IPPE)] Future Scheduled 2021-09-[address] [facility] Test 00:00:00 measurement (procedure) [facility] [code = 09134428] Future Scheduled 2002 SHINGLES VACCINES ([address] [facility] Test 00:00:00 2) [code = SHINGLES Medical Center VACCINES (1 of 2)] Future Scheduled 1971 DTAP/TDAP/TD VACCINES [facility] Test 00:00:00 (1 - Tdap) [code = Medical C enter DTAP/TDAP/TD VACCINES (1 - Tdap)] Future Scheduled 1970 HEPATITIS C SCREENING [facility] Test 00:00:00 [code = HEPATITIS C Medical Center SCREENING] Future Scheduled [address] [facility] Test 00:00:00 Counseling and Medical Cente r Screening (12+) [code = Tobacco Cessation Counseling and Screening (12+)] Future Scheduled 1962 DIABETIC EYE EXAM [code [facility] Test 00:00:00 = DIABETIC EYE EXAM] [facility] Future Scheduled 1962 Urine screening for [facility] Test 00:00:00 protein (procedure) [facility] [code = 221549075] Future Scheduled 1950 COVID-19 VACCINE (#1) [facility] Test 00:00:00 [code = COVID-[address] VACCINE (#1)] Future Scheduled 1952 Screening for malignant [facility] Test 00:00:00 neoplasm of colon Medical Ce nter (procedure) [code = 930494273] Future Scheduled 1952 Screening for malignant [facility] Test 00:00:00 neoplasm of colon Medical Ce nter (procedure) [code = 200276999] Future Scheduled 1952 Screening for malignant [facility] Test 00:00:00 neoplasm of colon Medical Ce nter (procedure) [code = 089929312] Future Scheduled 1950 Sigmoidoscopy [code = [facility] Test 00:00:00 Sigmoidoscopy] Medical Cente r Future Scheduled 1952 CT Colonography (combo) [facility] Test 00:00:00 [code = CT Colonography [facility] (combo)] Future Scheduled 1952 Screening for malignant [facility] Test 00:00:00 neoplasm of colon Medical Ce nter (procedure) [code = 416207291] Encounters Start End Encounter Admission Attending Care Care Encounter Source Date/Time Date/Time Type Type Clinicians Facility Department ID 2021-09-09 2021-09-14 [facility] [id number] [facility] 18:54:00 09:46:00 [facility] 2020-07-30 2020-07-30 Telephone Provider, [facility] [id number] [facility] 00:00:00 00:00:00 [facility] [id number] ity of Care Surgical [id number] Zander as Specialti [phone] [address] 2020-07-30 2020-07-30 Telephone Provider, [facility] [id number] 00:00:00 00:00:00 [facility] [id number] Care Surgical [id number] Specialti [phone] [address] 2020-07-28 2020-07-28 Laboratory Lab, [facility] Fam Pob I [facility] [id number] [facility] 15:53:29 16:13:29 Only Jessica Duncan [facility] [id number] ity of [place] [id number] Zander as Professio [phone] [address] Office [facility] 2020-07-28 2020-07-28 Laboratory Lab, [facility] [id number] 15:53:29 16:13:29 Only Fam Pob I Health [id number] [place] [id number] Professio [phone] [place] [address] Office [facility] 2020-07-28 2020-07-28 Outpatient R [facility] [id number] 16:00:00 16:00:00 JESSICA [facility] Results Test Description Test Time Test Comments [...] NOT 1092) ACCURATE CRE ATININE CLEARANCE IN [place] EDICTING GLOMERULAR FILT RATION RATE. ESTIMATED GFR IS NOT APPLICABLE FOR DIALYSIS PATIENTS. Denture Waxer ID - MIKALA MCBC W/PLT COUNT & AUTO [id number] 05:13:14 Test Item Value Reference Range Interpretation [...] PERCENT (BEAKER) (test code = 2801) POCT-GLUCOSE [id number] 22:35:23 Test Item Value Reference Range Interpretation Comments POC-GLUCOSE METER 153 mg/dL 70-110 H : Notified RN/MD: ([facility]) (test code = TESTED AT [place] [address] 153) [facility]EM [facility], [address]: Denture Waxer/Techni kendall ID = [id number] for CURTIS PELAYO POCT-GLUCOSE [id number] 18:16:50 Test Item Value Reference Range Interpretation Comments POC-GLUCOSE METER 92 mg/dL 70-110 : TESTED A T [place] [address] ([facility]) (test code = ANA Maldonado [facility], 153) [address]: Denture Waxer/Techni kendall ID = [id number] for GERMAN JIMENEZ [id number] 17:38:42 Test Item Value Reference Range Interpretation Comments ACTIVATED CLOTTING TIME 261 sec : 74 -137 seconds, ([facility]) (test code = Agustin ne: TESTED AT 441) [facility] 6720 [facility], 770 30: Denture Waxer/Techni kendall ID = [id number] for WoodruffErna ledbetter n [id number] 17:04:22 Test Item Value Reference Range Interpretation Comments ACTIVATED CLOTTING TIME 297 sec : 74 -137 seconds, (BEAKER) (test code = Spenceri ne: TESTED AT 441) [facility] 6720 [facility], 770 30: Denture Waxer/Techni kendall ID = [id number] for Woodruff, Erna n [id number] 16:49:04 Test Item Value Reference Range Interpretation Comments ACTIVATED CLOTTING TIME 303 sec : 74 -137 seconds, (BEAKER) (test code = Spenceri ne: TESTED AT 441) [facility] 67[address] [facility], 770 30: Denture Waxer/Techni kendall ID = [id number] for Ranjan, Erna n POCT-GLUCOSE [id number] 12:07:34 Test Item Value Reference Range Interpretation Comments POC-GLUCOSE METER 99 mg/dL 70-110 : TESTED A T [facility] 6720 (BEAKER) (test code = [facility], 1538) [address]: Denture Waxer/Techni kendall ID = [id number] for Beryl valencia, Raimundo POCT-GLUCOSE [id number] 07:46:07 Test Item Value Reference Range Interpretation Comments POC-GLUCOSE METER 99 mg/dL 70-110 : TESTED A T [facility] 6720 (BEAKER) (test code = [facility], 1538) [address]: Denture Waxer/Techni kendall ID = [id number] for Beryl en, Raimundo BASIC METABOLIC [id number] 04:22:18 Test Item Value Reference Range Interpretation [...] S NOT APPLICABLE FOR DIALYSIS PATIEN TS. Denture Waxer ID - IOANA WCBC W/PLT COUNT & AUTO [id number] 04:05:28 Test Item Value Reference Range Interpretation [...] PERCENT (BEAKER) (test code = 2801) POCT-GLUCOSE [id number] 21:27:14 Test Item Value Reference Range Interpretation Comments POC-GLUCOSE METER 106 mg/dL 70-110 : TESTED A T [facility] 6720 [facility] (test code = [facility], [facility]) [address]: Denture Waxer/Techni kendall ID = [id number] for Makenzie Brush POCT-GLUCOSE [id number] 16:47:40 Test Item Value Reference Range Interpretation Comments POC-GLUCOSE METER 94 mg/dL 70-110 : TESTED A T [facility] 6720 ([facility]) (test code = [facility], [facility]) [address]: Denture Waxer/Techni kendall ID = [id number] for Vida Boggs POCT-GLUCOSE [id number] 11:23:23 Test Item Value Reference Range Interpretation Comments POC-GLUCOSE METER 87 mg/dL 70-110 : TESTED A T [facility] 6720 [facility] (test code = [facility], 1538) [address]: Denture Waxer/Techni kendall ID = [id number] for Beryl valencia Raimundo POCT-GLUCOSE [id number] 08:00:21 Test Item Value Reference Range Interpretation Comments POC-GLUCOSE METER 118 mg/dL 70-110 H : TESTED A T [facility] 6720 (BEAKER) (test code = [facility], 153) [address]: Denture Waxer/Techni kendall ID = [id number] for Raimundo Aquino BASIC METABOLIC [id number] 04:51:44 Test Item Value Reference Range Interpretation [...] S NOT APPLICABLE FOR DIALYSIS PATIEN TS. Denture Waxer ID - IOANA WCBC W/PLT COUNT & AUTO [id number] 04:27:13 Test Item Value Reference Range Interpretation [...] PERCENT (BEAKER) (test code = 2801) POCT-GLUCOSE [id number] 21:55:39 Test Item Value Reference Range Interpretation Comments POC-GLUCOSE METER 121 mg/dL 70-110 H : TESTED A T [facility] 6720 (BEAKER) (test code = [facility], 153) [address]: Denture Waxer/Techni kendall ID = [id number] for Makenzie rBush POCT-GLUCOSE [id number] 16:05:00 Test Item Value Reference Range Interpretation Comments POC-GLUCOSE METER 105 mg/dL 70-110 : TESTED A T [facility] 6720 (BEAKER) (test code = [facility], 1538) [address]: Denture Waxer/Techni kendall ID = [id number] for Re yes, Sharon POCT-GLUCOSE [id number] 11:17:49 Test Item Value Reference Range Interpretation Comments POC-GLUCOSE METER 107 mg/dL 70-110 : TESTED A T [facility] 6720 (BEAKER) (test code = [facility], 1538) [address]: Denture Waxer/Techni kendall ID = [id number] for Re yes, Sharon BASIC METABOLIC [id number] 07:28:02 Test Item Value Reference Range Interpretation [...] S NOT APPLICABLE FOR DIALYSIS PATIEN TS. Denture Waxer ID - IOANA WCBC W/PLT COUNT & AUTO [id number] 06:49:42 Test Item Value Reference Range Interpretation [...] PERCENT (BEAKER) (test code = 2801) POCT-GLUCOSE [id number] 22:42:26 Test Item Value Reference Range Interpretation Comments POC-GLUCOSE METER 138 mg/dL 70-110 H : TESTED A T [facility] 6720 (BEAKER) (test code = [facility], 153) [address]: Denture Waxer/Techni kendall ID = [id number] for RE SRI GARAY POCT-GLUCOSE [id number] 16:10:22 Test Item Value Reference Range Interpretation Comments POC-GLUCOSE METER 121 mg/dL 70-110 H : TESTED A T [facility] 6720 (BEAKER) (test code = [facility], 153) [address]: Denture Waxer/Techni kendall ID = [id number] for Re kevin, Sharon [id number] 12:46:40 Test Item Value Reference Range Interpretation Comments ACTIVATED CLOTTING TIME 386 sec : 74 -137 seconds, (BEAKER) (test code = Agustin ne: TESTED AT 441) [address], [facility] 30: Denture Waxer/Techni kendall ID = [id number] for CA RPIO, SOLOMON [id number] 12:07:57 Test Item Value Reference Range Interpretation Comments ACTIVATED CLOTTING TIME 309 sec : 74 -137 seconds, (BEAKER) (test code = Agustin ne: TESTED AT [facility]) [address], [facility] 30: Denture Waxer/Techni kendall ID = [id number] for CA RPIO, SOLOMON [id number] 11:47:55 Test Item Value Reference Range Interpretation Comments ACTIVATED CLOTTING TIME 267 sec : 74 -137 seconds, (BEAKER) (test code = Agustin ne: TESTED AT 441) [address], [facility] 30: Denture Waxer/Techni kendall ID = [id number] for CA RPIO, SOLOMON [id number] 11:25:42 Test Item Value Reference Range Interpretation Comments ACTIVATED CLOTTING TIME 291 sec : 74 -137 seconds, (BEAKER) (test code = Agustin ne: TESTED AT [facility]) [address], [facility] 30: Denture Waxer/Techni kendall ID = [id number] for CA RPIO, SOLOMON [id number] 11:08:49 Test Item Value Reference Range Interpretation Comments ACTIVATED CLOTTING TIME 142 sec : 74 -137 seconds, (BEAKER) (test code = Agustin ne: TESTED AT [facility]) [address], [facility] 30: Denture Waxer/Techni kendall ID = [id number] for CA RPIO, SOLOMON POCT-GLUCOSE [id number] 06:46:11 Test Item Value Reference Range Interpretation Comments POC-GLUCOSE METER 107 mg/dL 70-110 : TESTED A T [place] [address] (BEAKER) (test code = [facility], 1538) [address]: Denture Waxer/Techni kendall ID = [id number] for KELVIN OATES HIGH SENSITIVITY TROPONIN [id number] 06:12:53 Test Item Value Reference Range Interpretation Comments HIGH SENSITIVITY 92084 pg/ml See_Comment HH [Automated message] TROPONIN I (test code The sy stem which = [id number]) generated this result transmitted ref erence range: <=35. Th e reference range was not used to int erpret this result as normal/abnormal . Denture Waxer ID - MIKALA MThe APPLICATIONS PROGRAMMER ANALYST STAT High Sensitivity Troponin-I results should be used in conjunction with other diagnostic information such as ECG, clinical observations and information, and patient symptoms to aid in the diagnosis of VT.Denture Waxer ID - [id number] 05:37:02 Test Item Value Reference Range Interpretation Comments PARTIAL THROMBOPLASTIN TIME 62.0 seconds 22.5-36.0 H (BEAKER) (test code = 760) HIGH SENSITIVITY TROPONIN [id number] 23:13:15 Test Item Value Reference Range Interpretation Comments HIGH SENSITIVITY 16815 pg/ml See_Comment HH [Automated message] TROPONIN I (test code The sy stem which = [id number]) generated this result transmitted ref erence range: <=35. Th e reference range was not used to int erpret this result as normal/abnormal . Denture Waxer ID - DBThe APPLICATIONS PROGRAMMER ANALYST STAT High Sensitivity Troponin-I results should be used in conjunctionwith other diagnostic information such as ECG, clinical observations and information, and patient symptoms to aid in the diagnosis of VT.Denture Waxer ID - ADMINB-TYPE NATRIURETIC FACTOR (BNP)2021-09-09 22:24:24 Test Item Value Reference Range Interpretation Comments B-TYPE NATRIURETIC PEPTIDE (BEAKER) 58 pg/mL 0-100 (test code = 700) Denture Waxer ID - [id number] 22:18:25 Test Item Value Reference Range Interpretation Comments PHOSPHORUS (BEAKER) (test code = 3.0 mg/dL 2.3-4.7 604) Denture Waxer ID - DBCOMPREHENSIVE METABOLIC [id number] 22:18:24 Test Item Value Reference Range Interpretation [...] S NOT APPLICABLE FOR DIALYSIS PATIEN TS. Denture Waxer ID - [id number] 22:18:24 Test Item Value Reference Range Interpretation Comments MAGNESIUM (BEAKER) (test code = 1.9 mg/dL 1.6-2.6 627) Denture Waxer ID - [id number] 22:06:23 Test Item Value Reference Range Interpretation Comments PARTIAL THROMBOPLASTIN TIME 39.3 seconds 22.5-36.0 H (BEAKER) (test code = 760) PROTHROMBIN [id number] 22:05:20 Test Item Value Reference Range Interpretation Comments PROTIME (BEAKER) 13.3 seconds 11.9-14.2 (test code = 759) INR (BEAKER) (test 1.03 See_Comment [Automat ed message] code = 370) The system [employer] generated this result transmitted ref erence range: <=5.90. The reference range was not used to int erpret this result as normal/abnormal . RECOMMENDED COUMADIN/WARFARIN INR THERAPY RANGESSTANDARD DOSE: 2.0 - 3.0 Includes: PROPHYLAXIS for venous thrombosis, systemic embolization; TREATMENT for venous thrombosis and/or pulmonary embolus.HIGH RISK: Target INR is 2.5-3.5 for patients with mechanical heart valves.CBC W/PLT COUNT & AUTO [id number] 21:54:37 Test Item Value Reference Range Interpretation [...] PERCENT (BEAKER) (test code = 2801) POCT-GLUCOSE [id number] 21:16:44 Test Item Value Reference Range Interpretation Comments POC-GLUCOSE METER 90 mg/dL 70-110 : TESTED A T [facility] 6720 (VALDOAKER) (test code = [place], 1538) [address]: Denture Waxer/Techni kendall ID = [id number] for RAJ HAY
[2023-05-18 10:47] LABS: Absolute Lymphocytes (CBC) 0.6 K/uL (0.7-4.9); Lymphocytes % 13.5 % (15.3-44.8); MCV 91.9 fL (80-100); MPV 8.5 fL (7.6-11.3); RBC Red Blood Cell Count 5.33 M/uL (4.33-5.43)
[2023-05-18 11:07] LABS: Bilirubin Total 0.7 mg/dL (0.2-1.0); Potassium 4.1 mEq/L (3.5-5.1); Protein, Total 7.6 g/dL (6.4-8.2)
--- NOTE | 2023-05-18 13:16 | RAD REPORT ---
EXAM DESCRIPTION: CT - Abdomen Pelvis W Contrast - 05/18/2023 12:46 pm CLINICAL HISTORY: Abdominal pain COMPARISON: 2021 TECHNIQUE: Computed axial tomography of the abdomen and pelvis was obtained. 100 cc Isovue-300 is ad ministered intravenously. Oral contrast was given. All CT scans are performed using dose optimization technique as appropriate and may include automated exposure control or mA/KV adjustment according to patient size. FINDINGS: 12 centimeter soft tissue mass within the mesenteriy slightly to the right of midline with in the lower abdomen/upper pelvis. There are several surrounding lymph nodes measuring up to 13 ella meter short axis. The mass displaces surrounding small bowel. No obstruction. The liver, spleen, pancreas, adrenals and kidneys appear unremarkable. There is no evidence of diverticulitis. Normal appendix Small bilateral inguinal hernias containing fat Cholelithiasis. No gallbladder wall thickening IMPRESSION: 12 centimeter mass within the lower abdomen/upper pelvis may represent lymphoma. Sarcoma and carcinoid are other considerations. The mass would be amenable to an ultrasound-guided core biop sy
--- NOTE | 2023-05-18 14:42 | EDPHYS ---
Physician Documentation [facility] Name: Magnus Snow Age: 73 yrs Sex: Male : 1950 Arrival Date: 05/18/2023 Time: 09:57 Bed 4 Private MD: ED Physician Martir López HPI: 05/18 15:08 This 73 yrs old Male presents to ER via Ambulatory with complaints of Sent by darlene Neumann for CT. 15:08 The patient presents with abdominal pain. Onset: The symptoms/episode began/occurred kb today. The symptoms do not radiate. Associated signs and symptoms: Pertinent positives: diarrhea. The symptoms are described as. Modifying factors: The symptoms are alleviated by nothing, the symptoms are aggravated by nothing. Severity of pain: At its worst the pain was mild in the emergency department the pain is unchanged. The patient has not experienced similar symptoms in the past. The patient has been recently seen by a physician: the patient's primary care provider, earlier today. Patient reports he went to Dr. Montelongo's office for a routine checkup and they felt a mass in abdomen so they sent him here for CT to rule out bowel obstruction. Patient reports he has had diarrhea for couple of days. Denies abdominal pain denies fever, nausea, vomiting.. Historical: - Allergies: 10:27 Codeine; ss 10:27 HYDROCODONE; ss 10:27 "synthetic codeine"; ss - PMHx: 10:27 Diabetes - NIDDM; [place]- march 2020; ss - Immunization history:: Client reports receiving the 2nd dose of the Covid vaccine. - Social history:: Smoking status: Patient denies any tobacco usage or history of. ROS: 15:10 Constitutional: Negative for fever, chills, and weight loss. kb 15:10 Abdomen/GI: Positive for diarrhea, mass. 15:10 All other systems are negative. Exam: 15:10 Constitutional: This is a well developed, well nourished patient who is awake, alert, kb and in no acute distress. Head/Face: Normocephalic, atraumatic. ENT: Moist Mucous membranes Cardiovascular: Regular rate and rhythm with a normal S1 and S2. No gallops, murmurs, or rubs. No pulse deficits. Respiratory: Respirations even and unlabored. No increased work of breathing. Talking in full sentences Skin: Warm, dry with normal turgor. Normal color. MS/ Extremity: Pulses equal, no cyanosis. Neurovascular intact. Full, normal range of motion. Neuro: Awake and alert, GCS 15, oriented to person, place, time, and situation. Moves all extremities. Normal gait. 15:10 Abdomen/GI: Inspection: abdomen appears normal, Bowel sounds: normal, Palpation: abdomen is soft and non-tender, mass, that is hard, that is nontender. Vital Signs: 10:22 BP 130 / 62; Pulse 63; Resp 16; Temp 98.2; Pulse Ox 97% on R/A; Weight 92.99 kg; Height ss 5 ft. 10 in. ; Pain 0/10; 10:24 BP 130 / 62; Pulse 72; Resp 18; Temp 98; Pulse Ox 99% ; ko1 12:23 BP 106 / 79; Pulse 62; Resp 16; Pulse Ox 99% ; ko1 14:40 BP 138 / 88; Pulse 61; Resp 16; Pulse Ox 100% ; bp 15:43 BP 141 / 83; Pulse 65; Resp 16; Pulse Ox 98% ; bp 10:22 Body Mass Index 29.41 (92.99 kg, 177.8 cm) ss 10:22 Pain Scale: Adult ss MDM: 10:10 Patient medically screened. kb 15:10 Differential diagnosis: non-specific abd pain, bowel obstruction, mass. Data reviewed: kb vital signs, nurses notes. Management of patient was discussed with the following: Primary Care Provider: Discussed results with Dr Montelongo. Wants pt to call office on Sunday for referral to have biopsy completed. . Counseling: I had a detailed discussion with the patient and/or guardian regarding: the historical points, exam findings, and any diagnostic results supporting the discharge/admit diagnosis, lab results, radiology results, the need for outpatient follow up, a family practitioner, to return to the emergency department if symptoms worsen or persist or if there are any questions or concerns that arise at home. ED course: Discussed findings with patient and plan to follow-up with Jayda for referral and biopsy. Verbal understanding received.. 05/18 10:13 Order name: CBC with Diff; Complete Time: 10:59 kb 05/18 10:13 Order name: CMP; Complete Time: 11:12 kb 05/18 10:13 Order name: Lipase; Complete Time: 11:12 kb 08/04 10:13 Order name: CT Abd/Pelvis - IV Contrast Only; Complete Time: 14:06 kb 05/18 10:13 Order name: IV Saline Lock; Complete Time: 10:24 kb 05/18 10:13 Order name: Labs collected and sent; Complete Time: 10:24 kb Administered Medications: 14:47 Drug: NS 0.9% IV 1000 ml Route: IV; Rate: 1000 ml; Site: right antecubital; bp Disposition: 18:24 Co-signature as Attending Physician, Martir López MD I reviewed the patient's care rt provided by the Advanced Practice Provider and agree with the diagnosis and treatment plan. Disposition Summary: 05/18/23 14:42 Discharge Ordered Location: Home kb Condition: Stable kb Diagnosis - 12cm abdominal mass kb Followup: kb - With: Emergency Department - When: As needed - Reason: Worsening of condition Followup: kb - With: Private Physician - When: 2 - 3 days - Reason: Recheck today's complaints, Continuance of care, Re-evaluation by your physician Forms: - Medication Reconciliation Form kb - Thank You Letter kb - Antibiotic Education kb - Prescription Opioid Use kb - Patient Portal Instructions kb Signatures: Dispatcher [employer] Gayathri Olmedo, VALERIE-C MACHINERY MOVER-Linda Jansen, RN RN Jalen Schmidt, MATEO RN Martir Mcnally MD MD rt
--- NOTE | 2023-05-18 14:42 | ER ---
Nurse's Notes [facility] Name: Magnus Snow Age: 73 yrs Sex: Male : 1950 Arrival Date: 05/18/2023 Time: 09:57 Bed 4 Private MD: Diagnosis: 12cm abdominal mass Presentation: 05/18 10:22 Chief complaint: Patient states: Diarrhea x [address] Montelongo to r/o bowel ss obstruction. Coronavirus screen: Client denies travel out of the [place] in the last 14 days. Ebola Screen: Patient denies exposure to infectious person. Patient denies travel to an Ebola-affected area in the 21 days before illness onset. Initial Sepsis Screen: Does the patient meet any 2 criteria? Does the patient have a suspected source of infection? No. Patient's initial sepsis screen is negative. Risk Assessment: Do you want to hurt yourself or someone else? Patient reports no desire to harm self or others. Onset of symptoms was May 11, 2023. 10:22 Method Of Arrival: Ambulatory ss 10:22 Acuity: DEBRA 3 ss Triage Assessment: 10:30 General: Appears in no apparent distress. uncomfortable, Behavior is calm, cooperative, bp appropriate for age. Pain: Denies pain. EENT: No deficits noted. Neuro: No deficits noted. Cardiovascular: No deficits noted. Respiratory: No deficits noted. GI: Reports diarrhea. : No signs and/or symptoms were reported regarding the genitourinary system. Derm: No deficits noted. Musculoskeletal: No deficits noted. Historical: - Allergies: 10:27 Codeine; ss 10:27 HYDROCODONE; ss 10:27 "synthetic codeine"; ss - PMHx: 10:27 Diabetes - NIDDM; [place]- march 2020; ss - Immunization history:: Client reports receiving the 2nd dose of the Covid vaccine. - Social history:: Smoking status: Patient denies any tobacco usage or history of. Screenin:30 [facility] ED Fall Risk Assessment (Adult) History of falling in the last 3 months, bp including since admission No falls in past 3 months (0 pts). Abuse screen: Denies threats or abuse. Denies injuries from another. Nutritional screening: No deficits noted. Tuberculosis screening: No symptoms or risk factors identified. Assessment: 10:30 General: SEE TRIAGE NOTE. bp 12:30 Reassessment: Patient appears in no apparent distress at this time. Patient is alert, bp oriented x 3, equal unlabored respirations, skin warm/dry/pink. 14:41 Reassessment: Patient appears in no apparent distress at this time. Patient is alert, bp oriented x 3, equal unlabored respirations, skin warm/dry/pink. 15:43 Reassessment: PT DC HOME AMBULATORY. bp Vital Signs: 10:22 BP 130 / 62; Pulse 63; Resp 16; Temp 98.2; Pulse Ox 97% on R/A; Weight 92.99 kg; Height ss 5 ft. 10 in. ; Pain 0/10; 10:24 BP 130 / 62; Pulse 72; Resp 18; Temp 98; Pulse Ox 99% ; ko1 12:23 BP 106 / 79; Pulse 62; Resp 16; Pulse Ox 99% ; ko1 14:40 BP 138 / 88; Pulse 61; Resp 16; Pulse Ox 100% ; bp 15:43 BP 141 / 83; Pulse 65; Resp 16; Pulse Ox 98% ; bp 10:22 Body Mass Index 29.41 (92.99 kg, 177.8 cm) ss 10:22 Pain Scale: Adult ss ED Course: 10:00 Patient arrived in ED. im 10:10 Gayathri Torres FNP-C is PHCP. kb 10:10 Martir López MD is Attending Physician. kb 10:17 Jalen Bennett, MATEO is Primary Nurse. bp 10:24 Inserted saline lock: 20 gauge in right antecubital area, using aseptic technique. aw1 10:24 Initial lab(s) drawn, by me, sent to lab. aw1 10:24 Arm band placed on right wrist. Patient placed in an exam room, on a stretcher, on ko1 store keeper, on pulse oximetry, Patient notified of wait time. 10:27 Triage completed. ss 10:30 Patient has correct armband on for positive identification. Bed in low position. Call bp light in reach. Side rails up X2. 12:47 CT Abd/Pelvis - IV Contrast Only In Process Unspecified. EDMS 14:46 Provided Education on: NA. ko1 15:43 No provider procedures requiring assistance completed. IV discontinued, intact, bp bleeding controlled, No redness/swelling at site. Pressure dressing applied. Administered Medications: 14:47 Drug: NS 0.9% IV 1000 ml Route: IV; Rate: 1000 ml; Site: right antecubital; bp Medication: 10:30 VIS not applicable for this client. bp Outcome: 14:42 Discharge ordered by . darlene 15:43 Discharged to home ambulatory. bp 15:43 Condition: stable 15:43 Discharge instructions given to patient, Instructed on discharge instructions, follow up and referral plans. Demonstrated understanding of instructions, follow-up care. 15:54 Patient left the ED. eb Signatures: Dispatcher [employer] EDMS Gayathri Torres, WATER RESOURCES PROJECT MANAGER-C WATER RESOURCES PROJECT MANAGER-CkLinda Sanderson, RN RN ss Jalen Bennett RN RN Alisia Barry Kathy, RN RN ko1 Noris Arthur Alyssa aw1
[2023-05-18] MEDS ORDERED: NA CHLORIDE 0.9% 1,000 ML ONE (14:52)
[2023-05-18 16:29] VITALS: TEMP 98
[2023-05-18 16:32] VITALS: BP 141/83; O2SAT 98
== END 2023-05-18 15:54 | disposition home or self-care (01) ==
LOC: ER 09:57
DX: R19.09 Other intra-abdominal and pelvic swelling, mass and lump (principal); R19.7 Diarrhea, unspecified; Z88.5 Allergy status to narcotic agent
CPT/HCPCS: 85025; 36415; 83690; 80053; 74177; 99284; Q9967; J7030

== ENCOUNTER 2023-05-30 07:45 | Day surgery (SDC) | payer OTHER ==
[2023-05-30] MEDS ORDERED: NALOXONE HCL 2 MG/2 ML VIAL ONE (09:33)
[2023-05-30] MEDS ORDERED: MIDAZOLAM HCL 2 MG/2 ML INJ ONE (09:33)
[2023-05-30] MEDS ORDERED: FENTANYL CITR 100 MCG/2 ML ONE (09:34)
[2023-05-30] MEDS ORDERED: NA CHLORIDE 0.9% 1,000 ML ONE (09:34)
[2023-05-30] MEDS ORDERED: FLUMAZENIL 0.1 MG/ML (5 mL VIAL) IV ONE (09:49)
--- NOTE | 2023-05-30 14:02 | RAD REPORT ---
EXAM DESCRIPTION: US - BX ABD/RETRO PERC/US GUIDE - 05/30/2023 10:41 am CLINICAL HISTORY: ABD/PEL MASS BX COMPARISON: Abdomen Pelvis W Contrast dated 05/18/2023 FINDINGS: Preoperative diagnosis: Central abdominal mass.. Post operative diagnosis: Same. Conscious Sedation: Patient received 0.5 milligram of Versed and 75 microgram of fentanyl. Total natalie tion time: 5 minutes. Fluoroscopy time: None Contrast used: None Estimated blood loss: Minimal Specimens:3 x18 gauge soft tissue cores. The anterior abdominal wall was prepped and draped in the usual sterile fashion. 1% lidocaine was inf iltrated into the subcutaneous tissues for local anesthesia. Real time ultrasound scanning of the ant erior central abdomen demonstrated a large hypoechoic vascular mass measuring up to 10 cm. Under ultr asound guidance, a 17 gauge introducer was anchored into the superficial aspect of the mass. Using a 18-gauge, 2 cm throw core biopsy gun, 3 core specimens specimens were obtained of this lesion and sen t to pathology for evaluation. Conscious sedation was received as above. The patient was monitored th roughout the procedure independently by nursing staff. There were no complications. IMPRESSION: Successful ultrasound-guided core biopsy of a central abdominal mass.
[2023-05-30 14:55] VITALS: BMI 29.7
[2023-05-30 14:56] VITALS: BP 109/72; TEMP 98.3; O2SAT 98
== END 2023-05-30 11:54 | disposition home or self-care (01) ==
LOC: DS 07:45
PROVIDERS: ATTEND Family Medicine
DX: C82.13 Follicular lymphoma grade II, intra-abdominal lymph nodes (principal)
CPT/HCPCS: 88305; 49180; 76942; J2250; J3010; J7030; J2310

== ENCOUNTER 2024-06-23 09:47 | Emergency (ER) | payer OTHER ==
--- OUTSIDE RECORDS SUMMARY | 2024-06-23 09:54 | XMS REPORT | Clinical Summary ---
Author Name Unknown Organization [facility] Address [address] [place] [address] Care Team Providers Care Door To Door Salesperson Name Role Phone Fei Montelongo MD Unavailable [phone] Alin Rosario MD Primary Care Provider [phone] Zaire Carreon Unavailable Naman Spann MD Unavailable Jil Gomez MD Unavailable [phone] Allergies Active Allergy Reactions Criticality Noted Date Comments Codeine Hives,Rash Low 03/31/2019 Hydrocodone Hives,Rash High 03/31/2019 Other Anxiety,Hives,Itchin g,Other (See Comments),Swelling Low 06/27/2023 Rituximab-Pvvr Rash Medium 09/05/2023 Facial flushing Medications Medication Sig Dispensed Refills Start Date End Date Status metoprolol succinate (TOPROL XL) 25 mg 24 hr tablet Take 1 tablet (25 mg) by mouth daily. Active prasugrel (EFFIENT) 10 mg tablet Take 1 tablet (10 mg) by mouth daily. Active metFORMIN (GLUCOPHAGE) 500 mg tablet Take 1 tablet (500 mg) by mouth 2 (two) times a day with meals. Active fenofibrate (LIPOFEN) 150 mg cap capsule Take 1 capsule (150 mg) by mouth daily. Active tamsulosin (FLOMAX) 0.4 mg 24 hr capsule Take 1 capsule (0.4 mg) by mouth daily. Active atorvastatin (LIPITOR) 80 mg tablet Take 1 tablet (80 mg) by mouth daily. Active lisinopril (PRINIVIL,ZESTRIL) 2.5 mg tablet Take 1 tablet (2.5 mg) by mouth daily. 3 Active Farxiga 5 mg tab Take 1 tablet (5 mg) by mouth daily. 3 Active Ozempic 0.25 mg or 0.5 mg (2 mg/3 mL) pnij Inject 1 Dose under the skin once a week. Sundays 3 Active MEN'S MULTI-VITAMIN ORAL Take 1 tablet by mouth daily. Active vitamin B complex capsule Take 1 capsule by mouth daily. 9 Active ascorbic acid, vitamin C, (VITAMIN C) 1000 mg tablet Take 1 tablet (1,000 mg) by mouth daily. Active cholecalciferol, vitamin D3, 25 mcg (1,000 unit) capsule Take 1 capsule (1,000 Units) by mouth daily. Active montelukast (SINGULAIR) 10 mg tablet Take 1 tablet (10 mg) by mouth as needed. Active lenalidomide (REVLIMID) capsule 20 mgIndications:Foll icular lymphoma grade 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 Take 1 capsule (20 mg) by mouth daily. Take for 21 days out of 28 days with water, with or without food. Do not crush or chew. 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 1-2 days after chemo complete 30 tablet 3 Active lenalidomide (REVLIMID) capsule 20 mgIndications:Foll icular lymphoma grade 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 Take 1 capsule (20 mg) by mouth daily. Take on days 1 through 21 of each cycle, for total of 21 days out of 28 days. Take with water, with or without food. Do not crush or chew. 21 capsule 4 Active lenalidomide (REVLIMID) capsule 20 mgIndications:Foll icular lymphoma grade 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 Take 1 capsule (20 mg) by mouth daily. Take on days 1 through 21 of each cycle, for total of 21 days out of 28 days. Take with water, with or without food. Do not crush or chew. 21 capsule 4 Active lenalidomide (REVLIMID) capsule 20 mgIndications:Foll icular lymphoma grade 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 Take 1 capsule (20 mg) by mouth daily. Take for 21 days out of 28 days with water, with or without food. Do not crush or chew. 21 capsule 4 Active lenalidomide (REVLIMID) capsule 20 mgIndications:Foll icular lymphoma grade 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 Take 1 capsule (20 mg) by mouth daily. Take for 21 days out of 28 days with water, with or without food. Do not crush or chew. 21 capsule 4 Active lenalidomide (REVLIMID) capsule 20 mgIndications:Foll icular lymphoma grade 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 Take 1 capsule (20 mg) by mouth daily. Take for 21 days out of 28 days with water, with or without food. Do not crush or chew. 21 capsule 4 Active lenalidomide (REVLIMID) capsule 20 mgIndications:Foll icular lymphoma grade 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 Take 1 capsule (20 mg) by mouth daily. Take for 21 days out of 28 days with water, with or without food. Do not crush or chew. 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 Take with 8 ounces of water (240 mL) with or without food. 60 tablet 4 Active aspirin 81 mg EC tablet Take 1 tablet (81 mg) by mouth daily. 9 02/27/20 24 Discontinued [id number]-epa -phospho-ast ([place]-3 Krill Oil) 454-16-96-50 mg cap Take 350 mg by mouth daily. 08/23/20 23 Discontinued(The lucia completed) vitamin E, dl,tocopheryl acet, (vitamin E, acetate,) 1,000 units capsule Take 1 capsule (1,000 Units) by mouth daily. 08/23/20 23 Discontinued(Oth er/Not Applicable) loratadine (CLARITIN) 10 mg tablet Take 1 tablet (10 mg) by mouth as needed for allergies. 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 Take with 8 ounces of water (240 mL) with or without food. 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 Take with 8 ounces of water (240 mL) with or without food. 60 tablet 3 09/12/20 23 Discontinued(Reo rder) lenalidomide (REVLIMID) capsule 20 mgIndications:Foll icular lymphoma grade 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 Take 1 capsule (20 mg) by mouth daily. Take for 21 days out of 28 days with water, with or without food. Do not crush or chew. 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 Take with 8 ounces of water (240 mL) with or without food. 60 tablet 3 10/10/20 23 Discontinued(Reo rder) lenalidomide (REVLIMID) capsule 20 mgIndications:Foll icular lymphoma grade 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 Take 1 capsule (20 mg) by mouth daily. Take on days 1 through 21 of each cycle, for total of 21 days out of 28 days. Take with water, with or without food. Do not crush or chew. 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 Take with 8 ounces of water (240 mL) with or without food. 60 tablet 3 11/07/19 24 Discontinued(Reo rder) doxycycline (Vibramycin) 100 MG capsuleIndications :Infection of skin and/or subcutaneous tissue Take 1 capsule (100 mg) by mouth twice daily for 10 days. 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 Take with 8 ounces of water (240 mL) with or without food. 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 Take with 8 ounces of water (240 mL) with or without food. 60 tablet 4 01/30/20 24 Discontinued(Reo rder) lenalidomide (REVLIMID) capsule 20 mgIndications:Foll icular lymphoma grade 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 Take 1 capsule (20 mg) by mouth daily for 7 days. Take for 21 days out of 28 days with water, with or without food. Do not crush or chew. 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 Take with 8 ounces of water (240 mL) with or without food. 60 tablet 4 02/27/20 24 Discontinued(Reo rder) lenalidomide (REVLIMID) capsule 20 mgIndications:Foll icular lymphoma grade 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 Take 1 capsule (20 mg) by mouth daily for 21 days. Take for 21 days out of 28 days with water, with or without food. Do not crush or chew. 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 Take with 8 ounces of water (240 mL) with or without food. 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 Take with 8 ounces of water (240 mL) with or without food. 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 Take with 8 ounces of water (240 mL) with or without food. 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 Take with 8 ounces of water (240 mL) with or without food. 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 06/18/2024 10:48 AM CDT - 06/18/2024 11:59 PM CDT Hospital Encounter [facility] [place] [id number] [place] [address] Main Bldg, 2nd Floor, [place] [address] Azra Chaidez APRN Quineri, Jerrson, MATEO 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) Discharge Disposition: Home 06/18/2024 7:41 AM CDT - 06/18/2024 10:47 AM CDT Hospital Encounter [facility] [address] [place] [address] Main Bldg, [place] [address] Azra Chaidez APRN 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 Discharge Disposition: Home 06/18/2024 Travel 06/18/2024 Orders Only [facility] [address] [place] [address] Main Bldg, 6th [place] [address] Azra Chaidez APRN 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) 06/18/2024 Orders Only [facility] [address] [place], [place] [address] Main Bldg, 6th [place] [address] Alin Rosario MD 06/17/2024 Orders Only [facility] [address] [place], [place] [address] Main Bldg, 6th [place] [address] Azra Chaidez APRN 06/09/2024 Orders Only [facility] [address] [place], [place] [address] Main Bldg, 6th [place] [address] Alin Rosario MD 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) 06/09/2024 Orders Only [facility] [address] [place], [place] [address] Main Bldg, 6th [place] [address] Azra Chaidez APRN 05/21/2024 12:21 PM CDT - 05/21/2024 11:59 PM CDT Hospital Encounter [facility] Main [facility] [address] [facility] Main Bldg, 2nd Floor, [place] [address] Azra Chaidez, Yulia Diaz RN 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) Discharge Disposition: Home 05/21/2024 11:20 AM CDT Office Visit [facility] [address] [place] [address] Azra Chaidez APRN Cuellar, Elizabeth L, APRN 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 05/21/2024 8:09 AM CDT - 05/21/2024 12:20 PM CDT Hospital Encounter [facility] [address] [place] [address], [place] [address] Azra Chaidez APRN 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 Discharge Disposition: Home 05/21/2024 Travel 05/21/2024 Orders Only [facility] [address] [place] [address], 6th [place] [address] Azra Chaidez APRN 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) 05/14/2024 Orders Only [facility] [address] [place] [address], 6th [place] [address] Willi Hilario MD 05/14/2024 Orders Only [facility] [address] [place] [address], 6th [place] [address] Azra Chaidez APRN 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) 05/11/2024 Refill [facility] [address] [place] [address], 6th [place] [address] Alin Rosario MD 04/24/2024 Documentation [facility] [address] [place] [address], [address] [place] [address] Azra Chaidez APRN 04/23/2024 2:45 PM CDT Infusion [facility] [address] [facility], 8th [place] [address] Azra Chaidez APRN Mangasep, John Victor, MATEO 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) 04/23/2024 1:00 PM CDT Office Visit [facility] [address] [place] [address] Azra Chaidez APRN Wang, Hongyan, PA 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 04/23/2024 7:50 AM CDT - 04/23/2024 11:59 PM CDT Hospital Encounter [facility] [address] [place] [address], [place] [address] Azra Chaidez APRN 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 Discharge Disposition: Home 04/23/2024 Orders Only [facility] [address] [place] [address], 6th [place] [address] Alin Rosario MD 04/23/2024 Orders Only [facility] [address] [place] [address], [facility] [place] [address] Azra Chaidez APRN 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) 04/23/2024 Travel 04/16/2024 Orders Only [facility] [address] [place] [address], [facility] [place] [address] Alin Rosario MD 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) 04/16/2024 Orders Only [facility] [address] [place] [address], 6th [place] [address] Azra Chaidez APRN 03/31/2024 Orders Only [facility] [address] [place] [address], [facility] [place] [address] Azra Chaidez APRN 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) 03/26/2024 2:02 PM CDT - 03/26/2024 11:59 PM CDT Hospital Encounter [facility] Main Building [address] Main Bldg, 2nd Floor, [place] [address] Azra Chaidez APRN Noble Holland, Crystal A, MATEO 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) Discharge Disposition: Home 03/26/2024 1:00 PM CDT Follow-Up [facility] [address] [place] [address] Main [facility], 6th [place] [address] Gisell Hdz APRN 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 03/26/2024 7:49 AM CDT - 03/26/2024 2:01 PM CDT Hospital Encounter [facility] [address] [place] [address] Main [facility], [place] [address] Azra Chaidez APRN 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 Discharge Disposition: Home 03/26/2024 Travel 03/26/2024 Orders Only [facility] [address] [place] [address] Main dg, 6th [place] [address] Azra Chaidez APRN 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) 03/19/2024 Orders Only [facility] [address] [place] [address] Main [facility], 6th [place] [address] Alin Rosario MD 03/19/2024 Orders Only [facility] [address] [place] [address] Main [facility], 6th [place] [address] Azra Chaidez APRN 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) 02/27/2024 4:00 PM CDT Consult [facility] [address] [place] [address] Main [facility], 9th [place] [address] Maninder Freire MD Dailey Garnes, Natalie, MD Tick bite <Initial> (Primary Dx); Tick bite 02/27/2024 10:15 AM CDT Follow-Up [facility] [address] [place] [address] Main dg, 6th [place] [address] Alin Rosario MD 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) 02/27/2024 9:50 AM CDT - 02/27/2024 11:59 PM CDT Hospital Encounter [facility] - Main Building [facility] Main dg, 2nd Floor, [place] [address] Alin Rosario MD Raja, Merlin, MATEO 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) Discharge Disposition: Home 02/27/2024 8:01 AM CDT - 02/27/2024 9:49 AM CDT Hospital Encounter [facility] [address] [place] [address] Main [facility], [place] [address] Alin Rosario MD 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 Discharge Disposition: Home 02/27/2024 Orders Only [facility] [address] [place] [address] Main dg, 6th [place] [address] Azra Chaidez, MANAGER LINUX 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) 02/27/2024 Documentation [facility] Main dg, 6th [place] [address] Azra Chaidez, MANAGER LINUX 02/27/2024 Travel 02/26/2024 Orders Only [facility] Main [facility], 6th [place] [address] Azra Chaidez, MANAGER LINUX 02/20/2024 Telephone Internal Medicine Center [facility] Main dg, 9th [place] [address] Jil Gomez MD 02/19/2024 7:44 PM CDT - 02/20/2024 1:32 AM CDT Emergency [facility] Main dg, 1st [place] [address] Maninder Freire MD Localized swelling of left lower leg (Primary Dx); 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; Tick bite Discharge Disposition: Home 02/19/2024 Travel 02/19/2024 Orders Only [facility] [address] [place] [address], [facility] [place] [address] Alin Rosario MD 02/18/2024 Orders Only [facility] [address] [place] [address] [place] [address] Azra Chaidez APRN 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) 02/01/2024 Orders Only [facility] [address] [place] [address], [facility] [place] [address] Clemencia Falcon RN 01/30/2024 10:30 AM CDT Infusion [facility] [address] [facility], 8th Floor Elevator [place] [address] Alin Rosario MD Austria, Kateleen A, RN 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) 01/30/2024 9:30 AM CDT Follow-Up [facility] [address] [place] [address], [address] [place] [address] [place] [address] Alin Rosario MD 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) 01/30/2024 7:45 AM CDT - 01/30/2024 11:59 PM CDT Hospital Encounter [facility] [address] [place] [address], [place] [address] Alin Rosario MD 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 Discharge Disposition: Home 01/30/2024 Documentation [facility] [address] [place] [address], [facility] [place] [address] Clemencia Falcon RN 01/30/2024 Travel 01/30/2024 Orders Only [facility] [address] [place] [address], [facility] [place] [address] Clemencia Falcon, RN 01/25/2024 Orders Only [facility] [address] [place] [address] Clemencia Falcon, RN 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) 01/17/2024 Orders Only [facility] [address] [place] [address] Clemencia Falcon, RN 01/17/2024 Documentation [facility] [address] [place] [address] Clemencia Falcon, RN 01/17/2024 Orders Only [facility] [address] [place], [place] [id number] Clemencia Falcon RN 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); Neutropenia, not otherwise specified 01/15/2024 Telephone [facility] [address] [place], [place] [id number] Oneil Arreola, benzene operator Call 01/14/2024 2:37 PM CDT - 01/14/2024 11:59 PM CDT Hospital Encounter Interventional Radiology [address] [place] [address], 4th Floor Elevator [place] [id number] Kelsie Grey APRN Murthy, Ravi, MD 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 Discharge Disposition: Home 01/14/2024 Travel 01/09/2024 1:20 PM CDT Follow-Up [facility] [address] [place] [address] Gisell Hdz APRN 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) 01/09/2024 11:35 AM CDT - 01/09/2024 11:59 PM CDT Hospital Encounter Interventional Radiology [address] [facility], 4th [place] [address] Alin Rosario MD Ho, ThanhKavon Garcia PA-C Encounter for other preprocedural examination (Primary Dx); Abnormal finding on diagnostic imaging of other abdominal region including retroperitoneum; 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 Discharge Disposition: Home 01/09/2024 10:58 AM CDT - 01/09/2024 11:34 AM CDT Hospital Encounter [facility] [address] [place] [address], [place] [address] Alin Rosario MD 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; Encounter for preprocedural laboratory examination Discharge Disposition: Home 01/09/2024 Orders Only Main Interventional Radiology [address] [place] [address], 3rd [place] [address] Minna Davis PA 01/09/2024 Travel 01/08/2024 Orders Only [facility] [address] [place] [address], 6th [place] [address] Kelsie Grey APRN 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) 01/07/2024 Orders Only Interventional Radiology [address] [place] [address], 4th [place] [address] Eryn Jang PA-C 01/04/2024 Orders Only Interventional Radiology [address] [place] [address], 4th [place] [address] Eryn Jang PA-C Encounter for preprocedural laboratory examination (Primary Dx) 01/02/2024 10:15 AM CDT Follow-Up [facility] [address] [place] [address], 6th [place] [address] Alin Rosario MD 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 01/02/2024 8:45 AM CDT [facility] Derm[facility] [address] [place] [address] Main [facility], 9th [place] [address] Naman Spann MD Solar degeneration (Primary Dx); Actinic keratosis; Personal history of other malignant neoplasm of skin 01/02/2024 6:15 AM CDT - 01/02/2024 11:59 PM CDT Hospital Encounter [facility] Main [facility], [place] [address] Alin Rosario MD 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 Discharge Disposition: Home 01/02/2024 6:00 AM CDT Ancillary Procedure PET Imaging [address] [facility], 6th [place] [address] Alin Rosario MD 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 01/02/2024 Orders Only [facility] [address] [place] [address] Main [facility], [facility] [place] [address] Clemencia Falcon, RN 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) 01/02/2024 Orders Only [facility] [address] [place] [address] Main [facility], [facility] [place] [address] Clemencia Falcon, RN 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) 01/02/2024 Documentation [facility] [address] [place] [address] Main [facility], [facility] [place] [address] Clemencia Falcon, MATEO 01/02/2024 Travel 01/02/2024 Refill [facility] [address] [place] [address] Main [facility], 6th [place] [address] Todd Maria MD 12/27/2023 Orders Only [facility] [address] [place] [address] Main [facility], [facility] [place] [address] Todd Maria MD 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) 12/27/2023 Orders Only [facility] [address] [place] [address] Main [facility], 6th [place] [address] Clemencia Falcon, MATEO 12/05/2023 12:00 PM SAP BUSINESS ANALYST [facility] [address] [facility], 8th [place] [address] Alin Rosario MD Abogado, Giovanni, MATEO 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) 12/05/2023 10:40 AM SAP BUSINESS ANALYST Office Visit [facility] [address] [place] [address] Alin Rosario MD Murphy, Karmila Cheng, MANAGER LINUX 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 12/05/2023 8:30 AM SAP BUSINESS ANALYST - 12/05/2023 11:59 PM SAP BUSINESS ANALYST Hospital Encounter [facility] [address] [place] [address], [place] [address] Alin Rosario MD 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 Discharge Disposition: Home 12/05/2023 Orders Only [facility] [address] [place] [address] Rose Aviles APRN 12/05/2023 Travel 12/05/2023 Orders Only [facility] [address] [place] [address], 6th [place] [address] Alin Rosario MD 12/05/2023 Telephone [facility] [address] [place] [address], 6th [place] [address] Clemencia Falcon, MATEO 12/05/2023 Orders Only [facility] [address] [place] [address], 6th [place] [address] Clemencia Falcon, RN 12/05/2023 Documentation [facility] [address] [place] [address] Main [facility], 6th [place] [address] Clemencia Falcon, RN 11/28/2023 Orders Only [facility] [address] [place] [address], 6th [place] [address] Alin Rosario MD 11/28/2023 Orders Only [facility] [address] [place] [address], 6th [place] [address] Clemencia Falcon, RN 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) 11/26/2023 Refill [facility] [address] [place] [address], [address] [place] [address] [place] [address] Alin Rosario MD 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 11/08/2023 Orders Only [facility] [address] [place] [address], [address] [place] [address] [place] [address] Clemencia Falcon, RN 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) 11/07/2023 12:45 PM SAP BUSINESS ANALYST [facility] [address] [facility], 8th [place] [address] Alin Rosario MD Makasiar, Glendel O, RN 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) 11/07/2023 9:20 AM SAP BUSINESS ANALYST Office [facility] [address] [address] Alin Rosario MD Mullen, Ellen C, MANAGER LINUX Type 2 diabetes mellitus without complication (Primary Dx); 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; Encounter for examination for normal control in clinical research program; Hypertension 11/07/2023 7:15 AM SAP BUSINESS ANALYST - 11/07/2023 11:59 PM SAP BUSINESS ANALYST Hospital Encounter [facility] [address] [place] [address] Alin Rosario MD 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 Discharge Disposition: Home 11/07/2023 Documentation [facility] [address] [place], [place] [address] [address] Clemencia Falcon RN 11/07/2023 Documentation [facility] [address] Main Bldg, 6th [place] [address] Clemencia Falcon RN 11/07/2023 Orders Only [facility] [address] Main Bldg, 6th [place] [address] Alin Rosario MD 11/07/2023 Travel 11/07/2023 Orders Only [facility] [address] Main Bldg, 6th [place] [address] Clemencia Falcon RN 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) 11/06/2023 Documentation [facility] Main Bldg, 6th [place] [address] Clemencia Falcon RN 10/31/2023 Orders Only [facility] [address] Main Bldg, 6th [place] [address] Alin Rosario MD 10/31/2023 Orders Only [facility] [address] Main Bldg, 6th [place] [address] Kelsie Grey APRN 10/31/2023 Orders Only [facility] [address] Main Bldg, 6th [place] [address] Clemencia Falcon, RN 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) 10/30/2023 Orders Only [facility] [address] Main Bldg, 6th [place] [address] Clemencia Falcon, RN 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); Neutropenia, not otherwise specified 10/28/2023 Refill [facility] [address] Main Bldg, 6th [place] [address] Alin Rosario MD 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 10/24/2023 3:00 PM SAP BUSINESS ANALYST Office Visit [facility] [address] [place] [address] Alin Rosario MD WeeksRoseCECILIO 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 10/24/2023 12:45 PM SAP BUSINESS ANALYST - 10/24/2023 11:59 PM SAP BUSINESS ANALYST Hospital Encounter [facility] [address] [place] [address], [place] [address] Alin Rosario MD 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 Discharge Disposition: Home 10/24/2023 Documentation [facility] [address] [place] [address], [facility] [place] [address] Clemencia Falcon RN 10/24/2023 Travel 10/19/2023 Telephone [facility] [address] [place] [address], 9th [place] [address] Lauren Haider MD 10/19/2023 Telephone [facility] [address] [place] [address], [facility] [place] [address] Clemencia Falcon RN 10/17/2023 12:00 PM SAP BUSINESS ANALYST Consult [facility] [address] [place] [address], 9th [place] [address] Naman Spann MD 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); Neoplasm of uncertain behavior of skin; Ecchymosis 10/17/2023 9:40 AM SAP BUSINESS ANALYST Follow-Up [facility] [address] [place] [address], 6th [place] [address] Georgi Estrada MD 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) 10/17/2023 7:15 AM SAP BUSINESS ANALYST - 10/17/2023 11:59 PM SAP BUSINESS ANALYST Hospital Encounter [facility] [address] [place] [address], [facility] [place] [address] Georgi Estrada MD 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 Discharge Disposition: Home 10/17/2023 Orders Only [facility] [address] [place] [address], [facility] [place] [address] Clemencia Falcon RN 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) 10/17/2023 Documentation [facility] [address] [place] [address], [facility] [place] [address] Clemencia Falcon RN 10/17/2023 Travel 10/11/2023 Orders Only [facility] [address], [address] [place], [place] [address] [address] Clemencia Falcon RN 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) 10/10/2023 11:00 AM SAP BUSINESS ANALYST Follow-Up [facility] [address] [place] [address], [address] [place], [place] [address]ator [place] [address] Georgi Estrada MD 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 10/10/2023 6:30 AM SAP BUSINESS ANALYST Ancillary Procedure PET Imaging [address] [facility], [address] [place], [place] [address] [address] Azra Chaidez APRN 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 10/10/2023 6:09 AM SAP BUSINESS ANALYST - 10/10/2023 11:59 PM SAP BUSINESS ANALYST Hospital Encounter [facility] [address] [place], [place] [address] [address] Azra Chaidez APRN 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 Discharge Disposition: Home 10/10/2023 Orders Only [facility] [address], [address] [place] [address] [place] [address] Malta-Poole , Clemencia M, RN 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) 10/10/2023 Travel 10/10/2023 Documentation [facility] [address] [place] [address] Main [facility], 6th [place] [address] Clemencia Falcon RN 10/02/2023 Orders Only [facility] [address] [place] [address] Main [facility], 6th [place] [address] Sdaiq Arambula PA 10/02/2023 Orders Only [facility] [address] [place] [address] Main [facility], 6th [place] [address] Clemencia Falcon RN 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) 10/01/2023 Refill [facility] [address] [place] [address], 6th [place] [address] Gilbert Turk MD 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 09/13/2023 Orders Only [facility] [address] [place] [address], 6th [place] [address] Clemencia Falcon RN 09/13/2023 Orders Only [facility] [address] [place] [address], 6th [place] [address] Azra Chaidez APRN 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) 09/12/2023 11:09 AM SAP BUSINESS ANALYST - 09/12/2023 11:59 PM SAP BUSINESS ANALYST Hospital Encounter [facility] - Main Building [address] [place] [address] Main [facility], 2nd Floor, [place] [address] Azra Chaidez APRN Reine, Sharon A, RN 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) Discharge Disposition: Home 09/12/2023 11:00 AM SAP BUSINESS ANALYST Office Visit [facility] [address] [place] [address] Azra Chaidez APRN Wang, Hongyan, PA 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 09/12/2023 9:00 AM SAP BUSINESS ANALYST - 09/12/2023 11:08 AM SAP BUSINESS ANALYST Hospital Encounter [facility] [address] [place] [address], [place] [address] Azra Chaidez APRN 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 Discharge Disposition: Home 09/12/2023 Travel 09/12/2023 Orders Only [facility] [address] [place] [address], 6th [place] [address] Sadiq Arambula PA 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) 09/12/2023 Documentation [facility] [address] [place] [address], 6th [place] [address] Clemencia Falcon, RN 09/12/2023 Orders Only [facility] [address] [place] [address], [facility] [place] [address] Alin Rosario MD 09/10/2023 Telephone [facility] [address] [place] [address], [address] [place], [place] [address] [address] Clemencia Falcon, RN 09/07/2023 Nurse Triage [facility] [address] [place] [address] Dangelo Hdz APRN 09/07/2023 Nurse Triage [facility]IC[facility] [address] [place] [address] Becky Gleason, RN 09/05/2023 11:00 AM SAP BUSINESS ANALYST Office Visit [facility] [address] [place] [address] Azra Chaidez APRN Guerrero, Maria, APRN 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 09/05/2023 10:51 AM SAP BUSINESS ANALYST - 09/05/2023 11:59 PM SAP BUSINESS ANALYST Hospital Encounter [facility] - Main Building [address] Main Bldg, 2nd Floor, [place] [address] Azra Chaidez, Severo Reddy RN 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); Type 2 diabetes mellitus without complication Discharge Disposition: Home 09/05/2023 8:59 AM SAP BUSINESS ANALYST - 09/05/2023 10:50 AM SAP BUSINESS ANALYST Hospital Encounter [facility] [address] [place] [address] Main [facility], [place] [address] Azra Chaidez, CECILIO 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 Discharge Disposition: Home 09/05/2023 Orders Only [facility] [address] [place] [address] Main [facility], 6th [place] [address] Clemencia Falcon RN 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) 09/05/2023 Travel 09/05/2023 Documentation [facility] [address] [place] [address] Main dg, 6th [place] [address] Clemencia Falcon, RN 09/04/2023 Orders Only [facility] [address] [place] [address] Main [facility], 6th [place] [address] Azra Chaidez APRN 09/04/2023 Orders Only [facility] [address] [place] [address] Main [facility], 6th [place] [address] Clemencia Falcon, RN 09/04/2023 Orders Only [facility] [address] [place] [address] Main dg, 6th [place] [address] Clemencia aFlcon, RN 09/02/2023 Refill [facility] [address] [place] [address] Main [facility], 6th [place] [address] Alin Rosario MD 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 08/29/2023 11:38 AM SAP BUSINESS ANALYST - 08/29/2023 11:59 PM SAP BUSINESS ANALYST Hospital Encounter [facility] - [address] Main [facility], 2nd Floor, [place] [address] Azra Chaidez, Vicki Linares, MATEO 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) Discharge Disposition: Home 08/29/2023 11:00 AM SAP BUSINESS ANALYST Office Visit [facility] [address] [place] [address] Azra Chaidez, Robbie Ayers APRN 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 08/29/2023 9:00 AM SAP BUSINESS ANALYST - 08/29/2023 11:37 AM SAP BUSINESS ANALYST Hospital Encounter [facility] [address] [place] [address], [place] [address] Azra Chaidez APRN 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 Discharge Disposition: Home 08/29/2023 Travel 08/29/2023 Documentation [facility] [address] [place] [address] Main [facility], 6th [place] [address] Clemencia Falcon RN 08/23/2023 Telephone [facility] [address] [place] [address], 6th [place] [address] Azra Chaidez APRN medication update 08/23/2023 Orders Only [facility] [address] [place] [address], 6th [place] [address] Azra Chaidez APRN 08/22/2023 11:42 AM SAP BUSINESS ANALYST - 08/22/2023 11:59 PM SAP BUSINESS ANALYST Hospital Encounter [facility] - [address], 2nd Floor, [place] [address] Azra Chaidez, Ronald Higgins RN 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) Discharge Disposition: Home 08/22/2023 11:00 AM SAP BUSINESS ANALYST Office Visit [facility] [address] [place] [address] Azra Chaidez, Jimena Lyon, CECILIO Type 2 diabetes mellitus without complication (Primary Dx); 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; Anemia due to antineoplastic chemotherapy; Renal insufficiency; Nausea 08/22/2023 9:08 AM SAP BUSINESS ANALYST - 08/22/2023 11:41 AM SAP BUSINESS ANALYST Hospital Encounter [facility] [address] [place] [address], [place] [address] Azra Chaidez APRN 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 Discharge Disposition: Home 08/22/2023 Documentation [facility] [address] [place] [address], 6th [place] [address] Azra Chaidez APRN 08/22/2023 Travel 08/15/2023 9:15 AM CDT Infusion [facility] [address] [facility], 8th Floor Elevator [place] [address] Azra Chaidez, Marcia Chacon RN 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) 08/15/2023 8:20 AM CDT Office Visit [facility] [address] [place] [address] Azra Chaidez, Jimena Lyon, CECILIO 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); Type 2 diabetes mellitus without complication; Renal insufficiency; Other secondary thrombocytopenia 08/15/2023 6:29 AM CDT - 08/15/2023 11:59 PM CDT Hospital Encounter [facility] [address] [place] [address], [place] [address] Azra Chaidez APRN 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 Discharge Disposition: Home 08/15/2023 Orders Only [facility] [address] [place] [address], 6th [place] [address] Rob Hsieh APRN 08/15/2023 Documentation [facility] [address] [place] [address], [facility] [place] [address] Clemencia Falcon RN 08/15/2023 Travel 08/09/2023 Orders Only [facility] [address] [place] [address], [address] [place], [place] [address]ator [place] [address] Alin Rosario MD 08/09/2023 Orders Only [facility] [address] [place] [address], [address] [place] [address] [place] [address] Azra Chaidez APRN 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) 08/08/2023 Telephone [facility] [address] [place] [address], [address] [place] [address] Azra Chaidez APRN Squamous cell carinoma (Need removal at local dermatology) 07/19/2023 Orders Only [facility] [address] [place] [address], [address] [place], [place] [address] [address] Sadiq Arambula PA 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) 07/18/2023 1:40 PM CDT Office Visit [facility] [address] [place] [address] Gilbert Mackey MD Mullen, Ellen C, MANAGER LINUX Encounter for examination for normal control in clinical research program (Primary Dx); 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; Hypertension 07/18/2023 11:29 AM CDT - 07/18/2023 11:59 PM CDT Hospital Encounter [facility] [address] [place] [address], [place] [address] Azra Chaidez APRN 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 Discharge Disposition: Home 07/18/2023 Travel 07/18/2023 Orders Only [facility] [address], [facility] [place], [place] [id number] Azra Chaidez APRN 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) 07/16/2023 Orders Only [facility] [address] [place] [address], [facility] [place] [address] Alin Rosario MD 07/09/2023 Documentation [facility] [address] [place] [address], 6th [place] [address] Azra Chaidez APRN 07/05/2023 1:00 PM CDT - 07/05/2023 11:59 PM CDT Hospital Encounter [facility] [address] [place] [address], 11th [place] [address] Sadiq Arambula PA [place], Rizza M, CECILIO 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 Discharge Disposition: Home 07/05/2023 10:39 AM CDT - 07/05/2023 12:59 PM CDT Hospital Encounter [facility] [address] [place] [address], [facility] [place] [address] Sadiq Arambula PA 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 Discharge Disposition: Home 07/05/2023 Travel 07/02/2023 2:00 PM CDT Ancillary Procedure MD [facility] [address] [facility] [address] [place] [address] Sadiq Arambula PA 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 07/02/2023 Orders Only [facility] [address] [place] [address], [address] [place] [address] [place] [address] Azra Chaidez APRN 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) 07/02/2023 Travel 07/02/2023 Orders [facility] [address] [place] [address], [address] [place] [address] [place] [address] Azra Chaidez APRN 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) 06/28/2023 Telephone [facility] [address] [place] [address], [facility] [place] [address] Shi Alonzo RN 06/28/2023 Orders Only [facility] [address] [place] [address] Main [facility], 6th [place] [address] Azra Chaidez APRN 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) 06/27/2023 2:14 PM CDT - 06/27/2023 11:59 PM CDT Hospital Encounter [facility] [address] [place] [address] Main [facility], 6th [place] [address] Sadiq Arambula PA 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 Discharge Disposition: Home 06/27/2023 1:00 PM CDT Office Visit [facility] [address] [place] [address] Main [facility], 6th [place] [address] Alin Rosario MD 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) 06/27/2023 11:14 AM CDT - 06/27/2023 2:13 PM CDT Hospital Encounter [facility] [address] [place] [address] Main [facility], [place] [address] Sadiq Arambula PA 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 Discharge Disposition: Home 06/27/2023 11:00 AM CDT NPR MDA PATIENT ACCESS Alin Rosario MD 06/27/2023 Documentation [facility] [address] [place] [address] Main [facility], 6th [place] [address] Azra Chaidez APRN 06/27/2023 Documentation [facility] [address] [place] [address] Main [facility], 6th [place] [address] Olga Esposito 06/27/2023 Orders Only [facility] [address] [place] [address] Main [facility], 6th [place] [address] Alin Rosario MD 06/27/2023 Documentation Spiritual Care [address] [place] [id number] Tonio Byrne [facility] 06/27/2023 Orders Only [facility] Main [facility], 6th [place] [address] Nelly Stiles 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) 06/27/2023 Travel 06/27/2023 Orders Only [facility] [address] [place] [address] Main [facility], 6th [place] [address] Sadiq Arambula PA 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) 06/26/2023 Orders Only [facility] [address] [place] [address], 6th [place] [address] Sadiq Arambula PA 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) 06/25/2023 8:40 PM CDT Ancillary Procedure [facility] [address] [place] [id number] Alin Rosario MD Cancer 06/25/2023 8:35 PM CDT Ancillary Procedure [facility] [address] [place] [address] Alin Rosario MD Cancer 06/25/2023 8:30 PM CDT Ancillary Procedure [facility] [address] [place] [id number] Alin Rosario MD Cancer 06/25/2023 8:25 PM CDT Ancillary Procedure [facility] [address] [place] [address] Alin Rosario MD Cancer 06/25/2023 8:20 PM CDT Ancillary Procedure [facility] [address] [place] [id number] Alin Rosario MD Cancer 06/25/2023 8:15 PM CDT Ancillary Procedure [facility] [address] [place] [address] Alin Rosario MD Cancer 06/25/2023 8:10 PM CDT Ancillary Procedure [facility] [address] [place] [address] Alin Rosario MD Cancer 06/25/2023 8:05 PM CDT Ancillary Procedure [facility] [place] [address] Alin Rosario MD Cancer 06/25/2023 8:00 PM CDT Ancillary Procedure [facility] [address] [place] [id number] Alin Rosario MD Cancer 06/22/2023 Lab Requisition [facility] Dwight Jarquin MD Witson, Anne S., MD after 06/24/2023 Immunizations Name Administration Dates Next Due Pneumococcal Polysaccharide PPSV23 06/22/2013 Surgical History Surgery Date Site/Laterality Comments CORONARY ARTERY BYPASS GRAFT 2006,2020,2021 Medical History Medical History Date Comments Myocardial infarction Hyperlipidemia Allergic rhinitis Dependence on continuous positive airway pressur e ventilation 2009? Benign prostatic hyperplasia 2015 Type 2 diabetes mellitus 2018 Basal cell carcinoma of skin 2018 Sleep apnea Hypertension Family History Medical History Relation Name Comments Breast cancer Mother [facility] Skin cancer Mother [facility] Relation Name Status Comments Mother [facility] Social History Tobacco Use Types Packs/Day Years Used Date Smoking Tobacco: Never Smokeless Tobacco: Never Tobacco Cessation:Counseling Given: Not Answered Alcohol Use Standard Drinks/Week Comments Never 0 (1 standard drink = 0.6 oz pur e alcohol) Sex and Gender Information Value Date Recorded Sex Assigned at Male 06/12/2023 3:35 PM CDT Gender Identity Male 06/12/2023 3:35 PM CDT Sexual Orientation Straight 06/12/2023 3: 35 PM CDT Job Start Date Occupation Industry Not on file Not on file Not on file Obstetrics History Last Filed Vital Signs Vital Sign Reading Time Taken Comments Blood Pressure 118/70 06/18/2024 4:30 PM CDT Pulse 60 06/18/2024 4:30 PM CDT Temperature 36.5 C (97.7 F) 06/18/2024 4:30 PM CD T Respiratory Rate 18 06/18/2024 4:30 PM CDT Oxygen Saturation 98% 06/18/2024 4:30 PM CDT Inhaled Oxygen Concentration - - Weight 85.2 kg (187 lb 13.3 oz) 024 10:52 AM CDT Height 175 cm (5' 8.9") 02/27/2024 3:58 PM CDT Body Mass Index 27.82 02/27/2024 3:58 PM CDT Plan of Treatment Upcoming Encounters Date Type Department Care Team (Late st Contact Info) Description 07/16/2024 9:15 AM CDT Appointment [facility] [address] [place] [address], [place] [address] Azra Chaidez APRN [address] [place] [phone] [email or web address] 07/16/2024 11:20 AM CDT Office Visit [facility] [address] [place] [address] Azra Chaidez APRN [address] [place] [phone] [email or web address] 07/16/2024 12:30 PM CDT Appointment [facility] - Main [address], 2nd Floor, [place] [address] Azra Chaidez APRN [address] [place] [phone] [email or web address] 01/05/2025 8:45 AM CDT Follow-Up [facility] - Dermatology [address] [place] [address], 9th [place] [address] Naman Spann MD [address] [place] [phone] [email or web address] Health Maintenance Due Date Last Done Comments COVID-19 Vaccine (#1) 1955 Pneumococcal Vaccine: 65+ Years (2 of 2 - PCV) 014 06/22/2013 Influenza Vaccine (#1) 2024 Medical Devices Implanted Type Area Warehouse Director Device Identifier Shelf Expiration Date Model / Serial / Lot Stent-09/13/2021 Implanted:2020 (Quantity not on file) Stent Heart Description:x5 stents Procedures Procedure Name Priority Date/Time Associated Diagnosis Comments .CBC Routine 06/18/2024 7:46 AM CDT 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 URIC ACID Routine 06/18/2024 7:46 AM CDT 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 BETA 2 MICROGLOBULIN Routine 06/18/2024 7:46 AM CDT 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 LACTATE DEHYDROGENASE Routine 06/18/2024 7:46 AM CDT 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 COMPLETE BLOOD COUNT W/ DIFFERENTIAL Routine 06/18/2024 7:46 AM CDT 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 COMPREHENSIVE METABOLIC PANEL Routine 06/18/2024 7:46 AM CDT 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 DIFFERENTIAL Routine 05/21/2024 8:14 AM CDT 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 .CBC Routine 05/21/2024 8:14 AM CDT 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 URIC ACID Routine 05/21/2024 8:14 AM CDT 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 BETA 2 MICROGLOBULIN Routine 05/21/2024 8:14 AM CDT 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 LACTATE DEHYDROGENASE Routine 05/21/2024 8:14 AM CDT 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 COMPLETE BLOOD COUNT W/ DIFFERENTIAL Routine 05/21/2024 8:14 AM CDT 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 COMPREHENSIVE METABOLIC PANEL Routine 05/21/2024 8:14 AM CDT 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 .CBC Routine 04/23/2024 7:55 AM CDT 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 URIC ACID Routine 04/23/2024 7:55 AM CDT 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 BETA 2 MICROGLOBULIN Routine 04/23/2024 7:55 AM CDT 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 LACTATE DEHYDROGENASE Routine 04/23/2024 7:55 AM CDT 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 COMPLETE BLOOD COUNT W/ DIFFERENTIAL Routine 04/23/2024 7:55 AM CDT 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 COMPREHENSIVE METABOLIC PANEL Routine 04/23/2024 7:55 AM CDT 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 .CBC Routine 03/26/2024 7:58 AM CDT 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 URIC ACID Routine 03/26/2024 7:58 AM CDT 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 BETA 2 MICROGLOBULIN Routine 03/26/2024 7:58 AM CDT 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 LACTATE DEHYDROGENASE Routine 03/26/2024 7:58 AM CDT 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 COMPLETE BLOOD COUNT W/ DIFFERENTIAL Routine 03/26/2024 7:58 AM CDT 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 COMPREHENSIVE METABOLIC PANEL Routine 03/26/2024 7:58 AM CDT 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 .CBC Routine 02/27/2024 8:11 AM CDT 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 URIC ACID Routine 02/27/2024 8:11 AM CDT 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 LACTATE DEHYDROGENASE Routine 02/27/2024 8:11 AM CDT 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 COMPREHENSIVE METABOLIC PANEL Routine 02/27/2024 8:11 AM CDT 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 COMPLETE BLOOD COUNT W/ DIFFERENTIAL Routine 02/27/2024 8:11 AM CDT 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 BETA 2 MICROGLOBULIN Routine 02/27/2024 8:11 AM CDT 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 XR TIBIA FIBULA 2 VW LEFT Routine 02/20/2024 12:16 AM CDT US LEG VENOUS DOPPLER LEFT STAT 02/19/2024 10:08 PM CDT .CBC Routine 02/19/2024 8:01 PM CDT APTT Routine 02/19/2024 8:01 PM CDT PROTHROMBIN TIME Routine 02/19/2024 8:01 PM CDT COMPREHENSIVE METABOLIC PANEL Routine 02/19/2024 8:01 PM CDT COMPLETE BLOOD COUNT W/ DIFFERENTIAL Routine 02/19/2024 8:01 PM CDT .CBC Routine 01/30/2024 8:22 AM CDT 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 URIC ACID Routine 01/30/2024 8:22 AM CDT 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 BETA 2 MICROGLOBULIN Routine 01/30/2024 8:22 AM CDT 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 LACTATE DEHYDROGENASE Routine 01/30/2024 8:22 AM CDT 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 COMPLETE BLOOD COUNT W/ DIFFERENTIAL Routine 01/30/2024 8:22 AM CDT 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 COMPREHENSIVE METABOLIC PANEL Routine 01/30/2024 8:22 AM CDT 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 HP FC LYMPHOMA B FOLLOW UP INTERPRETATION AND REPORT Routine 01/14/2024 7:47 PM CDT MDA CP FLOW CYTOMETRY WORKUP Routine 01/14/2024 7:47 PM CDT CYTOLOGY IMAGE-GUIDED FNA INTERPRETATION Routine 01/14/2024 4:25 PM CDT 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 PATHOLOGY BIOPSY INTERPRETATION Routine 01/14/2024 4:20 PM CDT 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 IR CT GUIDED BIOPSY ABDOMINAL NON-ORGAN 60 Routine 01/14/2024 4:13 PM CDT 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 POC GLUCOSE SCREEN Routine 01/14/2024 3: 11 PM CDT .CBC Routine 01/09/2024 11:20 AM CDT 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 PROTHROMBIN TIME Routine 01/09/2024 11:2 0 AM CDT Encounter for preprocedural laboratory examination LACTATE DEHYDROGENASE Routine 01/09/2024 11:20 AM CDT 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 COMPLETE BLOOD COUNT W/ DIFFERENTIAL Routine 01/09/2024 11:20 AM CDT 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 COMPREHENSIVE METABOLIC PANEL Routine 01/09/2024 11:20 AM CDT 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 RESPIRATORY MULTIPLEX PCR PANEL, NASOPHARYNGEAL SWAB Routine 01/02/2024 11:41 AM CDT 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 QIAC SERVICES Routine 01/02/2024 9:23 AM CDT 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 DIFFERENTIAL Routine 01/02/2024 8:42 AM CDT 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 .CBC Routine 01/02/2024 8:42 AM CDT 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 RESEARCH PROTOCOL [id number] Routine 01/02/2024 8:42 AM CDT 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 URIC ACID Routine 01/02/2024 8:42 AM CDT 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 BETA 2 MICROGLOBULIN Routine 01/02/2024 8:42 AM CDT 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 LACTATE DEHYDROGENASE Routine 01/02/2024 8:42 AM CDT 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 COMPLETE BLOOD COUNT W/ DIFFERENTIAL Routine 01/02/2024 8:42 AM CDT 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 COMPREHENSIVE METABOLIC PANEL Routine 01/02/2024 8:42 AM CDT 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 PETCT F18 FDG (FLUORODEOXYGLUCOSE) WITH CONTRAST Routine 01/02/2024 8:10 AM CDT 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 POC CREATININE Routine 01/02/2024 6:40 AM CDT POC GLUCOSE SCREEN Routine 01/02/2024 6: 37 AM CDT .CBC Routine 12/05/2023 8:40 AM [employer] BUSINESS ANALYST 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 URIC ACID Routine 12/05/2023 8:40 AM [employer] BUSINESS ANALYST 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 BETA 2 MICROGLOBULIN Routine 12/05/2023 8:40 AM [employer] BUSINESS ANALYST 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 LACTATE DEHYDROGENASE Routine 12/05/2023 8:40 AM [employer] BUSINESS ANALYST 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 COMPLETE BLOOD COUNT W/ DIFFERENTIAL Routine 12/05/2023 8:40 AM [employer] BUSINESS ANALYST 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 COMPREHENSIVE METABOLIC PANEL Routine 12/05/2023 8:40 AM [employer] BUSINESS ANALYST 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 .CBC Routine 11/07/2023 7:52 AM [employer] ANALYST 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 RESEARCH PROTOCOL [id number] Routine 11/07/2023 7:52 AM [employer] ANALYST 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 URIC ACID Routine 11/07/2023 7:52 AM [employer] ANALYST 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 BETA 2 MICROGLOBULIN Routine 11/07/2023 7:52 AM [employer] BUSINESS ANALYST 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 LACTATE DEHYDROGENASE Routine 11/07/2023 7:52 AM [employer] ANALYST 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 COMPLETE BLOOD COUNT W/ DIFFERENTIAL Routine 11/07/2023 7:52 AM [employer] ANALYST 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 COMPREHENSIVE METABOLIC PANEL Routine 11/07/2023 7:52 AM [employer] BUSINESS ANALYST 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 .CBC Routine 10/24/2023 1:10 PM [employer] ANALYST 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 URIC ACID Routine 10/24/2023 1:10 PM [employer] BUSINESS ANALYST 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 LACTATE DEHYDROGENASE Routine 10/24/2023 1:10 PM [employer] BUSINESS ANALYST 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 COMPREHENSIVE METABOLIC PANEL Routine 10/24/2023 1:10 PM [employer] BUSINESS ANALYST 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 COMPLETE BLOOD COUNT W/ DIFFERENTIAL Routine 10/24/2023 1:10 PM [employer] BUSINESS ANALYST 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 BETA 2 MICROGLOBULIN Routine 10/24/2023 1:10 PM [employer] BUSINESS ANALYST 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 AFB SMEAR Routine 10/17/2023 12:53 PM [employer] BUSINESS ANALYST Neoplasm of uncertain behavior of skin AFB CULTURE W/ SMEAR - PERFORMABLE Routine 10/17/2023 12:53 PM [employer] ANALYST Neoplasm of uncertain behavior of skin AFB CULTURE W/ SMEAR Routine 10/17/2023 12:53 PM [employer] BUSINESS ANALYST Neoplasm of uncertain behavior of skin TISSUE/FNA CULTURE W/ GRAM STAIN Routine 10/17/2023 12:53 PM [employer] ANALYST Neoplasm of uncertain behavior of skin FUNGAL CULTURE W/ SMEAR Routine 10/17/19 12:53 PM [employer] BUSINESS ANALYST Neoplasm of uncertain behavior of skin PATHOLOGY BIOPSY INTERPRETATION Routine 10/17/2023 12:06 PM [employer] ANALYST Neoplasm of uncertain behavior of skin .CBC Routine 10/17/2023 7:29 AM [employer] ANALYST 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 URIC ACID Routine 10/17/2023 7:29 AM [employer] BUSINESS ANALYST 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 LACTATE DEHYDROGENASE Routine 10/17/2023 7:29 AM [employer] BUSINESS ANALYST 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 COMPREHENSIVE METABOLIC PANEL Routine 10/17/2023 7:29 AM [employer] BUSINESS ANALYST 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 BETA 2 MICROGLOBULIN Routine 10/17/2023 7:29 AM [employer] BUSINESS ANALYST 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 COMPLETE BLOOD COUNT W/ DIFFERENTIAL Routine 10/17/2023 7:29 AM [employer] BUSINESS ANALYST 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 [facility] Routine 10/10/2023 12:26 PM [employer] BUSINESS ANALYST 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 PETCT F18 FDG (FLUORODEOXYGLUCOSE) WITH CONTRAST Routine 10/10/2023 9:10 AM [employer] BUSINESS ANALYST 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 POC GLUCOSE SCREEN Routine 10/10/2023 7: 10 AM [employer] BUSINESS ANALYST .CBC Routine 10/10/2023 6:35 AM [employer] BUSINESS ANALYST 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 URIC ACID Routine 10/10/2023 6:35 AM [employer] ANALYST 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 BETA 2 MICROGLOBULIN Routine 10/10/2023 6:35 AM [employer] BUSINESS ANALYST 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 LACTATE DEHYDROGENASE Routine 10/10/2023 6:35 AM [employer] BUSINESS ANALYST 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 COMPLETE BLOOD COUNT W/ DIFFERENTIAL Routine 10/10/2023 6:35 AM [employer] BUSINESS ANALYST 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 COMPREHENSIVE METABOLIC PANEL Routine 10/10/2023 6:35 AM [employer] BUSINESS ANALYST 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 .CBC Routine 09/12/2023 9:15 AM [employer] ANALYST 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 URIC ACID Routine 09/12/2023 9:15 AM [employer] BUSINESS ANALYST 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 BETA 2 MICROGLOBULIN Routine 09/12/2023 9:15 AM [employer] BUSINESS ANALYST 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 LACTATE DEHYDROGENASE Routine 09/12/2023 9:15 AM [employer] BUSINESS ANALYST 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 COMPLETE BLOOD COUNT W/ DIFFERENTIAL Routine 09/12/2023 9:15 AM [employer] BUSINESS ANALYST 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 COMPREHENSIVE METABOLIC PANEL Routine 09/12/2023 9:15 AM [employer] BUSINESS ANALYST 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 .CBC Routine 09/05/2023 9:11 AM [employer] BUSINESS ANALYST 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 URIC ACID Routine 09/05/2023 9:11 AM [employer] BUSINESS ANALYST 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 BETA 2 MICROGLOBULIN Routine 09/05/2023 9:11 AM [employer] BUSINESS ANALYST 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 LACTATE DEHYDROGENASE Routine 09/05/2023 9:11 AM [employer] BUSINESS ANALYST 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 COMPLETE BLOOD COUNT W/ DIFFERENTIAL Routine 09/05/2023 9:11 AM [employer] BUSINESS ANALYST 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 COMPREHENSIVE METABOLIC PANEL Routine 09/05/2023 9:11 AM [employer] BUSINESS ANALYST 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 .CBC Routine 08/29/2023 9:46 AM [employer] ANALYST 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 URIC ACID Routine 08/29/2023 9:46 AM [employer] BUSINESS ANALYST 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 BETA 2 MICROGLOBULIN Routine 08/29/2023 9:46 AM [employer] BUSINESS ANALYST 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 LACTATE DEHYDROGENASE Routine 08/29/2023 9:46 AM [employer] BUSINESS ANALYST 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 COMPLETE BLOOD COUNT W/ DIFFERENTIAL Routine 08/29/2023 9:46 AM [employer] BUSINESS ANALYST 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 COMPREHENSIVE METABOLIC PANEL Routine 08/29/2023 9:46 AM [employer] BUSINESS ANALYST 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 .CBC Routine 08/22/2023 9:14 AM [employer] BUSINESS ANALYST 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 URIC ACID Routine 08/22/2023 9:14 AM [employer] BUSINESS ANALYST 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 BETA 2 MICROGLOBULIN Routine 08/22/2023 9:14 AM [employer] BUSINESS ANALYST 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 LACTATE DEHYDROGENASE Routine 08/22/2023 9:14 AM [employer] BUSINESS ANALYST 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 COMPLETE BLOOD COUNT W/ DIFFERENTIAL Routine 08/22/2023 9:14 AM [employer] BUSINESS ANALYST 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 COMPREHENSIVE METABOLIC PANEL Routine 08/22/2023 9:14 AM [employer] BUSINESS ANALYST 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 .CBC Routine 08/15/2023 7:05 AM CDT 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 RESEARCH PROTOCOL [id number] Routine 08/15/2023 7:05 AM CDT 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 URIC ACID Routine 08/15/2023 7:05 AM CDT 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 BETA 2 MICROGLOBULIN Routine 08/15/2023 7:05 AM CDT 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 LACTATE DEHYDROGENASE Routine 08/15/2023 7:05 AM CDT 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 COMPLETE BLOOD COUNT W/ DIFFERENTIAL Routine 08/15/2023 7:05 AM CDT 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 COMPREHENSIVE METABOLIC PANEL Routine 08/15/2023 7:05 AM CDT 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 FRACTIONATED BILIRUBIN Routine 11:43 AM CDT 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 TOTAL PROTEIN Routine 07/18/2023 11:43 AM CDT 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 ASPARTATE AMINOTRANSFERASE Routine 07/18/2023 11:43 AM CDT 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 ALANINE AMINOTRANSFERASE Routine 07/18/2023 11:43 AM CDT 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 ALKALINE PHOSPHATASE Routine 07/18/2023 11:43 AM CDT 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 ALBUMIN LEVEL Routine 07/18/2023 11:43 AM CDT 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 CALCIUM LEVEL Routine 07/18/2023 11:43 AM CDT 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 .GLOMERULAR FILTRATION RATE Routine 07/18/2023 11:43 AM CDT 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 SERUM CREATININE Routine 07/18/2023 11:4 3 AM CDT 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 ELECTROLYTE PANEL Routine 07/18/2023 11: 43 AM CDT 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 BLOOD UREA NITROGEN Routine 07/18/2023 1 1:43 AM CDT 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 GLUCOSE LEVEL Routine 07/18/2023 11:43 AM CDT 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 RESEARCH PROTOCOL [id number] Routine 07/18/2023 11:43 AM CDT 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 BETA 2 MICROGLOBULIN Routine 07/18/2023 11:43 AM CDT 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 URIC ACID Routine 07/18/2023 11:43 AM CDT 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 LACTATE DEHYDROGENASE Routine 07/18/2023 11:43 AM CDT 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 COMPREHENSIVE METABOLIC PANEL Routine 07/18/2023 11:43 AM CDT 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 COMPLETE BLOOD COUNT W/ INDICES Routine 07/18/2023 11:43 AM CDT 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 HEMATOPATHOLOGY BONE MARROW DIFFERENTIAL Routine 07/05/2023 1:56 PM CDT 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 HEMATOPATHOLOGY BONE MARROW INTERPRETATION Routine 07/05/2023 1:56 PM CDT 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 HP FC LYMPHOMA B INTERPRETATION AND REPORT Routine 07/05/2023 1:56 PM CDT HP CG CHROMOSOME ANALYSIS INTERPRETATION AND REPORT Routine 07/05/2023 1:56 PM CDT HP CYTOGENETICS BLOOD COLLECTION Routine 07/05/2023 1:56 PM CDT HP MOLECULAR BLOOD COLLECTION Routine 07/05/2023 1:56 PM CDT HP FC FLOW CYTOMETRY BLOOD COLLECTION Routine 07/05/2023 1:56 PM CDT HP MD BTK COLLECTION, NONBLOOD Routine 07/05/2023 1:56 PM CDT 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 HP MD TP53 COLLECTION, NONBLOOD Routine 07/05/2023 1:56 PM CDT 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 HP MD EZH2 COLLECTION, NONBLOOD Routine 07/05/2023 1:56 PM CDT 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 HP MD BCL2 COLLECTION, NONBLOOD Routine 07/05/2023 1:56 PM CDT 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 HP CG IGH/BCL2 T(14;18) FISH COLLECTION, NONBLOOD Routine 07/05/2023 1:56 PM CDT 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 HP CG CHROMOSOME ANALYSIS COLLECTION, NONBLOOD Routine 07/05/2023 1:56 PM CDT 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 HP FC LYMPHOMA B COLLECTION, NONBLOOD Routine 07/05/2023 1:56 PM CDT 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 IN DIAGNOSTIC BONE MARROW BIOPSIES & ASPIRATIONS Routine 07/05/2023 1:47 PM CDT 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 .CBC Routine 06/27/2023 11:24 AM CDT 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 HIV 1/2 ANTIGEN/ANTIBODY, FOURTH GEN W/RFL Routine 06/27/2023 11:24 AM CDT 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 HEPATITIS C VIRUS ANTIBODY Routine 06/27/2023 11:24 AM CDT 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 HEPATITIS B CORE ANTIBODY Routine 06/27/2023 11:24 AM CDT 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 HEPATITIS B SURFACE ANTIGEN Routine 06/27/2023 11:24 AM CDT 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 HEPATITIS B SURFACE ANTIBODY Routine 06/27/2023 11:24 AM CDT 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 THYROID STIMULATING HORMONE Routine 06/27/2023 11:24 AM CDT 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 FREE THYROXINE Routine 06/27/2023 11:24 AM CDT 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 BETA 2 MICROGLOBULIN Routine 06/27/2023 11:24 AM CDT 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 IMMUNOGLOBULIN M Routine 06/27/2023 11:2 4 AM CDT 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 IMMUNOGLOBULIN G Routine 06/27/2023 11:2 4 AM CDT 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 IMMUNOGLOBULIN A Routine 06/27/2023 11:2 4 AM CDT 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 PROTEIN ELECTROPHORESIS Routine 06/27/20 11:24 AM CDT 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 VITAMIN D 25 HYDROXY LEVEL Routine 06/27/2023 11:24 AM CDT 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 ELECTROLYTE PANEL Routine 06/27/2023 11: 24 AM CDT 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 ASPARTATE AMINOTRANSFERASE Routine 06/27/2023 11:24 AM CDT 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 MAGNESIUM LEVEL Routine 06/27/2023 11:24 AM CDT 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 ALANINE AMINOTRANSFERASE Routine 06/27/2023 11:24 AM CDT 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 LACTATE DEHYDROGENASE Routine 06/27/2023 11:24 AM CDT 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 ALKALINE PHOSPHATASE Routine 06/27/2023 11:24 AM CDT 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 FRACTIONATED BILIRUBIN Routine 11:24 AM CDT 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 URIC ACID Routine 06/27/2023 11:24 AM CDT 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 CREATININE Routine 06/27/2023 11:24 AM CDT 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 BLOOD UREA NITROGEN Routine 06/27/2023 1 1:24 AM CDT 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 GLUCOSE, RANDOM Routine 06/27/2023 11:24 AM CDT 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 PHOSPHORUS LEVEL Routine 06/27/2023 11:2 4 AM CDT 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 CALCIUM LEVEL Routine 06/27/2023 11:24 AM CDT 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 ALBUMIN LEVEL Routine 06/27/2023 11:24 AM CDT 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 TOTAL PROTEIN Routine 06/27/2023 11:24 AM CDT 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 TYPE AND SCREEN Routine 06/27/2023 11:24 AM CDT 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 APTT Routine 06/27/2023 11:24 AM CDT 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 White Blood Cell 2.3(L) 4.1 - 10.5 K/uL 06/18/2024 8:14 AM CDT [facility] Red Blood Cell 3.72(L) 4.30 - 6.04 M/uL 06/18/2024 8:14 AM CDT [facility] Hemoglobin 13.2(L) 13.3 - 17.4 g/dL 06/18/2024 8:14 AM CDT [facility] Hematocrit 37.9(L) 39.5 - 51.8 % 06/18/2024 8:14 AM CDT [facility] Mean Cell Volume 102(H) 82 - 99 fL 06/18/2024 8:14 AM CDT [facility] Mean Cell Hemoglobin 35.5(H) 26.6 - 33.2 pg 06/18/2024 8:14 AM CDT [facility] Mean Cell Hemoglobin Concentration 34.8 31.1 - 35.2 g/dL 06/18/2024 8:14 AM CDT [facility] RDW-SD 59.1(H) 37.5 - 49.7 fL 06/18/2024 8:14 AM CDT [facility] Red Cell Diameter Width 15.9(H) 11.6 - 15.5 % 06/18/2024 8:14 AM CDT [facility] Platelet 110(L) 160 - 397 K/uL 06/18/2024 8:14 AM [facility] Mean Platelet Volume 11.2 9.1 - 12.6 fL 06/18/2024 8:14 AM [facility] INRBC 0.0 0.0 - 0.1 /100 WBC 06/18/2024 8:14 AM [facility] Comment: The INRBC (instrument NRBC) value reflects the enumeration of nucleated red blood cells contained in a 200uL sample of whole blood analyzed by the instrument. This value may differ from the NRBC value reported in a manual differential, which is based on a 100 cell differential. Neutrophil % 57.5 43.2 - 72.7 % 06/18/2024 8:14 AM T [facility] Lymphocyte % 25.2 16.8 - 46.2 % 06/18/2024 8:14 AM [facility] Monocyte % 13.7(H) 5.1 - 12.5 % 06/18/2024 8:14 AM [facility] Eosinophil % 1.8 0.4 - 6.3 % 06/18/2024 8:14 AM [facility] Basophil % 1.8(H) 0.2 - 1.4 % 06/18/2024 8:14 AM [facility] IGRE % 0.0(L) 0.1 - 1.5 % 06/18/2024 8:14 AM [facility] Comment:The IGRE% includes M etamyelocytes, Myelocytes and Promyelocytes. Neutrophil Abs 1.30(L) 1.95 - 7.25 K/uL 06/18/2024 8:14 AM CDT [facility] Lymphocyte Abs 0.57(L) 1.01 - 3.24 K/uL 06/18/2024 8:14 AM [facility] Monocyte Abs 0.31 0.24 - 0.85 K/uL 06/18/2024 8:14 AM [facility] Eosinophil Abs 0.04 0.02 - 0.50 K/uL 06/18/2024 8:14 AM T [facility] Basophil Abs 0.04 0.02 - 0.09 K/uL 06/18/2024 8:14 AM CDT [facility] IG Abs 0.00(L) 0.01 - 0.12 K/uL 06/18/2024 8:14 AM CDT [facility] Blood Peripheral blood specimen / Unknown Venipuncture / Unknown 06/18/2024 7:46 AM CDT 06/18/2024 8:08 AM CDT Azra Chaidez APRN LAB BLOOD ORDERABL ES [facility] Unless otherwise noted, all lab tests performed by: Division of Pathology and Laboratory Medicine [address] [place] [phone] * (ABNORMAL) Comprehensive Metabolic Panel (06/18/2024 7:46 AM CDT) Only the most recent of19 resultswithin the time period is included. Bilirubin Total 0.6 0.0 - 1.2 mg/dL 06/18/2024 8:51 AM CDT [facility] Comment:Indocyanine Green (I CG) may cause falsely elevated bilirubin results. Total and direct bilirubin must not be measured from samples containing indocyanine green. False elevation of total bilirubin can be seen in patients with IgG concentrations above 28 g/L. eGFR 65 >=60 mL/min/1. 73 sq. m 06/18/2024 8:51 AM CDT [facility] Comment: The eGFRcr is calculated with the 2020 CKD-EPI creatinine equation using creatinine, patient's age, and sex for adults 18 years of age and older. Other factors, especially muscle mass, may affect accuracy and need to be considered. According to the Kidney Disease: Improving Global Outcomes (KDIGO) CKD Work Group 2012 Clinical Practice Guideline, chronic kidney disease (CKD) is defined as the abnormalities of kidney structure or function, present for more than 3 months, with implications for health. CKD should be classified by cause, GFR category, and albuminuria category. KDIGO guidelines provide the following GFR categories. Stage / Description / GFR mL/min/1.73 m2: G1* / Normal or high / >= 90 G2* / Mildly decreased / 60-89 G3a / Mildly to moderately decreased / 45-59 G3b / Moderately to severely decreased / 30-44 G4 / Severely decreased / 15-29 G5 / Kidney failure / <15 *In the absence of evidence of kidney damage, neither G1 nor G2 fulfill criteria for CKD. Tot Protein 6.6 6.4 - 8.3 gm/dL 06/18/2024 8:51 AM [facility] Calcium Level Total 9.8 8.2 - 10.2 mg/dL 06/18/2024 8:51 AM [facility] Alkaline Phosphatase 51 40 - 129 U/L 06/18/2024 8:51 AM [facility] Albumin Level 4.0 3.5 - 5.2 gm/dL 06/18/2024 8:51 AM [facility] AST 13 <=40 U/L 06/18/2024 8:51 AM [facility] ALT 14 <=41 U/L 06/18/2024 8:51 AM [facility] Sodium Level 140 136 - 145 mmol/L 06/18/2024 8:51 AM [facility] Potassium Level 4.3 3.4 - 4.5 mmol/L 06/18/2024 8:51 AM [facility] Chloride 108(H) 98 - 107 mmol/L 06/18/2024 8:51 AM [facility] CO2 23 22 - 29 mmol/L 06/18/2024 8:51 AM [facility] Anion Gap 9 4 - 14 mmol/L 06/18/2024 8:51 AM [facility] Creatinine 1.19(H) 0.67 - 1.17 mg/dL 06/18/2024 8:51 AM [facility] BUN 11 6 - 23 mg/dL 06/18/2024 8:51 AM [facility] Glucose Level 93 70 - 99 mg/dL 06/18/2024 8:51 AM [facility] Comment: Effective 05/10/16, the glucose reference intervals have been updated based on [place] Diabetes [employer] guidelines (Standards of Medical Care in Diabetes 2016. Diabetes Care 2016; 39: S13-S22). Fasting blood glucose: Normal: 70-99 mg/dL Impaired fasting glucose (increased risk for diabetes or pre-diabetes): 100-125 mg/dL Diabetes mellitus: >/=126 mg/dL Random blood glucose: Normal: 70-199 mg/dL Note: Random glucose >100 mg/dL is associated with increased risk for diabetes. Blood Peripheral blood specimen / Unknown Venipuncture / Unknown 06/18/2024 7:46 AM CDT 06/18/2024 8:08 AM CDT Azra Nobles Dmnelda HERNANDES LAB BLOOD ORDERABL ES Performing Organization Address [facility] Co de Phone Number [facility] Unless otherwise noted, all lab tests performed by: Division of Pathology and Laboratory Medicine [address] [place] [phone] * (ABNORMAL) Uric Acid (06/18/2024 7:46 AM CDT) Only the most recent of19 resultswithin the time period is included. Uric Acid 3.0(L) 3.4 - 7.0 mg/dL 06/18/2024 8:51 AM CDT [facility] Blood Peripheral blood specimen / Unknown Venipuncture / Unknown 06/18/2024 7:46 AM CDT 06/18/2024 8:08 AM CDT Azra Nobles Dmnelda HERNANDES LAB BLOOD ORDERABL ES Performing Organization Address [facility] Co de Phone Number [facility] Unless otherwise noted, all lab tests performed by: Division of Pathology and Laboratory Medicine [address] [place] [id number] * LDH (06/18/2024 7:46 AM CDT) Only the most recent of20 resultswithin the time period is included. LDH 155 135 - 225 U/L 06/18/2024 8:51 AM CDT [facility] Blood Peripheral blood specimen / Unknown Venipuncture / Unknown 06/18/2024 7:46 AM CDT 06/18/2024 8:08 AM CDT Narrative [facility] - 06/18/2024 8:51 AM CDT Results greater than 1651 U/L may not be reliable due to matrix effect with extended dilution as it exceeds the duty officer's recommended limit. Caution should be exercised when interpreting such values and done in conjunction with clinical context. Azra Nobles Dmnelda HERNANDES LAB BLOOD ORDERABL ES Performing Organization Address [facility]/ZIP Co de Phone Number [facility] Unless otherwise noted, all lab tests performed by: Division of Pathology and Laboratory Medicine [address] [place] [phone] * (ABNORMAL) Beta 2 Microglobulin (06/18/2024 7:46 AM CDT) Only the most recent of19 resultswithin the time period is included. [facility] Beta 2 Microglobulin 2.60(H) 0.80 - 2.30 mg/L 06/18/2024 11:14 AM CDT [facility] Blood Peripheral blood specimen / Unknown Venipuncture / Unknown 06/18/2024 7:46 AM CDT 06/18/2024 8:07 AM CDT Narrative [facility] - 06/18/2024 11:14 AM CDT This test is measured by turbidimetric methodology on The Binding Site Optilite analyzer. Results obtained in different methods are not interchangeable. Azra Chaidez APRN LAB BLOOD ORDERABL ES Performing Organization Address [facility]/ZIP Co de Phone Number [facility] Unless otherwise noted, all lab tests performed by: Division of Pathology and Laboratory Medicine [address] [place] [phone] * (ABNORMAL) Differential (05/21/2024 8:14 AM CDT) Only the most recent of3 resultswithin the time period is included. [facility] Total Cells 115 05/21/2024 10:43 AM CDT [facility] Manual Neutrophil % 42.0(L) 43.2 - 72.7 % 05/21/2024 10:43 AM CDT [facility] Comment:The Neutrophil count includes Bands. Manual Lymphocyte % 36.0 16.8 - 46.2 % 05/21/2024 10:43 AM CDT [facility] Manual Monocyte % 17.0(H) 5.1 - 12.5 % 05/21/2024 10:43 AM CDT [facility] Manual Eosinophil % 2.0 0.4 - 6.3 % 05/21/2024 10:43 AM CDT [facility] Manual Basophil % 3.0(H) 0.2 - 1.4 % 05/21/2024 10:43 AM CDT [facility] Metamyelocyte % 10:43 AM CDT [facility] Comment:The Metamyelocyte co unt includes Myelocytes. Manual Neutrophil Abs 0.76(L) 1.95 - 7.25 K/uL 05/21/2024 10:43 AM CDT [facility] Manual Lymphocyte Abs 0.65(L) 1.01 - 3.24 K/uL 05/21/2024 10:43 AM CDT [facility] Manual Monocyte Abs 0.31 0.24 - 0.85 K/uL 05/21/2024 10:43 AM CDT [facility] Manual Eosinophil Abs 0.04 0.02 - 0.50 K/uL 05/21/2024 10:43 AM CDT [facility] Manual Basophil Abs 0.05 0.02 - 0.09 K/uL 05/21/2024 10:43 AM CDT [facility] RBC Morphology PRESENT 05/21/2024 10:43 AM CDT [facility] PLT Morph Normal Normal 05/21/2024 10:43 AM CDT [facility] Poikilocytosis Present(A) (none) 05/21/2024 10:43 AM CDT [facility] Ovalocyte Present(A) (none) 05/21/2024 10:43 AM CDT [facility] Emiliano Cells Present(A) (none) 05/21/2024 10:43 AM CDT [facility] Blood Peripheral blood specimen / Unknown Venipuncture / Unknown 05/21/2024 8:14 AM CDT 05/21/2024 8:18 AM CDT Azra Chaidez CECILIO LAB BLOOD ORDERABL ES [facility] Unless otherwise noted, all lab tests performed by: Division of Pathology and Laboratory Medicine [facility] [place] [address] * X-ray Tibia Fibula 2 Views Left (02/20/2024 12:16 AM CDT) Anatomical Region Laterality Modality Leg, Extremity Digital Radiogra phy 02/20/2024 2:09 AM CDT Impressions 02/20/2024 8:05 AM CDT No acute fracture or osseous lesions of lymphoma in bones. ACTIONABLE ITEMS/RECOMMENDATIONS: None. I personally reviewed these image(s) along with the resident's/fellow's interpretations, certify that if a procedure was performed I was physically present, and agree with the final report. Narrative 02/20/2024 8:05 AM CDT FULL RESULT: Examination: XR left Tibia/Fibula, 2 Views, 02/20/2024 12:16 AM. Clinical History: Lymphoma. Indication: Left lower leg pain. Comparison: None. Technique: AP and lateral left tibia/fibula, 02/20/2024. Findings: Nonspecific intramedullary sclerosis in the left proximal tibia shaft is seen. No other bone, joint or soft tissue abnormality is noted in the left lower leg. Procedure Note Cristian Quarles MD - 02/20/2024 FULL RESULT: Examination: XR left Tibia/Fibula, 2 Views, 02/20/2024 12:16 AM. Clinical History: Lymphoma. Indication: Left lower leg pain. Comparison: None. Technique: AP and lateral left tibia/fibula, 02/20/2024. Findings: Nonspecific intramedullary sclerosis in the left proximal tibia shaft isseen. No other bone, joint or soft tissue abnormality is noted in the left lowerleg. IMPRESSION: No acute fracture or osseous lesions of lymphoma in bones. ACTIONABLE ITEMS/RECOMMENDATIONS: None. I personally reviewed these image(s) along with the resident's/fellow'sinterpretations, certify that if a procedure was performed I wasphysically present, and agree with the final report. Maninder Freire MD IMG DIAGNOSTIC IM AGING ORDERABLES * US Leg Venous Doppler Left (02/19/2024 10:08 PM CDT) Anatomical Region Laterality Modality Leg, Extremity Ultrasound 02/19/2024 11:2 1 PM CDT Impressions 02/20/2024 7:03 AM CDT No deep venous thrombosis in the left lower extremity. ACTIONABLE ITEMS/RECOMMENDATIONS*: None. *An Actionable Finding is a finding that may be unrelated to the original reason for imaging but potentially actionable, meaning further investigation may be necessary. The Actionable Findings Vigilance Unit (AFVU) assists medical providers with responding to additional radiologic findings that are unexpected and potentially actionable. I personally reviewed these image(s) along with the resident's/fellow's interpretations, certify that if a procedure was performed I was physically present, and agree with the final report. Narrative 02/20/2024 7:03 AM CDT Examination: US LEG VENOUS DOPPLER LEFT on 02/19/2024 10:08 PM. Clinical History: 73-year-old male with Follicular lymphoma. Indication: Edema, edema. Comparison: None available. TECHNIQUE: Sonographic evaluation of the deep veins of the left lower extremity is performed assessing grayscale appearance, color and spectral Doppler flow and compressibility. FINDINGS: The common femoral, femoral, proximal deep femoral, and popliteal veins and saphenofemoral junction demonstrate color flow and compressibility. The visualized peroneal, anterior tibial and posterior tibial veins demonstrate color flow. Procedure Note Naomi Cummings MD - 02/20/2024 Examination: US LEG VENOUS DOPPLER LEFT on 02/19/2024 10:08 PM. Clinical History: 73-year-old male with Follicular lymphoma. Indication: Edema, edema. Comparison: None available. TECHNIQUE: Sonographic evaluation of the deep veins of the left lowerextremity is performed assessing grayscale appearance, color and spectralDoppler flow and compressibility. FINDINGS: The common femoral, femoral, proximal deep femoral, and popliteal veinsand saphenofemoral junction demonstrate color flow and compressibility. The visualized peroneal, anterior tibial and posterior tibial veinsdemonstrate color flow. IMPRESSION: No deep venous thrombosis in the left lower extremity. ACTIONABLE ITEMS/RECOMMENDATIONS*: None. *An Actionable Finding is a finding that may be unrelated to the originalreason for imaging but potentially actionable, meaning furtherinvestigation may be necessary. The Actionable Findings Vigilance Unit(AFVU) assists medical providers with responding to additional radiologicfindings that are unexpected and potentially actionable. I personally reviewed these image(s) along with the resident's/fellow'sinterpretations, certify that if a procedure was performed I wasphysically present, and agree with the final report. Xavier Hager MD IMG US ORDERABLES * aPTT (02/19/2024 8:01 PM CDT) Only the most recent of2 resultswithin the time period is included. Activated PTT 27.9 24.1 - 35.5 second(s) 02/19/2024 8:44 PM CDT [facility] Blood Peripheral blood specimen / Unknown Venipuncture / Unknown 02/19/2024 8:01 PM CDT 02/19/2024 8:10 PM CDT Xavier Hager MD LAB BLOOD ORDERABLES [facility] Unless otherwise noted, all lab tests performed by: Division of Pathology and Laboratory Medicine [address] [place] [id number] * Prothrombin Time with INR (02/19/2024 8:01 PM CDT) Only the most recent of3 resultswithin the time period is included. Prothrombin Time 14.2 11.9 - 14.5 second(s) 02/19/2024 8:44 PM CDT [facility] International Normalization Ratio 1.11 0.87 - 1.12 02/19/2024 8:44 PM CDT [facility] Blood Peripheral blood specimen / Unknown Venipuncture / Unknown 02/19/2024 8:01 PM CDT 02/19/2024 8:10 PM CDT Xavier Hager MD LAB BLOOD ORDERABLES [facility] Unless otherwise noted, all lab tests performed by: Division of Pathology and Laboratory Medicine [address] [place] [id number] * Flow Cytometry Workup (01/14/2024 7:47 PM CDT) Pathologist [facility] FLOW CYTOMETRY WORKUP TESTS TO ORDER FC Lymphoma B Follow Up 01/15/2024 6:47 AM CDT FLOW CYTOMETRY Fine Needle Asp (Other) Non-blood Collection / Unknown 01/14/2024 7:47 PM CDT 01/14/2024 7:47 PM CDT Bola Soto MD [facility] CP BIOMARKER WOR KUPS Performing Organization Address City/Va Hospital/ZIP Co de Phone Number [facility] [place] [address], FLOW CYTOMETRY [facility] Flow Cytometry Laboratory [address] [place] [address] * FC Lymphoma B Follow Up Interpretation and Report (01/14/2024 7:47 PM CDT) [facility] Lymphoma B Follow Up Interpretation Mesenteric mass, fine needle aspiration: CD10+ B-cell lymphoma. <3% of cells show increased forward scatter 01/16/2024 12:43 PM CDT FLOW CYTOMETRY Lymphoma B Follow Up Comment Specimen is FNA, mesenteric mass Total Events: [id number] 01/16/2024 12:43 PM CDT FLOW CYTOMETRY Aberrant Population, Lymph B Followup Aberrant B cells 01/16/2024 12:43 PM CDT FLOW CYTOMETRY Aberrant % Lymphocytes 68 01/16/2024 12:43 PM CDT FLOW CYTOMETRY Aberrant % Total, Lymph B Followup 60 01/16/2024 12:43 PM CDT FLOW CYTOMETRY Gated Lymphocyte Region 88.0 % 01/16/2024 12:43 PM CDT FLOW CYTOMETRY CD3+ 30.4 % 01/16/2024 12:43 PM CDT FLOW CYTOMETRY CD3+CD4+ 23.4 % 01/16/2024 12:43 PM CDT FLOW CYTOMETRY CD3+CD8+ 6.4 % 01/16/2024 12:43 PM CDT FLOW CYTOMETRY CD19+ 65.2 % 01/16/2024 12:43 PM CDT FLOW CYTOMETRY CD56+ 0.9 % 01/16/2024 12:43 PM CDT FLOW CYTOMETRY ABERRANT CELL PHENOTYPE Aberrant Cell Phenotype: Marker Result Intensity CD5 Negative CD10 Positive CD19 Positive Decreased CD20 Negative CD22 Positive CD38 Positive CD43 Negative CD45 Positive Partial CD200 Positive Partial Mimbres Negative Lambda Positive (Intensity levels are described relative to normal mature B cells) 01/16/2024 12:43 PM CDT FLOW CYTOMETRY Lymphoma B Follow Up Markers Assessed CD3, CD4, CD5, CD8, CD10, CD19, CD20, CD22, CD34, CD38, CD43, CD45, CD56, CD200, Mimbres, Lambda 01/16/2024 12:43 PM CDT FLOW CYTOMETRY Disclaimer Interpretive comments are based on review by the pathologist of the results of each antibody of this specimen. This test was developed and its performance characteristics determined by [facility] Clinical Flow Cytometry Laboratory. It has not been cleared or approved by the US Food and Drug Administration. FDA does not require this test go through premarket FDA review. This test is used for clinical purposes. It should not be regarded as investigational or for research. This laboratory is certified under the Clinical Laboratory Improvement Amendment of 1988 (CLIA) as qualified to perform high complexity clinical laboratory testing. 01/16/2024 12:43 PM CDT FLOW CYTOMETRY Pathologist Signature . 01/16/2024 12:43 PM CDT FLOW CYTOMETRY Fine Needle Asp (Other) Non-blood Collection / Unknown 01/14/2024 7:47 PM CDT 01/14/2024 7:47 PM CDT Bola Soto MD [facility] HP FLOW CYTOMETR Y (HP FC) FLOW CYTOMETRY [facility] Flow Cytometry Laboratory [address] [facility] [place] [facility] [place] [address] * (ABNORMAL) Cytology Image-Guided FNA Interpretation (01/14/2024 4:25 PM CDT) Gross Description Specimens procured: 3 Diff Quik; 3 Pap Stain Slides 10 ml, cloudy bloody fluid in RPMI Flow Cytometry Size: Not provided Immediate assessment for specimen adequacy was made x1 by Dr. Rafael Sanches. 01/16/2024 1:49 PM CDT [facility] Immediate Assessment Borderline cellularity, further review needed, additional tissue recommended 01/16/2024 1:49 PM CDT [facility] Major Classification MALIGNANT(A) 01/16/2024 1:49 PM CDT [facility] Diagnosis Mesentery, mass, fine needle aspiration: LOW GRADE LYMPHOMA 01/16/2024 1:49 PM CDT [facility] Comment A portion of the aspirate was submitted for flow cytometry which showed lambda restricted CD10+ B-cell lymphoma ([id number]). Immunohistochemic al analysis is deferred to hematopathology report for the concurrent core needle biopsy ([id number]) 01/16/2024 1:49 PM CDT [facility] Retained/Biomark er Testing SR: 6 S 01/16/2024 1:49 PM CDT [facility] Informational Points Some tests reported here may have been developed and performance characteristics determined by [facility] Pathology and Laboratory Medicine. These tests have not been specifically cleared or approved by the U.S. Food and Drug Administration. 01/16/2024 1:49 PM CDT [facility] Fine Needle Asp (Mesentery) 01/14/2024 4:25 PM CDT 01/14/2024 4:37 PM CDT Kelsie Grey MANAGER [employer] LAB CYTOLOGY ORDERAB LES [facility] [place] [address], * Pathology Biopsy Interpretation (01/14/2024 4:20 PM CDT) Only the most recent of2 resultswithin the time period is included. 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 The patient recently underwent a PET/CT scan which showed a 6.7 x 4.6 cm mesenteric mass. Histologic sections show needle-shaped fragments of sclerotic tissue involved by lymphoma with a nodular pattern. The nodules are composed predominantly of small centrocytes with rare centroblasts. No sheets of large cells or necrosis are seen. Flow cytometric analysis on a concurrent FNA specimen reveals a large population of aberrant B cells (~60% of total events) that are positive for CD10, CD19(dec), CD22, CD38, CD44, CD200(partial), and Lambda, and are negative for CD5, CD20, CD43, and Mimbres. Immunohistochemical studies for CD3, CD20, Pax5, CD10, BCL6, BCL2, CD21, and Ki-67 are performed. CD20 and Pax5 highlight B-cell folicles, where the B cells are positive for CD10, BCL6, and BCL2. CD3 highlights background T cells. CD21 highlights HALFWAY meshwork associated with B-cell follicles. The Ki-67 proliferation is variable, ranging from 5% to 30% within the follicles. 01/17/2024 12:12 PM [facility] Gross Description A: Mesentery, mesenteric mass biopsy w/biomarkers: Multiple soft minute ham-brown tissue cores and core fragments, less than 0.1 cm - 1.5 cm in length and up to 0.1 cm in diameter, entirely submitted in A1-A2. ET 01/17/2024 12:12 PM [facility] Disclaimer "Some tests reported here may have been developed and performance characteristics determined by [facility] Pathology and Laboratory Medicine. These tests have not been specifically cleared or approved by the U.S. Food and Drug Administration. If applicable, controls were reviewed and showed appropriate reactivity." Medical necessity justification for the immunohistochemical stains that were needed in addition to the flow cytometric immunophenotypic studies for the best diagnosis possible is as follows: The flow cytometric studies are not clearly apprenticeship training representative of all the features requiring evaluation in this specimen. 01/17/2024 12:12 PM CDT [facility] Tissue (Mesentery) 01/14/2024 4:20 PM CDT 01/15/2024 7:54 AM CDT Kelsie Grey MANAGER [facility] LAB PATHOLOGY ORDERA NATALIE [facility] [id number] [place] [address], [place] * IR CT GUIDED BIOPSY ABDOMINAL NON-ORGAN 60 (01/14/2024 4:13 PM CDT) Anatomical Region Laterality Modality Abdomen/Pelvis Computed Tomogra phy Narrative 01/15/2024 8:18 AM CDT Table formatting from the original result was not included. 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 Consent: The procedure, risks, indications and alternatives were explained. All questions were answered and informed consent was obtained. I have reviewed the history and physical dictated by the MILES / fellow. Sedation/Anesthesia: Moderate sedation for pain control and anxiety was administered by a dedicated nurse under my supervision. There was continuous monitoring of oxygen saturation, heart rate and intermittent monitoring of blood pressure during the procedure. Medication given was midazolam and fentanyl. I was present for the administration of the medications indicated above. Procedure Events Event Event Time Sedation Start 01/14/2024 4:18 PM Sedation End 01/14/2024 4:55 PM Procedure in Detail: A time out was performed prior to the start of the procedure and the correct patient, procedure, presence of consent, site, and side were confirmed with all members of the team. With the patient in the supine position, the skin overlying the area of interest was prepped and draped in the usual sterile fashion. Lidocaine 1% was used for local anesthesia. Using an anterior approach under Computed Tomography image-guidance, a 17 gauge needle was advanced down to the midline mesenteric mass . An image was obtained and placed into the medical record. Samples were obtained for evaluation. Sampling: Cytology: A 22 gauge needle was used to obtain sample(s) for cytologic assessment. Total number of samples: 8 Core Biopsy: An 18 gauge needle used to obtain samples for surgical pathology evaluation. Total number of samples: 3 Research Biopsy: An 18 gauge needle was used to obtain 3 core samples as per protocol and A 22 gauge needle was used to obtain 4 FNA sample(s) as per protocol. Specimens Disposition: Diagnostic Biopsy: The biopsy samples were submitted to pathology. Research Biopsy: The samples were submitted to the appropriate research staff in the designated media as outlined in the protocol. Additional Comments: None Estimated Blood Loss: Minimal Immediate Complications: None Disposition: PACU Plan: No follow-up with Interventional Radiology required. This draft note was prepared by the MILES involved in the case; it was then reviewed and finalized by the attending physician. I certify my physical presence in the procedure/control room at the time of the procedure. I personally reviewed the image(s) and the MILES's interpretation and agree with the written report. Kelsie Grey APRN IMG IR ORDERABLES * POC Glucose Screen - Fingerstick (01/14/2024 3:11 PM CDT) Only the most recent of4 resultswithin the time period is included. Glucose Screen 94 70 - 99 mg/dL 01/14/2024 3:12 PM CDT [facility] POC Sample Type Venous 01/14/2024 3:12 PM CDT [facility] Blood 01/14/2024 3:11 PM CDT 01/14/2024 3:12 PM CDT Narrative [facility] - 01/14/2024 3:12 PM CDT Capillary blood samples, e.g. obtained by fingerstick, may have inaccurate results in patients with decreased peripheral blood flow. Method description: All results are measured using Electrochemistry test methodology. The glucose in the sample mixes with the reagents on the test strip. The reaction produces an electric current. The amount of current produced is proportional to the glucose concentration in the blood. All POC Glucose screen test results, including critical values, must be interpreted and evaluated in the context of the patients' clinical findings. It is recommended to confirm any questionable test results by core lab methodology. Kelsie Grey APRN POCT ORDERABLES - DE VICE [facility] Unless otherwise noted, all lab tests performed by: Division of Pathology and Laboratory Medicine [address] [place] [id number] * (ABNORMAL) Respiratory Multiplex PCR Panel, Nasopharyngeal Swab (01/02/2024 11:41 AM CDT) Pathologist [facility] Adenovirus Not Detected Not Detected 01/02/2024 2:21 PM CDT [facility] Coronavirus 229E Not Detected Not Detected 01/02/2024 2:21 PM CDT [facility] Coronavirus HKU1 Not Detected Not Detected 01/02/2024 2:21 PM CDT [facility] Coronavirus NL63 Not Detected Not Detected 01/02/2024 2:21 PM CDT [facility] Coronavirus OC43 Detected(A) Not Detected 01/02/2024 2:21 PM CDT [facility] COVID-19 (SARS-CoV-2) Not Detected Not Detected 01/02/2024 2:21 PM CDT [facility] Human Metapneumovirus Not Detected Not Detected 01/02/2024 2:21 PM CDT [facility] Human Rhinovirus/Enterov irus Not Detected Not Detected 01/02/2024 2:21 PM CDT [facility] Influenza A Not Detected Not Detected 01/02/2024 2:21 PM CDT [facility] Influenza A H1 Not Detected Not Detected 01/02/2024 2:21 PM CDT [facility] Influenza A H1 2009 Not Detected Not Detected 01/02/2024 2:21 PM CDT [facility] Influenza A H3 Not Detected Not Detected 01/02/2024 2:21 PM CDT [facility] Influenza B Not Detected Not Detected 01/02/2024 2:21 PM CDT [facility] Parainfluenza Virus 1 Not Detected Not Detected 01/02/2024 2:21 PM CDT [facility] Parainfluenza Virus 2 Not Detected Not Detected 01/02/2024 2:21 PM CDT [facility] Parainfluenza Virus 3 Not Detected Not Detected 01/02/2024 2:21 PM CDT [facility] Parainfluenza Virus 4 Not Detected Not Detected 01/02/2024 2:21 PM CDT [facility] Respiratory Syncytial Virus Not Detected Not Detected 01/02/2024 2:21 PM CDT [facility] Bordetella parapertussis Not Detected Not Detected 01/02/2024 2:21 PM CDT [facility] Bordetella pertussis Not Detected Not Detected 01/02/2024 2:21 PM CDT [facility] Chlamydophila pneumoniae Not Detected Not Detected 01/02/2024 2:21 PM CDT [facility] Mycoplasma pneumoniae Not Detected Not Detected 01/02/2024 2:21 PM CDT [facility] Swab Nasopharyngeal structure / Unknown Non-blood Collection / Unknown 01/02/2024 11:41 AM CDT 01/02/2024 11:57 AM CDT [facility] - 01/02/2024 2:21 PM CDT The assay is a qualitative multiplex PCR assay to aid in the diagnosis of respiratory pathogens through simultaneous qualitative detection and identification of multiple pathogens directly from nasopharyngeal swabs (LICENSED THERAPIST) from individuals with respiratory symptoms. Testing is performed using the [employer]utive FilmArray Respiratory Panel 2.1 (RP2.1) on the [employer] System. The following organisms are identified using the handsomexcutive RP 2.1 Panel: Adenovirus, Human Coronavirus (229E, HKU1, NL63, and OC43), Severe Acute Respiratory Syndrome Coronavirus 2 (SARS-CoV-2), Human Metapneumovirus, Human Rhinovirus/Enterovirus, Influenza A, including subtypes (H1, H3 and H1-2009), Influenza B, Parainfluenza Virus (1, 2, 3, and 4), Respiratory Syncytial Virus, Bordetella parapertussis, Bordetella pertussis, Chlamydia pneumoniae, and Mycoplasma pneumoniae A result of Not Detected" does not exclude the possibility of the presence of one or more of the pathogens at or below the detection limits of this assay nor does exclude the possibility of pathogens not detected by this panel. Non-infectious causes of respiratory symptoms should also be considered in such cases. Internal controls are used to monitor all stages of the testing process including amplification inhibition. If inhibition is detected, testing is repeated and if inhibition is confirmed the specimen is resulted as "Invalid". When an "Invalid" result occurs, it is recommended to wait 3 days before submitting a new specimen for testing if clinically indicated. This is an FDA-approved assay and its performance characteristics were verified by the microbiology laboratory at the [facility] [place] (CLIA Accreditation # [id number] and CAP Accreditation # [id number]). Results must be interpreted within the context of all relevant clinical and laboratory findings. Assay should not be used for monitoring response to therapy. Alin Rosario MD MICROBIOLOGY - [facility] AL ORDERABLES [facility] Unless otherwise noted, all lab tests performed by: Division of Pathology and Laboratory Medicine [address] [place] [id number] * [facility] (01/02/2024 9:23 AM CDT) Only the most recent of3 resultswithin the time period is included. Anatomical Region Laterality Modality Other 01/02/2024 10:1 1 AM CDT Impressions 01/02/2024 10:11 AM CDT Tumor metrics have been completed. I personally reviewed these images and agree with the tumor metrics. 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 IMPRESSION: Tumor metrics have been completed. I personally reviewed these images andagree with the tumor metrics. Alin Rosario MD [facility] ORDERABLES * Research Protocol [id number] (01/02/2024 8:42 AM CDT) Only the most recent of3 resultswithin the time period is included. Research Protocol Specimen Specimen Collected, Ready for Pickup. 01/02/2024 10:01 AM CDT [facility] Blood Peripheral blood specimen / Unknown Venipuncture / Unknown 01/02/2024 8:42 AM CDT 01/02/2024 8:49 AM CDT Alin Rosario MD RESEARCH LAB Z CODES [facility] Unless otherwise noted, all lab tests performed by: Division of Pathology and Laboratory Medicine [address] [place] [id number] * PETCT F18 FDG (Fluorodeoxyglucose) with contrast (01/02/2024 8:10 AM CDT) Only the most recent of3 resultswithin the time period is included. Anatomical Region Laterality Modality Whole Body Positron Emissio n Tomography (PET) 01/02/2024 8:19 AM CDT Impressions 01/02/2024 8:50 AM CDT 1. Interval decrease in size and F-18 FDG activity associated with a mesenteric mass. 2. No new suspicious F-18 FDG avid lesions identified. Lymphoma five-point score= 4. ACTIONABLE ITEMS/RECOMMENDATIONS*: None. Narrative 01/02/2024 8:50 AM CDT FULL RESULT: Examination: F-18 FDG-PET/CT with contrast, 01/02/2024 8:10 AM Clinical History: Follicular lymphoma. Indication: Restaging to determine subsequent treatment strategy. Comparison: F-18 FDG PET/CT dated 10/10/2023. Technique: F-18 fluorodeoxyglucose 8.5 mCi was administered intravenously via a right antecubital fossa vein. To allow for distribution and uptake of radiotracer, the patient was asked to rest quietly for approximately 60-90 minutes. PET/CT imaging was performed from the vertex of the skull to the proximal thighs. CT scanning was done for attenuation correction, image registration, and diagnosis with scan parameters optimized to minimize radiation exposure to the patient. The CT portion of the examination was performed with intravenous contrast. SUV measurements are reported as maximum SUV based on body weight unless otherwise specified. Findings: Head and Neck: Physiologic radiotracer activity is noted in the brain. There is mucosal thickening in the ethmoid air cells with mild radiotracer activity, compatible with chronic sinusitis, increased since 10/10/2023. No enlarged or hypermetabolic cervical lymph nodes are detected. Chest: The patient is status post coronary artery bypass graft. There are atherosclerotic calcifications in the coronary arteries. No enlarged or F-18 FDG avid intrathoracic or axillary lymph nodes are seen. No suspicious F-18 FDG avid pulmonary nodules are identified. Abdomen and Pelvis: A 6.7 x 4.6 cm mesenteric mass, centered on image 253, has an SUV max of 6.1. Previously, this measured approximately 8.0 x 7.2 cm and had an SUV max of 8.3. Physiologic radiotracer activity is seen in the liver. There are calcified gallstones within the lumen of the gallbladder. The spleen is normal in size and demonstrates physiologic radiotracer uptake. The pancreas and the adrenal glands are unremarkable. Physiologic radiotracer activity is noted in the genitourinary and gastrointestinal tracts. There are sigmoid diverticula with no evidence of acute diverticulitis. Musculoskeletal: No suspicious F-18 FDG avid bone lesions are identified. A previously seen hypermetabolic subcutaneous nodularity in the left back has resolved, presumably benign. Procedure Note Magdaleno Martinez MD - 01/02/2024 FULL RESULT: Examination: F-18 FDG-PET/CT with contrast, 01/02/2024 8:10 AM Clinical History: Follicular lymphoma. Indication: Restaging to determine subsequent treatment strategy. Comparison: F-18 FDG PET/CT dated 10/10/2023. Technique: F-18 fluorodeoxyglucose 8.5 mCi was administered intravenously via a rightantecubital fossa vein. To allow for distribution and uptake ofradiotracer, the patient was asked to rest quietly for approximately 60-90minutes. PET/CT imaging was performed from the vertex of the skull to theproximal thighs. CT scanning was done for attenuation correction, imageregistration, and diagnosis with scan parameters optimized to minimizeradiation exposure to the patient. The CT portion of the examination wasperformed with intravenous contrast. SUV measurements are reported asmaximum SUV based on body weight unless otherwise specified. Findings: Head and Neck: Physiologic radiotracer activity is noted in the brain. There is mucosalthickening in the ethmoid air cells with mild radiotracer activity,compatible with chronic sinusitis, increased since 10/10/2023. No enlargedor hypermetabolic cervical lymph nodes are detected. Chest: The patient is status post coronary artery bypass graft. There areatherosclerotic calcifications in the coronary arteries. No enlarged orF-18 FDG avid intrathoracic or axillary lymph nodes are seen. Nosuspicious F-18 FDG avid pulmonary nodules are identified. Abdomen and Pelvis: A 6.7 x 4.6 cm mesenteric mass, centered on image 253, has an SUV max of6.1. Previously, this measured approximately 8.0 x 7.2 cm and had an SUVmax of 8.3. Physiologic radiotracer activity is seen in the liver. There are calcifiedgallstones within the lumen of the gallbladder. The spleen is normal insize and demonstrates physiologic radiotracer uptake. The pancreas and theadrenal glands are unremarkable. Physiologic radiotracer activity is notedin the genitourinary and gastrointestinal tracts. There are sigmoiddiverticula with no evidence of acute diverticulitis. Musculoskeletal: No suspicious F-18 FDG avid bone lesions are identified. A previously seen hypermetabolic subcutaneous nodularity in the left backhas resolved, presumably benign. IMPRESSION: 1. Interval decrease in size and F-18 FDG activity associated with amesenteric mass. 2. No new suspicious F-18 FDG avid lesions identified. Lymphoma five-point score= 4. ACTIONABLE ITEMS/RECOMMENDATIONS*: None. Alin Rosario MD [facility] PETCT ORDERABLES * POC Creatinine (01/02/2024 6:40 AM CDT) POC Creatinine 1.1 0.6 - 1.3 mg/dL 01/02/2024 6:56 AM CDT [facility] [place] Comment:Medications, especia lly hydroxyurea or supplements, such as ascorbate, can interfere with test results causing a falsely and significantly higher result than expected. If a problem is suspected with a patient's result, a sample should be sent to the laboratory for confirmatory testing. POC eGFR 72 >=60 mL/min/1.7 3 sq. m 01/02/2024 6:56 AM CDT [facility] Comment: The eGFRcr is calculated with the 2020 CKD-EPI creatinine equation using creatinine, patient's age, and sex for adults 18 years of age and older. Other factors, especially muscle mass, may affect accuracy and need to be considered. According to the Kidney Disease: Improving Global Outcomes (KDIGO) CKD Work Group 2012 Clinical Practice Guideline, chronic kidney disease (CKD) is defined as the abnormalities of kidney structure or function, present for more than 3 months, with implications for health. CKD should be classified by cause, GFR category, and albuminuria category. KDIGO guidelines provide the following GFR categories. Stage / Description / GFR mL/min/1.73 m2: G1* / Normal or high / >= 90 G2* / Mildly decreased / 60-89 G3a / Mildly to moderately decreased / 45-59 G3b / Moderately to severely decreased / 30-44 G4 / Severely decreased / 15-29 G5 / Kidney failure / <15 *In the absence of evidence of kidney damage, neither G1 nor G2 fulfill criteria for CKD. Blood 01/02/2024 6:40 AM CDT 01/02/2024 6:56 AM CDT Narrative [facility] - 01/02/2024 6:56 AM CDT Method description: The i-STAT is an analyzer used for in vitro quantification of various analytes in whole blood. The device uses a single disposable cartridge which contains microfabricated sensors, a calibration solution, fluidics system, and a waste chamber. Each test cartridge contains chemically sensitive biosensors on a silicon chip that are configured to perform specific tests. The microfabricated sensors measure analyte concentration by an electrochemical assay. Alin Rosario MD POCT ORDERABLES - DE VICE [facility] Unless otherwise noted, all lab tests performed by: Division of Pathology and Laboratory Medicine [address] [place] [id number] * Research Protocol [id number] (11/07/2023 7:52 AM SAP BUSINESS ANALYST) Research Protocol Specimen Specimen Collected, Ready for Pickup. 11/07/2023 9:01 AM SAP BUSINESS ANALYST [facility] Blood Venipuncture / Unknown 11/07/2023 7:52 AM SAP BUSINESS ANALYST 11/07/2023 8:01 AM SAP BUSINESS ANALYST Georgi Estrada MD RESEARCH LAB Z CODES Performing Organization Address [facility] Co de Phone Number [facility] Unless otherwise noted, all lab tests performed by: Division of Pathology and Laboratory Medicine [address] [place] [address] [phone] * AFB Culture w/ Smear (10/17/2023 12:53 PM SAP BUSINESS ANALYST) [facility] AFB Culture No Acid-Fast Bacilli isolated at 8 weeks. 12/13/2023 9:01 AM SAP BUSINESS ANALYST [facility] Tissue (Skin, Left Back) Non-blood Collection / Unknown 10/17/2023 12:53 PM SAP BUSINESS ANALYST 10/17/2023 2:51 PM SAP BUSINESS ANALYST Narrative [facility] - 12/13/2023 9:01 AM SAP BUSINESS ANALYST Cultures are held for 8 weeks before finalization. Naman Spann MD MICROBIOLOGY - GENER AL ORDERABLES Performing Organization Address [facility] de Phone Number [facility] Unless otherwise noted, all lab tests performed by: Division of Pathology and Laboratory Medicine [address] [place] [address] [phone] * AFB Smear (10/17/2023 12:53 PM SAP BUSINESS ANALYST) [facility] AFB Smear - Truant Stain No Acid-Fast Bacilli seen on fluorescent stain of Direct Specimen. No AFB seen 10/18/2023 11:38 AM SAP BUSINESS ANALYST [facility] Tissue (Skin, Left Back) Non-blood Collection / Unknown 10/17/2023 12:53 PM SAP BUSINESS ANALYST 10/17/2023 2:51 PM SAP BUSINESS ANALYST Naman Spann MD MICROBIOLOGY - GENER AL ORDERABLES Performing Organization Address City/[facility] Co de Phone Number [facility] Unless otherwise noted, all lab tests performed by: Division of Pathology and Laboratory Medicine [address] [place] [address] [phone] * Fungal Culture w/ Smear (10/17/2023 12:53 PM SAP BUSINESS ANALYST) Fungal Culture No Fungus isolated at 4 weeks. 11/14/2023 4:01 PM SAP BUSINESS ANALYST [facility] Fungal Smear No Fungi seen in direct smear. 11/14/2023 4:01 PM SAP BUSINESS ANALYST [facility] Comment:Test performed by fl uorescent stain methodology. Tissue (Skin, Left Back) Non-blood Collection / Unknown 10/17/2023 12:53 PM SAP BUSINESS ANALYST 10/17/2023 2:51 PM SAP BUSINESS ANALYST Narrative [facility] - 11/14/2023 4:01 PM SAP BUSINESS ANALYST Cultures are held for 4 weeks before finalization. Naman Spann MD MICROBIOLOGY - [facility] AL ORDERABLES [facility] Unless otherwise noted, all lab tests performed by: Division of Pathology and Laboratory Medicine [address] [place] [phone] * (ABNORMAL) Tissue/FNA Culture w/ Gram Stain (10/17/2023 12:53 PM SAP BUSINESS ANALYST) Pathologist [facility] Tissue/FNA Culture Few Staphylococcus lugdunensis(A) 10/23/2023 7:52 AM SAP BUSINESS ANALYST [facility] Gram Stain No WBCs seen. 10/23/2023 7:52 AM SAP BUSINESS ANALYST [facility] Gram Stain No organisms seen. 2023 7:52 AM SAP BUSINESS ANALYST [facility] Tissue (Skin, Left Back) Non-blood Collection / Unknown 10/17/2023 12:53 PM SAP BUSINESS ANALYST 10/17/2023 2:51 PM SAP BUSINESS ANALYST Narrative Organism Antibiotic Method Susceptibility Staphylococcus lugdunensis Oxacillin MINIMUM INHIBITORY CONCENTRATION 2 mcg/mL: Susceptible Staphylococcus lugdunensis Vancomycin MINIMUM INHIBITORY CONCENTRATION <=0.5 mcg/mL: Susceptible Staphylococcus lugdunensis Tetracycline MINIMUM INHIBITORY CONCENTRATION <=1 mcg/mL: Susceptible Comment:Organisms th at are susceptible to Tetracycline are also considered susceptible to Doxycycline and Minocycline. Organisms that are non-susceptible to Tetracycline, may still be susceptible to Doxycycline and/or Minocycline. Further testing will be performed only upon request. Naman Spann MD MICROBIOLOGY - GENER AL ORDERABLES Performing Organization Address City/[facility]/ZIP Co de Phone Number [facility] Unless otherwise noted, all lab tests performed by: Division of Pathology and Laboratory Medicine [address] [place] [address] * .Serum Creatinine (07/18/2023 11:43 AM CDT) Only the most recent of2 resultswithin the time period is included. Creatinine 1.13 0.67 - 1.17 mg/dL [facility] Blood 07/18/2023 11:4 3 AM CDT 07/18/2023 11:51 AM CDT Azra Chaidez APRN LAB BLOOD ORDERABL ES Performing Organization Address [facility] Co de Phone Number [facility] Unless otherwise noted, all lab tests performed by: Division of Pathology and Laboratory Medicine [address] [place] [phone] * Glomerular Filtration Rate (07/18/2023 11:43 AM CDT) Only the most recent of2 resultswithin the time period is included. eGFR 69 >=60 mL/min/1.7 3 sq. m [facility] Comment: The eGFRcr is calculated with the 2020 CKD-EPI creatinine equation using creatinine, patient's age, and sex for adults 18 years of age and older. Other factors, especially muscle mass, may affect accuracy and need to be considered. According to the Kidney Disease: Improving Global Outcomes (KDIGO) CKD Work Group 2012 Clinical Practice Guideline, chronic kidney disease (CKD) is defined as the abnormalities of kidney structure or function, present for more than 3 months, with implications for health. CKD should be classified by cause, GFR category, and albuminuria category. KDIGO guidelines provide the following GFR categories Stage Description GFR mL/min/1.73 m2 G1* Normal or high >= 90 G2* Mildly decreased 60-89 G3a Mildly to moderately decreased 45-59 G3b Moderately to severely decreased 30-44 G4 Severely decreased 15-29 G5 Kidney failure <15 *In the absence of evidence of kidney damage, neither G1 nor G2 fulfill criteria for CKD. Blood 07/18/2023 11:4 3 AM CDT 07/18/2023 11:51 AM CDT Azra Nobles Dmnelda HERNANDES LAB BLOOD ORDERABL ES Performing Organization Address City/[facility]/ZIP Co de Phone Number [facility] Unless otherwise noted, all lab tests performed by: Division of Pathology and Laboratory Medicine [address] [place] [address] * Fractionated Bilirubin (07/18/2023 11:43 AM CDT) Only the most recent of2 resultswithin the time period is included. Pathologist [facility] Bili Total 0.5 <=1.2 mg/dL [facility] Comment: Indocyanine Green (ICG) may cause falsely elevated bilirubin results. Total and direct bilirubin must not be measured from samples containing indocyanine green. False elevation of total bilirubin can be seen in patients with IgG concentrations above 28 g/L. Bili Direct 0.2 <=0.3 mg/dL [facility] Comment:Indocyanine Green (I CG) may cause falsely elevated bilirubin results. Total and direct bilirubin must not be measured from samples containing indocyanine green. Bili Indirect 0.3 0.0 - 0.9 mg/dL [facility] Blood 07/18/2023 11:4 3 AM CDT 07/18/2023 11:51 AM CDT Azra Chaidez APRN LAB BLOOD ORDERABL ES Performing Organization Address City/[facility]/ZIP Co de Phone Number [facility] Unless otherwise noted, all lab tests performed by: Division of Pathology and Laboratory Medicine [address] [place] [address] [phone] * Complete Blood Count w/o Differential (07/18/2023 11:43 AM CDT) Pathologist [facility] WBC 4.8 4.1 - 10.5 K/uL [facility] RBC 4.82 4.30 - 6.04 M/uL [facility] Hgb 15.0 13.3 - 17.4 gm/dL [facility] Hct 43.9 39.5 - 51.8 % [facility] MCV 91 82 - [address] [facility] MCH 31.1 26.6 - 33.2 pg [facility] MCHC 34.2 31.1 - 35.2 gm/dL [facility] RDW-SD 43.0 37.5 - 49.7 fL [facility] RDW-CV 12.9 11.6 - 15.5 % [facility] Platelet count 160 160 - 397 K/uL [facility] MPV 9.7 9.1 - 12.6 fL [facility] INRBC 0.0 0.0 - 0.1 /100 WBC [facility] Comment: The INRBC (instrument NRBC) value reflects the enumeration of nucleated red blood cells contained in a 200uL sample of whole blood analyzed by the instrument. This value may differ from the NRBC value reported in a manual differential, which is based on a 100 cell differential. Blood 07/18/2023 11:4 3 AM CDT 07/18/2023 11:47 AM CDT Azra Chaidez APRN LAB BLOOD ORDERABL ES Performing Organization Address City/[facility] Co de Phone Number [facility] Unless otherwise noted, all lab tests performed by: Division of Pathology and Laboratory Medicine [address] [place] [address] [phone] * BUN (07/18/2023 11:43 AM CDT) Only the most recent of2 resultswithin the time period is included. BUN 20 6 - 23 mg/dL [facility] Blood 07/18/2023 11:4 3 AM CDT 07/18/2023 11:51 AM CDT Azra Chaidez APRN LAB BLOOD ORDERABL ES [facility] Unless otherwise noted, all lab tests performed by: Division of Pathology and Laboratory Medicine [address] [place] [address] [phone] * ALT (07/18/2023 11:43 AM CDT) Only the most recent of2 resultswithin the time period is included. ALT 15 <=41 U/L ID [facility] Blood 07/18/2023 11:4 3 AM CDT 07/18/2023 11:51 AM CDT Azra Chaidez APRN LAB BLOOD ORDERABL ES [facility] Unless otherwise noted, all lab tests performed by: Division of Pathology and Laboratory Medicine [address] [place] [address] * Aspartate Aminotransferase (07/18/2023 11:43 AM CDT) Only the most recent of2 resultswithin the time period is included. AST 17 <=40 U/L [facility] Blood 07/18/2023 11:4 3 AM CDT 07/18/2023 11:51 AM CDT Azra Chaidez APRN LAB BLOOD ORDERABL ES Performing Organization Address [facility] Co de Phone Number [facility] Unless otherwise noted, all lab tests performed by: Division of Pathology and Laboratory Medicine [address] [place] [address] [phone] * Total Protein (07/18/2023 11:43 AM CDT) Only the most recent of2 resultswithin the time period is included. Total Protein 6.8 6.4 - 8.3 g/dL [facility] Blood 07/18/2023 11:4 3 AM CDT 07/18/2023 11:51 AM CDT Azra Chaidez APRN LAB BLOOD ORDERABL ES [facility] Unless otherwise noted, all lab tests performed by: Division of Pathology and Laboratory Medicine [address] [place] [address] [place] [address] * Alkaline Phosphatase (07/18/2023 11:43 AM CDT) Only the most recent of2 resultswithin the time period is included. Alk Phos 47 40 - 129 U/L [facility] Blood 07/18/2023 11:4 3 AM CDT 07/18/2023 11:51 AM CDT Azra Chaidez APRN LAB BLOOD ORDERABL ES [facility] Unless otherwise noted, all lab tests performed by: Division of Pathology and Laboratory Medicine [address] [place] [address] * (ABNORMAL) Glucose Level (07/18/2023 11:43 AM CDT) Glucose Level 112(H) 70 - 99 mg/dL [facility] Comment: Effective 05/10/16, the glucose reference intervals have been updated based on [place] Diabetes Association guidelines (Standards of Medical Care in Diabetes 2016. Diabetes Care 2016; 39: S13-S22). Fasting blood glucose: Normal: 70-99 mg/dL Impaired fasting glucose (increased risk for diabetes or pre-diabetes): 100- 125 mg/dL Diabetes mellitus: >/=126 mg/dL Random blood glucose: Normal: 70-199 mg/dL Note: Random glucose >100 mg/dL is associated with increased risk for diabetes Blood 07/18/2023 11:4 3 AM CDT 07/18/2023 11:51 AM CDT Azra Chaidez APRN LAB BLOOD ORDERABL ES [facility] Unless otherwise noted, all lab tests performed by: Division of Pathology and Laboratory Medicine [address] [place] [address] [phone] * Calcium Level (07/18/2023 11:43 AM CDT) Only the most recent of2 resultswithin the time period is included. Calcium Lvl 9.9 8.4 - 10.2 mg/dL [facility] Blood 07/18/2023 11:4 3 AM CDT 07/18/2023 11:51 AM CDT Azra Chaidez APRN LAB BLOOD ORDERABL ES Performing Organization Address City/[facility] Co de Phone Number [facility] Unless otherwise noted, all lab tests performed by: Division of Pathology and Laboratory Medicine [address] [place] [address] [phone] * Albumin Level (07/18/2023 11:43 AM CDT) Only the most recent of2 resultswithin the time period is included. Albumin Lvl 4.3 3.5 - 5.2 gm/dL [facility] Blood 07/18/2023 11:4 3 AM CDT 07/18/2023 11:51 AM CDT Azra Chaidez APRN LAB BLOOD ORDERABL ES Performing Organization Address [facility] Co de Phone Number [facility] Unless otherwise noted, all lab tests performed by: Division of Pathology and Laboratory Medicine [address] [place] [phone] * (ABNORMAL) Electrolyte Panel (07/18/2023 11:43 AM CDT) Only the most recent of2 resultswithin the time period is included. Sodium Lvl 141 136 - 145 mEq/L [facility] Potassium Lvl 3.9 3.5 - 5.1 mEq/L [facility] Chloride 108(H) 98 - 107 mEq/L [facility] CO2 26 22 - 29 mEq/L [facility] Anion Gap 7 4 - 14 mEq/L [facility] Blood 07/18/2023 11:4 3 AM CDT 07/18/2023 11:51 AM CDT Azra Nobles Dmnelda HERNANDES LAB BLOOD ORDERABL ES Performing Organization Address City/[facility] Co de Phone Number [facility] Unless otherwise noted, all lab tests performed by: Division of Pathology and Laboratory Medicine [address] [place] [address] [phone] * TP53 Collection, Nonblood (07/05/2023 1:56 PM CDT) Pathologist [facility] Molecular Diagnostics (Received) Yes [facility] Bone Marrow 07/05/2023 1:56 PM CDT 07/05/2023 3:52 PM CDT Sadiq HUMMEL MD NONBL OOD COLLECTIONS [facility] Unless otherwise noted, all lab tests performed by: Division of Pathology and Laboratory Medicine [address] [place] [address] [phone] * EZH2 Collection, Nonblood (07/05/2023 1:56 PM CDT) Pathologist [facility] Molecular Diagnostics (Received) Yes [facility] Bone Marrow 07/05/2023 1:56 PM CDT 07/05/2023 3:52 PM CDT Sadiq HUMMEL MD NONBL OOD COLLECTIONS [facility] Unless otherwise noted, all lab tests performed by: Division of Pathology and Laboratory Medicine [address] [place] [address] [phone] * BTK Collection, Nonblood (07/05/2023 1:56 PM CDT) Pathologist [facility] Molecular Diagnostics (Received) Yes [facility] Bone Marrow 07/05/2023 1:56 PM CDT 07/05/2023 3:52 PM CDT Sadiq HUMMEL MD NONBL OOD COLLECTIONS [facility] Unless otherwise noted, all lab tests performed by: Division of Pathology and Laboratory Medicine [address] [place] [address] [phone] * BCL2 Collection, Nonblood (07/05/2023 1:56 PM CDT) Pathologist [facility] Molecular Diagnostics (Received) Yes [facility] Bone Marrow 07/05/2023 1:56 PM CDT 07/05/2023 3:52 PM CDT Sadiq SCHWARTZ MDA HP MD NONBL OOD COLLECTIONS [facility] Unless otherwise noted, all lab tests performed by: Division of Pathology and Laboratory Medicine [address] [place] [address] [phone] * FC B-Cell Lymphoma Panel Collection, Nonblood (07/05/2023 1:56 PM CDT) Pathologist [facility] Flow Cytometry (Received) Yes [facility] Bone Marrow 07/05/2023 1:56 PM CDT 07/05/2023 3:26 PM CDT Sadiq SCHWARTZ MDA HP FC NONBL OOD COLLECTIONS [facility] Unless otherwise noted, all lab tests performed by: Division of Pathology and Laboratory Medicine [address] [place] [address] [phone] * CG IGH/BCL2 t(14;18) FISH Collection, Nonblood (07/05/2023 1:56 PM CDT) Pathologist [facility] Cytogenetics (Received) Yes [facility] Bone Marrow 07/05/2023 1:56 PM CDT 07/05/2023 3:52 PM CDT Sadiq SCHWARTZ MDA HP CG NONBL OOD COLLECTIONS [facility] Unless otherwise noted, all lab tests performed by: Division of Pathology and Laboratory Medicine [address] [place] [address] [phone] * CG Chromosome Analysis Collection, Nonblood (07/05/2023 1:56 PM CDT) Pathologist [facility] Cytogenetics (Received) Yes [facility] Bone Marrow 07/05/2023 1:56 PM CDT 07/05/2023 3:52 PM CDT Sadiq SCHWARTZ MDA HP CG NONBL OOD COLLECTIONS [facility] Unless otherwise noted, all lab tests performed by: Division of Pathology and Laboratory Medicine [address] [place] [address] [phone] * Hematopathology Bone Marrow Interpretation (07/05/2023 1:56 PM CDT) Diagnosis Bone marrow, right posterior iliac crest, biopsy, clot section, aspirate smears and touch imprint: Cellular bone marrow (30-40%) with trilineage hematopoiesis No diagnostic morphologic evidence of lymphoma (see comment) 07/06/2023 11:24 AM CDT [facility] Comment The patient has a history of follicular lymphoma. Flow immunophenotypic studies showed no evidence of clonal B-cell populations. Ancillary studies are in progress. The results will be reported separately. 07/06/2023 11:24 AM CDT [facility] Microscopic Description BONE MARROW BIOPSY Quality: Subcortical sample Cellularity: 30% Megakaryocytes: Adequate Infiltrate: None BONE MARROW CLOT Quality: Adequate Cellularity: 30-40% Megakaryocytes: Adequate Infiltrate: None BONE MARROW SMEARS Quality / cellularity: Adequate Granulocytes: Maturing Erythrocytes: Maturing Megakaryocytes: Present Lymphocytes: Not increased, small with condensed chromatin 07/06/2023 11:24 AM CDT [facility] Gross Description B: Iliac crest, right posterior, biopsy Length: 1.3 cm Submitted in a single cassette for decalcification. AY C: Iliac crest, right posterior, clot Dimensions: 0.3 x 1.7 x 1.4 cm Specimen is entirely submitted in 1. AY 07/06/2023 11:24 AM CDT [facility] Disclaimer "Some tests reported here may have been developed and performance characteristics determined by [facility] Pathology and Laboratory Medicine. These tests have not been specifically cleared or approved by the U.S. Food and Drug Administration. If applicable, controls were reviewed and showed appropriate reactivity." 07/06/2023 11:24 AM CDT [facility] Bone marrow specimen (specimen) (Iliac Crest, Right Posterior, Aspirate) Collection / Unknown 07/05/2023 1:56 PM CDT 07/05/2023 3:38 PM CDT Bone marrow specimen (specimen) (Iliac Crest, Right Posterior, Biopsy) Collection / Unknown 07/05/2023 1:56 PM CDT 07/05/2023 3:03 PM CDT Bone marrow specimen (specimen) (Iliac Crest, Right Posterior, Clot) 07/05/2023 1:56 PM CDT 07/05/2023 3:03 PM CDT Alin Rosario MD LAB PATHOLOGY ORDERA NATALIE [facility] [id number] [place] [address], * (ABNORMAL) Hematopathology Bone Marrow Differential (07/05/2023 1:56 PM CDT) Method Smear 07/06/2023 11:24 AM CDT [facility] Adequacy Satisfactory for evaluation 07/06/2023 11:24 AM CDT [facility] Total cells counted 500 07/06/2023 11:24 AM CDT [facility] BM Blast % 2 0 - 5 % 07/06/2023 11:24 AM CDT [facility] BM Progranulocyte % 1(L) 2 - 8 % 07/06/2023 11:24 AM CDT [facility] BM Myelocyte % 6 5 - 20 % 07/06/2023 11:24 AM CDT [facility] BM Metamyelocyte % 18 13 - 32 % 07/06/2023 11:24 AM CDT [facility] BM Granulocyte % 26 7 - 30 % 07/06/20 11:24 AM CDT [facility] BM Eosinophil % 2 0 - 4 % 3 11:24 AM CDT [facility] BM Basophil % 0 0 - 1 % 07/06/2023 11:24 AM CDT [facility] BM Lymphocyte % 5 3 - 17 % 11:24 AM CDT [facility] BM Plasma Cell % 1 0 - 2 % 07/06/20 11:24 AM CDT [facility] BM Monocyte % 4 0 - 5 % 07/06/2023 11:24 AM CDT [facility] BM Pronormoblast % 3 1 - 8 % 07/06/2023 11:24 AM CDT [facility] BM Normoblast % 32 7 - 32 % 11:24 AM CDT [facility] BM M:E Ratio 1.7(L) 3.0 - 4.0 07/06/2023 11:24 AM CDT [facility] Bone marrow specimen (specimen) (Iliac Crest, Right Posterior, Aspirate) Collection / Unknown 07/05/2023 1:56 PM CDT 07/05/2023 3:38 PM CDT Narrative [facility] - 07/06/2023 11:24 AM CDT DISCLAIMER Preliminary BM Diff may have been completed by a medical writer or a hematopathology fellow and is subject to change. Any pathologist updates will be included on interpretation and appear in the final result. Please use caution in evaluating your patient based on preliminary results. Alin Rosario MD LAB PATHOLOGY ORDERHilda ESTRADA Performing Organization Address City/[facility]/ZIP Co de Phone Number [address] * CG Chromosome Analysis Interpretation and Report (07/05/2023 1:56 PM CDT) 07/05/2023 1:56 PM CDT Sadiq SCHWARTZ [facility] HP CYTOGENE TICS (HP CG) [facility] Unless otherwise noted, all lab tests performed by: Division of Pathology and Laboratory Medicine [address] [place] [address] * Cytogenetics Specimen Collection -Bone Marrow (07/05/2023 1:56 PM CDT) Pathologist Loren Gavin Link [id number] [facility] Cytogenetics (Received) Yes [facility] Bone Marrow 07/05/2023 1:56 PM CDT 07/05/2023 3:52 PM CDT Sadiq SCHWARTZ MDA HP CG NONBL OOD COLLECTIONS Performing Organization Address City/[facility]/ZIP Co de Phone Number [facility] Unless otherwise noted, all lab tests performed by: Division of Pathology and Laboratory Medicine [address] [place] [address] [phone] * FC B-Cell Lymphoma Panel Interpretation and Report (07/05/2023 1:56 PM CDT) 07/05/2023 1:56 PM CDT 07/05/2023 3:26 PM CDT Sadiq SCHWARTZ MDA HP FLOW CYT OMETRY (HP FC) Performing Organization Address [facility] Co de Phone Number [facility] Unless otherwise noted, all lab tests performed by: Division of Pathology and Laboratory Medicine [address] [place] [address] [phone] * Molecular Diagnostics Specimen Collection -Bone Marrow (07/05/2023 1:56 PM CDT) Pathologist [facility] Molecular Diagnostics (Received) Yes [facility] Italo Gavin Link [id number] [facility] Bone Marrow 07/05/2023 1:56 PM CDT 07/05/2023 3:52 PM CDT Sadiq SCHWARTZ MDA HP MD NONBL OOD COLLECTIONS Performing Organization Address City/[facility] Hospital/ZIP Co de Phone Number [facility] Unless otherwise noted, all lab tests performed by: Division of Pathology and Laboratory Medicine [address] [place] [address] [phone] * Flow Cytometry Specimen Collection -Bone Marrow (07/05/2023 1:56 PM CDT) Flow Cytometry (Received) Yes [facility] Comment: Test performed by: [facility] Flow Cytometry Laboratory [address] [place] [address] Italo Gavin Link [id number] [facility] Bone Marrow 07/05/2023 1:56 PM CDT 07/05/2023 3:26 PM CDT Sadiq SCHWARTZ MDA HP FC NONBL OOD COLLECTIONS [facility] Unless otherwise noted, all lab tests performed by: Division of Pathology and Laboratory Medicine [address] [place] [address] [phone] * IN DIAGNOSTIC BONE MARROW BIOPSIES & ASPIRATIONS (07/05/2023 1:47 PM CDT) Bone marrow specimen (specimen) Narrative [facility] - 07/05/2023 1:47 PM CDT Thao Holcomb APRN 07/05/2023 3:40 PM Procedure: Bone Marrow Aspiration/Biopsy Date/Time: 07/05/2023 1:47 PM Provider Information: Performed by: Thao Holcomb APRN Authorized by: LANA Johns Quality Project Manager present: yes Quality Project Manager: RT Melanie 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 Patient Diagnosis: Pre-procedure diagnosis: FL Post-procedure diagnosis: unchanged Indication: Indication: evaluation of disease status Anesthesia: Anesthesia: local infiltration Patient anesthetized by: advanced practice provider Local anesthetic: lidocaine 1% without epinephrine Anesthetic total (ml): 20 Sedation: Patient sedated?: patient not sedated Aspirate Site(s): Laterality: right Site location: posterior iliac crest Instrument(s) used: [place] needle Instruments placed by: advanced practice provider Biopsy Site(s): Laterality: right Site location: posterior iliac crest Instrument(s) used: [place] needle Instruments placed by: advanced practice provider Dressing: Dressing: compression bandage Post-Procedure Patient Assessment: Patient tolerance: well Estimated blood loss: minimal Complications/Observations: no complications Pre-procedure pain scale: 0/10 Greater than 20ccs of Lidocaine given?: No Post-procedure pain scale: 0/10 Discharge/Disposition: Discharge instructions: verbal Patient discharged to: discharge to home Disposition mode: ambulatory Sample Disposition: Testing performed: flow cytometry, molecular, cytogenetics and pathology Research samples(s): no Aspirate volume obtained (mL) - right: 21 Visual assessment for aspirate specimen adequacy - right: particles Visual assessment for biopsy specimen adequacy (cm) - right: 1.1 Biopsy specimen integrity - right: fragmented Comments: I, Jessicawarren Holcomb, performed the procedure. Last dose of Effient taken 7-8 days ago. The patient was identified by name, date of ,and medical record number. Platelets were adequate for the procedure. Patient tolerated procedure well. Pressure was applied for 3 minutes and hemostasis was achieved post procedure. Compression bandage applied. Pt verbalized understanding to keep dressing on for 48 hours. ,a Sadiq SCHWARTZ PROCEDURE/MINOR SURGICAL ORDERABLES Performing Organization Address [facility] Co de Phone Number [facility] Unless otherwise noted, all lab tests performed by: Division of Pathology and Laboratory Medicine [address] [place] [address] [phone] * Peripheral Smear for Bone Marrow (07/05/2023 10:47 AM CDT) Pathologist [facility] Peripheral Smear PSMEAR [facility] Blood 07/05/2023 10:4 7 AM CDT 07/05/2023 11:05 AM CDT Narrative [facility] - 07/05/2023 11:05 AM CDT This Lab Test should be linked to the Lab Visit Type - do not link this to a BMA visit type. The Peripheral Smear for Bone Marrow should be scheduled on the same day as the bone marrow procedure or within 48 hours of the bone marrow procedure. Sadiq SCHWARTZ LAB BLOOD ORDER KINGA Performing Organization Address [facility] Co de Phone Number [facility] Unless otherwise noted, all lab tests performed by: Division of Pathology and Laboratory Medicine [address] [place] [address] [phone] * Protein Electrophoresis Path Review (06/27/2023 11:24 AM CDT) Pathologist [facility] SPE Path Interp The serum protein electrophoretic pattern does not show definite evidence of an M-protein peak. If a paraproteinemia is suspected clinically, however, serum free light chain studies, serum protein CARLOS studies, serum immunoglobulin quantitation and urine Bence-Daniels protein studies are recommended. [facility] Comment: ASHLEY ALLEN MD, PhD - [id number] Dictated by: ASHLEY ALLEN MD, PhD - [id number] Dictated Date/Time: 06.27.2023 16:57 PM CDT Transcribed Date/Time: 06.27.2023 16:57 PM CDT Electronically Signed By: ASHLEY ALLEN MD, PhD - [id number] on 06.27.2023 16:57 PM Blood 06/27/2023 11:2 4 AM CDT 06/27/2023 12:04 PM CDT Sadiq SCHWARTZ LAB BLOOD ORDER KINGA Performing Organization Address City/[facility] Co de Phone Number [facility] Unless otherwise noted, all lab tests performed by: Division of Pathology and Laboratory Medicine [address] [place], [place] [phone] * Glucose, Random (06/27/2023 11:24 AM CDT) Glucose Random 97 70 - 199 mg/dL [facility] Comment: Effective 05/10/16, the glucose reference intervals have been updated based on [place] Diabetes [employer] guidelines (Standards of Medical Care in Diabetes 2016. Diabetes Care 2016; 39: S13-S22). Fasting blood glucose: Normal: 70-99 mg/dL Impaired fasting glucose (increased risk for diabetes or pre-diabetes): 100- 125 mg/dL Diabetes mellitus: >/=126 mg/dL Random blood glucose: Normal: 70-199 mg/dL Note: Random glucose >100 mg/dL is associated with increased risk for diabetes Blood 06/27/2023 11:2 4 AM CDT 06/27/2023 11:56 AM CDT Sadiq SCHWARTZ LAB BLOOD ORDER KINGA Performing Organization Address City/State/[facility] Co de Phone Number [facility] Unless otherwise noted, all lab tests performed by: Division of Pathology and Laboratory Medicine [address] [place] [address] [phone] * HIV 1/2 Antigen/Antibody, Fourth Gen W/RFL (06/27/2023 11:24 AM CDT) HIV Ag/Ab, 4TH Gen NON-REACT DAO NON-REACT DAO [facility] Comment: HIV-1 antigen and HIV-1/HIV-2 antibodies were not detected. There is no laboratory evidence of HIV infection. PLEASE NOTE: This information has been disclosed to you from records whose confidentiality may be protected by state law. If your state requires such protection, then the state law prohibits you from making any further disclosure of the information without the specific written consent of the person to whom it pertains, or as otherwise permitted by law. A general authorization for the release of medical or other information is NOT sufficient for this purpose. For additional information please refer to http://education.lucierna/faq/IHS985 (This link is being provided for informational/ educational purposes only.) The performance of this assay has not been clinically validated in patients less than 2 years old. Lab test performed by: Lab Mnemonic: [employer] [address] [id number] HOLA ANAYA MD,PHD. Blood 06/27/2023 11:2 4 AM CDT 06/27/2023 12:32 PM CDT Sadiq SCHWARTZ LAB BLOOD ORDER KINGA Performing Organization Address City/[facility] Hospital/[facility] Co de Phone Number [facility] * Clot Expiration Date (06/27/2023 11:24 AM CDT) T & S Expiration 06/30/2023 [facility] Blood 06/27/2023 11:2 4 AM CDT 06/27/2023 1:40 PM CDT Sadiq SCHWARTZ BLOOD BANK TEST ORDERABLES Performing Organization Address City/[facility] Hospital/ZIP Co de Phone Number [facility] Unless otherwise noted, all lab tests performed by: Division of Pathology and Laboratory Medicine [address] [place] [address] [phone] * Hepatitis C Virus Ab (06/27/2023 11:24 AM CDT) [facility] HCVAb. Non Reactive Non Reactive [facility] Comment: Antibody detection in the immunocompromised and immunosuppressed population may be delayed or absent entirely. Therefore serial testing, correlation with other clinical findings, and supplemental testing (if available) should be taken into consideration when interpreting the results. Blood 06/27/2023 11:2 4 AM CDT 06/27/2023 12:04 PM CDT Sadiq SCHWARTZ LAB BLOOD ORDER KINGA Performing Organization Address City/[facility] Co de Phone Number [facility] Unless otherwise noted, all lab tests performed by: Division of Pathology and Laboratory Medicine [address] [place] [address] [phone] * Hepatitis B Total Ig Core Ab (SCREENING) (anti-HBc total Ig; HBcAb total Ig) (06/27/2023 11:24 AM CDT) [facility] HBcAb. Non Reactive Non Reactive [facility] Blood 06/27/2023 11:2 4 AM CDT 06/27/2023 12:04 PM CDT Sadiq SCHWARTZ LAB BLOOD ORDER KINGA Performing Organization Address [facility] Co de Phone Number [facility] Unless otherwise noted, all lab tests performed by: Division of Pathology and Laboratory Medicine [address] [place] [address] [phone] * TMP Interpretation Antibody Screen Negative (06/27/2023 11:24 AM CDT) [facility] TMP Auto Neg ABSC Interp At the present time, patient plasma shows no evidence of RBC alloantibodi es. [facility] Comment: MD Andria CHAMBERS [id number] Dictated by: MD Andria CHAMBERS [id number] Dictated Date/Time: 06.28.2023 9:23 AM CDT Transcribed Date/Time: 06.28.2023 9:23 AM CDT Electronically Signed By: JODI MO MD - [id number] on 06.28.2023 9:23 AM C Blood 06/27/2023 11:2 4 AM CDT 06/27/2023 1:40 PM CDT Sadiq SCHWARTZ BLOOD BANK TEST ORDERABLES [facility] Unless otherwise noted, all lab tests performed by: Division of Pathology and Laboratory Medicine [address] [place] [address] [phone] * ABORh (06/27/2023 11:24 AM CDT) Pathologist [facility] ABOR. B POS [facility] Blood 06/27/2023 11:2 4 AM CDT 06/27/2023 1:40 PM CDT Sadiq SCHWARTZ BLOOD BANK TEST ORDERABLES Performing Organization Address City/[facility] Hospital/ZIP Co de Phone Number [facility] Unless otherwise noted, all lab tests performed by: Division of Pathology and Laboratory Medicine [address] [place] [address] [phone] * (ABNORMAL) Vitamin D 25OH (06/27/2023 11:24 AM CDT) Pathologist [facility] Vitamin D 25 OH 27(L) 30 - 100 ng/mL [facility] Comment: Reference Range: Deficiency: <=20 ng/mL Insufficiency: 21-29 ng/mL Sufficiency: 30-100 ng/mL Potential toxicity: >100 ng/mL Blood 06/27/2023 11:2 4 AM CDT 06/27/2023 11:55 AM CDT Sadiq SCHWARTZ LAB BLOOD ORDER KINGA [facility] Unless otherwise noted, all lab tests performed by: Division of Pathology and Laboratory Medicine [address] [place] [address] [phone] * Hepatitis B Surface Antibody (06/27/2023 11:24 AM CDT) [facility] HBs Ab Non Reactive Non Reactive [facility] Blood 06/27/2023 11:2 4 AM CDT 06/27/2023 12:04 PM CDT Sadiq SCHWARTZ LAB BLOOD ORDER KINGA [facility] Unless otherwise noted, all lab tests performed by: Division of Pathology and Laboratory Medicine [address] [place] [address] [phone] * Hepatitis B Surface Ag (06/27/2023 11:24 AM CDT) [facility] HBsAg. Non Reactive Non Reactive [facility] Blood 06/27/2023 11:2 4 AM CDT 06/27/2023 12:04 PM CDT Sadiq SCHWARTZ LAB BLOOD ORDER KINGA [facility] Unless otherwise noted, all lab tests performed by: Division of Pathology and Laboratory Medicine [address] [place] [address] [phone] * Antibody Screen (06/27/2023 11:24 AM CDT) [facility] ABSC. Negative ABSC [facility] Blood 06/27/2023 11:2 4 AM CDT 06/27/2023 1:40 PM CDT Sadiq SCHWARTZ BLOOD BANK TEST ORDERABLES [facility] Unless otherwise noted, all lab tests performed by: Division of Pathology and Laboratory Medicine [address] [place] [address] [phone] * TSH (06/27/2023 11:24 AM CDT) [facility] TSH 0.97 0.27 - 4.20 mcunit/mL [facility] Blood 06/27/2023 11:2 4 AM CDT 06/27/2023 11:56 AM CDT Sadiq SCHWARTZ LAB BLOOD ORDER KINGA [facility] Unless otherwise noted, all lab tests performed by: Division of Pathology and Laboratory Medicine [address] [place] [address] [phone] * (ABNORMAL) Free T4 (06/27/2023 11:24 AM CDT) T4 Free 0.87(L) 0.93 - 1.70 ng/dL [facility] Blood 06/27/2023 11:2 4 AM CDT 06/27/2023 11:56 AM CDT Sadiq SCHWARTZ LAB BLOOD ORDER KINGA Performing Organization Address City/[facility] Co de Phone Number [facility] Unless otherwise noted, all lab tests performed by: Division of Pathology and Laboratory Medicine [address] [place] [address] [phone] * SPEP (06/27/2023 11:24 AM CDT) TOT PROTEIN 6.7 6.4 - 8.3 gm/dL [facility] Albumin 4.2 3.6 - 5.4 gm/dL [facility] Alpha 1 Globulin 0.3 0.2 - 0.4 gm/dL [facility] Alpha 2 Globulin 0.6 0.5 - 1.0 gm/dL [facility] Beta Globulin 0.8 0.5 - 1.1 gm/dL [facility] Gamma Globulin 0.9 0.7 - 1.6 gm/dL [facility] Blood 06/27/2023 11:2 4 AM CDT 06/27/2023 12:04 PM CDT Sadiq SCHWARTZ LAB BLOOD ORDER KINGA [facility] Unless otherwise noted, all lab tests performed by: Division of Pathology and Laboratory Medicine [address] [place] [address] [phone] * Phosphorus Level (06/27/2023 11:24 AM CDT) Phosphorus 2.8 2.5 - 4.5 mg/dL [facility] Blood 06/27/2023 11:2 4 AM CDT 06/27/2023 11:56 AM CDT Sadiq SCHWARTZ LAB BLOOD ORDER KINGA [facility] Unless otherwise noted, all lab tests performed by: Division of Pathology and Laboratory Medicine [address] [place] [address] [phone] * Magnesium Level (06/27/2023 11:24 AM CDT) Magnesium 2.0 1.6 - 2.6 mg/dL [facility] Blood 06/27/2023 11:2 4 AM CDT 06/27/2023 11:56 AM CDT Sadiq SCHWARTZ LAB BLOOD ORDER KINGA [facility] Unless otherwise noted, all lab tests performed by: Division of Pathology and Laboratory Medicine [address] [place] [address] [phone] * IgA (06/27/2023 11:24 AM CDT) IgA 180 85 - 499 mg/dL [facility] Blood 06/27/2023 11:2 4 AM CDT 06/27/2023 12:04 PM CDT Sadiq SCHWARTZ LAB BLOOD ORDER KINGA [facility] Unless otherwise noted, all lab tests performed by: Division of Pathology and Laboratory Medicine [address] [place] [address] [phone] * IgM (06/27/2023 11:24 AM CDT) IgM 61 35 - 242 mg/dL [facility] Blood 06/27/2023 11:2 4 AM CDT 06/27/2023 12:04 PM CDT Sadiq SCHWARTZ LAB BLOOD ORDER KINGA [facility] Unless otherwise noted, all lab tests performed by: Division of Pathology and Laboratory Medicine [address] [place] [address] [phone] * IgG (06/27/2023 11:24 AM CDT) Pathologist [facility] IgG 794 610 - 1,616 mg/dL [facility] Blood 06/27/2023 11:2 4 AM CDT 06/27/2023 12:04 PM CDT Sadiq SCHWARTZ LAB BLOOD ORDER KINGA Performing Organization Address City/[facility] Hospital/ZIP Co de Phone Number [facility] Unless otherwise noted, all lab tests performed by: Division of Pathology and Laboratory Medicine [address] [place] [address] [phone] * Confirm ABORh (06/27/2023 11:23 AM CDT) Pathologist [facility] ABORh Confirm. B POS [facility] Blood 06/27/2023 11:2 3 AM CDT 06/27/2023 1:42 PM CDT Sadiq SCHWARTZ BLOOD BANK TEST ORDERABLES [facility] Unless otherwise noted, all lab tests performed by: Division of Pathology and Laboratory Medicine [address] [place] [address] [phone] * EKG, 12-Lead (Scheduled) (06/27/2023) Sadiq SCHWARTZ ECG ORDERABLES PJ IECG after 06/24/2023 Care Teams Door To Door Salesperson Relationship Specialty Start Date End Date Fei Montelongo MD [address] [facility] [address] [place] [address] [email or web address] PCP - External Referring Family Practice 06/11/23 Alin Rosario MD [address] [place] [phone] [email or web address] PCP - General Lymphoma and Myeloma 06/13/23 Zaire Carreon [address] [place] [address] Cardiology 06/27/23 Naman Spann MD [address] [place] [address] [phone] [email or web address] Consulting Physician Dermatology 10/17/23 Jil Gomez MD [address] [place] [phone] [email or web address] Consulting Physician Infectious Diseases 02/27/24
[2024-06-23] MEDS ORDERED: FAMOTIDINE 20 MG/2 ML VIAL IV ONE (10:37)
[2024-06-23] MEDS ORDERED: MORPHINE 4 MG/ML SYR ONE (10:37)
[2024-06-23] MEDS ORDERED: NA CHLORIDE 0.9% 500 ML ONE ×2 (10:37→12:07)
[2024-06-23] MEDS ORDERED: ONDANSETRON 4 MG/2 ML VIAL ONE (10:37)
[2024-06-23 11:23] LABS: Absolute Lymphocytes (CBC) 0.6 K/uL (0.7-4.9); Absolute Monocytes 0.3 K/uL (0.1-1.3); Absolute Neutrophil 1.3 K/uL (1.8-8.0); Basophils % 1.3 % (0-1.3); Eosinophils % 1.6 % (0-4.4); Hematocrit 37.4 % (39.6-49.0); Hemoglobin 12.8 g/dL (13.6-17.9); Lymphocytes % 25.1 % (15.3-44.8); MCH 35.6 pg (27.0-35.0); MCHC 34.2 g/dL (32.0-36.0); MPV 9.2 fL (7.6-11.3); Monocytes % 11.9 % (3.3-12.3); Neutrophils % 60.1 % (41.7-73.7); Nucleated Red Blood Cells % 0.1 % (0-0); Platelets 116 thou/uL (152-406); Red Cell Distribution Width 18.1 % (12.1-15.2)
[2024-06-23 11:27] LABS: Specific Gravity 1.024 (1.005-1.030); Sqamous Epithelial None Seen /HPF (None Seen); Urine Bacteria None Seen /HPF (<20); Urine Bilirubin NEGATIVE (Negative); Urine Blood Negative (Negative); Urine Clarity Clear (Clear); Urine Color Yellow (Yellow); Urine Culture Reflex Order NOT NEEDED; Urine Glucose 4+ (Over) (Negative); Urine Ketones NEGATIVE (Negative); Urine Microscopic Reflex YN ORDER UMIC; Urine Mucus Slight /HPF (None Seen); Urine Nitrite NEGATIVE (Negative); Urine Protein NEGATIVE (Negative); Urine RBC None Seen /HPF (None Seen); Urine Urobilinogen Normal (Normal); Urine WBC <5 /HPF (<5)
[2024-06-23 11:41] LABS: Albumin 3.9 g/dL (3.4-5.0); Albumin/Globulin Ratio 1.3 (1.1-1.8); Anion Gap 11.2 mEq/L (5.0-15.0); Bilirubin Total 0.8 mg/dL (0.2-1.0); Potassium 3.2 mEq/L (3.5-5.1); Protein, Total 6.9 g/dL (6.4-8.2)
--- NOTE | 2024-06-23 12:08 | RAD REPORT ---
EXAM DESCRIPTION: CTAbdomen Pelvis W Contrast - 06/23/2024 11:55 am CLINICAL HISTORY: Abdominal pain. ABD PAIN COMPARISON: Abdomen Pelvis W Contrast dated 05/18/2023; BX ABD/RETRO PERC/US GUIDE dated 05/30/2023 TECHNIQUE: CT imaging of the abdomen and pelvis was performed with 100 ml non-ionic IV contrast. All CT scans are performed using dose optimization technique as appropriate and may include automated exposure control or mA/KV adjustment according to patient size. FINDINGS: The lung bases are clear.Stones are present in the gallbladder. The liver, spleen, pancreas, adrenal glands and kidneys are within normal limits. No bowel obstruction, free air, free fluid or abscess. The appendix is normal. There has been signi ficant size decrease in the lobulated mass in the central abdomen, currently measuring 6.1 x3.3 x 2.8 cm, previously 12 cm in size. Prominent sigmoid diverticulosis coli without diverticulitis. Small fa t containing right inguinal hernia. No suspicious bony findings. IMPRESSION: Multi stone cholelithiasis. Significant decrease in the size of central abdominal soft tissue mass since 05/18/2023 prior study. Prominent sigmoid diverticulosis coli without diverticulitis.
--- NOTE | 2024-06-23 12:58 | RAD REPORT ---
EXAM DESCRIPTION: US - Abdomen Exam Limited - 06/23/2024 12:36 pm CLINICAL HISTORY: Abdominal pain. COMPARISON: June 23, 2024 CT FINDINGS: Multiple gallstones. Some are present within the gallbladder neck. Gallbladder wall is not thickened The biliary tree is normal caliber. IMPRESSION: Cholelithiasis without evidence cholecystitis
[2024-06-23] MEDS ORDERED: POTASSIUM 25 MEQ EFFERV TAB ONE (13:41)
--- NOTE | 2024-06-23 14:25 | EDPHYS ---
Physician Documentation [facility] Name: Magnus Snow Age: 74 yrs Sex: Male : 1950 Arrival Date: 06/23/2024 Time: 09:47 Bed 19 Private MD: ED Physician Martir López HPI: 06/23 10:40 This 74 yrs old Male presents to ER via Wheelchair with complaints of cp Vomiting/Diarrhea, Abdominal Pain. 10:40 The patient presents to the emergency department with diarrhea, that is intermittent, cp abdominal pain, of the epigastric area, right upper quadrant and left upper quadrant. Onset: The symptoms/episode began/occurred this morning. Possible causes: bad food exposure, ate biscuits and gravy. Associated signs and symptoms: Pertinent positives: diarrhea, nausea, Pertinent negatives: constipation, fever, GI bleeding, vomiting. Severity of symptoms: in the emergency department the symptoms are unchanged despite home interventions. Historical: - Allergies: 10:11 Codeine; bp 10:11 HYDROCODONE; bp - Home Meds: 10:22 acalabrutinib maleate 100 mg oral tablet twice a day [Active]; lenalidomide 20 mg oral db capsule 1 cap daily [Active]; Rituxan intravenous every 28 days [Active]; 10:26 Effient 10 mg oral tablet 1 tab daily [Active]; metformin 500 mg Oral tab 1 tab 2 times db per day [Active]; metoprolol succinate 25 mg Oral Tb24 daily [Active]; fenofibrate 150 mg Oral cap 1 cap once daily [Active]; tamsulosin 0.4 mg Oral cap 1 cap once daily [Active]; Lipitor 80 mg Oral tab daily [Active]; Farxiga 5 mg Oral tab 1 tab once daily [Active]; ozempic 1 week sundays WEEKLY [Active]; multivitamin Oral tab daily [Active]; vitamin B complex Oral cap daily [Active]; Vitamin C 1 Oral tab 1000 mg daily [Active]; Vitamin D Oral 25 mg daily [Active]; - PMHx: 10:11 Diabetes - NIDDM; [place]- march 2020; bp 10:22 FOLLICULAR LYMPHOMA; db - Immunization history:: Adult Immunizations up to date. - Infectious Disease History:: Denies. - Social history:: Smoking status: Patient denies any tobacco usage or history of. ROS: 10:45 Constitutional: Negative for fever, cp 10:45 Eyes: Negative for injury, pain, redness, and discharge, cp 10:45 ENT: Negative for drainage from ear(s), ear pain, sore throat, difficulty swallowing, difficulty handling secretions, 10:45 Cardiovascular: Negative for chest pain, 10:45 Respiratory: Negative for cough, shortness of breath, wheezing, 10:45 Abdomen/GI: Positive for abdominal pain, nausea, diarrhea, Negative for constipation, black/tarry stool, rectal bleeding, active vomiting, 10:45 : Negative for urinary symptoms, testicular pain 10:45 Neuro: Negative for altered mental status, weakness, 10:45 All other systems are negative, Exam: 10:50 Constitutional: The patient appears in no acute distress, alert, awake, cp non-diaphoretic, non-toxic, well developed, well nourished, uncomfortable, 10:50 Head/Face: Normocephalic, atraumatic. cp 10:50 Eyes: Periorbital structures: appear normal, Conjunctiva: normal, no exudate, no injection, Sclera: no appreciated abnormality, Lids and lashes: appear normal, bilaterally, 10:50 ENT: External ear(s): are unremarkable, Nose: is normal, Mouth: Lips: moist, Oral mucosa: moist, Posterior pharynx: Airway: no evidence of obstruction, patent, erythema, is not appreciated, exudate, is not appreciated, 10:50 Neck: ROM/movement: is normal, is supple, without pain, no range of motions limitations, 10:50 Chest/axilla: Inspection: normal, 10:50 Cardiovascular: Rate: normal, Rhythm: regular, 10:50 Respiratory: the patient does not display signs of respiratory distress, Respirations: normal, no use of accessory muscles, no retractions, labored breathing, is not present, Breath sounds: are clear throughout, no decreased breath sounds, no stridor, no wheezing, 10:50 Abdomen/GI: Inspection: abdomen appears normal, Bowel sounds: active, all quadrants, Palpation: soft, in all quadrants, moderate abdominal tenderness, in the epigastric area, right upper quadrant and left upper quadrant, rebound tenderness, is not appreciated, voluntary guarding, is elicited in the epigastric area, right upper quadrant and left upper quadrant, 10:50 Back: CVA tenderness, is absent, 10:50 Neuro: Orientation: to person, place \T\ time. Mentation: is normal, Motor: moves all fours, strength is normal, Vital Signs: 10:04 BP 133 / 79; Pulse 67; Resp 18; Temp 98; Pulse Ox 100% ; db 10:15 BP 138 / 79; Pulse 69; Resp 18; Pulse Ox 99% on R/A; db 11:00 BP 149 / 73; Pulse 61; Resp 16; Pulse Ox 100% ; db 11:30 BP 133 / 74; Pulse 59; Resp 16; Pulse Ox 97% on R/A; db 12:00 BP 118 / 71; Pulse 69; Resp 18; Pulse Ox 96% on R/A; db 12:30 BP 114 / 60; Pulse 68; Resp 16; Pulse Ox 95% ; db 14:46 BP 121 / 69; Pulse 68; Resp 16; Pulse Ox 95% ; bp MDM: 10:00 Patient medically screened. 11:00 Differential diagnosis: gastritis, cholecystitis, pancreatitis, appendicitis, cp diverticulitis, viral gastroenteritis, gastroenteritis. 14:23 Data reviewed: vital signs, nurses notes, lab test result(s), radiologic studies, CT cp scan, ultrasound. 14:23 I considered the following discharge prescriptions or medication management in the emergency department Medications were administered in the Emergency Department. See MAR. Care significantly affected by the following chronic conditions: Diabetes, Cancer. Counseling: I had a detailed discussion with the patient and/or guardian regarding the historical points, exam findings, and any diagnostic results supporting the discharge/admit diagnosis, lab results, radiology results, to return to the emergency department if symptoms worsen or persist or if there are any questions or concerns that arise at home. Response to treatment: the patient's symptoms have markedly improved after treatment, and as a result, I will discharge patient. Special discussion: I have referred the patient to see his PCP for further evaluation of high blood pressure. 06/23 10:33 Order name: CBC with Diff; Complete Time: 11:36 06/23 11:36 Interpretation: Normal except: WBC 2.20; RBC 3.60; HGB 12.8; HCT 37.4; MCV 104.0; MCH cp 35.6; PLT 116; RDW 18.1; NEUT A 1.3; LYMA 0.6. 06/23 10:33 Order name: CMP; Complete Time: 11:57 06/23 11:57 Interpretation: Normal except: K 3.2; CL 110; GLUC 138; BUN 20; GFR 65; AST 14. 06/23 10:33 Order name: Lipase; Complete Time: 11:57 06/23 10:33 Order name: Urinalysis w/ reflexes; Complete Time: 11:36 06/23 14:18 Interpretation: Normal except: UGLUC 4+ (Over); UPH 8.0. 06/23 10:33 Order name: Lactate w/ 2H reflex if indic.; Complete Time: 12:12 06/23 12:12 Interpretation: Reviewed. 06/23 13:24 Order name: Lactate w/ 2H reflex if indic.: repeat; Complete Time: 14:17 06/23 13:57 Order name: Ghost Lactate-NO COLLECT Timer; Complete Time: 14:17 EDMS 06/23 10:33 Order name: CT Abd/Pelvis - IV Contrast Only; Complete Time: 12:12 06/23 12:14 Order name: US Abdomen Limited: gallbladder; Complete Time: 13:21 06/23 13:21 Interpretation: Report reviewed. 06/23 10:33 Order name: IV Saline Lock; Complete Time: 11:28 06/23 10:33 Order name: Labs collected and sent; Complete Time: 11:28 06/23 12:14 Order name: NPO; Complete Time: 12:47 cp Administered Medications: 11:05 Drug: NS 0.9% IV 500 ml IV at 500 ml/hr continuous Route: IV; Rate: 500 ml/hr; Site: db right antecubital; 11:35 Follow up: Response: No adverse reaction; IV Status: Completed infusion; IV Intake: db 500ml 11:05 Drug: Ondansetron IVP 4 mg IVP once; over 2 minutes Route: IVP; Site: right antecubital;db 11:35 Follow up: Response: No adverse reaction; Nausea is decreased db 11:05 Drug: Famotidine IVP 20 mg IVP once; dilute with 10 mL 0.9% NaCl; give over 2 minutes db Route: IVP; Site: right antecubital; 11:35 Follow up: Response: No adverse reaction db 11:05 Drug: morphine IVP or IV 4 mg IVP once over 4 mins Route: IVP; Infused Over: 4 mins; db Site: right antecubital; 11:35 Follow up: Response: No adverse reaction; Pain is decreased db 12:05 Drug: NS 0.9% IV 500 ml IV at 500 ml/hr continuous Route: IV; Rate: 500 ml/hr; Site: db right antecubital; 14:49 Follow up: IV Status: Completed infusion; IV Intake: 500ml bp 13:30 CANCELLED (Physician Discretion): potassiumeffervescent tablet 50 meq PO once; dissolve cp in 4 ounces of water or juice 13:45 Drug: Potassium PO Effervescent Tablet 25 mEq PO once; dissolve in 4 ounces of water or db juice Route: PO; 14:48 Follow up: Response: No adverse reaction bp Disposition Summary: 06/23/24 14:24 Discharge Ordered Notes: Location: Home cp Problem: new cp Symptoms: have improved cp Condition: Stable cp Diagnosis - Other cholelithiasis without obstruction cp - Diarrhea, unspecified cp Followup: cp - With: Private Physician - When: 2 - 3 days - Reason: Recheck today's complaints Discharge Instructions: - Discharge Summary Sheet cp - Diarrhea, Adult cp - Cholelithiasis cp Forms: - Medication Reconciliation Form cp - Antibiotic Education cp - Prescription Opioid Use cp - Patient Portal Instructions cp - Leadership Thank You Letter cp Prescriptions: - ondansetron 8 mg Oral Tablet,disintegrating - take 1 tablet ORAL route every 12 hours; 20 tablet; Refills: 0, Product cp Selection Permitted Addendum: 06/26/2024 09:02 Co-signature as Attending Physician, Martir López MD I reviewed the patient's care r t provided by the Advanced Practice Provider and agree with the diagnosis and treatment plan. Signatures: Dispatcher [employer] EDMS Theodore Chu PA PA cp Jalen Bennett, RN RN Aby Nguyễn RN RN Martir Mullen MD MD rt Corrections: (The following items were deleted from the chart) 06/23 10:11 10:11 PMHx: FOLLICULAR LYMPHOMA (- march 2020); bp bp 10:34 10:34 CBC+H.LAB.BRZ ordered. EDMS EDMS 10:34 10:34 COMPREHENSIVE METABOLIC PANEL+C.LAB.BRZ ordered. EDMS EDMS 10:34 10:34 LIPASE+C.LAB.BRZ ordered. EDMS EDMS 10:34 10:34 Urinalysis+U.LAB.BRZ ordered. EDMS EDMS 10:34 10:34 LACTATE+C.LAB.BRZ ordered. EDMS EDMS 13:30 13:23 Potassium PO Effervescent Tablet 50 mEq PO once; dissolve in 4 ounces of water or cp juice ordered. cp
--- NOTE | 2024-06-23 14:25 | ER ---
Nurse's Notes [facility] Name: Magnus Snow Age: 74 yrs Sex: Male : 1950 Arrival Date: 06/23/2024 Time: 09:47 Bed 19 Private MD: Diagnosis: Other cholelithiasis without obstruction;Diarrhea, unspecified Presentation: 06/23 10:08 Chief complaint: Patient states: NAUSEA, DIARRHEA AND ABDOMINAL PAIN SINCE 0700 AFTER bp EATING BISCUITS AND GRAVY, NEW CHEMO PATIENT 2/2 FOLLICULAR LYMPHOMA. Coronavirus screen: At this time, the client does not indicate any symptoms associated with coronavirus-19. Ebola Screen: No symptoms or risks identified at this time. Initial Sepsis Screen: Does the patient meet any 2 criteria? No. Patient's initial sepsis screen is negative. Does the patient have a suspected source of infection? No. Patient's initial sepsis screen is negative. Risk Assessment: Do you want to hurt yourself or someone else? Patient reports no desire to harm self or others. Onset of symptoms was June 23, 2024 at 07:00. 10:08 Method Of Arrival: Wheelchair bp 10:08 Acuity: DEBRA 3 bp Triage Assessment: 10:11 General: Appears distressed, uncomfortable, Behavior is cooperative, appropriate for bp age, anxious. Pain: Complains of pain in abdomen. GI: Reports lower abdominal pain, diarrhea, nausea. Historical: - Allergies: 10:11 Codeine; bp 10:11 HYDROCODONE; bp - Home Meds: 10:22 acalabrutinib maleate 100 mg oral tablet twice a day [Active]; lenalidomide 20 mg oral db capsule 1 cap daily [Active]; Rituxan intravenous every 28 days [Active]; 10:26 Effient 10 mg oral tablet 1 tab daily [Active]; metformin 500 mg Oral tab 1 tab 2 times db per day [Active]; metoprolol succinate 25 mg Oral Tb24 daily [Active]; fenofibrate 150 mg Oral cap 1 cap once daily [Active]; tamsulosin 0.4 mg Oral cap 1 cap once daily [Active]; Lipitor 80 mg Oral tab daily [Active]; Farxiga 5 mg Oral tab 1 tab once daily [Active]; ozempic 1 week sundays WEEKLY [Active]; multivitamin Oral tab daily [Active]; vitamin B complex Oral cap daily [Active]; Vitamin C 1 Oral tab 1000 mg daily [Active]; Vitamin D Oral 25 mg daily [Active]; - PMHx: 10:11 Diabetes - NIDDM; [place]- march 2020; bp 10:22 FOLLICULAR LYMPHOMA; db - Immunization history:: Adult Immunizations up to date. - Infectious Disease History:: Denies. - Social history:: Smoking status: Patient denies any tobacco usage or history of. Screenin:30 [facility] ED Fall Risk Assessment (Adult) History of falling in the last 3 months, db including since admission No falls in past 3 months (0 pts) Confusion or Disorientation No (0 pts) Intoxicated or Sedated No (0 pts) Impaired Gait No (0 pts) Mobility Assist Device Used No (0 pt) Altered Elimination No (0 pt) Score/Fall Risk Level 0 - 2 = Low Risk Oriented to surroundings, Maintained a safe environment. Abuse screen: Denies threats or abuse. Denies injuries from another. Nutritional screening: No deficits noted. Tuberculosis screening: No symptoms or risk factors identified. Assessment: 10:30 Reassessment: Patient appears in no apparent distress at this time. Patient and/or db family updated on plan of care and expected duration. Pain level reassessed. Patient is alert, oriented x 3, equal unlabored respirations, skin warm/dry/pink. General: Appears in no apparent distress. uncomfortable, Behavior is calm, cooperative. Pain: Complains of pain in abdomen. Neuro: Level of Consciousness is awake, alert, obeys commands, Oriented to person, place, time, situation. Respiratory: Airway is patent Respiratory effort is even, unlabored, Respiratory pattern is regular, symmetrical. GI: Abdomen is flat, non-distended, Reports lower abdominal pain, upper abdominal pain, diarrhea, nausea. 12:00 Reassessment: Patient appears in no apparent distress at this time. Patient and/or db family updated on plan of care and expected duration. Pain level reassessed. Patient is alert, oriented x 3, equal unlabored respirations, skin warm/dry/pink. 13:00 Reassessment: Patient appears in no apparent distress at this time. Patient and/or db family updated on plan of care and expected duration. Pain level reassessed. Patient is alert, oriented x 3, equal unlabored respirations, skin warm/dry/pink. 14:00 Reassessment: Patient appears in no apparent distress at this time. Patient and/or db family updated on plan of care and expected duration. Pain level reassessed. Patient is alert, oriented x 3, equal unlabored respirations, skin warm/dry/pink. Patient states feeling better. Patient states symptoms have improved. Vital Signs: 10:04 BP 133 / 79; Pulse 67; Resp 18; Temp 98; Pulse Ox 100% ; db 10:15 BP 138 / 79; Pulse 69; Resp 18; Pulse Ox 99% on R/A; db 11:00 BP 149 / 73; Pulse 61; Resp 16; Pulse Ox 100% ; db 11:30 BP 133 / 74; Pulse 59; Resp 16; Pulse Ox 97% on R/A; db 12:00 BP 118 / 71; Pulse 69; Resp 18; Pulse Ox 96% on R/A; db 12:30 BP 114 / 60; Pulse 68; Resp 16; Pulse Ox 95% ; db 14:46 BP 121 / 69; Pulse 68; Resp 16; Pulse Ox 95% ; bp ED Course: 09:49 Patient arrived in ED. [id number] 09:50 Theodore Chu PA is PHCP. cp 09:50 Martir López MD is Attending Physician. cp 10:10 Triage completed. bp 10:11 Arm band placed on. bp 10:17 Aby Garrett, RN is Primary Nurse. db 10:30 Patient has correct armband on for positive identification. Bed in low position. Call db light in reach. Side rails up X 1. Client placed on continuous cardiac and pulse oximetry monitoring. NIBP monitoring applied. monitoring and evaluation advisor on. Pulse ox on. NIBP on. Warm blanket given. Pillow given. 11:10 Initial lab(s) drawn, by me, sent to lab. Urine collected: clean catch specimen, clear. db Inserted saline lock: 22 gauge in right forearm, using aseptic technique. Blood collected. Flushed with 10 mL NS. 11:57 CT Abd/Pelvis - IV Contrast Only In Process Unspecified. EDMS 12:38 US Abdomen Limited: gallbladder In Process Unspecified. EDMS 14:46 Provided Education on: N/A. bp 14:46 No provider procedures requiring assistance completed. IV discontinued, intact, bp bleeding controlled, No redness/swelling at site. Pressure dressing applied. Administered Medications: 11:05 Drug: NS 0.9% IV 500 ml IV at 500 ml/hr continuous Route: IV; Rate: 500 ml/hr; Site: db right antecubital; 11:35 Follow up: Response: No adverse reaction; IV Status: Completed infusion; IV Intake: db 500ml 11:05 Drug: Ondansetron IVP 4 mg IVP once; over 2 minutes Route: IVP; Site: right antecubital;db 11:35 Follow up: Response: No adverse reaction; Nausea is decreased db 11:05 Drug: Famotidine IVP 20 mg IVP once; dilute with 10 mL 0.9% NaCl; give over 2 minutes db Route: IVP; Site: right antecubital; 11:35 Follow up: Response: No adverse reaction db 11:05 Drug: morphine IVP or IV 4 mg IVP once over 4 mins Route: IVP; Infused Over: 4 mins; db Site: right antecubital; 11:35 Follow up: Response: No adverse reaction; Pain is decreased db 12:05 Drug: NS 0.9% IV 500 ml IV at 500 ml/hr continuous Route: IV; Rate: 500 ml/hr; Site: db right antecubital; 14:49 Follow up: IV Status: Completed infusion; IV Intake: 500ml bp 13:30 CANCELLED (Physician Discretion): potassiumeffervescent tablet 50 meq PO once; dissolve cp in 4 ounces of water or juice 13:45 Drug: Potassium PO Effervescent Tablet 25 mEq PO once; dissolve in 4 ounces of water or db juice Route: PO; 14:48 Follow up: Response: No adverse reaction bp Medication: 10:30 VIS not applicable for this client. db Intake: 11:35 IV: 500ml; Total: 500ml. db 14:49 IV: 500ml; Total: 1000ml. bp Outcome: 14:24 Discharge ordered by MD. cp 14:46 Discharged to home ambulatory, with family, bp 14:46 Condition: stable 14:46 Discharge instructions given to patient, Instructed on discharge instructions, follow up and referral plans. medication usage, Demonstrated understanding of instructions, follow-up care, medications, Prescriptions given X 1, 14:49 Patient left the ED. bp Signatures: [facility]patcher [facility] Theodore Chu PA PA cp Peltier, Brian, RN RN Eryn Hobson [email or web address] Aby Garrett RN RN db Corrections: (The following items were deleted from the chart) :11 10:11 PMHx: FOLLICULAR LYMPHOMA (march 2020); bp pizano
[2024-06-23 14:59] VITALS: TEMP 98
[2024-06-23 15:19] VITALS: O2SAT 95
[2024-06-23 15:20] VITALS: BP 121/69
== END 2024-06-23 14:49 | disposition home or self-care (01) ==
LOC: ER 09:47
DX: K80.80 Other cholelithiasis without obstruction (principal); R19.7 Diarrhea, unspecified; E11.9 Type 2 diabetes mellitus without complications
CPT/HCPCS: 96361; 85025; 81001; 36415; 83605 ×2; 83690; 80053; 74177; 76705; 96375; 96374; 99285; Q9967; J2405; J7040 ×2